=== PATIENT | female | born 1970 | race Caucasian/White ===

== ENCOUNTER → 2017-11-30 14:08 | Outpatient (CLI) | payer OTHER, SELFPAY ==
--- NOTE | 2017-11-30 14:38 | RAD_ITS ---
STUDY: X-RAY CHEST REASON FOR EXAM: Female, 47 years old. Psoriasis TECHNIQUE: Frontal and lateral views of the chest. # of Images: 2 COMPARISON: None. FINDINGS: The lungs are clear and expanded. There is no demonstrated pleural abnormality. Normal size heart. Normal mediastinum and estuardo. Normal visualized pulmonary arteries. Normal visualized aortic arch and descending thoracic aorta. Normal visualized thoracic spine. Normal visualized ribs, clavicles, and shoulders. There is no demonstrated abnormality of the visualized soft tissue structures of the upper abdomen. RAD/Chest PA and Lateral IMPRESSION: Normal x-ray examination of the chest. Electronically Signed: Chaka Sandoval MD at 14:58 EDT Tel , Service support ,
[2017-11-30 15:42] LABS: Absolute Lymphocyte Count 1.99 X10^3/ul (0.83-4.51); Absolute Neutrophil Count 2.7 X10^3/uL (2.0-7.7); Basophil# 0.02 X10^3/uL; Basophil% 0.4 % (0-1); Eosinophil# 0.14 X10^3/uL; Eosinophils% 2.7 % (0-5); Hematocrit 34.7 % (37-47); Lymphocyte # 1.99 X10^3/ul (4.0); Lymphocyte % 37.9 % (19-41); Mean Corp Hgb Conc 31.7 g/gl (32-36); Mean Corpuscular Hgb 26.3 pg (27.0-32.0); Mean Platelet Vol. 8.5 fl (6.2-12.0); Monocyte# 0.44 X10^3/uL; Monocyte% 8.4 % (0-10); Neutrophil # 2.65 X10^3/uL (2.7-7.7); Neutrophil % 50.4 % (47-70); Platelet Count 314 K/mm3 (150-450); RBC Distribution Width CV 14.1 % (11.6-14.6); RBC Distribution Width SD 42.1 fl (35.1-43.9); Red Blood Count 4.18 M/mm3 (4.2-5.4); White Blood Count 5.3 K/mm3 (4.4-11.0)
[2017-11-30 15:50] LABS: AST(SGOT) 15 U/L (15-37); Alanine Aminotransfer ALT/SGPT 23 U/L (13-56); Albumin, Serum 3.7 g/dL (3.2-5.0); Alkaline Phosphatase 81 U/L (45-117); Anion Gap 6 (5-15); BUN 7 mg/dL (7-18); Bilirubin, Direct 0.08 mg/dL (0.00-0.30); Calcium,Total 8.9 mg/dL (8.5-10.1); Chloride 104 mmol/L (98-107); Creatinine, Serum 0.78 mg/dL (0.55-1.02); EST Glomerular Filtration Rate 84 mL/min (>60); Est Glom Filt Rate - Afr Amer 102 mL/min (>60); Globulin 3.9 g/dL (2.2-4.2); Glucose 91 mg/dL (74-106); Potassium 4.3 mmol/L (3.5-5.1); Protein, Total 7.6 g/dL (6.4-8.2); Sodium Level 138 mmol/L (136-145)
[2017-11-30 16:03] LABS: POSITIVE COUNT NO; POSITIVE DIFFERENTIAL NO; POSITIVE MORPHOLOGY NO
[2017-12-02 04:09] LABS: HEPATITIS B SURFACE AG Negative (Negative)
[2017-12-02 08:31] LABS: Hep B Surface Antibodies Reactive (.); Hep C Antibodies <0.1 s/co ratio (0.0-0.9); Hepatitis B Core Ab Total Negative (Negative)
== END ==
PROVIDERS: Family Provider Nurse Practitioner; PCP Nurse Practitioner; Referring Provider Physician Assistant; Visit Provider Physician Assistant
DX: L40.0 Psoriasis vulgaris (principal); L40.59 Other psoriatic arthropathy; L57.0 Actinic keratosis
CPT/HCPCS: 36415; 71046; 80048; 80076; 85025; 86704; 86706; 86803; 87340

== ENCOUNTER → 2017-12-14 14:42 | Outpatient (CLI) | payer OTHER, SELFPAY | PROVIDERS: Family Provider Nurse Practitioner; PCP Nurse Practitioner; Referring Provider Physician Assistant; Visit Provider Physician Assistant | DX: J02.9 Acute pharyngitis, unspecified (principal) | CPT/HCPCS: 87081 ==

== ENCOUNTER → 2018-01-23 14:51 | Outpatient (CLI) | payer OTHER, SELFPAY ==
[2017-12-13 10:19] VITALS: BMI 30.4
--- NOTE | 2018-01-23 14:53 | RAD_ITS ---
STUDY: X-RAY LEFT FOOT, TOES REASON FOR EXAM: Female, 47 years old. Pain and redness in the left third digit. Also fungal infection in the fifth toe. TECHNIQUE: 3 view(s) of the toes were obtained. COMPARISON: None. FINDINGS: Normal visualized metatarsus. Normal metatarsophalangeal (M.T.P) joint. Normal interphalangeal joints. Normal phalanges and interphalangeal joints. The soft tissue structures are unremarkable. RAD/Toe(s) Min 2 Views IMPRESSION: Within normal limits x-ray of the toes. Electronically Signed: Dorinda Zaragoza MD at 10:35 EST Tel , Service support ,
[2018-01-23 19:00] LABS: Uric Acid 2.8 mg/dL (2.6-6.0)
--- OUTSIDE RECORDS SUMMARY | 2018-03-11 20:35 | XMS RPT_ITS | Continuity of Care Document ---
:1970 Author Organization [facility] Address [address] [facility] [address] [place] [address] Phone Care Team Providers Name Role Phone Arlyn SHINHeather E Unavailable Sy Lewis Jr Unavailable Physical Therapy, [facility] Unavailable [facility] Unavailable [facility], [facility] Unavailable Katty Orlando Unavailable Dr. Quinn Burgess Unavailable Annette Aleman Unavailable Unavailable Varghese BANERJEENYi Unavailable Unavailable Beatriz Palmer Unavailable Unavailable Nichelle Tristan DO Unavailable Slarb [employer] GRINDER APPRENTICE, Diann Unavailable Unavailable Unavailable Unavailable Problems Name Dates Details Abdominal pain, acute, right lower quadrant (R10.31, 789.03) Status: Active Abdominal pain, diffuse (R10.84, 789.00) Comments: recently restarted otesela, worse rlq Status: Active Anemia (D64.9, 285.9) Status: Active Anemia, unspecified (D64.9, 285.9) Status: Active ANGIOEDEMA, NOS (995.1) Status: Active Anxiety (F41.9, 300.00) Comments: chronic stable-continue present regimen, cymbalta and deplin improving Status: Active Arthritis (M19.90, 716.90) Status: Active Blurry vision, bilateral (H53.8, 368.8) Comments: [facility]) 01/28 : decresed tear film, eye changes due to psoriatic arthriotisHead CT: WNL (01/28) Status: Active BMI 31.0-31.9,adult (Z68.31, V85.31) Status: Active BMI 33.0-33.9,adult (Z68.33, V85.33) Status: Active BMI 34.0-34.9,adult (Z68.34, V85.34) Status: Active Breast cancer screening (Z12.31, V76.10) Status: Active BREAST PROCEDURE, NOS Comments: Biopsy Status: Active Breast tenderness (N64.4, 611.71) Status: Active Cervical pain (neck) (M54.2, 723.1) Status: Active Cervical radiculopathy (M54.12, 723.4) Comments: decreased range of motion pain from neck/should to mid arm or left wrist prn Status: Active Cough (R05, 786.2) Status: Active Deliveries (Parity) Comments: 2 Status: Active Depression (F32.9, 311) Comments: good with cymbalta Status: Active Depression (F32.9, 311) Comments: crying without provoke and unable to stop Status: Active Disorder of the skin and subcutaneous tissue, unspecified (L98.9, 709.9) Status: Active ECZEMA, NOS (692.9) Status: Active Elevated blood pressure (not hypertension) (R03.0, 796.2) Comments: check bps at home and call to me Status: Active Encounter for screening mammogram for breast cancer (Renamed from Encounter for screening mammogram for malignant neoplasm of breast) (Z12.31, V76.12) Status: Active Eustachian tube dysfunction (H69.80, 381.81) Status: Active Fatigue (R53.83, 780.79) Status: Active Fever (R50.9, 780.60) Status: Active Fibromyalgia (M79.7, 729.1) Status: Active Gestational DM (648.80) Status: Active Headache (R51, 784.0) Comments: multifactorial - predominantly muscle tension Status: Active Hemorrhoids (K64.9, 455.6) Status: Active History of gestational diabetes mellitus (Z86.32, V12.21) Comments: sugar normal encourage keep working on diet and ex Status: Active HTN (hypertension) (I10, 401.9) Comments: BP today 158/88On sudafed off and onCheck BP daily and call with BP reading in 2 weeks. Old BP cuff 5 yrs aold, get a new Status: Active Hypercholesteremia (E78.00, 272.0) Status: Active Low HDL (under 40) (E78.6, 272.5) Status: Active Migraine (G43.909, 346.90) Comments: per Bavis Status: Active Muscle spasm (M62.838, 728.85) Comments: Ct head: wnl(01/28)CBC, CMP, CK: wnlRefer to neurologySkelaxin BID PRN, helped mildy116 Muscle spasm toes , feet, back of leg, rib cage, back of torsoAll of a sudden, positional, hand lock up when gra bbing purseNumbness /tingling rt arm 1 week ago Numbness/tingling in left arm this morningOccasional blurry vision 2-3 times this month.(cannot read fine print things in distance )Denies headaches Status: Active Muscle strain (T14.8XXA, 848.9) Comments: rx cervical collar to reduce tension and stress temporarily Status: Active Nausea (R11.0, 787.02) Status: Active Neck pain (M54.2, 723.1) Status: Active Nipple discharge (N64.52, 611.79) Comments: left nipple Status: Active Nonsmoker (Z78.9, V49.89) Status: Active Other signs and symptoms in breast (N64.59, 611.79) Status: Active Other specified abnormal findings of blood chemistry (R79.89, 790.6) Status: Active Other specified viral infection, in conditions classified elsewhere and of unspecified site (B97.89, 079.89) Comments: because immonusuppressed, if not better at day 7 take antibiotic Status: Active Pain around eye, unspecified laterality (H57.10, 379.91) Status: Active Pain in thoracic spine (M54.6, 724.1) Status: Active Palpitations (R00.2, 785.1) Status: Active Paresthesia (R20.2, 782.0) Comments: try cock up splints if not better let me know Status: Active Pregnancies () Comments: 2 Status: Active Psoriasis (L40.9, 696.1) Status: Active psoriatic arthritis Status: Active Psoriatic arthropathy (L40.50, 696.0) Status: Active Right flank discomfort (R10.9, 789.09) Comments: resolved Status: Active Right flank discomfort (R10.9, 789.09) Comments: doubt stone think musculoskeletal Status: Active screening Status: Active Sinusitis, acute (J01.90, 461.9) Status: Active Sinusitis, chronic (J32.9, 473.9) Comments: On sudafed but BP are highUsed OTC allergy pill , not helps muchAllergic sinusitis, use desloratidine and fkonase nasal sprayclear nasal drainageSinus pressure after laying downNot yellow or green. Status: Active T wave inversion in EKG (R94.31, 794.31) Comments: Echo: 02/04/16: EF 65%Stress test: 01/28: WNL Status: Active Tachycardia (R00.0, 785.0) Comments: EKGEChotachycardia, can hear heart beat blood pumping in ear Status: Active telangiectasia Status: Active thoracic strain-improving Status: Active Thrush (B37.0, 112.0) Status: Active Thyroid fullness (E07.89, 246.8) Status: Active Toe pain, left (M79.675, 729.5) Status: Active Unspecified Diagnosis Status: Active Unspecified Diagnosis Status: Active Unspecified Diagnosis Status: Active Unspecified visual disturbance (H53.9, 368.9) Status: Active Upper respiratory infection (J06.9, 465.9) Status: Active Upper respiratory infection (J06.9, 465.9) Status: Active UTI symptoms (R39.9, 788.99) Status: Active Vertigo (R42, 780.4) Status: Active Medications Name Dates Details BENADRYL, 25MG (Oral Tablet) 2 (two) Tablet Tablet 1 hr prior to test for 0 days Quantity: 2 {Tablet} Refills: 0 Ordered:04-May-2015 Torri Velasco Start : 19-Aug-2013 Active Cymbalta 60 MG Oral Capsule Delayed Release Particles 1 (one) Capsule DR Part qam for 0 days Quantity: 30 {Capsule} Refills: 3 Ordered:16-Jan-2018 Heather Stoddard CNP, CNP, Mary E Start : 16-Jan-2018 Active Comments:dispense generic Deplin 15 15-90.314 MG Oral Capsule 1 (one) Capsule Capsule daily for 0 days Quantity: 30 {Capsule} Refills: 11 Ordered:03-Aug-2016 Diann Braxton LPN Start : 03-Aug-2016 Active DERMA-SMOOTHE/FS BODY, 0.01% (External Oil) apply to damp body sparingly Oil qd for 0 days Quantity: 4 {Ounce(s)} Refills: 0 Ordered:12-Jun-2015 Yi Kwong LPN Start : 12-Jun-2015 Active Comments:use sparingly -- a little goes a long way ProAir HFA 108 (90 Base) MCG/ACT Inhalation Aerosol Solution 1-2 Puff Q 4-6 hours PRN for 0 days Quantity: 1 {Inhaler} Refills: 0 Ordered:09-Mar-2017 Becca Cisneros Start : 09-Mar-2017 Active NEREYDA ALLERGY, 180MG (Oral Tablet) 1 Tablet daily for 0 days Quantity: 30 {Tablet} Refills: 0 Ordered:15-Nov-2011 Dina Spence LPN Start : 02-Nov-2010 End : 15-Nov-2011 Inactive AMOXICILLIN, 875MG (Oral Tablet) 1 Tablet bid for 10 days Quantity: 20 {Tablet} Refills: 0 Ordered:13-Jun-2013 Heather Stoddard CNP, CNP, Mary E Start : 13-Jun-2013 End : 23-Jun-2013 Inactive Comments:take a probiotic 2 hours after atb ANTIVERT, 12.5MG (Oral Tablet) 1 Tablet q6 hrs prn for 0 days Quantity: 30 {Tablet} Refills: 0 Ordered:20-Apr-2012 Dina Spence LPN Start : 05-Dec-2011 End : 20-Apr-2012 Inactive Augmentin 875-125 MG Oral Tablet 1 Tablet bid for 10 days Quantity: 20 {Tablet} Refills: 0 Ordered:09-Mar-2017 Becca Cisneros Start : 09-Mar-2017 End : 19-Mar-2017 Inactive Comments:Take with food CHERATUSSIN AC, 100-10MG/5ML (Oral Syrup) 1 Teaspoon(s) qhs prn cough for 0 days Quantity: 6 {Ounce(s)} Refills: 0 Ordered:21-Mar-2011 Dina Spence LPN Start : 02-Nov-2010 End : 21-Mar-2011 Inactive Comments:six ounces Cipro 500 MG Oral Tablet 1 Tablet Tablet bid for 7 days Quantity: 14 {Tablet} Refills: 0 Ordered:08-Dec-2015 Arlyn MELISSA, Heather Wright SHIN, Cris Start : 08-Dec-2015 End : 15-Dec-2015 Inactive CLARITHROMYCIN, 500MG (Oral Tablet) 1 (one) Tablet Tablet bid for 0 days Quantity: 20 {Tablet} Refills: 0 Ordered:25-May-2015 Cece Acevedo Start : 04-May-2015 End : 25-May-2015 Inactive CLOTRIMAZOLE, 10MG (Mouth/Throat Raquel) 1 (one) Raquel 5 x daily for 10 days Quantity: 50 {Raquel} Refills: 0 Ordered:11-May-2015 Rejisupa MELISSA, Heather Wright RESIDENT[employer] FRAMING CARPENTER, Cris Start : 11-May-2015 End : 21-May-2015 Inactive ETODOLAC CR, 400MG (Oral Tablet Extended Release 24 Hour) 2 (two) Tablet ER 24HR qd for 0 days Quantity: 30 {Tablet_ER_24HR} Refills: 0 Ordered:14-Jul-2009 Mast Anika CLOUD Start : 07-Jul-2009 Inactive Comments:with food FLONASE, 50MCG/ACT (Nasal Suspension) 2 (two) Puff(s) once daily for 0 days Quantity: 1 {Suspension} Refills: 0 Ordered:20-Apr-2012 Dina Spence LPN Start : 02-Nov-2010 End : 20-Apr-2012 Inactive FOLIC ACID, 1MG (Oral Tablet) 2 (two) Tablet daily for 365 days Refills: 0 Ordered:15-Nov-2011 Dina Spence LPN Start : 02-Nov-2010 End : 02-Nov-2011 Inactive Levaquin 500 MG Oral Tablet 1 (one) Tablet daily for 0 days Quantity: 10 {Tablet} Refills: 0 Ordered:02-Feb-2016 Varghese JUANJordyn Anthony Start : 08-Dec-2015 End : 02-Feb-2016 Inactive lortab 1 qd Inactive MELATONIN, 1MG (Oral Tablet) 1 tab qhs, prn for 0 days Refills: 0 Ordered:29-Jul-2009 Sirl, PattiInactive NASACORT AQ, 55MCG/ACT (Nasal Aerosol Solution) 2 (two) Aerosol Soln qd for 0 days Refills: 0 Ordered:02-May-2008 ROSANNA Boggs Start : 02-May-2008 End : 09-Sep-2008 Inactive OCUFLOX, 0.3% (Ophthalmic Solution) 1 Solution 1-2 -6 hrs for 7 days Quantity: 1 {Solution} Refills: 0 Ordered:17-Jun-2008 Heather Stoddard CNP, CNP, Mary E Start : 17-Jun-2008 End : 24-Jun-2008 Inactive PEPCID AC, 10MG (Oral Tablet) 1 qd (10 MG) Inactive PHENERGAN, 25MG/ML (Injection Solution) 1 Solution once only for 1 days Refills: 0 Ordered:16-Nov-2011 Yuki Vallecillo LPN Start : 15-Nov-2011 End : 16-Nov-2011 Inactive Comments:Lot #[id number]-right hipDose-25mggiven by: Adela Vallecillo LPN PREDNISONE, 10MG (Oral Tablet) 1/2 Tablet daily for 30 days Refills: 0 Ordered:09-Feb-2011 Dina Spence LPN Start : 02-Nov-2010 End : 02-Dec-2010 Inactive Rizatriptan Benzoate 10 MG Oral Tablet 1 (one) Tablet q 2 hours as needed for 0 days Quantity: 30 {Tablet} Refills: 0 Ordered:09-Mar-2017 Becca Cisneros Start : 03-Aug-2016 End : 09-Mar-2017 Inactive Comments:Medication taken as needed. neuro Skelaxin 800 MG Oral Tablet 1 (one) Tablet bid prn for 7 days Quantity: 14 {Tablet} Refills: 0 Ordered:15-Apr-2016 Heather Stoddard CNP, CNP, Heather Wells Start : 15-Apr-2016 End : 22-Apr-2016 Inactive TESSALON PERLES, 100MG (Oral Capsule) 1 (one) Capsule tid prn cougn for 0 days Quantity: 30 {Capsule} Refills: 0 Ordered:25-May-2015 Cece Acevedo Start : 11-May-2015 End : 25-May-2015 Inactive VALERIAN ROOT, 250MG (Oral Capsule) 2 caps q hs, prn for 0 days Refills: 0 Ordered:29-Jul-2009 Sirl, PattiInactive VALIUM, 5MG (Oral Tablet) 1 (one) Tablet qhs prn for 0 days Quantity: 10 {Tablet} Refills: 0 Ordered:11-Mar-2010 Becca Hernandez LPN Start : 02-Sep-2009 End : 11-Mar-2010 Inactive VICODIN, 5-500MG (Oral Tablet) 1 tab q 6hrs, prn (5-500 MG) Inactive NEREYDA-D 12 HOUR, 60-120MG (Oral Tablet Extended Release 12 Hour) 1 Tablet ER 12HR q12hrs for 0 days Quantity: 10 {Tablet_ER_12HR} Refills: 0 Ordered:18-Mar-2010 Dina Spence LPN Start : 18-Mar-2010 End : 02-Nov-2010 Discontinued Comments:This order discontinued per [facility]. ARAVA, 10MG (Oral Tablet) 1 Tablet daily for 30 days Quantity: 30 {Tablet} Refills: 0 Ordered:07-Apr-2015 Diann Braxton LPN Start : 30-Apr-2013 End : 07-Apr-2015 Discontinued BLACK COHOSH, 1000MG (Oral Capsule) 1 cap prn for 0 days Refills: 0 Ordered:29-Jul-2009 Zach Leanne End : 29-Jul-2009 Discontinued Comments:This order discontinued per [facility]. Cyclobenzaprine HCl 10 MG Oral Tablet 1-2 tabs Tablet q hs for 0 days Quantity: 30 {Tablet} Refills: 0 Ordered:03-Aug-2016 Diann Braxton LPN Start : 03-Oct-2013 End : 03-Aug-2016 Discontinued Comments:Dr. April ALCALA, 30MG/5ML (Oral Liquid Extended Release) 1 (one) Liquid ER Liquid ER q12hrs for 0 days Quantity: 6 {Ounce} Refills: 0 Ordered:07-Apr-2015 Diann Braxton LPN Start : 05-Jun-2013 End : 07-Apr-2015 Discontinued Desloratadine 5 MG Oral Tablet Dispersible 1 (one) Tablet Disperse daily for 30 days Quantity: 30 {Tablet} Refills: 2 Ordered:03-Aug-2016 Diann Braxton LPN Start : 17-Feb-2016 End : 03-Aug-2016 Discontinued HUMIRA PEN, 40MG/0.8ML (Subcutaneous Pen-injector Kit) 1 Kit 2 X mo for 30 days Quantity: 30 Kit Refills: 0 Ordered:07-Apr-2015 Diann Braxton LPN Start : 30-Apr-2013 End : 07-Apr-2015 Discontinued Hydrocodone-Acetaminophen 5-325 MG Oral Tablet 1 (one) Tablet q 6 hours prn for 0 days Quantity: 30 {Tablet} Refills: 0 Ordered:03-Aug-2016 Diann Braxton LPN Start : 21-Aug-2015 End : 03-Aug-2016 Discontinued Comments:thirty METHOTREXATE, 2.5MG (Oral Tablet) 5 Tablet once a week for 365 days Refills: 0 Ordered:09-Feb-2011 Sola Rea DO Start : 09-Feb-2011 End : 09-Feb-2011 Discontinued METHYLPREDNISOLONE, 32MG (Oral Tablet) 1 (one) Tablet Tablet 12hrs and 2hrs prior to test for 0 days Quantity: 2 {Tablet} Refills: 0 Ordered:07-Apr-2015 Diann Braxton LPN Start : 19-Aug-2013 End : 07-Apr-2015 Discontinued Otezla 30 MG Oral Tablet 1 (one) Tablet bid for 0 days Quantity: 30 {Tablet} Refills: 0 Ordered:03-Aug-2016 Diann Braxton LPN Start : 07-Apr-2015 End : 03-Aug-2016 Discontinued PASSION FLOWER, 250MG (PO Cap) 2 caps prn for 0 days Refills: 0 Ordered:29-Jul-2009 Leanne Serrano End : 29-Jul-2009 Discontinued Comments:This order discontinued per [facility]. PredniSONE 20 MG Oral Tablet 1 (one) Tablet qd for 0 days Quantity: 3 {Tablet} Refills: 0 Ordered:01-Dec-2015 Slarb PREC[employer] GRINDER APPRENTICE, Diann Start : 21-Aug-2015 End : 01-Dec-2015 Discontinued PROMETHAZINE HCL, 25MG (Oral Tablet) 1 Tablet q6hrs prn for nausea for 0 days Quantity: 10 {Tablet} Refills: 0 Ordered:07-Apr-2015 Slarb [employer] GRINDER APPRENTICE, Diann Start : 23-Dec-2013 End : 07-Apr-2015 Discontinued ROBAXIN, 500MG (Oral Tablet) 1 Tablet three times daily, as needed for 1440 days Refills: 0 Ordered:04-Sep-2012 Sola Rea DO Start : 04-Sep-2012 End : 04-Sep-2012 Discontinued Comments:Medication taken as needed. TRAMADOL HCL, 50MG (Oral Tablet) 1 Tablet three times daily, as needed for 1620 days Refills: 0 Ordered:07-Apr-2015 Slarb [employer] GRINDER APPRENTICE, Diann Start : 21-Mar-2011 End : 07-Apr-2015 Discontinued Comments:Medication taken as needed. Valium 2 MG Oral Tablet 1-2 Tablet Tablet bid prn muscle spams for 0 days Quantity: 60 {Tablet} Refills: 0 Ordered:03-Aug-2016 Slarb [employer] GRINDER APPRENTICE, Diann Start : 21-Aug-2015 End : 03-Aug-2016 Discontinued Comments:sixty Allergies and Adverse Reactions Name Dates Details Guiafenisin (Allergy) Status: Active Comments: trouble sleeping IODINE, 2% (External Swab) (Allergy) Status: Active Lodine *ANALGESICS - ANTI-INFLAMMATORY* Status: Active (Allergy) Comments: Angioedema, Rash NSAIDs (Allergy) Status: Active Comments: lip and face swelling Sulfa Drugs (Allergy) Status: Active Comments: -domonique baez sgeovanna Past Medical History Name Dates Details Abdominal pain, acute, generalized (R10.84, 789.07) Comments: think this is muscle tear seems to be getting better- Status: Resolved as of 04-Sep-2012 Abnormal urinalysis (Renamed from Abnormal finding on urinalysis) (R82.90, 791.9) Status: Inactive as of 21-Aug-2015 Acute bronchitis (J20.9, 466.0) Comments: 1988 Status: Inactive as of 17-Jul-2009 Allergic rhinitis (J30.9, 477.9) Status: Inactive as of 21-Aug-2015 Backache (M54.9, 724.5) Status: Inactive as of 21-Aug-2015 Benign paroxysmal positional vertigo, unspecified laterality (H81.10, 386.11) Status: Resolved as of 17-Jul-2012 Bursitis of hip (M70.70, 726.5) Status: Inactive as of 21-Aug-2015 Chest pain (R07.9, 786.59) Status: Resolved as of 17-Jul-2012 Chest pain (R07.9, 786.50) Comments: cardio work up neg, no new complaints Status: Resolved as of 17-Jul-2012 Cystitis, acute (N30.00, 595.0) Status: Resolved as of 04-Sep-2012 Dysuria (R30.0, 788.1) Comments: resolved with cipro Status: Resolved as of 30-Apr-2013 Epigastric pain (R10.13, 789.06) Comments: offered referral to Gi- at thispoint she wants to hold off =check echo Status: Inactive as of 04-Aug-2008 Fibromyalgia (M79.7, 729.1) Comments: chronic stable-continue present regimen Status: Inactive as of 21-Aug-2015 Hematuria (R31.9, 599.7) Status: Inactive as of 04-Aug-2008 Left flank pain (R10.9, 789.09) Comments: UAConsider CT scan for stone protocolstarted this morning, 04/22 , not getting worse, throbbingNo frequency, urgency, nocturia, dysuria. Status: Inactive as of 17-Feb-2016 Lymphadenitis,Acute (683.) (683) Status: Resolved as of 17-Jul-2012 nasal lesion- refer to Black Status: Inactive as of 04-Aug-2008 OTALGIA NOS (388.70) Status: Resolved as of 17-Jul-2012 Pharyngitis, acute (J02.9, 462) Status: Resolved as of 30-Apr-2013 screening Status: Inactive as of 30-Apr-2013 Serous conjunctivitis, unspecified laterality (H10.239, 372.01) Status: Inactive as of 04-Aug-2008 Shoulder pain (M25.519, 719.41) Comments: she is waiting for mri results Status: Inactive as of 21-Aug-2015 sinus congestion Status: Inactive as of 04-Aug-2008 Unspecified Diagnosis Status: Inactive as of 30-Apr-2013 Unspecified Diagnosis Status: Inactive as of 30-Apr-2013 Unspecified Diagnosis Status: Inactive as of 30-Apr-2013 Unspecified Diagnosis Status: Inactive as of 30-Apr-2013 Urinary frequency (R35.0, 788.41) Status: Inactive as of 21-Aug-2015 Procedures Date Value Details 13-Dec-2017 Urgent Care Visit Report Result: Comments: See Note; NOTES: [facility] [address] [place] [address] [address] [place] [address] OFFICE VISIT Date of Service: 12/13/17 MR#: [id number] Acct: [id number] Name: DEJA LIM Rep #: [id number] : 1970 Provider: Dick SPARKS Age/Sex: 47/F Location: [facility] Status: Signed Intake Vital Signs12/13/17 Height 5 ft 3 in 12/13/17 Weight: 172 lb 12/13/17 Body Mass Index (BMI) 30.4 12/13/17 Blood Pressure 132/84 H 12/13/17 Respiratory Rate 16 Intake Visit Reasons: STREP Chief Complaint: Sore throat Senior Partner Required: No Accompanied by: SELF Is patient in pain?: No Allerg ies NSAIDS (Non-Steroidal Anti-Inflamma Allergy (Mild, Verified 12/13/17 10:21) SWELLING/VOMITTING Sulfa (Sulfonamide Antibiotics) Allergy (Mild, Verified 12/13/17 10:21) SWELLING/VOMITTING Iodinated C ontrast- Oral and IV Dye [Iodinated Contrast Media - IV Dye] Allergy (Verified 12/13/17 10:21) Hives Medications duloxetine 20 mg capsule,delayed release 20 mg PO BID 12/13/17 [History Confirmed 11/15 03/02] melatonin 5 mg capsule mg PO cap 12/13/17 [History Confirmed 12/13/17] PFSH Medical History Arthritis (Acute) Chronic neck and back pain (Acute) Fi bromyalgia (Acute) HISTORY OF BONE SPUR IN SHOULDER (Acute) Knee pain (Acute) Shoulder pain (Acute) Social History Smoking Status: Never smoker alcohol intake: never HPI HPI Chief Complaint: Sore throat Details: DEJA LIM, is a 47 F who presents to the office today for initial evaluation sore throat times 2-3 days and bilateral axillary discomfort. She notes developing erythema with white exud ate to the same though no complaints of fever, chills, sweats, rash, cough, chest pain/shortness of breath. She notes painful swallowing with food and fluids though no difficulty passing food or fluids and no drooling. She does note having recently been prescribed Cosentyx by her assistant professor of spanish to assist with her psoriasis/psoriatic arthritis, having giving herself 2 injections of this medication today . She notes no other associated symptoms and no other alleviating or aggravating factors. ROS Const Constitutional: No other (ROS negative x10 other than as noted above) Exam Const General: cooperat gonzalez, healthy appearing, no acute distress, comfortable Nutritional Appearance: average body habitus Orientation: alert, awake, oriented x3 HENMT Head: normal to inspection Ears: hearing grossly normal b ilaterally, external ears normal, TM's normal bilaterally, EAC's normal Nose: external nose normal, nares normal, septum normal, no nasal discharge Face and sinus: normal facial exam, sinuses nontender, face symmetric Mouth: oral mucosae normal, lip normal, oropharynx normal, tongue normal Teeth and gingiva: gingiva normal, dentition normal Throat: uvula midline, posterior oropharynx normal, abnormal tonsil bilaterally (Rapid strep test today negative) erythema and exudates Eyes General: appearance normal, both eyes and all related structures Neck Neck: normal visual inspection, full ROM, no lymphad enopathy, no meningeal signs, supple Neck mass: No Thyroid: thyroid normal Lymphatic: no lymphadenopathy noted (To anterior/posterior cervical and bilateral axillary) Chest Chest palpation AND inspectio n: normal inspection of the chest Resp Effort AND Inspection: normal respiratory effort, able to speak in complete sentences, symmetric chest movement Auscultation: Bilateral: Clear to Auscultation Card io Palpation: normal PMI Rate: regular rate Rhythm: regular rhythm Heart Sounds: S1 normal, S2 normal, no gallops, no murmurs, no rubs Pulses: radial pulses present GI Inspection: normal to inspection P alpation: soft, no hepatosplenomegaly Skin General: no rashes or lesions noted Neuro General: alert, awake, oriented x3, gait normal Cognition: normal cognition Speech: speech normal Gait: normal gait M otor: muscle tone normal throughout Sensory Exam: no sensory deficits noted Extrem General: normal to inspection Psych Appearance: grossly normal Mental Status: mental status grossly normal Mood: congru ent mood Affect: normal affect Speech and Movement: speech and movement normal Attitude: cooperative Thought Process: normal Thought Content: normal Judgment: judgment good Results BMSRAPIDSTREPA Off ice Rapid Strep A Negative Last Edit by Abi Londono on 12/13/17 10:32 Assessment AND Plan Problems 1. Pharyngitis J02.9 Plan Patient aware today's rapid strep test was negative, therefore culture se nt to lab for further evaluation. Clear fluids, rest, Advil/Tylenol, saltwater gargles as needed for symptomatic relief. Patient is to inform her assistant professor of spanish and/or PCP regarding the above described s ymptoms in the HPI coupled with history of times 2 injections of Cosentyx to date. Patient states acknowledging understanding all the above. This note was generated with Simfinitation software. It ma y contain incorrect words, spelling, and punctuation that were not noted in checking the note before signing. Orders Orders: Coding Level of Care Code Off vis,new,level 3 Diagnoses Pharyngitis J02. 9 12/13/17 1054 <Electronically signed by Dick SPARKS> Date Dick SPARKS Cosigner Signature: Date (if applicable) CC: 30-Nov-2017 Chest PA and Lateral Result: Comments: See Note; NOTES: [facility] [address] [place] [address] Chest PA and Lateral MR#: [id number] Acct: [id number] Name: DEJA LIM Rep #: [id number] : 1970 F 47 From: Chaka Sandoval MD PCP: Heather Stoddard NP Status: REG CLI Study: Chest PA and Lateral Date of Exam: 11/30/17 Exam# [id number] Ordering Dr: Ayesha Howell PA-C STUDY: X-RAY CHEST CHRISTIANO SON FOR EXAM: Female, 47 years old. Psoriasis TECHNIQUE: Frontal and lateral views of the chest. # of Images: 2 COMPARISON: None. FINDINGS: The lungs are clear a nd expanded. There is no demonstrated pleural abnormality. Normal size heart. Normal mediastinum and estuardo. Normal visualized pulmonary arteries. Normal visualized aortic arch and descending thoracic ao rta. Normal visualized thoracic spine. Normal visualized ribs, clavicles, and shoulders. There is no demonstrated abnormality of the visualized soft tissue structures of the upper abdomen. RAD/Chest PA and Lateral IMPRESSION: Normal x-ray examination of the chest. Electronically Signed: Chaka Sandoval MD at 14:58 EDT Tel , Service support , CC: Heather Stoddard RELAY DISPATCHER; Ayesha Howell Cell Operation Supervisor: Signed 19-Sep-2016 Breast Limited Unilateral Result: Comments: See Note; NOTES: [facility] Imaging Services [address] [place] [address] Breast Limited Unilateral MR#: [id number] Acct: [id number] Name: DEJA LIM Rep #: [id number] : 1970 F 46 From: Fabricio Hanna MD PCP: Heather Stoddard Status: REG CLI Study: Breast Limited Unilateral Date of Exam: 09/19/16 Exam# [id number] Ordering Dr: Heather Stodadrd STUDY: ULTRASO UND BREAST - LEFT REASON FOR EXAM: Female, 46 years old. Left nipple discharge. TECHNIQUE: Axial and longitudinal images of the LEFT breast were performed with a high resolution ultrasound transducer. COMPARISON: Comparison is made with prior mammogram done earlier today. FINDINGS: LEFT Breast: There is evidence of a dilated retroareolar ducts. There is a 1.7 c m x 1.2 cm x 0.6 cm cyst at the 6:00 position of the breast at 1 cm from the nipple. US/Breast Limited Unilateral IMPRESSION: Dilated subareolar ducts. Findings suggestive of a 1.7 cm x 1.2 cm x 0.6 cm cyst at the 6:00 position breast at 1 cm from the nipple. ASSESSMENT CATEGORY: BIRADS Category 2: Benign. A letter regarding these results will be sent to the patient by the facility within 30 days. Electronically Signed: Fabricio Hanna MD at 8:17 EDT Tel [phone], Service support [phone], CC: Heather Stoddard Cell Operation Supervisor: Signed 19-Sep-2016 DIAG MAMM W/CAD, BILAT Result: Comments: See Note; NOTES: [facility] Imaging Services [address] [place] [address] DIAG MAMM W/CAD, BILAT MR#: [id number] Acct: [id number] Name: DEJA LIM Rep #: [id number] : 1970 F 46 From: Fabricio Hanna MD PCP: Heather Stoddard Status: REG CLI Study: DIAG MAMM W/CAD, BILAT Date of Exam: 09/19/16 Exam# [id number] Ordering Dr: Heather Stoddard MAMMOGRAPHY - BILATE RAL SCREENING REASON FOR EXAM: Female, 46 years old. Routine annual screening examination. PERTINENT HISTORY: Left nipple discharge. TECHNIQUE: Digital bilateral breast rylee (3D mammographic acquisit ion) in the CC and MLO projections. 2-D mediolateral oblique (MLO) and craniocaudad (CC) views of both breasts were obtained. CAD: Full Field Digital Mammography with Computer Added Detection was perfor med. COMPARISON: Comparison is made with prior study dated May 18, 2015 and October 03, 2013. FINDINGS: Breast Composition: The breasts are heterogeneously dense, w hich may obscure small masses. There are no dominant masses or suspicious calcifications. No other significant abnormalities are identified. There has been no significant change since the prior study. HPBI/DIAG MAMM W/CAD, BILAT IMPRESSION: Stable bilateral screening mammogram. With the patient's history of left nipple discharge, correlation w ith ultrasound is recommended. ASSESSMENT CATEGORY: BIRADS Category 0: Incomplete. Need additional imaging evaluation. A letter regarding these results will be sent to the patient by the facility within 30 days. Approximately 10% of breast cancers are not detected by mammography. A normal mammogram should not delay biopsy of a clinically suspicious abnormality. [id number] Electronically Signed: Fabricio Hanna MD at 15:52 EDT Tel [phone], Service support , CC: Heather Stoddard Cell Operation Supervisor: Signed 03-Aug-2016 Thyroid Result: Comments: See Note; NOTES: [facility] Imaging Services [address] [place] [address] Verdana 4d Thyroid MR#: [id number] Acct: [id number] Name: DEJA LIM Rep #: [id number] OB: 1970 F 46 From: Torri Pike MD PCP: Heather Stoddard Status: REG CLI Study: Thyroid Date of Exam: 08/03/16 Exam# [id number] Ordering Dr: Heather Stoddard STUDY: THYROID ULTRASOUND REASON FOR EXAM : Female, 46 years old. Goiter TECHNIQUE: Ultrasound evaluation of the thyroid was performed with real-time and static lui-scale imaging. COMPARISON: None. FINDIN GS: RIGHT LOBE: The right lobe of the thyroid gland measures 5.7 x 1.2 x 1.7 cm. There is a homogeneous echotexture. There are no demonstrated solid, cystic or complex lesions. LEFT LOBE: The left lob e of the thyroid gland measures 3.6 x 0.9 x 1.7 cm. There is a homogeneous echotexture. There are no demonstrated solid, cystic or complex lesions. ISTHMUS: The isthmus measures 4.0 mm. The regional l ymph nodes are normal. US/Thyroid IMPRESSION: The thyroid is normal in size and echogenicity without masses. Electronically Signed: Torri lindquist MD at 23:26 EDT Tel [phone], Service support , CC: Heather Stoddard Cell Operation Supervisor: Signed 08-Jun-2016 Brain W/WO Contrast Result: Comments: See Note; NOTES: [facility] Imaging Services [address] [place] [address] Verdana 4d Brain W/WO Contrast MR#: [id number] Acct: [id number] Name: DEJA LIM Rep #: [id number] : 1970 F 46 From: Quinn Olivera MD PCP: Heather Stoddard Status: REG CLI Study: Brain W/WO Contrast Date of Exam: 06/08/16 Exam# [id number] Ordering Dr: Sy Lewis MD STUDY: MRI BRAI N WITH AND WITHOUT CONTRAST REASON FOR EXAM: Female, 46 years old. Facial droop with tingling and twitching TECHNIQUE: Standardized multiplanar fat and water weighted pulse sequences were obtained. 8 ml of Gadavist contrast material was administered intravenously for the contrast portion of the examination. COMPARISON: None. FINDINGS: Normal size of the ventricl es and extra-axial spaces for the patient's age. Normal white matter tracts of the supratentorial brain. Normal bilateral basal ganglia. Normal thalami. There is no extra-axial fluid accumulation. Nor mal flow voids within the major intracranial circulation suggesting patency by spin echo criteria. Normal venous enhancement. There is no enhancing intra- axial or extra-axial abnormality. Normal sella turcica, pituitary gland, infundibular stalk, optic chiasm and hypothalamus. Normal tectal plate and pineal gland. Normal midbrain, aleks and medulla. Normal cerebellum. Normal basal cisterns. Normal bi lateral temporal bones. Normal bilateral internal auditory canals. No demonstrated orbital abnormality, within the constraints of a routine brain study. There is minor mucosal thickening within the eth moid sinuses.. Normal calvarium and skull base. Normal visualized soft tissue structures. Normal visualized upper cervical spine. MRI/Brain W/WO Contrast IMPRESSION: Normal unenhanced and enhanced MRI of the brain. Mild bilateral ethmoid sinus disease Electronically Signed: Quinn Olivera MD at 20:16 EDT , Service lees pport , CC: Heather Lewis Cell Operation Supervisor: Signed 08-Jun-2016 Spine Thoracic W/WO Contrast Result: Comments: See Note; NOTES: [facility] Imaging Services [address] [facility] [place] [place] [address] Verda 4d Spine Thoracic W/WO Contrast MR#: [id number] Acct: [id number] Name: DEJA LIM Rep #: [id number] : 1970 F 46 From: Quinn Olivera MD PCP: Heather Stoddard Status: REG CLI Study: Spine Thoracic W/WO Contrast Date of Exam: 06/08/16 Exam# [id number] Ordering Dr: Sy Lewis MD STUDY: MRI THORACIC SPINE WITH AND WITHOUT CONTRAST REASON FOR EXAM: Female, 46 years old. Hand tingling and twitching TECHNIQUE: 8 ml of Gadavist was administered intravenously for the contrast po rtion of the examination. COMPARISON: None. FINDINGS: Normal kyphosis of the thoracic spine. There is no substantial scoliosis. Interosseous hemangiomata are noted within the T7, T11 and L1 vertebral bodies T1-2, T2-3, T3-4, T4-5, T5-6, T6-7, T7-8, T8-9, T9-10, T10-11, T11-12: Normal endplates. Normal disc hydration, heights and morphology of the corresponding int ervertebral discs. Normal central canal. There is a perineural cyst within the right nerve root foramen at T11-12 Normal visualized thoracic cord. Normal conus medullaris that terminates at L1 The soft tissue structures are unremarkable. There is no enhancing abnormality. MRI/Spine Thoracic W/WO Contrast IMPRESSION: No significant bony abnorma lity No focal disc protrusion spinal stenosis or cord compression.. Perineural cyst in the right nerve root foramen at T11-12 likely of no significance Electronically Signed: Quinn Olivera MD at 19:26 EDT , Service support , CC: Heather Stoddard; Sy Lewis Cell Operation Supervisor: Signed 19-Apr-2016 Gallbladder Result: Comments: See Note; NOTES: [facility] Imaging Services [address] [place] [address] Verdana 4d Gallbladder MR#: [id number] Acct: [id number] Name: DEJA LIM Rep #: [id number] : 1970 F 45 From: Dustin Casanova MD PCP: Heather Stoddard Status: REG CLI Study: Gallbladder Date of Exam: 04/19/16 Exam# [id number] Ordering Dr: Heather Stoddard STUDY: ULTRASOUND GALLBLADD ER REASON FOR VISIT: Female, 45 years old. Right-sided abdominal pain TECHNIQUE: Ultrasound evaluation of the gallbladder was performed with real-time and static liu-scale imaging. TECHNICAL QUALITY : Adequate. COMPARISON: None. FINDINGS: Gallbladder: Normal distended gallbladder. The gallbladder wall measures 2.4 mm. There is a negative sonographic Breen's s ign. There is no pericholecystic fluid. There are no gallstones. Common Bile Duct (C.B.D.): The common bile duct measures 5.2 mm. US/Gallbladder I MPRESSION: Normal gallbladder ultrasound examination. Electronically Signed: Dustin Casanova, at 22:14 EST Tel , Service support [phone], CC: Heather Stoddard Cell Operation Supervisor: Signed 04-Feb-2016 Echocardiogram Complete Result: Comments: See Note; NOTES: [facility] Cardiovascular Services [address] [place] [address] Echo Complete 02/04/16 0927 MR#: [id number] Acct: [id number] Name: DEJA LIM Adenike Garcia p #: [id number] : 1970 45 From: Zeyad Briseno MD Attending Dr: Rudy Mondragon Status: REG CLI Ordering Dr: Rudy Mondragon Date: 02/04/16 Location: [facility] Sex: F C Admitted: Reason For Study: Tachyc ardia Procedure This was a 2D Doppler, Color Flow transthoracic echocardiogram. Exam performed in department. Left Ventricle Normal size and thickness. The estimated ejection fraction is 65 %. Normal diastology for age. No regional wall motion abnormalities noted. Right Ventricle Normal size and thickness. Normal systolic function. Atria Normal left atrium. Normal right atrium. Normal atrial septu m. Mitral Valve The mitral valve is structurally normal. No prolapse or stenosis seen. Trivial mitral valve insufficiency. Tricuspid Valve Normal tricuspid valve. Unable to estimate RV systolic pressu re/pulmonary artery pressure due to technically difficult study. Aortic Valve Normal aortic valve. Trisinus/trileaflet aortic valve. Pulmonic Valve The pulmonic valve is not well visualized. Great Ves sels Normal aortic root. Normal arch. Normal inferior vena cava. Inferior vena cava collapse with respiration. Pericardium/Pleural No pericardial effusion. MMode/2D Measurements & Calculations LVIDd: 4.0 cm IVSd: 1.1 cm Ao root diam: 2.4 cm LVIDs: 2.2 cm LVPWd: 1.2 cm LA dimension: 3.6 cm RVDd: 2.5 cm FS: 44.6 % _ LAV(MOD-bp): 31.8 ml LA A4 area: 12.9 cm2 RA A4 area: 12.9 cm2 LAV(MOD-bp) Indexed: 17.0 ml/m2 LAV(MOD-sp2): 29.5 ml LAV(MOD-sp4): 31.8 ml Doppler Measurements & Calculations MV E max matthew: 66 .1 cm/sec Lat Peak E' Matthew: 7.3 cm/sec Med Peak E' Matthew: 7.5 cm/sec MV A max matthew: 82.3 cm/sec E/E' lat: 9.1 E/E' med: 8.8 MV E/A: 0.80 Ao V2 max: 128.1 cm/sec LV V1 max: 106.4 cm/sec PA V2 max: 122.3 cm/sec Ao max P.6 mmHg LV V1 max P.5 mmHg Interpretation Summary The estimated ejection fraction is 65 %. Normal di astology for age. Trivial mitral valve insufficiency. Unable to estimate RV systolic pressure/pulmonary artery pressure due to technically difficult study. There is no comparison study available. ____ Ordering Physician: Rudy Mondragon Performed By: Kerri Lozano ALEX 02/04/16 175 Date Zeyad Briseno MD CC: Rudy Mondragon Date Dictated: 02/04/16926 Date Transcribed: 02/04/161753 Cell Operation Supervisor: Signed 04-Feb-2016 Brain/Head without Contrast Result: Comments: See Note; NOTES: [facility] Imaging Services [address] [place] [address] Verda 4d Brain/Head without Contrast MR#: [id number] Acct: [id number] Name: DEJA LIM Rep #: [id number] : 1970 F 45 From: Lane Harrison MD PCP: Rudy Mondragon Status: REG CLI Study: Brain/Head without Contrast Date of Exam: 02/04/16 Exam# [id number] Ordering Dr: Rudy Mondragon STUDY : CT BRAIN WITHOUT CONTRAST REASON FOR EXAM: Female, 45 years old. Blurred vision RADIATION DOSAGE (If Supplied By Facility): CTDIvol = ( 44.99 ) mGy, DLP = ( 762.36 ) mGycm TECHNIQUE: Transaxial CT imaging of the brain was performed without administration of intravenous contrast material. Individualized dose optimization techniques were used for this CT. COMPARISON: MRI from 2009 FINDINGS: Normal soft tissue structures. Normal calvarium. Normal size ventricles and extra-axial spaces for the patient's age. Normal white matter tracts of the cerebral hemisphe res. Normal basal ganglia and thalami. Normal brainstem. Normal cerebellum. There is no intracranial hemorrhage. There are no findings of an acute ischemic infarction. Normal visualized paranasal sinu ses. CT/Brain/Head without Contrast IMPRESSION: Normal unenhanced CT scan of the brain. Electronically Signed: Mikey Harrison MD at 10:36 EST Tel , Service support [phone], CC: Rudy Mondragon Cell Operation Supervisor: Signed 04-Feb-2016 Nuclear Stress Test - Treadmil Result: Comments: See Note; NOTES: [facility] Imaging Services [address] [place] [address] Emeryumbarger 4d Nuclear Stress Test - Treadmil MR#: [id number] Acct: [id number] Name: Francisco LIM RADHA Jeong Rep #: [id number] : 1970 45 From: Dave Whitt MD Primary Care: Rudy Mondragon Status: REG CLI Ordering Dr: Rudy Mondragon Sex: F C DATE OF SERVICE: 02/04/2016 EXERCISE TOLERANCE TEST: Th e patient exercised on a Antonio protocol for 9 minutes completing stage 3, achieving a peak heart rate of 173 beats per minute (98% predicted maximum heart rate) and a peak blood pressure of 170/82 mmHg and a peak MET capacity of approximately 10 METs. The baseline ECG demonstrated normal sinus rhythm. The peak exercise ECG demonstrated no obvious ECG changes. There were no cardiac dysrhythmias prete st, during exercise, or recovery. The functional capacity was considered good. The patient had no complaint of chest discomfort during exercise or recovery. The examination was discontinued secondary to dyspnea. IMPRESSION: 1. Technically adequate (percent predicted maximum heart rate greater than 85%), exercise tolerance test. 2. Negative (adequate) ECG exercise tolerance test. 3. Nuclear images pending. MYOCARDIAL PERFUSION IMAGING STUDY: TECHNIQUE: The patient was injected with 11.7 mCi of Tc99m Cardiolite and subsequently rest SPECT Cardiolite nuclear imaging was obtained in the horizontal long, vertical long and short axes views. The patient exercised on a Antonio protocol for 9 minutes completing stage 3, achieving a peak heart rate of 173 beats per minute (98% predicted maximum heart ra te) and a peak blood pressure of 170/82 mmHg and a peak MET capacity of 10 METs. The patient was injected with 34.4 mCi of Tc99m Cardiolite and subsequently stress SPECT Cardiolite nuclear imaging was o btained in the horizontal long, vertical long, and short axes views. A gated Cardiolite study at peak stress was obtained. INTERPRETATION: Rest and stress SPECT Cardiolite nuclear imaging, status post realignment, normalization, and attenuation correction demonstrates areas of extracardiac/hepatic and gastrointestinal tracer uptake near the inferior segments at rest, which appear to be improved and/o r absent following stress. Otherwise, there appears to be relative uniform tracer uptake and myocardial perfusion appearing within normal limits. There were no myocardial perfusion deficits noted on the stress polar map images. There is end systolic thickening and brightening. The gated Cardiolite study demonstrates myocardial thickening and inward wall motion. The reported LVEF was 70%. IMPRESSION: 1. Rest and stress SPECT Cardiolite nuclear imaging demonstrates appearance of relative uniform tracer uptake and myocardial perfusion appearing within normal limits. 2. The gated Cardiolite study repor ts an LVEF of 70%. Dave Whitt MD T: [facility] JOB: [id number] 02/04/16 2045 <Electronically signed by Dave Whitt MD> Date Dave sánchez MD CC: Rudy Mondragon Date Dictated: 02/04/16 1012 Date Transcribed: 02/04/16 1012 Cell Operation Supervisor: Signed 21-Aug-2015 Cerv Spine 4 or 5 Views Result: Comments: See Note; NOTES: [facility] Imaging Services [address] [place] [address] Verdana 4d Cerv Spine 4 or 5 Views MR#: [id number] Acct: [id number] Name: DEJA SMART Rep #: [id number] : 1970 F 45 From: Fabricio Hanna MD PCP: Rudy Mondragon Status: REG CLI Study: Cerv Spine 4 or 5 Views Date of Exam: 08/21/15 Exam# [id number] Ordering Dr: Nichelle Artis DO STUDY: X-RAY - CERVICAL SPINE REASON FOR EXAM: Female, 45 years old. Chronic neck pain. TECHNIQUE: 5 view(s) of the cervical spine were obtained including oblique views. XOCHILT RISON: None FINDINGS: Normal anterior atlantoaxial articulation. Normal odontoid process. There is straightening of the normal cervical lordosis. Anterior spon dylosis is seen at the C6-C7 level. Disc space narrowing at the C6-C7 level. Normal visualized intervertebral neuroforamina. The soft tissue structures are unremarkable. IMPRESSION: There is straightening of the normal cervical lordosis with anterior spondylosis and disc space narrowing at the C6-C7 level. Electronically Signed: Fabricio Hanna MD 29/08/07 at 15:48 EDT Tel [phone], Service support [phone], RAD/Cerv Spine 4 or 5 Views IMPRESSION: There is straightening of the normal cervical lordo sis with anterior spondylosis and disc space narrowing at the C6-C7 level. Electronically Signed: Fabricio Hanna MD at 15:48 EDT Tel [phone], Service support [phone], Fax CC: Nichelle Tristan DO; Rudy Mondragon Cell Operation Supervisor: Signed 06-Aug-2015 PT D/C Summary (1) Result: Comments: See Note; NOTES: [facility] [address] [place] [address] Fax REHABILITATION SE [place] DISCHARGE SUMMARY MR#: [id number] Acct: [id number] Name: DEJA LIM Rep #: [id number] : 1970 45 From: Flakita Gonsalez PT, Cert. MDT Referring DrChandrika: Sola Rea DO Status: REG RCR Insurance: [employer] - PT D/C Summary It has been my pleasure to treat DEJA LIM under orders from Sola Rea DO, for the diagnosis of BACK AND NECK PAIN for a total of 7 visit(s). Disch arge Date: Please see the following information for a summary of their discharge status. - Subjective Subjective: PATIENT ARRIVED LATE. PATIENT REPORTS SHE HAS NOT BEEN ABLE TO COME CONSISTANTLY DUE TO MULTIPLE THINGS INCLUDING NOT FEELING WELL, HER DAUGHTER BEING ILL AND OF A LOVED ONE. SHE REPORTS SHE DOES NOT WANT TO COME BACK TO AQUATIC THERAPY BECAUSE THE LOCKER ROOM IS TOO COLD FO R HER. PATIENT REPORTS NECK AND LEFT ELBOW PAIIN. HER ELBOW PAIN IS ACTUALLY 5/10. PATIENT REPORTS SINCE STATING PT HER ACTIVITY LEVEL HAS IMPROVED. SHE FEELS LIKE THERAPY HAS GOTTEN HER MOVING MORE. A BLE TO WORK MORE TOO. OVER-ALL SHE DOESN'T FEEL LIKE HER PAIN IS MUCH BETTER. PATIENT REPORTS SHE HAS NOW BEEN OFF OR IRREGULARLY ON HER ARTHRITIS MEDICATION FOR ABOUT 5 WEEKS. SHE IS PLANNING TO TRY TO GET BACK ON IT SOON SHE CAN BUT SHE WILL NEED TO TAPER BACK ON . SHE HAD TO STOP IT BECAUSE OF AN UPPER RESPIRATORY INFECTION. SHE DID LIKE THE AQUATIC THERAPY ITSELF JUST NOT EVERYTHING BEFOR E AND AFTER. - Pain neck Pain Intensity (Out of 10): 3 - Overall Improvement % Improvement: 45 - Objective Objective/Function: UPON EXAMINATION, PATIENT THERE ARE NO SIGNIFICANT CHANGES SE EN SINCE INITIAL EVAL EXCEPT HER NECK ROM IS LIMITED INTO LEFT ROTATION TODAY (MINIMALLY) AND BILATERAL NECK ROTATION IS PAINFUL WITH TESTING TODAY. SHE ALSO HAS TENDERNESS AND INCREASED MUSCLE TONE W ITH PALPATION OF BILATERAL UPPER TRAP AND PARASPINAL MUSCLES. SHE IS NOT HOWEVER TENDER IN THE LEFT ELBOW AND ARNEL UE STRENGHT IS 5/5 WITH MMT. - Goals Goal 1:: DECREASE C/O NECK AND BACK PAIN Goal Progress: Not Progressing Goal 2:: IMPOROVE BENDING, LIFTING, ADL AND WORK FUNCTION Goal Progress: Progressing Goal 3:: INDEP EX PROGRAM Goal Progress: Not Progressing - Plan Plan: CHANGE TO LAND BASED PT TO INCLUDE US NEEDED FOLLOWED BY NECK AND BACK MASSAGE. CONTINUE INSTRUCTION IN PROPER POSTURE CONTROL, PROPER BODY MECHANICS, POSTURAL STRENGTHENING, DLS AND HEP INST TOLERATED. PROGR ESS SLOWLY WITH THER-EX PLEASE - D/C Information If there are questions or concerns regarding this patient's physical therapy, please feel free to call me at [phone]. Thank you for the referral of this patient. Sincerely, Flakita Gonsalez <Electronically signed by Flakita Gonsalez PT, Cert. MDT> 08/06/15 1250 CC: Sola Rea DO DEREJE Signed 18-May-2015 Bilat Scrn Digital AND CAD Result: Comments: See Note; NOTES: [facility] Imaging Services [address] [place] [address] Verdana 4d Bilat Scrn Digital AND CAD MR#: [id number] Acct: [id number] Name: DEJA LIM Rep #: [id number] : 1970 F 44 From: Fabricio Hanna MD PCP: Sola Rea DO Status: REG CLI Study: Bilat Scrn Digital AND CAD Date of Exam: 05/18/15 Exam# [id number] Ordering Dr: Sola Rea DO MAMMOGRAPHY - BILATERAL SCREENING REASON FOR EXAM: Female, 44 years old. Routine annual screening examination. PERTINENT HISTORY: Aunt with breast cancer. TECHNIQUE: Digita l bilateral breast tomosynthesis (3-D mammographic acquisition) in the CC and MLO projections. Synthesized 2-D images (C-View reconstruction from tomosynthesis acquisition) providing bilateral breast CC and MLO views. Mediolateral oblique (MLO) and craniocaudad (CC) views of both breasts were obtained. CAD: Full Field Digital Mammography with Computer Added Detection was performed. COMPARISON: Comparison is made with prior study dated October 03, 2013. FINDINGS: Breast Composition: The breasts are heterogeneously dense, which may obscure small masses. There are no dominant masses or suspicious calcifications. No other significant abnormalities are identified. There has been no significant change since the prior study. IMPRESSION: Stable bilateral screening mammogram. Yearly follow-up mammogram recommended. (A) ASSESSMENT CATEGORY: BIRADS Category 1: Negative. A le tter regarding these results will be sent to the patient by the facility within 30 days. Approximately 10% of breast cancers are not detected by mammography. A normal mammogram should not delay biop sy of a clinically suspicious abnormality. [id number] Electronically Signed: Fabricio Hanna MD at 8:19 EDT Tel [phone], Service support [phone], CC: Dary Rea DO Cell Operation Supervisor: Signed 11-May-2015 Inital Evaluation (1) - PT Result: Comments: See Note; NOTES: [facility] [address] [place] [address]. [address] [place], [place] [id number] Fax REHABILITATION SE RVICES INITIAL EVALUATION MR#: [id number] Acct: [id number] Name: DEJA LIM Rep #: [id number] : 1970 44 From: Flakita Gonsalez PT, Cert. MDT Referring Dr.: Sola Rea DO Status: REG RCR Insurance: [employer] Date: Patient's Visit Information DEJA LIM is a 44 year old F referred to Physical Therapy by Sola Rea with a diagnosis of BACK AND NECK PAIN. 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 Di sability: NO. Present symptoms: INTERMITTENT NECK AND BACK. INTERMITTENT ARNEL UE AND FOOT NUMBNESS AND TINGLING. Present since: ABOUT 20 YEARS AGO BUT ABOUT 2 WEEKS AGO SHE FELL OVER HER DOG AND FEELS A NEW PAIN IN HER NECK THAT SHOT THROUGH TO HER THROAT. Pain Scale: 0-8/10. Currently: 0/10. SLOWLY WORSENING. Commenced as a result of: TOO MUCH LIFTING AND SEVERAL FALLS? Symptoms at onset: MID BACK . Worse: MOTION. REPETATIVE BENDING, MOPPING, LIFTING, AND TWISTING. Better: SLEEP, MASSAGE. Disturbed sleep: NO. Previous treatment: 4 OR 5 EPISODES WITH CHIROPRACTOR, TRACTION, PT, PRESCRIPTION MEDI CATIONS. NO SPINAL SURGERY OR INJECTIONS. Coughing/sneezing/straining: STRAINING. DIFFICULTY SWOLLOWING: NO. DIZZINESS: NO. TINNITIS: OCCASIONALLY. NAUSEA: NO. Gait: NORMAL. Difficulty initiating urin atin: NO. Accidents: NO. Unexplained weight loss: NO. Imaging: NONE RECENT OR PATIENT UNSURE OF RESULTS. PMH: UNDERLYING INFLAMMATORY DISORDER, FIBROMYALGIA, SEVERE ALLERGIES TO NSAIDS, PSORIATIC ARTH RITIS, H/O RIGHT SHOULDER BUSITIS AND LEFT HIP BURSITIS. H/O ANEMIC. Recent major surgery: NO - Objective Sitting Posture: POOR. Standing Posture: POOR. Lordosis: NORMAL. Lateral shift: NO. Relevan t shift: NO. Active Correction of posture: BETTER. Other Observations: GOOD SPINE AND EXTREMITY MOBILITY IN GENERAL. Motor deficit: NOT IN EXTREMITIES. Sensory deficit: NO. ROM deficit: NOT IN EXTREMI TIES. Dural Signs: NEGATIVE. Lumbar and Cervical mvmt loss: NO. Core strength: POOR. Palpation: NO LOCALIZED PALPABLE TENDERNESS BUT INCREASED MUSCLE TONE OF PARASPINALS. OTHER: SEATED CERVICAL DISTRAC TION TESTING HAS NO EFFECT. NO TESTING PROVOKED PAIN TODAY BUT AT THE END OF THE SESSION PATIENT REPORTED THAT SHE THOUGHT IT MIGHT START HURTING IN HER NECK WHEN SHE WAS LYING PRONE. TREATMENT: POSTU RE CORRECTION - Goals Goal 1:: DECREASE C/O NECK AND BACK PAIN Goal Time Frame: 6-8 Weeks Goal 2:: IMPOROVE BENDING, LIFTING, ADL AND WORK FUNCTION Goal Time Frame: 6-8 Weeks Goal 3:: INDEP EX SC OGRAM Goal Time Frame: 6-8 Weeks - Rehabilitation Potential Rehabilitation Potential: Good - Anticipated Interventions Patient/Client Instruction: Educate patient on: Condition, Plan of Care, Ris k Factors, Benefits of Fitness Program For the Purpose of:: To improve self management Therapeutic Exercise to Include: Strength training, Endurance training, Body mechanics, Postural training, &amp ;#34;In an aquatic setting, Dynamic Lumbar Stabilization, Scapular Strength/ Stabilization For the Purpose of:: To decrease pain, To decrease swelling/inflammation, To improve ability of physi yoni actions for home/community/work/leisure Thank you for the opportunity to evaluate your patient. For Medicare and Medicare HMO plans, please review the plan of care and approve it. It will ne ed to be FAXED BACK to us at [phone] for Medicare purposes. Please let me know if there are questions or concerns regarding this plan of care. Physician Signature: Date: <Electronically signed by Flakita Gonsalez PT, Cert. MDT> 05/11/15 1556 CC: Sola Rea DO DEREJE Signed For Medic are only, by signing this I certify the plan of care. Physicians Signature Date 03-Oct-2013 Bilat Scrn Digital & CAD Result: Comments: See Note; NOTES: [facility] Imaging Services [address] [place] [address] Breast Imaging Report MR#: [id number] Acct: [id number] Name: DEJA LIM Adenike Rep #: [id number] : 1970 F 43 From: Fabricio Hanna MD PCP: Sola Rea DO Status: REG CLI Exam# [id number] Ordering Dr: Sola Rea DO MAMMOGRAPHY - BILATERAL SCREENING REASON FOR EXAM: Fema le, 43 years old. Routine annual screening examination. PERTINENT HISTORY: Non-contributory. TECHNIQUE: Digital examination. Mediolateral oblique (MLO) and craniocaudad (CC) views of both breasts were obtained. CAD: CAD was performed on this study. COMPARISON: Comparison is made with prior study dated May 16, 2007. FINDINGS: Breast Composition: The leandro asts are extremely dense, which lowers the sensitivity of mammography. There are no dominant masses or suspicious calcifications. No other significant abnormalities are identified. There has been n o significant change since the prior study. IMPRESSION: Stable bilateral screening mammogram. Yearly follow-up recommended. (A) ___ ASSESSMENT CATEGORY: BIRADS Category 2: Benign finding(s). A letter regarding these results will be sent to the patient by the facility within 30 days. Approximately 10% of breast cancers are not detected by mammography. A normal mammogram should not delay biopsy of a clinically suspicious abnormality. Electronically Signed: Fabricio Hanna MD at 14:29 EDT Tel [phone], Service support [phone], CC: Sola Rea DO; Brenden Fortune MD Cell Operation Supervisor: Signed 13-Aug-2013 Abdomen/Pelvis without Cont Result: Comments: See Note; NOTES: [facility] Imaging Services [address] [place] [address] CAT Scan Report MR#: [id number] Acct: [id number] Name: DEJA LIM Rep #: [id number] : 1970 F 43 From: Fabricio aHnna MD PCP: Sola Rea DO Status: REG CLI Study: Abdomen/Pelvis without Cont Date of Exam: 08/13/13 Exam# [id number] Ordering Dr: Sola Rea DO CC : Sola Rea DO Cell Operation Supervisor: Signed Family History Unknown Family Member Name Dates Details Father Comments: living with dm and high chol Status: Active First Degree Relatives Comments: ETOH, BLood disorder, DM, Anxiety, Heart/lung dx, HBP, high cholesterol, seizures, strokeUncle with congenital heart defectanother uncle & grandmother aneurysm of aorta Status: Active Mother Comments: diverticulosis-- actinic keratosis- Status: Active Social History Name Dates Details Caffeine Use Status: Active Living Situation Comments: , heterosexual Status: Active 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 Comments: 05/17/11, 05/25/11 Status: Active Smoking Status Name Dates Details Never smoker Vital Signs Date Test Result Details :55 Temperature 97.4 f Comments: Method: Temporal Pulse 110 /min Comments: Pattern: Regular Respiration Rate 18 /min Comments: Pattern: Unlabored O2 SAT 98 % Comments: Room air BP Systolic 138 mm[Hg] Comments: Patient Position: Sitting; Cuff Location: Left Arm; Cuff Size: Standard BP Diastolic 90 mm[Hg] Comments: Patient Position: Sitting; Cuff Location: Left Arm; Cuff Size: Standard Weight 173 lb Height 62 in Body Mass Index Calculated 31.64 kg/m2 Body Surface Area Calculated 1.8 m2 :47 Temperature 98.8 f Comments: Method: Oral Pulse 101 /min Comments: Pattern: Regular O2 SAT 98 % Comments: Room air BP Systolic 124 mm[Hg] Comments: Patient Position: Sitting; Cuff Location: Left Arm; Cuff Size: Standard BP Diastolic 76 mm[Hg] Comments: Patient Position: Sitting; Cuff Location: Left Arm; Cuff Size: Standard Weight 183 lb Height 62 in Body Mass Index Calculated 33.47 kg/m2 Body Surface Area Calculated 1.84 m2 :45 Temperature 98 f Pulse 103 /min Comments: Pattern: Regular Respiration Rate 16 /min Comments: Pattern: Unlabored O2 SAT 98 % Comments: Room air BP Systolic 136 mm[Hg] Comments: Patient Position: Sitting; Cuff Location: Left Arm; Cuff Size: Standard BP Diastolic 86 mm[Hg] Comments: Patient Position: Sitting; Cuff Location: Left Arm; Cuff Size: Standard Weight 183 lb Height 62 in Body Mass Index Calculated 33.47 kg/m2 Body Surface Area Calculated 1.84 m2 :10 Pulse 93 /min Comments: Pattern: Regular :46 Temperature 97.7 f Pulse 110 /min Comments: Pattern: Regular Respiration Rate 17 /min Comments: Pattern: Unlabored O2 SAT 99 % Comments: Room air BP Systolic 142 mm[Hg] Comments: Patient Position: Sitting; Cuff Location: Left Arm; Cuff Size: Standard BP Diastolic 86 mm[Hg] Comments: Patient Position: Sitting; Cuff Location: Left Arm; Cuff Size: Standard Weight 182 lb Height 62 in Body Mass Index Calculated 33.29 kg/m2 Body Surface Area Calculated 1.84 m2 :18 Temperature 98.2 f Pulse 86 /min Comments: Pattern: Regular Respiration Rate 16 /min Comments: Pattern: Unlabored O2 SAT 97 % Comments: Room air BP Systolic 124 mm[Hg] Comments: Patient Position: Sitting; Cuff Location: Left Arm; Cuff Size: Standard BP Diastolic 82 mm[Hg] Comments: Patient Position: Sitting; Cuff Location: Left Arm; Cuff Size: Standard Weight 182 lb Height 62 in Body Mass Index Calculated 33.29 kg/m2 Body Surface Area Calculated 1.84 m2 :44 Temperature 97.9 f Comments: Method: Tympanic Pulse 84 /min Comments: Pattern: Regular Respiration Rate 18 /min Comments: Pattern: Unlabored O2 SAT 98 % Comments: Room air BP Systolic 158 mm[Hg] Comments: Patient Position: Sitting; Cuff Location: Left Arm; Cuff Size: Standard BP Diastolic 88 mm[Hg] Comments: Patient Position: Sitting; Cuff Location: Left Arm; Cuff Size: Standard Weight 189 lb Height 62 in Body Mass Index Calculated 34.57 kg/m2 Body Surface Area Calculated 1.87 m2 :01 Temperature 97.6 f Comments: Method: Temporal Pulse 108 /min Comments: Pattern: Regular Respiration Rate 16 /min Comments: Pattern: Unlabored O2 SAT 96 % Comments: Room air BP Systolic 122 mm[Hg] Comments: Patient Position: Sitting; Cuff Location: Left Arm; Cuff Size: Standard BP Diastolic 76 mm[Hg] Comments: Patient Position: Sitting; Cuff Location: Left Arm; Cuff Size: Standard Weight 189 lb Height 62 in Body Mass Index Calculated 34.57 kg/m2 Body Surface Area Calculated 1.87 m2 :53 Temperature 97.5 f Pulse 105 /min Comments: Pattern: Regular Respiration Rate 17 /min Comments: Pattern: Unlabored O2 SAT 98 % Comments: Room air BP Systolic 120 mm[Hg] Comments: Patient Position: Sitting; Cuff Location: Left Arm; Cuff Size: Standard BP Diastolic 78 mm[Hg] Comments: Patient Position: Sitting; Cuff Location: Left Arm; Cuff Size: Standard Weight 189 lb Height 62 in Body Mass Index Calculated 34.57 kg/m2 Body Surface Area Calculated 1.87 m2 :15 Temperature 97.9 f Pulse 92 /min Comments: Pattern: Regular Respiration Rate 17 /min Comments: Pattern: Unlabored O2 SAT 97 % Comments: Room air BP Systolic 124 mm[Hg] Comments: Patient Position: Sitting; Cuff Location: Left Arm; Cuff Size: Standard BP Diastolic 82 mm[Hg] Comments: Patient Position: Sitting; Cuff Location: Left Arm; Cuff Size: Standard Weight 189 lb Height 62 in Body Mass Index Calculated 34.57 kg/m2 Body Surface Area Calculated 1.87 m2 :49 Pulse 107 /min Comments: Pattern: Regular Respiration Rate 18 /min Comments: Pattern: Unlabored O2 SAT 97 % Comments: Room air BP Systolic 122 mm[Hg] Comments: Patient Position: Sitting; Cuff Location: Left Arm; Cuff Size: Large BP Diastolic 80 mm[Hg] Comments: Patient Position: Sitting; Cuff Location: Left Arm; Cuff Size: Large Weight 189 lb Height 62 in Body Mass Index Calculated 34.57 kg/m2 Body Surface Area Calculated 1.87 m2 :21 Temperature 97 f Comments: Method: Oral Pulse 100 /min Comments: Pattern: Regular Respiration Rate 16 /min Comments: Pattern: Unlabored BP Systolic 122 mm[Hg] Comments: Patient Position: Sitting; Cuff Location: Left Arm; Cuff Size: Standard BP Diastolic 78 mm[Hg] Comments: Patient Position: Sitting; Cuff Location: Left Arm; Cuff Size: Standard Weight 189 lb Height 62 in Body Mass Index Calculated 34.57 kg/m2 Body Surface Area Calculated 1.87 m2 :41 Temperature 98.7 f Pulse 107 /min Comments: Pattern: Regular Respiration Rate 17 /min Comments: Pattern: Unlabored O2 SAT 97 % Comments: Room air BP Systolic 122 mm[Hg] Comments: Patient Position: Sitting; Cuff Location: Left Arm; Cuff Size: Standard BP Diastolic 82 mm[Hg] Comments: Patient Position: Sitting; Cuff Location: Left Arm; Cuff Size: Standard Weight 190 lb Height 62 in Body Mass Index Calculated 34.75 kg/m2 Body Surface Area Calculated 1.87 m2 :40 Temperature 98.9 f Comments: Method: Temporal Pulse 104 /min Comments: Pattern: Regular Respiration Rate 15 /min Comments: Pattern: Unlabored O2 SAT 98 % Comments: Room air BP Systolic 112 mm[Hg] Comments: Patient Position: Sitting; Cuff Location: Left Arm; Cuff Size: Large BP Diastolic 86 mm[Hg] Comments: Patient Position: Sitting; Cuff Location: Left Arm; Cuff Size: Large Weight 190 lb Height 62 in Body Mass Index Calculated 34.75 kg/m2 Body Surface Area Calculated 1.87 m2 :41 Comments: pain 04/22 now, 09/22 last night Temperature 97.6 f Pulse 107 /min Comments: Pattern: Regular Respiration Rate 18 /min Comments: Pattern: Unlabored BP Systolic 128 mm[Hg] Comments: Patient Position: Sitting; Cuff Location: Left Arm; Cuff Size: Standard BP Diastolic 86 mm[Hg] Comments: Patient Position: Sitting; Cuff Location: Left Arm; Cuff Size: Standard Weight 191 lb Height 62 in Body Mass Index Calculated 34.93 kg/m2 Body Surface Area Calculated 1.87 m2 :13 Temperature 98 f Pulse 108 /min Comments: Pattern: Regular Respiration Rate 16 /min Comments: Pattern: Unlabored BP Systolic 120 mm[Hg] Comments: Patient Position: Sitting; Cuff Location: Left Arm; Cuff Size: Large BP Diastolic 80 mm[Hg] Comments: Patient Position: Sitting; Cuff Location: Left Arm; Cuff Size: Large Weight 190 lb Height 62 in Body Mass Index Calculated 34.75 kg/m2 Body Surface Area Calculated 1.87 m2 :37 Pulse 108 /min Comments: Pattern: Regular Respiration Rate 20 /min Comments: Pattern: Unlabored O2 SAT 98 % Comments: Room air BP Systolic 120 mm[Hg] Comments: Patient Position: Sitting; Cuff Location: Left Arm; Cuff Size: Large BP Diastolic 70 mm[Hg] Comments: Patient Position: Sitting; Cuff Location: Left Arm; Cuff Size: Large :08 Temperature 97.6 f Pulse 100 /min Comments: Pattern: Regular Respiration Rate 16 /min Comments: Pattern: Unlabored BP Systolic 128 mm[Hg] Comments: Patient Position: Sitting; Cuff Location: Left Arm; Cuff Size: Standard BP Diastolic 86 mm[Hg] Comments: Patient Position: Sitting; Cuff Location: Left Arm; Cuff Size: Standard Weight 184 lb Height 62 in Body Mass Index Calculated 33.65 kg/m2 Body Surface Area Calculated 1.85 m2 :03 Temperature 98.9 f Comments: Method: Oral Pulse 110 /min Comments: Pattern: Regular Respiration Rate 18 /min Comments: Pattern: Unlabored O2 SAT 99 % Comments: Room air BP Systolic 120 mm[Hg] Comments: Patient Position: Sitting; Cuff Location: Left Arm; Cuff Size: Standard BP Diastolic 80 mm[Hg] Comments: Patient Position: Sitting; Cuff Location: Left Arm; Cuff Size: Standard Weight 184 lb Height 62 in Body Mass Index Calculated 33.65 kg/m2 Body Surface Area Calculated 1.85 m2 :12 Temperature 98.8 f Pulse 100 /min Comments: Pattern: Regular Respiration Rate 16 /min Comments: Pattern: Unlabored BP Systolic 116 mm[Hg] Comments: Patient Position: Sitting; Cuff Location: Left Arm; Cuff Size: Large BP Diastolic 80 mm[Hg] Comments: Patient Position: Sitting; Cuff Location: Left Arm; Cuff Size: Large Weight 184 lb Height 62 in Body Mass Index Calculated 33.65 kg/m2 Body Surface Area Calculated 1.85 m2 :55 Temperature 98.1 f Pulse 96 /min Comments: Pattern: Regular Respiration Rate 18 /min Comments: Pattern: Unlabored BP Systolic 128 mm[Hg] Comments: Patient Position: Sitting; Cuff Location: Left Arm; Cuff Size: Large BP Diastolic 90 mm[Hg] Comments: Patient Position: Sitting; Cuff Location: Left Arm; Cuff Size: Large Weight 180 lb Height 62 in Body Mass Index Calculated 32.92 kg/m2 Body Surface Area Calculated 1.83 m2 :07 Temperature 97.8 f Pulse 96 /min Comments: Pattern: Regular Respiration Rate 16 /min Comments: Pattern: Unlabored BP Systolic 112 mm[Hg] Comments: Patient Position: Sitting; Cuff Location: Left Arm; Cuff Size: Large BP Diastolic 74 mm[Hg] Comments: Patient Position: Sitting; Cuff Location: Left Arm; Cuff Size: Large Weight 170 lb Height 62 in Body Mass Index Calculated 31.09 kg/m2 Body Surface Area Calculated 1.78 m2 :21 Temperature 98.9 f Pulse 76 /min Comments: Pattern: Regular Respiration Rate 16 /min Comments: Pattern: Unlabored BP Systolic 120 mm[Hg] Comments: Patient Position: Sitting; Cuff Location: Left Arm; Cuff Size: Large BP Diastolic 86 mm[Hg] Comments: Patient Position: Sitting; Cuff Location: Left Arm; Cuff Size: Large Weight 167 lb Height 62 in Body Mass Index Calculated 30.54 kg/m2 Body Surface Area Calculated 1.77 m2 :13 Temperature 98.8 f Comments: Method: Oral Pulse 88 /min Comments: Pattern: Regular Respiration Rate 20 /min Comments: Pattern: Unlabored BP Systolic 124 mm[Hg] Comments: Patient Position: Sitting; Cuff Location: Left Arm; Cuff Size: Large BP Diastolic 86 mm[Hg] Comments: Patient Position: Sitting; Cuff Location: Left Arm; Cuff Size: Large Weight 172 lb Height 61 in Body Mass Index Calculated 32.5 kg/m2 Body Surface Area Calculated 1.77 m2 :46 Temperature 98.2 f Comments: Method: Oral Pulse 96 /min Comments: Pattern: Regular Respiration Rate 16 /min BP Systolic 126 mm[Hg] Comments: Patient Position: Sitting; Cuff Location: Left Arm; Cuff Size: Standard BP Diastolic 80 mm[Hg] Comments: Patient Position: Sitting; Cuff Location: Left Arm; Cuff Size: Standard Weight 172 lb Height 61 in Body Mass Index Calculated 32.5 kg/m2 Body Surface Area Calculated 1.77 m2 :59 Temperature 98.2 f Comments: Method: Oral Pulse 100 /min Comments: Pattern: Regular Respiration Rate 16 /min BP Systolic 138 mm[Hg] Comments: Patient Position: Sitting; Cuff Location: Left Arm; Cuff Size: Standard BP Diastolic 84 mm[Hg] Comments: Patient Position: Sitting; Cuff Location: Left Arm; Cuff Size: Standard Weight 172 lb Height 61 in Body Mass Index Calculated 32.5 kg/m2 Body Surface Area Calculated 1.77 m2 :23 Temperature 98.8 f Comments: Method: Oral Pulse 90 /min Comments: Pattern: Regular Respiration Rate 16 /min O2 SAT 95 % Comments: Room air BP Systolic 134 mm[Hg] Comments: Patient Position: Sitting; Cuff Location: Left Arm; Cuff Size: Standard BP Diastolic 80 mm[Hg] Comments: Patient Position: Sitting; Cuff Location: Left Arm; Cuff Size: Standard Weight 172 lb Height 61 in Body Mass Index Calculated 32.5 kg/m2 Body Surface Area Calculated 1.77 m2 :29 Temperature 98 f Comments: Method: Oral Pulse 90 /min Comments: Pattern: Regular Respiration Rate 16 /min Comments: Pattern: Unlabored O2 SAT 96 % Comments: Room air BP Systolic 136 mm[Hg] Comments: Patient Position: Sitting; Cuff Location: Left Arm; Cuff Size: Standard BP Diastolic 82 mm[Hg] Comments: Patient Position: Sitting; Cuff Location: Left Arm; Cuff Size: Standard Weight 172 lb Height 61 in Body Mass Index Calculated 32.5 kg/m2 Body Surface Area Calculated 1.77 m2 :38 Temperature 98.4 f Comments: Method: Oral Pulse 86 /min Comments: Pattern: Regular Respiration Rate 16 /min Comments: Pattern: Unlabored BP Systolic 138 mm[Hg] Comments: Patient Position: Sitting; Cuff Location: Left Arm; Cuff Size: Standard BP Diastolic 88 mm[Hg] Comments: Patient Position: Sitting; Cuff Location: Left Arm; Cuff Size: Standard Weight 172 lb Height 61 in Body Mass Index Calculated 32.5 kg/m2 Body Surface Area Calculated 1.77 m2 :46 Temperature 98.2 f Comments: Method: Oral Pulse 92 /min Comments: Pattern: Regular Respiration Rate 16 /min Comments: Pattern: Unlabored BP Systolic 132 mm[Hg] Comments: Patient Position: Sitting; Cuff Location: Left Arm; Cuff Size: Large BP Diastolic 90 mm[Hg] Comments: Patient Position: Sitting; Cuff Location: Left Arm; Cuff Size: Large Weight 172 lb Height 61 in Body Mass Index Calculated 32.5 kg/m2 Body Surface Area Calculated 1.77 m2 :56 Temperature 97 f Comments: Method: Oral Pulse 86 /min Comments: Pattern: Regular Respiration Rate 16 /min BP Systolic 124 mm[Hg] Comments: Patient Position: Sitting; Cuff Location: Left Arm; Cuff Size: Standard BP Diastolic 74 mm[Hg] Comments: Patient Position: Sitting; Cuff Location: Left Arm; Cuff Size: Standard Weight 173 lb Height 61 in Body Mass Index Calculated 32.69 kg/m2 Body Surface Area Calculated 1.78 m2 :06 Temperature 97 f Comments: Method: Oral Pulse 89 /min Comments: Pattern: Regular Respiration Rate 16 /min Comments: Pattern: Unlabored BP Systolic 112 mm[Hg] Comments: Patient Position: Supine; Cuff Location: Left Arm; Cuff Size: Standard BP Diastolic 68 mm[Hg] Comments: Patient Position: Supine; Cuff Location: Left Arm; Cuff Size: Standard Weight 173 lb Height 61 in Body Mass Index Calculated 32.69 kg/m2 Body Surface Area Calculated 1.78 m2 :32 Temperature 97.1 f Comments: Method: Oral Pulse 94 /min Comments: Pattern: Regular Respiration Rate 18 /min O2 SAT 98 % Comments: Room air BP Systolic 132 mm[Hg] Comments: Patient Position: Sitting; Cuff Location: Left Arm; Cuff Size: Standard BP Diastolic 82 mm[Hg] Comments: Patient Position: Sitting; Cuff Location: Left Arm; Cuff Size: Standard Weight 165.25 lb :57 Temperature 97.8 f Comments: Method: Oral Pulse 74 /min Comments: Pattern: Regular Respiration Rate 17 /min Comments: Pattern: Unlabored BP Systolic 122 mm[Hg] Comments: Patient Position: Sitting; Cuff Location: Left Arm; Cuff Size: Standard BP Diastolic 78 mm[Hg] Comments: Patient Position: Sitting; Cuff Location: Left Arm; Cuff Size: Standard Weight 152.5625 lb :04 Temperature 98.2 f Comments: Method: Oral Pulse 68 /min Comments: Pattern: Regular Respiration Rate 20 /min Comments: Pattern: Unlabored BP Systolic 118 mm[Hg] Comments: Patient Position: Sitting; Cuff Location: Left Arm; Cuff Size: Large BP Diastolic 82 mm[Hg] Comments: Patient Position: Sitting; Cuff Location: Left Arm; Cuff Size: Large Weight 152.5625 lb :15 Pulse 86 /min Comments: Pattern: Regular Respiration Rate 16 /min Comments: Pattern: Unlabored BP Systolic 112 mm[Hg] Comments: Patient Position: Sitting; Cuff Location: Left Arm; Cuff Size: Standard BP Diastolic 68 mm[Hg] Comments: Patient Position: Sitting; Cuff Location: Left Arm; Cuff Size: Standard Weight 152.5625 lb :45 Pulse 92 /min Comments: Pattern: Regular Respiration Rate 18 /min Comments: Pattern: Unlabored BP Systolic 122 mm[Hg] Comments: Patient Position: Sitting; Cuff Location: Left Arm; Cuff Size: Standard BP Diastolic 76 mm[Hg] Comments: Patient Position: Sitting; Cuff Location: Left Arm; Cuff Size: Standard :49 Pulse 84 /min Comments: Pattern: Regular Respiration Rate 18 /min Comments: Pattern: Unlabored BP Systolic 126 mm[Hg] Comments: Patient Position: Sitting; Cuff Location: Left Arm; Cuff Size: Standard BP Diastolic 84 mm[Hg] Comments: Patient Position: Sitting; Cuff Location: Left Arm; Cuff Size: Standard Weight 152 lb :14 Temperature 97.8 f Comments: Method: Oral Pulse 72 /min Comments: Pattern: Regular Respiration Rate 16 /min Comments: Pattern: Unlabored BP Systolic 108 mm[Hg] Comments: Patient Position: Sitting; Cuff Location: Left Arm; Cuff Size: Standard BP Diastolic 74 mm[Hg] Comments: Patient Position: Sitting; Cuff Location: Left Arm; Cuff Size: Standard Weight 152 lb :03 Temperature 98.3 f Comments: Method: Undefined Pulse 60 /min Comments: Pattern: Regular Respiration Rate 18 /min Comments: Pattern: Undefined BP Systolic 110 mm[Hg] Comments: Patient Position: Sitting; Cuff Location: Left Arm; Cuff Size: Large BP Diastolic 76 mm[Hg] Comments: Patient Position: Sitting; Cuff Location: Left Arm; Cuff Size: Large Weight 0 lb Height 0 in Head Circumference 0.00 cm :46 Temperature 98.1 f Comments: Method: Oral Pulse 70 /min Comments: Pattern: Regular Respiration Rate 16 /min Comments: Pattern: Unlabored BP Systolic 104 mm[Hg] Comments: Patient Position: Sitting; Cuff Location: Left Arm; Cuff Size: Standard BP Diastolic 70 mm[Hg] Comments: Patient Position: Sitting; Cuff Location: Left Arm; Cuff Size: Standard Weight 0 lb Height 0 in Head Circumference 0.00 cm :49 Temperature 98.6 f Comments: Method: Oral Pulse 68 /min Comments: Pattern: Regular Respiration Rate 16 /min Comments: Pattern: Unlabored BP Systolic 108 mm[Hg] Comments: Patient Position: Sitting; Cuff Location: Left Arm; Cuff Size: Standard BP Diastolic 70 mm[Hg] Comments: Patient Position: Sitting; Cuff Location: Left Arm; Cuff Size: Standard Weight 169 lb Height 0 in Head Circumference 0.00 cm :04 Temperature 96.5 f Comments: Method: Undefined Pulse 80 /min Comments: Pattern: Regular Respiration Rate 16 /min Comments: Pattern: Undefined BP Systolic 112 mm[Hg] Comments: Patient Position: Sitting; Cuff Location: Left Arm; Cuff Size: Large BP Diastolic 80 mm[Hg] Comments: Patient Position: Sitting; Cuff Location: Left Arm; Cuff Size: Large Weight 169 lb Height 0 in Head Circumference 0.00 cm :03 Temperature 97.1 f Comments: Method: Undefined Pulse 80 /min Comments: Pattern: Regular Respiration Rate 16 /min Comments: Pattern: Undefined BP Systolic 126 mm[Hg] Comments: Patient Position: Sitting; Cuff Location: Left Arm; Cuff Size: Large BP Diastolic 90 mm[Hg] Comments: Patient Position: Sitting; Cuff Location: Left Arm; Cuff Size: Large Weight 0 lb Height 0 in Head Circumference 0.00 cm :19 Temperature 97.6 f Comments: Method: Undefined Pulse 76 /min Comments: Pattern: Regular Respiration Rate 16 /min Comments: Pattern: Undefined BP Systolic 134 mm[Hg] Comments: Patient Position: Sitting; Cuff Location: Left Arm; Cuff Size: Large BP Diastolic 96 mm[Hg] Comments: Patient Position: Sitting; Cuff Location: Left Arm; Cuff Size: Large Weight 168 lb Height 0 in Head Circumference 0.00 cm Results Date Description Value Details :54 Culture, R/O Strep A Comments: [facility] [address]zz[address] [facility] [place], [address] CUSTREPA See Note (Normal) Comments: DEB CultureNo Group A Beta Streptococcus isolated. * This cultures intended use is to screen for Beta Streptococcus A only. All other pathogens and potential pathogens will not be screened for or re ported. If a complete workup of all potential pathogens is indicated an order for a routine throat culture is required. 85-Zkq-521347:37 Basic Metabolic Profile (BMP) Comments: Comments: [facility] [id number] [facility] Hrbgppagpb0478 [facility] [place], [place], [id number] GAP 6 (Normal) Range: 5-15 CO2 28.0 mmol/L (Normal) Range: 21.0-32.0 CL 104 mmol/L (Normal) Range: 98-107 K 4.3 mmol/L (Normal) Range: 3.5-5.1 NA 138 mmol/L (Normal) Range: 136-145 CA 8.9 mg/dL (Normal) Range: 8.5-10.1 BUN/CRE 9.0 {RATIO} (Abnormal) Range: 10-20 EST GFR - AA 102 mL/min (Normal) Comments: GFR Calc EST GFR 84 mL/min (Normal) Comments: Non- GFR Calc CREAT,SERUM 0.78 mg/dL (Normal) Range: 0.55-1.02 Comments: The validity of the calculated GFR AND GFRAA in patients over70 years has not been determined. Clinical correlation isessential. BUN 7 mg/dL (Normal) Range: 7-18 GLU 91 mg/dL (Normal) Range: 74-106 Comments: Please note revised GLUCOSE reference range dngdguvcw22/02/2018. 88-Alt-071574:37 CBC W/Diff, Automated Comments: [facility] [address] [place], [address] Absolute Lymph 1.99 {X10_3/ul} (Normal) Range: 0.83-4.51 Absolute Neut 2.7 {X10_3/uL} (Normal) Range: 2.0-7.7 IM GRAN % 0.200 % (Normal) Range: 0.0-0.9 Comments: IG% - Immature Granulocytes (promyelocytes, myelocytes andmetamyelocytes) > 1% indicates that a LEFT SHIFT is Present. BASO% 0.4 % (Normal) Range: 0-1 EO% 2.7 % (Normal) Range: 0-5 MONO% 8.4 % (Normal) Range: 0-10 LY% 37.9 % (Normal) Range: 19-41 NEUT% 50.4 % (Normal) Range: 47-70 MPV 8.5 fL (Normal) Range: 6.2-12.0 PLT 314 K/mm3 (Normal) Range: 150-450 RDW SD 42.1 fL (Normal) Range: 35.1-43.9 RDW CV 14.1 % (Normal) Range: 11.6-14.6 MCHC 31.7 {g/gl} (Abnormal) Range: 32-36 MCH 26.3 pg (Abnormal) Range: 27.0-32.0 MCV 83.0 fL (Normal) Range: 81-99 HCT 34.7 % (Abnormal) Range: 37-47 HGB 11.0 g/dL (Abnormal) Range: 12.0-15.0 RBC 4.18 {M/mm3} (Abnormal) Range: 4.2-5.4 WBC 5.3 K/mm3 (Normal) Range: 4.4-11.0 :37 Hep B Surface Antibodies Comments: [facility] (refer to report for specific site)refer to report for address and phone number Hep B Ivette AB Reactive (Normal) Comments: Non Reactive: Inconsistent with immunity, less than 10 mIU/mL Reactive: Consistent with immunity, greater than 9.9 mIU/mL :37 Hepatitis B Surface Ag Comments: [facility] (refer to report for specific site)refer to report for address and phone number HB SURF AG Negative (Normal) :37 Hepatitis B Core Ab Total Comments: [facility] (refer to report for specific site)refer to report for address and phone number HEP B CORE,TOT Negative (Normal) Comments: Performed at: - [facility] [id number] Director: Felice Molina PhD, Phone: [phone] 80-Czj-593561:37 Hepatitis C Antibodies Comments: [facility] (refer to report for specific site)refer to report for address and phone number HEP C AB <0.1 {s/co_ratio} (Normal) Range: 0.0-0.9 Comments: Negative: < 0.8 Indeterminate: 0.8 - 0.9 Positive: > 0.9 The CDC recommends that a positive HCV antibody result be followed up with a HCV Nucleic Acid Amplification test (851782). :37 Liver Profile Comments: Comments: [facility] [id number] [address]bpvzd0720 [facility] [place], [address] D BILI 0.08 mg/dL (Normal) Range: 0.00-0.30 T BILI 0.30 mg/dL (Normal) Range: 0.20-1.00 ALT 23 U/L (Normal) Range: 13-56 ALK P 81 U/L (Normal) Range: 45-117 AST 15 U/L (Normal) Range: 15-37 GLOB 3.9 g/dL (Normal) Range: 2.2-4.2 ALB 3.7 g/dL (Normal) Range: 3.2-5.0 T PROT 7.6 g/dL (Normal) Range: 6.4-8.2 84-Owo-536223:37 Miscellaneous Lab Procedure Comments: Comments: QFT [id number](s) Ordered: QFT [id number] Hospital [address] [place], [address] [facility] [place] Comments: TEST RESULT UNITS REF INTERVALQFT- TB Plus (Client Incubated)QuantiFERON Criteria The QuantiFERON-TB Gold Plus result is determined by subtracting the Nil value from either T LAB (Normal) B antigen (Ag)tube. The mitogen tube serves as a control for the test.QuantiFERON TB1 Ag Value 0.04 IU/mLQuantiFERON TB2 Ag Value 0.05 IU/mLQuantiFERON Nil Value 0.04 IU TEST /mLQuantiFERON Mitogen Value >10.00 IU/mLQuantiFERON-TB Gold Plus Negative NegativeThe specimen received for QuantiFERON testing was incubatedby the ordering institution. Speci fic procedures outlined inour Directory of Services and in the package insert for theQuantiFERON Gold (In Tube) test must be followed to enablefor proper stimulation of cells for the production ofinterf redd gamma. TESTING PERFORMED AT [facility]. ORIGINAL REPORT ON FILE IN LAB CONTAINS ADDITIONAL TEST SITE INFORMATION. 03-Tyc-361378:51 Rapid Flu (01403 x 2) Comments: Negative Influenza A Ag neg (Normal) :52 CBC W/Diff, Automated Comments: [facility] [address] [place], [place], [id number] Absolute Lymph 2.60 {X10_3/ul} (Normal) Range: 0.83-4.51 Absolute Neut 5.9 {X10_3/uL} (Normal) Range: 2.0-7.7 IM GRAN % 0.200 % (Normal) Range: 0.0-0.9 Comments: IG% - Immature Granulocytes (promyelocytes, myelocytes andmetamyelocytes) > 1% indicates that a LEFT SHIFT is Present. BASO% 0.3 % (Normal) Range: 0-1 EO% 1.2 % (Normal) Range: 0-5 MONO% 4.7 % (Normal) Range: 0-10 LY% 28.7 % (Normal) Range: 19-41 NEUT% 64.9 % (Normal) Range: 47-70 MPV 8.7 fL (Normal) Range: 6.2-12.0 PLT 301 K/mm3 (Normal) Range: 150-450 RDW SD 45.1 fL (Abnormal) Range: 35.1-43.9 RDW CV 13.6 % (Normal) Range: 11.6-14.6 MCHC 31.8 {g/gl} (Abnormal) Range: 32-36 MCH 29.1 pg (Normal) Range: 27.0-32.0 MCV 91.7 fL (Normal) Range: 81-99 HCT 38.7 % (Normal) Range: 37-47 HGB 12.3 g/dL (Normal) Range: 12.0-15.0 RBC 4.22 {M/mm3} (Normal) Range: 4.2-5.4 WBC 9.1 K/mm3 (Normal) Range: 4.4-11.0 38-Tty-683523:52 Comprehensive Metabolic Profil Comments: [facility] [address]ib[address]ls[address]lk36[address] [facility] [place], [address] GAP 7 (Normal) Range: 5-15 CO2 29.0 mmol/L (Normal) Range: 21.0-32.0 CL 103 mmol/L (Normal) Range: 98-107 K 4.0 mmol/L (Normal) Range: 3.5-5.1 NA 139 mmol/L (Normal) Range: 136-145 T BILI 0.40 mg/dL (Normal) Range: 0.20-1.00 ALT 22 U/L (Normal) Range: 12-78 ALK P 79 U/L (Normal) Range: 45-117 AST 15 U/L (Normal) Range: 15-37 CA 8.9 mg/dL (Normal) Range: 8.5-10.1 A/G 0.9 {RATIO} (Normal) Range: 0.9-2.4 GLOB 3.8 g/dL (Abnormal) Range: 2.3-3.5 ALB 3.5 g/dL (Normal) Range: 3.4-5.0 T PROT 7.3 g/dL (Normal) Range: 6.4-8.2 BUN/CRE 7.8 {RATIO} (Abnormal) Range: 10-20 EST GFR - AA 75 mL/min (Normal) Comments: GFR Calc EST GFR 62 mL/min (Normal) Comments: Non- GFR Calc CREAT,SERUM 1.03 mg/dL (Abnormal) Range: 0.55-1.02 Comments: The validity of the calculated GFR AND GFRAA in patients over70 years has not been determined. Clinical correlation isessential. BUN 8 mg/dL (Normal) Range: 7-18 GLU 113 mg/dL (Abnormal) Range: 70-110 Comments: Fasting Glucose result from 110 to <126 mg/dLsuggests IMPAIRED HOMEOSTASIS per A.D.A. criteria. 77-Bxh-801350:52 Follicle Stimulating Hormone Comments: [facility] [address] [place], [place], [address] FSH 10.1 m[iU]/mL (Normal) Comments: NORMAL REFERENCE RANGES FEMALE FOLLICULAR 2.3 - 12.6 mIU/mL MID-CYCLE PEAK 5.2 - 17.5 mIU/mL LUTEAL 1.7 - 12.9 mIU/mL POST-MENOPAUSAL ON MHT 5.9 - 72.8 mIU/mL NOT ON MHT 12.7 - 132.2 mlU/mL MALE 0.7 - 10.8 mIU/mLNEW TEST METHOD AND REFERENCE RANGES JULY 04, 201103-Aug-201666-Fgr-009073:52 Luteinizing Hormone Comments: [facility] [address] [place], [place], [id number] LH 6.5 m[iU]/mL (Normal) Comments: NORMAL REFERENCE RANGES FEMALE FOLLICULAR 1.9 - 26.2 mIU/mL MID-CYCLE PEAK 22.8 - 76.1 mIU/mL LUTEAL 0.6 - 16.6 mIU/mL POST-MENOPAUSAL ON MHT 1.1 - 52.4 mIU/mL NOT ON MHT 8.6 - 61.8 mIU/mL MALE 1.2 - 10.6 mIU/mLNEW TEST METHOD AND REFERENCE RANGES JULY 04, 201103-Aug-201613-Qmf-187013:52 Thyroid Stim Hormone (TSH) Comments: [facility] [address] [place], [address] TSH 1.07 {uIU/mL} (Normal) Range: 0.358-3.74 38-Avm-800365:52 Vitamin D,25 Hydroxy Comments: [facility] [address] [place], [address] Vitamin D 25-OH 25.0 ng/mL (Normal) Comments: Vitamin D 25(OH) Status Range Deficiency <20 ng/mL (50nmol/L) Insuffciency 20 - 30 ng/mL (50 - 75 nmol/L) Sufficiency 30 - 100 ng/mL (75 - 250 nmol/L) Toxicity >100 ng/mL (>250 nmol/L) 65-Sfc-203189:20 Antiextractable Nug Ag Comments: [facility] (refer to report for specific site)refer to report for address and phone number WHITAKER Ab <0.2 {AI} (Normal) Range: 0.0-0.9 ZIGZAG TUNNEL ELASTIC OPERATOR Ab <0.2 {AI} (Normal) Range: 0.0-0.9 94-Qea-378404:20 ANTINUCLEAR ANTIBODIES DIRECT Comments: [facility] (refer to report for specific site)refer to report for address and phone number; Dr Lewis MANDI-DIRECT Negative (Normal) Comments: Performed at: [address] [id number] Director: Felice Molina PhD, Phone: [phone] 99-Myy-392209:20 Erythrocyte Sed Rate Comments: [facility] [address] [place], [address] SED RATE 54 mm/h (Abnormal) Range: 0-20 96-Jyc-152154:20 Folates, (Folic Acid) Comments: Is Patient Taking Vitamins or Folic Acid Supplements? [facility] [address] [place], [address] FOLATES 7.50 ng/mL (Normal) Range: 3.1-17.5 14-Zhq-290920:20 Heavy Metals, Urine Comments: [facility] (refer to report for specific site)refer to report for address and phone number MERCURY,UR 24HR Test not performed (Normal) MERCURY:CREAT Test not performed (Normal) MERCURY, URINE ug/L (Normal) Comments: None Detected Detection Limit = 1 LEAD, UR 24 HR Test not performed (Normal) LEAD:CRE URINE Test not performed (Normal) LEAD, URINE ug/L (Normal) Comments: None Detected Detection Limit = 1 ARSENIC,UR 24HR Test not performed (Normal) ARSENIC:CREAT,U Test not performed (Normal) ARSENIC INORG,U ug/L (Normal) Comments: None Detected Environmental Exposure: 0-19 Occupational Exposure: 35 Detection Limit = 10 ARSENIC TOTAL,U ug/L (Normal) Comments: None Detected Detection Limit = 10 CREATININE,UR 1.03 g/L (Normal) Range: 0.30-3.00 Comments: Detection Limit = 0.10 :20 Hemoglobin A1c Comments: [facility] [address] [place], [address] HGB A1C 5.7 % (Normal) Range: 4.2-6.3 07-Dng-859821:20 Hepatitis C Antibodies Comments: [facility] (refer to report for specific site)refer to report for address and phone number HEP C AB <0.1 {s/co_ratio} (Normal) Range: 0.0-0.9 Comments: Negative: < 0.8 Indeterminate: 0.8 - 0.9 Positive: > 0.9 The CDC recommends that a positive HCV antibody result be followed up with a HCV Nucleic Acid Amplification test (775401).Performed at: [address] [id number] Director: Channing Childers MD, Phone: [phone] at: C B - [facility] [place] [address] [id number] Director: Felice Molina PhD, Phone: [phone] 25-Yvy-971160:20 Rheumatoid Factor Comments: Is Patient Taking Vitamins or Folic Acid Supplements? [facility] [address] [place], [place], [address] RHEUMATOID FAC < 10.0 {IU/mL} (Normal) 74-Wjc-167383:20 Vitamin B12 410 pg/mL (Normal) Comments: [facility] [address] [place], [place], [id number] Range: 211-911 0-Qxd-886082:18 URINE FRANCISCO CULTURE-IDENTIFICATN Comments: PATIENT NOT FASTINGPERFORMED BY: [facility] [address] [id number] Information: SRC:UC ([id number]) Result 1 MUG (Normal) Comments: Mixed urogenital flora25,000-50,000 colony forming units per mL Urine Final report (Normal) Culture,Comprehensive 9-Gfi-420594:20 Urinalysis, Office (50577) UA - LEUKOCYTE ESTERASE Negative (Normal) UA - NITRITE Negative (Normal) URINE UROBILINGN EDGAR TIMED Normal mg/dL (Normal) UA - PROTEIN Negative mg/dL (Normal) UA - PH 7.0 (Normal) UA - BLOOD Negative (Normal) UA - SPECIFIC GRAVITY 1.025 (Normal) UA - KETONES Negative mg/dL (Normal) UA - BILIRUBIN Negative (Normal) UA - GLUCOSE Negative (Normal) 92-Hrd-744034:36 LIPASE (96605) Comments: PATIENT NOT FASTINGPERFORMED BY: [facility] Hyunpi6979 [facility] [id number] Lipase, Serum 25 U/L (Normal) Range: 0-59 67-Tth-159667:36 AMYLASE (71850) Comments: PATIENT NOT FASTINGPERFORMED BY: [facility] Kjuzyr0970 [facility] [id number] Amylase, Serum 47 U/L (Normal) Range: 31-124 31-Dsf-292232:36 CREATINE KINASE TOTAL (48476) Comments: PATIENT NOT FASTINGPERFORMED BY: [facility]Sum[facility] Oaks HospitalNiebco8670 [facility] [id number] Creatine Kinase,Total,Serum 69 U/L (Normal) Range: 24-173 12-Euf-537658:36 TSH (THYROID STIMULATING Comments: PATIENT NOT FASTINGPERFORMED BY: [facility] HospitalQgpgmh6415 [facility] [id number] HORMONE) (66914) TSH 1.170 {uIU/mL} (Normal) Range: 0.450-4.500 :36 METABOLIC PANEL, COMPREHENSIVE Comments: PATIENT NOT FASTINGPERFORMED BY: [facility]Sum[facility] Oaks HospitalSudhvm5811 [facility] [id number] (63134) ALT (SGPT) 15 [iU]/L (Normal) Range: 0-32 AST (SGOT) 12 [iU]/L (Normal) Range: 0-40 Alkaline Phosphatase, S 74 [iU]/L (Normal) Range: 39-117 Bilirubin, Total 0.2 mg/dL (Normal) Range: 0.0-1.2 A/G Ratio 1.8 (Normal) Range: 1.1-2.5 Globulin, Total 2.5 g/dL (Normal) Range: 1.5-4.5 Albumin, Serum 4.5 g/dL (Normal) Range: 3.5-5.5 Protein, Total, Serum 7.0 g/dL (Normal) Range: 6.0-8.5 Calcium, Serum 9.3 mg/dL (Normal) Range: 8.7-10.2 Carbon Dioxide, Total 23 mmol/L (Normal) Range: 18-29 Chloride, Serum 100 mmol/L (Normal) Range: 96-106 Comments: Please note reference interval change Potassium, Serum 4.4 mmol/L (Normal) Range: 3.5-5.2 Sodium, Serum 140 mmol/L (Normal) Range: 134-144 Comments: Please note reference interval change BUN/Creatinine Ratio 17 (Normal) Range: 9-23 eGFR If Africn Am 124 mL/min/1.73 (Normal) eGFR If NonAfricn Am 108 mL/min/1.73 (Normal) Creatinine, Serum 0.66 mg/dL (Normal) Range: 0.57-1.00 BUN 11 mg/dL (Normal) Range: 6-24 Glucose, Serum 86 mg/dL (Normal) Range: 65-99 08-Ego-383947:36 CBC, PLATELETS & AUT DIFF Comments: PATIENT NOT FASTINGPERFORMED BY: [facility] [address]emp[address] [facility] [id number] ([id number]) Immature Grans (Abs) 0.0 {x10E3/uL} (Normal) Range: 0.0-0.1 Immature Granulocytes 0 % (Normal) Baso (Absolute) 0.0 {x10E3/uL} (Normal) Range: 0.0-0.2 Eos (Absolute) 0.1 {x10E3/uL} (Normal) Range: 0.0-0.4 Monocytes(Absolute) 0.7 {x10E3/uL} (Normal) Range: 0.1-0.9 Lymphs (Absolute) 3.0 {x10E3/uL} (Normal) Range: 0.7-3.1 Neutrophils (Absolute) 5.9 {x10E3/uL} (Normal) Range: 1.4-7.0 Basos 0 % (Normal) Eos 1 % (Normal) Monocytes 7 % (Normal) Lymphs 31 % (Normal) Neutrophils 61 % (Normal) Platelets 302 {x10E3/uL} (Normal) Range: 150-379 RDW 14.6 % (Normal) Range: 12.3-15.4 MCHC 34.3 g/dL (Normal) Range: 31.5-35.7 MCH 30.2 pg (Normal) Range: 26.6-33.0 MCV 88 fL (Normal) Range: 79-97 Hematocrit 38.5 % (Normal) Range: 34.0-46.6 Hemoglobin 13.2 g/dL (Normal) Range: 11.1-15.9 RBC 4.37 {x10E6/uL} (Normal) Range: 3.77-5.28 WBC 9.7 {x10E3/uL} (Normal) Range: 3.4-10.8 :57 Urinalysis, Office (16674) UA - LEUKOCYTE ESTERASE Negative (Normal) UA - NITRITE Negative (Normal) URINE UROBILINGN EDGAR TIMED Normal mg/dL (Normal) UA - PROTEIN Negative mg/dL (Normal) UA - PH 7.5 (Normal) UA - BLOOD Negative (Normal) UA - SPECIFIC GRAVITY 1.020 (Normal) UA - KETONES Negative mg/dL (Normal) UA - BILIRUBIN Negative (Normal) UA - GLUCOSE Negative (Normal) 78-Dai-109812:53 Urinalysis, Office (42398) UA - LEUKOCYTE ESTERASE Trace (Normal) UA - NITRITE Negative (Normal) URINE UROBILINGN EDGAR TIMED Normal mg/dL (Normal) UA - PROTEIN Negative mg/dL (Normal) UA - PH 7.5 (Normal) UA - BLOOD Negative (Normal) UA - SPECIFIC GRAVITY 1.015 (Normal) UA - KETONES Negative mg/dL (Normal) UA - BILIRUBIN Negative (Normal) UA - GLUCOSE Negative (Normal) 16-Hiq-438161:30 URINE FRANCISCO CULTURE-EDGAR COL Comments: PATIENT NOT FASTINGPERFORMED BY: [facility] Rdegvc6452 [facility] [id number] Information: SRC:UC COUNT ([id number]) Result 1 MUG (Normal) Comments: Mixed urogenital flora10,000-25,000 colony forming units per mL Urine Final report (Normal) Culture,Comprehensive 31-Hzy-038635:14 Urinalysis, Office (32540) UA - LEUKOCYTE ESTERASE Small (Normal) UA - NITRITE Negative (Normal) URINE UROBILINGN EDGAR TIMED Normal mg/dL (Normal) UA - PROTEIN Negative mg/dL (Normal) UA - PH 7 (Normal) UA - BLOOD Negative (Normal) UA - SPECIFIC GRAVITY 1.015 (Normal) UA - KETONES Negative mg/dL (Normal) UA - BILIRUBIN Negative (Normal) UA - GLUCOSE Negative (Normal) 36-Rbb-14677:42 CBC W/Diff, Automated Comments: ORDERED CMP CBCDDR.FAST ORDERED LIPID TSH CMP CBCD [facility] [address]uf[address] [facility] [place], [address] Absolute Lymph 2.72 {X10_3/ul} (Normal) Range: 0.83-4.51 Absolute Neut 3.2 {X10_3/uL} (Normal) Range: 2.0-7.7 IM GRAN % 0.600 % (Normal) Range: 0.0-0.9 Comments: IG% - Immature Granulocytes (promyelocytes, myelocytes andmetamyelocytes) > 1% indicates that a LEFT SHIFT is Present. BASO% 0.3 % (Normal) Range: 0-1 EO% 1.9 % (Normal) Range: 0-5 MONO% 8.9 % (Normal) Range: 0-10 LY% 40.3 % (Normal) Range: 19-41 NEUT% 48.0 % (Normal) Range: 47-70 MPV 8.9 fL (Normal) Range: 6.2-12.0 PLT 291 K/mm3 (Normal) Range: 150-450 RDW SD 41.9 fL (Normal) Range: 35.1-43.9 RDW CV 12.8 % (Normal) Range: 11.6-14.6 MCHC 33.2 {g/gl} (Normal) Range: 32-36 MCH 29.9 pg (Normal) Range: 27.0-32.0 MCV 90.0 fL (Normal) Range: 81-99 HCT 37.1 % (Normal) Range: 37-47 HGB 12.3 g/dL (Normal) Range: 12.0-15.0 RBC 4.12 {M/mm3} (Abnormal) Range: 4.2-5.4 WBC 6.8 K/mm3 (Normal) Range: 4.4-11.0 55-Pcf-13209:42 Comprehensive Metabolic Profil Comments: ORDERED CMP CBCDDR.FAST ORDERED LIPID TSH CMP CBCD [facility] [address] [place], [place], [id number] GAP 3 (Abnormal) Range: 5-15 CO2 29.0 mmol/L (Normal) Range: 21.0-32.0 CL 105 mmol/L (Normal) Range: 98-107 K 3.8 mmol/L (Normal) Range: 3.5-5.1 NA 137 mmol/L (Normal) Range: 136-145 T BILI 0.30 mg/dL (Normal) Range: 0.20-1.00 ALT 27 U/L (Normal) Range: 12-78 ALK P 94 U/L (Normal) Range: 50-136 AST 17 U/L (Normal) Range: 15-37 CA 8.6 mg/dL (Normal) Range: 8.5-10.1 A/G 0.9 {RATIO} (Normal) Range: 0.9-2.4 GLOB 3.8 g/dL (Abnormal) Range: 2.3-3.5 ALB 3.5 g/dL (Normal) Range: 3.4-5.0 T PROT 7.3 g/dL (Normal) Range: 6.4-8.2 BUN/CRE 12.3 {RATIO} (Normal) Range: 10-20 EST GFR - AA 112 mL/min (Normal) Comments: GFR Calc EST GFR 92 mL/min (Normal) Comments: Non- GFR Calc CREAT,SERUM 0.73 mg/dL (Normal) Range: 0.55-1.20 Comments: The validity of the calculated GFR AND GFRAA in patients over70 years has not been determined. Clinical correlation isessential. BUN 9 mg/dL (Normal) Range: 7-18 GLU 93 mg/dL (Normal) Range: 70-110 :42 Lipid Profile Comments: ORDERED CMP CBCDDR.FAST ORDERED LIPID TSH CMP CBCD [facility] [address] [place], [address] VLDL 20 mg/dL (Normal) Range: 5-40 LDL 115 mg/dL (Normal) Range: 0-130 HDL 43 mg/dL (Normal) Comments: Reference Range HDL <40 mg/dL Low HDL Cholesterol HDL >or= 60 mg/dL High HDL Cholesterol TRIG 99 mg/dL (Normal) Comments: Serum Triglycerides Reference Interval Normal <150 mg/dL Borderline high 150 - 199 mg/dL High 200 - 499 mg/dL Very High > or = 500 mg/dL CHOL 178 mg/dL (Normal) Comments: <200 mg/dL Desirable 200-240 mg/dL Borderline >240 mg/dL High Risk :42 Prolactin Comments: ORDERED CMP CBCDDR.FAST ORDERED LIPID TSH CMP CBCD [facility] [address] [place], [place], [id number] PROLACTIN 8.5 ng/mL (Normal) Comments: NORMAL REFERENCE RANGES FEMALE NON- 2.2 - 30.3 ng/mL 8.1 - 347.6 ng/mL POST-MENOPAUSAL 0.7 - 3 1.5 ng/mL MALE 2.5 - 17.4 ng/mLNEW TEST METHOD AND REFERENCE RANGES JULY 04, 201114-May-20158:42 Thyroid Stim Hormone (TSH) Comments: ORDERED CMP CBCDDR.FAST ORDERED LIPID TSH CMP CBCD [facility] [address] [place], [address] TSH 1.41 {uIU/mL} (Normal) Range: 0.358-3.74 68-Kjz-032809:50 THROAT CULTURE (47150) Comments: PATIENT NOT FASTINGPERFORMED BY: [facility] HospitalHgqwwv5690 [facility] [id number] Information: [id number] Result 1 RRF (Normal) Comments: Routine respiratory ly Upper Respiratory Culture Final report (Normal) 26-Ahj-020123:31 CBC W/Diff, Automated Comments: Test performed at:[facility] [address] [place] [address] Absolute Lymph 2.11 {X10_3/ul} (Normal) Range: 0.83-4.51 Absolute Neut 4.0 {X10_3/uL} (Normal) Range: 2.0-7.7 IM GRAN % 0.300 % (Normal) Range: 0.0-0.9 Comments: IG% - Immature Granulocytes (promyelocytes, myelocytes andmetamyelocytes) > 1% indicates that a LEFT SHIFT is Present. BASO% 0.3 % (Normal) Range: 0-1 EO% 2.5 % (Normal) Range: 0-5 MONO% 7.4 % (Normal) Range: 0-10 LY% 31.1 % (Normal) Range: 19-41 NEUT% 58.4 % (Normal) Range: 47-70 MPV 9.1 fL (Normal) Range: 6.2-12.0 PLT 260 K/mm3 (Normal) Range: 150-450 RDW SD 45.1 fL (Abnormal) Range: 35.1-43.9 RDW CV 13.8 % (Normal) Range: 11.6-14.6 MCHC 33.3 {g/gl} (Normal) Range: 32-36 MCH 30.1 pg (Normal) Range: 27.0-32.0 MCV 90.2 fL (Normal) Range: 81-99 HCT 43.5 % (Normal) Range: 37-47 HGB 14.5 g/dL (Normal) Range: 12.0-15.0 RBC 4.82 {M/mm3} (Normal) Range: 4.2-5.4 WBC 6.8 K/mm3 (Normal) Range: 4.4-11.0 [id number] Comprehensive Metabolic Profil Comments: Test performed at:[facility] [id number] [place] [address] GAP 5 (Normal) Range: 5-15 CO2 28.0 mmol/L (Normal) Range: 21.0-32.0 CL 102 mmol/L (Normal) Range: 98-107 K 3.9 mmol/L (Normal) Range: 3.5-5.1 NA 135 mmol/L (Abnormal) Range: 136-145 T BILI 0.30 mg/dL (Normal) Range: 0.00-4.00 ALT 24 U/L (Normal) Range: 12-78 ALK P 81 U/L (Normal) Range: 50-136 AST 11 U/L (Abnormal) Range: 15-37 CA 9.0 mg/dL (Normal) Range: 8.5-10.1 A/G 1.1 {RATIO} (Normal) Range: 0.9-2.4 GLOB 3.7 g/dL (Normal) Range: 2.7-4.2 ALB 4.1 g/dL (Normal) Range: 3.4-5.0 T PROT 7.8 g/dL (Normal) Range: 6.4-8.2 BUN/CRE 10.0 {RATIO} (Normal) Range: 10-20 EST GFR - AA 102 mL/min (Normal) EST GFR 84 mL/min (Normal) CREAT,SERUM 0.8 mg/dL (Normal) Range: 0.6-1.0 BUN 8 mg/dL (Normal) Range: 7-18 GLU 115 mg/dL (Abnormal) Range: 70-110 Comments: Fasting Glucose result from 110 to <126 mg/dLsuggests IMPAIRED HOMEOSTASIS per A.D.A. criteria. [id number] CBCD ALC 2.39 {X10_3/ul} (Normal) Range: 0.83-4.51 ANC 3.1 {X10_3/uL} (Normal) Range: 2.0-7.7 IG% 0.300 % (Normal) Range: 0.0-0.9 Comments: IG% - Immature Granulocytes (promyelocytes, myelocytes andmetamyelocytes) > 1% indicates that a LEFT SHIFT is Present. B% 0.5 % (Normal) Range: 0-1 E% 2.1 % (Normal) Range: 0-5 M% 8.7 % (Normal) Range: 0-10 L% 38.6 % (Normal) Range: 19-41 N% 49.8 % (Normal) Range: 47-70 MPV 9.0 fL (Normal) Range: 6.2-12.0 PLT 287 K/mm3 (Normal) Range: 150-450 RDWSD 42.7 fL (Normal) Range: 35.1-43.9 RDWCV 13.4 % (Normal) Range: 11.6-14.6 MCHC 33.8 {g/gl} (Normal) Range: 32-36 MCH 30.0 pg (Normal) Range: 27.0-32.0 MCV 88.8 fL (Normal) Range: 81-99 HCT 38.8 % (Normal) Range: 37-47 HGB 13.1 g/dL (Normal) Range: 12.0-15.0 RBC 4.37 {M/mm3} (Normal) Range: 4.2-5.4 WBC 6.2 K/mm3 (Normal) Range: 4.4-11.0 :10 CMP GAP 8 (Normal) Range: 5-15 CO2 28.0 mmol/L (Normal) Range: 21.0-32.0 CL 102 mmol/L (Normal) Range: 98-107 K 3.4 mmol/L (Abnormal) Range: 3.5-5.1 NA 138 mmol/L (Normal) Range: 136-145 BIT 0.30 mg/dL (Normal) Range: 0.00-4.00 ALT 31 U/L (Normal) Range: 12-78 ALK 91 U/L (Normal) Range: 50-136 AST 15 U/L (Normal) Range: 15-37 CA 9.5 mg/dL (Normal) Range: 8.5-10.1 AG 1.1 {RATIO} (Normal) Range: 0.9-2.4 GLOB 3.6 g/dL (Normal) Range: 2.7-4.2 ALB 3.8 g/dL (Normal) Range: 3.4-5.0 TPROT 7.4 g/dL (Normal) Range: 6.4-8.2 BC 8.9 {RATIO} (Abnormal) Range: 10-20 GFRAA 88 mL/min (Normal) GFR 73 mL/min (Normal) CREAT 0.9 mg/dL (Normal) Range: 0.6-1.0 BUN 8 mg/dL (Normal) Range: 7-18 GLU 95 mg/dL (Normal) Range: 70-110 39-Dkx-13293:53 CBCD ALC 2.17 {X10_3/ul} (Normal) Range: 0.83-4.51 ANC 3.1 {X10_3/uL} (Normal) Range: 2.0-7.7 IG% 0.200 % (Normal) Range: 0.0-0.9 Comments: IG% - Immature Granulocytes (promyelocytes, myelocytes andmetamyelocytes) > 1% indicates that a LEFT SHIFT is Present. B% 0.3 % (Normal) Range: 0-1 E% 3.6 % (Normal) Range: 0-5 M% 6.1 % (Normal) Range: 0-10 L% 37.0 % (Normal) Range: 19-41 N% 52.8 % (Normal) Range: 47-70 MPV 8.9 fL (Normal) Range: 6.2-12.0 PLT 259 K/mm3 (Normal) Range: 150-450 RDWSD 42.3 fL (Normal) Range: 35.1-43.9 RDWCV 12.9 % (Normal) Range: 11.6-14.6 MCHC 33.0 {g/gl} (Normal) Range: 32-36 MCH 29.7 pg (Normal) Range: 27.0-32.0 MCV 90.1 fL (Normal) Range: 81-99 HCT 40.0 % (Normal) Range: 37-47 HGB 13.2 g/dL (Normal) Range: 12.0-15.0 RBC 4.44 {M/mm3} (Normal) Range: 4.2-5.4 WBC 5.9 K/mm3 (Normal) Range: 4.4-11.0 :53 CMP GAP 8 (Normal) Range: 5-15 CO2 29.0 mmol/L (Normal) Range: 21.0-32.0 CL 100 mmol/L (Normal) Range: 98-107 K 3.8 mmol/L (Normal) Range: 3.5-5.1 NA 137 mmol/L (Normal) Range: 136-145 BIT 0.40 mg/dL (Normal) Range: 0.00-1.00 ALK 86 U/L (Normal) Range: 45-117 ALT 25 U/L (Normal) Range: 12-78 AST 19 U/L (Normal) Range: 15-37 CA 9.2 mg/dL (Normal) Range: 8.5-10.1 AG 1.0 {RATIO} (Normal) Range: 0.9-2.4 GLOB 3.6 g/dL (Normal) Range: 2.7-4.2 ALB 3.6 g/dL (Normal) Range: 3.4-5.0 TPROT 7.2 g/dL (Normal) Range: 6.4-8.2 BC 8.0 {RATIO} (Abnormal) Range: 10-20 GFRAA 79 mL/min (Normal) GFR 65 mL/min (Normal) CREAT 1.0 mg/dL (Normal) Range: 0.6-1.0 BUN 8 mg/dL (Normal) Range: 7-18 GLU 142 mg/dL (Abnormal) Range: 70-110 Comments: Fasting Glucose result greater than or equal to 126 mg/dLsuggests DIABETES MELLITUS per A.D.A. criteria. :44 CBCD ALC 1.84 {X10_3/ul} (Normal) Range: 0.83-4.51 ANC 2.6 {X10_3/uL} (Normal) Range: 2.0-7.7 IG% 0.000 % (Normal) Range: 0.0-0.9 Comments: IG% - Immature Granulocytes (promyelocytes, myelocytes andmetamyelocytes) > 1% indicates that a LEFT SHIFT is Present. B% 0.4 % (Normal) Range: 0-1 E% 2.8 % (Normal) Range: 0-5 M% 9.2 % (Normal) Range: 0-10 L% 36.7 % (Normal) Range: 19-41 N% 50.9 % (Normal) Range: 47-70 MPV 8.7 fL (Normal) Range: 6.2-12.0 PLT 234 K/mm3 (Normal) Range: 150-450 RDWSD 45.0 fL (Abnormal) Range: 35.1-43.9 RDWCV 13.9 % (Normal) Range: 11.6-14.6 MCHC 34.0 {g/gl} (Normal) Range: 32-36 MCH 29.9 pg (Normal) Range: 27.0-32.0 MCV 88.0 fL (Normal) Range: 81-99 HCT 38.8 % (Normal) Range: 37-47 HGB 13.2 g/dL (Normal) Range: 12.0-15.0 RBC 4.41 {M/mm3} (Normal) Range: 4.2-5.4 WBC 5.0 K/mm3 (Normal) Range: 4.4-11.0 2-Nqh-403409:44 CMP GAP 6 (Normal) Range: 5-15 CO2 29.0 mmol/L (Normal) Range: 21.0-32.0 CL 103 mmol/L (Normal) Range: 98-107 K 3.8 mmol/L (Normal) Range: 3.5-5.1 NA 138 mmol/L (Normal) Range: 136-145 BIT 0.40 mg/dL (Normal) Range: 0.00-1.00 ALT 34 U/L (Normal) Range: 12-78 ALK 82 U/L (Normal) Range: 45-117 AST 25 U/L (Normal) Range: 15-37 CA 9.3 mg/dL (Normal) Range: 8.5-10.1 AG 1.0 {RATIO} (Normal) Range: 0.9-2.4 GLOB 3.7 g/dL (Normal) Range: 2.7-4.2 ALB 3.6 g/dL (Normal) Range: 3.4-5.0 TPROT 7.3 g/dL (Normal) Range: 6.4-8.2 BC 10.0 {RATIO} (Normal) Range: 10-20 GFRAA 102 mL/min (Normal) GFR 84 mL/min (Normal) CREAT 0.8 mg/dL (Normal) Range: 0.6-1.0 BUN 8 mg/dL (Normal) Range: 7-18 GLU 139 mg/dL (Abnormal) Range: 70-110 Comments: Fasting Glucose result greater than or equal to 126 mg/dLsuggests DIABETES MELLITUS per A.D.A. criteria. :44 CRP 5.16 mg/L (Abnormal) Range: 0.0-3.0 Comments: C-Reactive Protein (CRP) provides useful information for thediagnosis, therapy and monitoring of inflammatory processesand associated diseases. For the evaluation of Relative Riskfor Cardiovascular Dise ase, a High Sensitivity CRP (HSCRP)should be ordered. :44 CUUR URC Culture exhibits no growth. (Normal) :44 SED tSEDRATE 16 mm/h (Normal) Range: 0-20 3-Lzp-002091:58 URINE FRANCISCO CULTURE-EDGAR COL Comments: PATIENT NOT FASTINGPERFORMED BY: [facility] [id number] [facility] [id number] Information: SRC:UR [id number] COUNT ([id number]) Result 1 BETAGB (Abnormal) Comments: Beta hemolytic Streptococcus, group B400 Colonies/mLPenicillin and ampicillin are drugs of choice for treatment ofbeta- hemolytic streptococcal infections. Susceptibility testing ofpenicillins and other beta-lactam agents approved by the FDA fortreatment of beta-hemolytic streptococcal infections need not beperformed routinely because nonsusceptible isolates are extremelyrare in any beta-hemolytic stre ptococcus and have not been reportedfor Streptococcus pyogenes (group A). (CLSI 2011) Urine Final report (Abnormal) Culture,Comprehensive 5-Zqq-062232:08 Urinalysis, Office (60302) UA - LEUKOCYTE ESTERASE Negative (Normal) UA - NITRITE Negative (Normal) URINE UROBILINGN EDGAR TIMED Normal mg/dL (Normal) UA - PROTEIN Negative mg/dL (Normal) UA - PH 7.5 (Normal) UA - BLOOD Negative (Normal) UA - SPECIFIC GRAVITY 1.015 (Normal) UA - KETONES Negative mg/dL (Normal) UA - BILIRUBIN Negative (Normal) UA - GLUCOSE Negative (Normal) B12 616 pg/mL (Normal) Range: 211-911 : CBCD ANC 3.7 {X10_3/uL} (Normal) Range: 2.0-7.7 IG% 0.200 % (Normal) Range: 0.0-0.9 Comments: IG% - Immature Granulocytes (promyelocytes, myelocytes andmetamyelocytes) > 1% indicates that a LEFT SHIFT is Present. B% 0.3 % (Normal) Range: 0-1 E% 3.4 % (Normal) Range: 0-5 L% 26.5 % (Normal) Range: 19-41 M% 8.8 % (Normal) Range: 0-10 MPV 8.7 fL (Normal) Range: 6.2-12.0 N% 60.8 % (Normal) Range: 47-70 PLT 271 K/mm3 (Normal) Range: 150-450 RDWSD 43.8 fL (Normal) Range: 35.1-43.9 MCHC 33.6 {g/gl} (Normal) Range: 32-36 RDWCV 13.5 % (Normal) Range: 11.6-14.6 MCH 29.8 pg (Normal) Range: 27.0-32.0 HCT 39.3 % (Normal) Range: 37-47 MCV 88.7 fL (Normal) Range: 81-99 HGB 13.2 g/dL (Normal) Range: 12.0-15.0 RBC 4.43 {M/mm3} (Normal) Range: 4.2-5.4 WBC 6.1 K/mm3 (Normal) Range: 4.4-11.0 : CMP Comments: ORDERED CMP CBCD STANDINGDR.FAST CBCD CMP ALSO PLUS OTHERS GAP 7 (Normal) Range: 5-15 CO2 28.0 mmol/L (Normal) Range: 21.0-32.0 CL 101 mmol/L (Normal) Range: 98-107 K 3.7 mmol/L (Normal) Range: 3.5-5.1 NA 136 mmol/L (Normal) Range: 136-145 BIT 0.40 mg/dL (Normal) Range: 0.00-1.00 ALT 28 U/L (Normal) Range: 12-78 ALK 93 U/L (Normal) Range: 50-136 AST 17 U/L (Normal) Range: 15-37 CA 8.9 mg/dL (Normal) Range: 8.5-10.1 AG 1.0 {RATIO} (Normal) Range: 0.9-2.4 GLOB 3.7 g/dL (Normal) Range: 2.7-4.2 ALB 3.7 g/dL (Normal) Range: 3.4-5.0 TPROT 7.4 g/dL (Normal) Range: 6.4-8.2 BC 11.4 {RATIO} (Normal) Range: 10-20 GFRAA 119 mL/min (Normal) GFR 98 mL/min (Normal) CREAT 0.7 mg/dL (Normal) Range: 0.6-1.0 BUN 8 mg/dL (Normal) Range: 7-18 GLU 99 mg/dL (Normal) Range: 70-110 01-Kmd-219141:01 CUUR URC See Note (Normal) Comments: ORGANISM 1: Mixed Gram Positive OrganismsColony Count 11,000-25,000MIX CONTAM Mixed Contaminants. Submit new specimen if indicated. 50-Nxi-107869:01 EBGM tEBINT Comment (Normal) Comments: EBV Interpretation ChartInterpretation VCA-IgM VCA-IgG EBNA-ABSEBV Seronegative - - - Acute Infection + + -Past Infection - + +IndeterminateVCA IgG ONLY - + -VCA IgM ONLY + - -EBNA IgG ONLY - - +Convalescent + + ++ Antibody Pre sent - Antibody AbsentPerformed at: - [facility] [address] [id number] Director: Job Aden MD, Phone: [phone] EBNA 247.0 U/mL (Abnormal) Range: 0.0-17.9 Comments: Negative <18.0Equivocal 18.0 - 21.9Positive >21.9Please note reference interval change EBVG 409.0 U/mL (Abnormal) Range: 0.0-17.9 Comments: Negative <18.0Equivocal 18.0 - 21.9Positive >21.9Please note reference interval change EBEAG <9.0 U/mL (Normal) Range: 0.0-8.9 Comments: Negative < 9.0Equivocal 9.0 - 10.9Positive >10.9Please note reference interval change EBVM < 36.0 U/mL (Normal) Range: 0.0-35.9 Comments: Negative <36.0Equivocal 36.0 - 43.9Positive >43.9Please note reference interval change : TSH 0.81 {uIU/mL} (Normal) Comments: ORDERED CMP CBCD STANDINGDR.FAST CBCD CMP ALSO PLUS OTHERS Range: 0.358-3.74 :01 VITD 32.0 mg/mL (Normal) Comments: Vitamin D 25(OH) Status RangeDeficiency <20 ng/mL (50nmol/L)Insuffciency 20 - 30 ng/mL (50 - 75 nmol/L)Sufficiency 30 - 100 ng/mL (75 - 250 nmol/L)Toxicity >100 ng/mL (>250 nmol/L) :01 CBCD Comments: DR PINA ORDERED CBCDDR FAST ORDERED CBCD ANC 3.1 {X10_3/uL} (Normal) Range: 2.0-7.7 IG% 0.200 % (Normal) Range: 0.0-0.9 Comments: IG% - Immature Granulocytes (promyelocytes, myelocytes andmetamyelocytes) > 1% indicates that a LEFT SHIFT is Present. B% 0.3 % (Normal) Range: 0-1 E% 3.3 % (Normal) Range: 0-5 M% 10.3 % (Abnormal) Range: 0-10 L% 36.8 % (Normal) Range: 19-41 N% 49.1 % (Normal) Range: 47-70 MPV 8.3 fL (Normal) Range: 6.2-12.0 PLT 296 K/mm3 (Normal) Range: 150-450 RDWSD 42.2 fL (Normal) Range: 35.1-43.9 RDWCV 13.5 % (Normal) Range: 11.6-14.6 MCHC 33.3 {g/gl} (Normal) Range: 32-36 MCH 29.3 pg (Normal) Range: 27.0-32.0 MCV 87.8 fL (Normal) Range: 81-99 HCT 38.1 % (Normal) Range: 37-47 HGB 12.7 g/dL (Normal) Range: 12.0-15.0 RBC 4.34 {M/mm3} (Normal) Range: 4.2-5.4 WBC 6.3 K/mm3 (Normal) Range: 4.4-11.0 : CMP Comments: DR PINA ORDERED CMPDR FAST ORDERED TSH,LIPID,CMP GAP 6 (Normal) Range: 5-15 CO2 28.0 mmol/L (Normal) Range: 21.0-32.0 CL 102 mmol/L (Normal) Range: 98-107 K 3.7 mmol/L (Normal) Range: 3.5-5.1 BIT 0.40 mg/dL (Normal) Range: 0.00-1.00 NA 136 mmol/L (Normal) Range: 136-145 ALT 25 U/L (Normal) Range: 12-78 ALK 91 U/L (Normal) Range: 50-136 AST 16 U/L (Normal) Range: 15-37 AG 1.1 {RATIO} (Normal) Range: 0.9-2.4 CA 9.2 mg/dL (Normal) Range: 8.5-10.1 GLOB 3.5 g/dL (Normal) Range: 2.7-4.2 ALB 3.7 g/dL (Normal) Range: 3.4-5.0 TPROT 7.2 g/dL (Normal) Range: 6.4-8.2 BC 11.3 {RATIO} (Normal) Range: 10-20 GFRAA 102 mL/min (Normal) CREAT 0.8 mg/dL (Normal) Range: 0.6-1.0 GFR 84 mL/min (Normal) BUN 9 mg/dL (Normal) Range: 7-18 GLU 105 mg/dL (Normal) Range: 70-110 : LIPID Comments: DR PINA ORDERED CMPDR FAST ORDERED TSH,LIPID,CMP VLDL 13 mg/dL (Normal) Range: 5-40 LDL 135 mg/dL (Abnormal) Range: 0-130 HDL 49 mg/dL (Normal) Comments: Reference RangeHDL <40 mg/dL Low HDL CholesterolHDL >or= 60 mg/dL High HDL Cholesterol CHOL 197 mg/dL (Normal) Comments: <200 mg/dL Opapozakx494-586 mg/dL Borderline>240 mg/dL High Risk TRIG 67 mg/dL (Normal) Range: 0-199 Comments: Serum Triglycerides Reference IntervalNormal <150 mg/dLBorderline high 150 - 199 mg/dLHigh 200 - 499 mg/ dLVery High > or = 500 mg/dL :01 MIACRE Comments: DR REA ORDERED MICROALBUM/CREAT URINE MIALB 17.0 mg/L (Normal) tMICROCREAT 8.4 {mg/g_CRE} (Normal) CREU 201.3 mg/dL (Normal) :01 TSH 1.67 {uIU/mL} (Normal) Comments: DR PINA ORDERED CMPDR ÁLVARO ORDERED TSH,LIPID,CMP Range: 0.358-3.74 :01 UAC Comments: DR REA ORDERED UACHow was Urine Obtained? CLEAN CATCH UBAC 1+ {/hpf} (Normal) UMUC 0 SEEN {/hpf} (Normal) UEPIS 0-5 SEEN {/hpf} (Normal) Range: 5-10 URBC 0 SEEN {/hpf} (Normal) Range: 0-5 UWBC 5-10 SEEN {/hpf} (Normal) Range: 0-5 ARIADNE 500 /ul (Abnormal) UOB Negative /ul (Normal) NAHUN Negative (Normal) UROBU Normal mg/dL (Normal) uPROTU Negative mg/dL (Normal) BENTON 6.0 (Normal) Range: 5.0 - 8.0 KETU Negative mg/dL (Normal) SGU 1.020 (Normal) Range: 1.002-1.030 BILIU Negative mg/dL (Normal) GLUR Normal mg/dL (Normal) UCLAR Cloudy (Normal) UCOL Yellow (Normal) 92-Yad-631706:19 Urinalysis, Office (10689) UA - BILIRUBIN Negative (Normal) UA - BLOOD Negative (Normal) UA - GLUCOSE Negative (Normal) UA - KETONES Negative mg/dL (Normal) UA - LEUKOCYTE ESTERASE Negative (Normal) UA - NITRITE Negative (Normal) UA - PH 6.0 (Normal) UA - PROTEIN Negative mg/dL (Normal) UA - SPECIFIC GRAVITY 1.025 (Normal) URINE UROBILINGN EDGAR TIMED Normal mg/dL (Normal) 19-Ohu-915881:52 URINE FRANCISCO CULTURE (EDGAR Comments: PATIENT NOT FASTINGPERFORMED BY: ZEINA [facility] HospitalWousyw8916 [facility] [id number] Information: SRC:MOHSEN [id number] COL COUNT) ([id number]) Result 1 BETAGB (Normal) Comments: Beta hemolytic Streptococcus, group B100 Colonies/mL .Penicillin and ampicillin are drugs of choice for treatment ofbeta-hemolytic streptococcal infe ctions. Susceptibility testing ofpenicillins and other beta-lactam agents approved by the FDA fortreatment of beta-hemolytic streptococcal infections need not beperformed routinely because nonsusceptibl e isolates are extremelyrare in any beta-hemolytic streptococcus and have not been reportedfor Streptococcus pyogenes (group A). (CLSI 2011)Mixed urogenital [id number] Colonies/mL Urine Final report (Normal) Culture,Comprehensiv e :3 B12 855 pg/mL (Normal) Range: 211-911 5 :35 CBCMD ANC 3.2 3/uL (Normal) Range: 2.0-7.7 IG% 0.20 % (Abnormal) Range: 0.0-0.0 B% 0.2 % (Normal) Range: 0-1 E% 2.6 % (Normal) Range: 0-5 M% 8.2 % (Normal) Range: 0-10 L% 36.4 % (Normal) Range: 19-41 N% 52.4 % (Normal) Range: 47-70 MPV 9.0 fL (Normal) Range: 6.2-12.0 PLT 282 K/mm3 (Normal) Range: 150-450 RDWSD 43.9 fL (Normal) Range: 35.1-43.9 RDWCV 13.8 % (Normal) Range: 11.6-14.6 MCHC 33.1 g/dL (Normal) Range: 32-36 MCH 29.3 pg (Normal) Range: 27.0-32.0 HCT 36.9 % (Abnormal) Range: 37-47 MCV 88.7 fL (Normal) Range: 81-99 HGB 12.2 g/dL (Normal) Range: 12.0-15.0 RBC 4.16 {M/mm3} (Abnormal) Range: 4.2-5.4 WBC 6.1 {k/mm3} (Normal) Range: 4.4-11.0 :35 CMP GAP 7 (Normal) Range: 5-15 CL 102 mmol/L (Normal) Range: 98-107 CO2 29.0 mmol/L (Normal) Range: 21.0-32.0 K 3.9 mmol/L (Normal) Range: 3.5-5.1 NA 138 mmol/L (Normal) Range: 136-145 BIT 0.60 mg/dL (Normal) Range: 0.00-1.00 ALT 20 U/L (Normal) Range: 12-78 ALK 76 U/L (Normal) Range: 50-136 AST 12 U/L (Abnormal) Range: 15-37 AG 1.0 {RATIO} (Normal) Range: 0.9-2.4 CA 8.8 mg/dL (Normal) Range: 8.5-10.1 GLOB 3.5 g/dL (Normal) Range: 2.7-4.2 ALB 3.6 g/dL (Normal) Range: 3.4-5.0 TPROT 7.1 g/dL (Normal) Range: 6.4-8.2 BC 8.8 {RATIO} (Abnormal) Range: 10-20 GFRAA 102 mL/min (Normal) GFR 84 mL/min (Normal) CREAT 0.8 mg/dL (Normal) Range: 0.6-1.0 BUN 7 mg/dL (Normal) Range: 7-18 GLU 90 mg/dL (Normal) Range: 70-110 :35 CUUR URC See Note {CFU/mL} (Normal) Comments: COLONY COUNT 50,000- 80,000 ORGANISM 1: MIXED GRAM POSITIVE ORGANISMS :35 KYLAH 8 ng/mL (Normal) Range: 8-252 :35 IBC %ISAT 17.9 % (Normal) Range: 15.0-55.0 FE 70 ug/dL (Normal) Range: 50-170 TIBC 392 ug/dL (Normal) Range: 250-450 :35 LIPID HDL 48 mg/dL (Normal) Comments: Reference RangeHDL <40 mg/dL Low HDL CholesterolHDL >or= 60 mg/dL High HDL Cholesterol LDL 147 mg/dL (Abnormal) Range: 0-130 VLDL 18 mg/dL (Normal) Range: 5-40 CHOL 213 mg/dL (Abnormal) Comments: <200 mg/dL Hmvuhsokc815-114 mg/dL Borderline>240 mg/dL High Risk TRIG 90 mg/dL (Normal) Comments: Serum Triglycerides Reference IntervalNormal <150 mg/dLBorderline high 150 - 199 mg/dLHigh 200 - 499 mg/ dLVery High > or = 500 mg/dL 1-Ael-706314:09 URINE FRANCISCO CULTURE-EDGAR COL Comments: PATIENT NOT FASTINGPERFORMED BY: ZEINA [facility] [id number] [facility] [id number] Information: SRC: [id number] COUNT ([id number]) Result 1 CNSNSS (Normal) Comments: Coagulase negative Staphylococcus species, not Staphylococcussaprophyticus.10,000-25,000 colony forming units per mLBased on resistance to oxacillin this isolate would be resistant toall currently avail able beta-lactam antimicrobial agents, with theexception of the newer cephalosporins with anti-MRSA activity, such asCeftaroline S = Susceptible; I = Intermediate; R = Resistant P = Positive; N = Negative MICS are expressed in micrograms per mL Antibiotic RSLT#1 RSLT#2 RSLT#3 RSLT#4Ciprofloxacin RGentamicin SLevofloxacin ILinezolid SNitrofurantoin SOxacillin RPenicillin RQuinupristin/Dalfopristin SRifampin STetracycline STrimethoprim/Sulfa RVancomycin S Urine Final report Culture,Comprehe (Normal) nsive 8-Wsu-021700:25 Urinalysis, Office (17563) UA - BILIRUBIN Negative (Normal) UA - BLOOD Non Hemolyzed Trace (Normal) UA - GLUCOSE Negative (Normal) UA - KETONES Negative mg/dL (Normal) UA - LEUKOCYTE ESTERASE Small (Normal) UA - NITRITE Negative (Normal) UA - PH 6.0 (Normal) UA - PROTEIN Negative mg/dL (Normal) UA - SPECIFIC GRAVITY 1.025 (Normal) URINE UROBILINGN EDGAR TIMED Normal mg/dL (Normal) 04-Lud-144390:27 URINE FRANCISCO CULTURE-IDENTIFICATN Comments: PATIENT NOT FASTINGPERFORMED BY: ZEINA [facility] [id number] [facility] [id number] Information: [id number] ([id number]) Result 1 CNSNSS (Normal) Comments: Coagulase negative Staphylococcus species, not Staphylococcussaprophyticus.25,000-50,000 colony forming units per mLBased on resistance to oxacillin this isolate would be resistant toall currently avail able beta-lactam antimicrobial agents, with theexception of the newer cephalosporins with anti-MRSA activity, such asCeftaroline S = Susceptible; I = Intermediate; R = Resistant P = Positive; N = Negative MICS are expressed in micrograms per mL Antibiotic RSLT#1 RSLT#2 RSLT#3 RSLT#4Ciprofloxacin SGentamicin SLevofloxacin SNitrofurantoin SOxacillin RPenicillin RRifampin STetracycline STrimethoprim/Sulfa SVancomycin S Urine Final report Culture,Comprehe (Normal) nsive 42-Dgm-462277:08 Urinalysis, Office (88336) UA - BILIRUBIN Negative (Normal) UA - BLOOD Negative (Normal) UA - GLUCOSE Negative (Normal) UA - KETONES Negative mg/dL (Normal) UA - LEUKOCYTE ESTERASE Small (Normal) UA - NITRITE Negative (Normal) UA - PH 7.0 (Normal) UA - PROTEIN Negative mg/dL (Normal) UA - SPECIFIC GRAVITY 1.015 (Normal) URINE UROBILINGN EDGAR TIMED Normal mg/dL (Normal) 21-Jgp-317111:43 Urinalysis, Office (29591) UA - BILIRUBIN Negative (Normal) UA - BLOOD Negative (Normal) UA - GLUCOSE Negative (Normal) UA - KETONES Negative mg/dL (Normal) UA - LEUKOCYTE ESTERASE Trace (Normal) UA - NITRITE Negative (Normal) UA - PH 6.0 (Normal) UA - PROTEIN Negative mg/dL (Normal) UA - SPECIFIC GRAVITY 1.025 (Normal) URINE UROBILINGN EDGAR TIMED Normal mg/dL (Normal) 4-Xtm-461332:12 Urinalysis, Office (09461) UA - BILIRUBIN Negative (Normal) UA - BLOOD Hemolyzed Trace (Normal) UA - GLUCOSE Negative (Normal) UA - KETONES Negative mg/dL (Normal) UA - LEUKOCYTE ESTERASE Moderate (Normal) UA - NITRITE Negative (Normal) UA - PH 6.0 (Normal) UA - PROTEIN Negative mg/dL (Normal) UA - SPECIFIC GRAVITY 1.015 (Normal) URINE UROBILINGN EDGAR TIMED 2 mg/dL (Normal) 10-Rwo-582882:06 Ferritin (34478) Comments: PATIENT NOT FASTINGPERFORMED BY: [facility] [id number] [place] [id number] Ferritin, Serum 26 ng/mL (Normal) Range: 13-150 36-Prt-222821:06 Iron (15080) Comments: PATIENT NOT FASTINGPERFORMED BY: [facility] [id number] [facility] [id number] Information: [id number] Iron, Serum 95 ug/dL (Normal) Range: 35-155 84-Wtz-873475:06 Vitamin B-12 (cyanocobalamin) Comments: PATIENT NOT FASTINGPERFORMED BY: [employer] [id number] [facility] [id number] (06691) Vitamin B12 393 pg/mL (Normal) Range: 211-946 : CKMB CPKMB < 0.5 ng/mL (Normal) Range: 0.0-5.0 Comments: CK-MB and RI Interpretation MB Relative Index Non-AMI <or= 5 NA Indeterminate > 5 <or= 4 AMI > 5 > 4 CPK 53 U/L (Normal) Range: 26-192 : CRP < 2.90 mg/L (Normal) Range: 0.0-3.0 Comments: C-Reactive Protein (CRP) provides useful information for thediagnosis, therapy and monitoring of inflammatory processesand associated diseases. For the evaluation of Relative Riskfor Cardiovascular Dise ase, a High Sensitivity CRP (HSCRP)should be ordered. : DDIMQ 0.50 {FEUug/mL} Range: 0.22-0.48 (Abnormal) Comments: D-Dimer ELEVATED: Additional studies and clinicalassessments are indicated to conclude diagnosis of:Deep Vein Thrombosis (DVT) or Pulmonary Embolism (PE)RESULTS CALLED TO [facility] 05/17/11 HELEN DESAI .REPORT READ BACK BY SAME . AMENDED REPORT 05/17/11 1392 D-DIMER QUANT previously reported as: 0.50 *H FEUug/mLD-Dimer ELEVATED: Additional studies and clinicalassessments are indicated to sherrie bhakta diagnosis of:Deep Vein Thrombosis (DVT) or Pulmonary Embolism (PE) 17-May-20110:01 TROP < 0.02 ng/mL (Normal) Comments: TROPONIN-I EXPECTED VALUES <0.05 NEGATIVE 0.06 - 0.59 AT RISK OF [place] > OR = 0.60 SUGGEST [place] :47 CA 8.9 mg/dL (Normal) Range: 8.5-10.1 :47 K 4.0 mmol/L (Normal) Range: 3.5-5.1 :17 CBCD ABSOLUTE NEUT 3.2 3/uL (Normal) Range: 2.0-7.7 BASO% 0.3 % (Normal) Range: 0-1 EO% 1.0 % (Normal) Range: 0-5 MONO% 6.7 % (Normal) Range: 0-10 LY% 42.4 % (Abnormal) Range: 19-41 NEUT% 49.6 % (Normal) Range: 47-70 MPV 7.2 fL (Normal) Range: 6.5-12.0 PLT 261 K/mm3 (Normal) Range: 150-450 MCHC 34.3 g/dL (Normal) Range: 32-36 RDW 12.8 % (Normal) Range: 11.6-14.6 MCH 31.2 pg (Normal) Range: 27.0-32.0 MCV 91.1 fL (Normal) Range: 81-99 HCT 37.5 % (Normal) Range: 37-47 HGB 12.9 g/dL (Normal) Range: 12.0-16.0 RBC 4.12 {M/mm3} (Abnormal) Range: 4.2-5.4 WBC 6.4 K/mm3 (Normal) Range: 4.4-11.0 :17 COMP METABOLIC GAP 8 (Normal) Range: 5-15 CO2 28.0 mmol/L (Normal) Range: 21.0-32.0 CL 104 mmol/L (Normal) Range: 98-107 K 3.4 mmol/L (Abnormal) Range: 3.5-5.1 NA 140 mmol/L (Normal) Range: 136-145 T BILI 0.40 mg/dL (Normal) Range: 0.00-1.00 ALT 40 U/L (Normal) Range: 12-78 ALK P 56 U/L (Normal) Range: 50-136 AST 23 U/L (Normal) Range: 15-37 CA 8.3 mg/dL (Abnormal) Range: 8.5-10.1 A/G 1.0 {RATIO} (Normal) Range: 0.9-2.4 GLOB 3.6 g/dL (Normal) Range: 2.7-4.2 ALB 3.7 g/dL (Normal) Range: 3.4-5.0 T PROT 7.3 g/dL (Normal) Range: 6.4-8.2 BUN/CRE 11.4 {RATIO} (Normal) Range: 10-20 EST GFR - AA 120 mL/min (Normal) EST GFR 99 mL/min (Normal) CREAT,SERUM 0.7 mg/dL (Normal) Range: 0.6-1.0 BUN 8 mg/dL (Normal) Range: 7-18 GLU 83 mg/dL (Normal) Range: 70-110 [id number] VIT D,25 66121 18.9 ng/mL (Abnormal) Range: 30.0-100.0 Comments: Vitamin D deficiency has been defined by the [employer] and an Endocrine Society practice guideline as alevel of serum 25-OH vitamin D less than 20 ng/mL (1,2).The Endocrine Society went on to further define vitamin Dinsufficiency as a level between 21 and 29 ng/mL (2).1. IOM ([employer]). 2011. Dietary reference intakes for calcium and D. [place]: The National Academies Press.2. Rodrigo MF, Lane [place], Ethel FU, et al. Evaluation, treatment, and prevention of vitamin D deficiency: an Endocrine Society clinical practice guideline. JCEM. 2010; 96(7): 1911-30.Performed at: [address] [id number] Director: Jesi Benavides MD, Phone: [phone] [id number] CERV SPINE,MIN 4 VIEWS Radiology Report See Note (Normal) Comments: PROCEDURE: X-RAY - CERVICAL SPINE REASON FOR EXAM: Female, 40 years old. Cervical radiculopathy. Thisisworse on the left side. TECHNIQUE: Six views of the cervical spine were obtained. COMPARISO N: None FINDINGS:Normal craniovertebral junction. Normal anterior atlantoaxialarticulation. Normal odontoid process. There is reversal of the normal cervical lordosis. Normal vertebralbodiesand pos terior osseous elements. There is a mild degree of disk space narrowing at the C6-C7 level.Normalvisualized intervertebral neuroforamina. Normal visualized soft tissue structures. IMPRESSION:There is a mild degree of disk space narrowing at the C6-C7 level. To consult with a radiologist regarding this report, please call our [id number] line @ Dictated on 03/21/11 1254 by Sudhakar Hoodranscribed on 03/22/11 1608 by ITS IMPORTSign by Fabricio Hanna MD on 03/22/11 1609 Sign by: Fabricio Hanna MD 9-Ysq-193754:40 CBCD,SMEAR DIFF RED CELL MORPH SeeNote {NORMAL} (Normal) Comments: Result: NORM C+C PLT EST SeeNote (Normal) Comments: Result: ADEQUATE EOS 5 % (Normal) Range: 0-5 MONOCYTE 8 % (Normal) Range: 0-10 LYMPH 34 % (Normal) Range: 19-41 SEGS 53 % (Normal) Range: 47-70 CELLS COUNTED 100 (Normal) ABSOLUTE NEUT 3.3 3/uL (Normal) Range: 2.0-7.7 PLT 284 K/mm3 (Normal) Range: 150-450 RDW 12.2 % (Normal) Range: 11.6-14.6 MCHC 34.0 g/dL (Normal) Range: 32-36 MCH 31.9 pg (Normal) Range: 27.0-32.0 MCV 93.8 fL (Normal) Range: 81-99 HCT 38.7 % (Normal) Range: 37-47 HGB 13.2 g/dL (Normal) Range: 12.0-16.0 RBC 4.12 {M/mm3} (Abnormal) Range: 4.2-5.4 WBC 5.6 K/mm3 (Normal) Range: 4.4-11.0 1-Jzg-568939:40 COMP METABOLIC GAP 8 (Normal) Range: 5-15 CO2 30.0 mmol/L (Normal) Range: 21.0-32.0 CL 103 mmol/L (Normal) Range: 98-107 K 3.9 mmol/L (Normal) Range: 3.5-5.1 NA 141 mmol/L (Normal) Range: 136-145 T BILI 0.50 mg/dL (Normal) Range: 0.00-1.00 ALT 31 U/L (Normal) Range: 12-78 ALK P 70 U/L (Normal) Range: 50-136 AST 14 U/L (Abnormal) Range: 15-37 CA 8.4 mg/dL (Abnormal) Range: 8.5-10.1 A/G 1.1 {RATIO} (Normal) Range: 0.9-2.4 GLOB 3.5 g/dL (Normal) Range: 2.7-4.2 ALB 3.7 g/dL (Normal) Range: 3.4-5.0 T PROT 7.2 g/dL (Normal) Range: 6.4-8.2 BUN/CRE 8.9 {RATIO} (Abnormal) Range: 10-20 EST GFR - AA 90 mL/min (Normal) EST GFR 74 mL/min (Normal) CREAT,SERUM 0.9 mg/dL (Normal) Range: 0.6-1.0 BUN 8 mg/dL (Normal) Range: 7-18 GLU 99 mg/dL (Normal) Range: 70-110 5-Nxr-294369:40 LIPID VLDL 14 mg/dL (Normal) Range: 5-40 LDL 122 mg/dL (Normal) Range: 0-130 HDL 67 mg/dL (Normal) Comments: Reference Range HDL <40 mg/dL Low HDL Cholesterol HDL >or= 60 mg/dL High HDL Cholesterol TRIG 72 mg/dL (Normal) Comments: Serum Triglycerides Reference Interval Normal <150 mg/dL Borderline high 150 - 199 mg/dL High 200 - 499 mg/dL Very High > or = 500 mg/dL CHOL 203 mg/dL (Abnormal) Comments: <200 mg/dL Desirable 200-240 mg/dL Borderline >240 mg/dL High Risk :30 FRANCISCO CULTURE-OTHER (01900) Comments: PATIENT NOT FASTINGPERFORMED BY: [facility] CollegeCoSum[facility] HospitalHyaqsv8838 [facility] [id number] Information: SRC:THRT [id number] Result 1 RRF (Normal) Comments: Routine respiratory ly Upper Respiratory Culture Final report (Normal) 5-Czq-469774:43 Rapid Strep Test, Office (29962) Rapid Strep Test, Office Negative (Normal) 47-Cui-110616:05 BRAIN W/WO CONTRAST Radiology Report See Note (Normal) Comments: Exam Number: [id number] CLINICAL:39-year-old female with posterior headaches and left facial numbnessand tingling for four days. MRI BRAIN WITHOUT AND WITH CONTRAST TECHNIQUE:Standardized multiplanar fat and water weighted pulse sequences wereobtained. 14 ml of Magnevist contrast material was administeredintravenously for the contrast portion of the examination. COMPARISON:None. FINDINGS:Normal size o f the ventricles and extra-axial spaces for thepatient's age. Normal white matter tracts of the supratentorial brain. No acuteinfarction is seen on the diffusion sequence. Normal basal ganglia, and frieda lami. No hemorrhage or mass lesion is identified. No abnormal enhancementis seen in the brain parenchyma or meninges. Normal flow voids within the major intracranial circulationsuggesting patency by sp in echo criteria. There is no extra-axial fluid accumulation. No abnormality is identified in the pituitary, optic chiasm, orpineal. No abnormality is noted in the cavernous sinuses or Meckel's caves. N ormal midbrain, aleks and medulla. Normal basal cisterns. Normal cerebellum. Normal visualized internal auditory canals. Normal bilateral orbital contents. Normal visualized paranasal sinuses. Normal ca lvarium and skull base. Normal visualized soft tissuestructures. Normal visualized upper cervical spine. IMPRESSION:Normal unenhanced and enhanced MRI of the brain. Reported By: MELVIN SU M.D. 9-Mxb-493893:40 Urine Culture,Comprehensive Comments: PATIENT NOT FASTINGPERFORMED BY: [facility] CollegeH[facility] [id number] Information: SRC:UR [id number] Result 1 MUG (Normal) Comments: Mixed urogenital flora10,000-25,000 colony forming units per mL Urine Final report (Normal) Culture,Comprehensive 0-Bbj-392454:20 Urinalysis, Office (25057) UA - LEUKOCYTE ESTERASE Negative (Normal) UA - NITRITE Negative (Normal) URINE UROBILINGN EDGAR TIMED Normal mg/dL (Normal) UA - PROTEIN Negative mg/dL (Normal) UA - PH 7.0 (Normal) UA - BLOOD Negative (Normal) UA - SPECIFIC GRAVITY 1.005 (Normal) UA - KETONES Negative mg/dL (Normal) UA - BILIRUBIN Negative (Normal) UA - GLUCOSE Negative (Normal) 90-Wxs-899552:16 ORBITS,MIN 4 VIEWS (MT) Radiology Report See Note (Normal) Comments: Exam Number: [id number] FIVE PROJECTIONS OF THE ORBITS There is no evidence of recent fractures or other focal bony lesionsto the orbits or surrounding bones. The paranasal sinuses appearnormally develo ped and aerated as seen on these views. IMPRESSIONNormal radiographs of the orbits. Reported By: SANDRA HARRIS M.D. 57-Xsf-319553:01 CULTURE, URINE URINE CULTURE See Note {CFU/mL} (Normal) Comments: COLONY COUNT 50,000-80,000 ORGANISM 1: MIXED GRAM POSITIVE ORGANISMS 57-Ezy-693490:01 ROUTINE UA BILIRUBIN URINE SeeNote (Normal) Comments: Result: NEGATIVE CLARITY TURBID (Normal) GLUCOSE, UR SeeNote (Normal) Comments: Result: NEGATIVE KETONE UR SeeNote mg/dL (Normal) Comments: Result: NEGATIVE LEUK ESTERASE TRACE (Abnormal) NITRITE UR SeeNote (Normal) Comments: Result: NEGATIVE OCCULT BLOOD-UR SeeNote (Normal) Comments: Result: NEGATIVE pH UR 6.0 (Normal) Range: 5.0-8.0 PROT DIPSTX SeeNote (Normal) Comments: Result: NEGATIVE SP.GR. DIPSTX 1.025 (Normal) Range: 1.002-1.030 UROBILI 0.2 EU/dl (Normal) Range: 0.2 - 1.0 COLOR YELLOW (Normal) 39-Zgt-990092:09 HEPATOBILIARY IMAGING Radiology Report See Note (Normal) Comments: Exam Number: [id number] HEPATOBILIARY SCAN: HISTORYEpigastric pain. TECHNIQUEFollowing the intravenous administration of 5 mCi Tc99m labeledCholetec, sequential images of the liver and biliary tree wereo btained. FINDINGSThere is prompt visualization of liver, biliary tree, gallbladder, andsmall bowel. Following the intravenous infusion of 1.5 mcg of CCK over 30 minutes,the ejection fraction is 88.6% which is normal. IMPRESSIONNormal hepatobiliary scan. Reported By: MELVIN HENDERSON M.D. 43-Tao-052255:21 URINE FRANCISCO CULTURE (EDGAR COL Comments: PATIENT NOT FASTINGClinical Information: SRC:UR ADD [id number] PERFORMED BY: [facility] [id number] COUNT) (12028) Result 1 MUG (Normal) Comments: Mixed urogenital flora10,000-25,000 colony forming units per mL Urine Final report (Normal) Culture,Comprehensive 30-Oha-62995:56 Urinalysis, Office (49178) UA - BILIRUBIN Negative (Normal) UA - BLOOD Negative (Normal) UA - GLUCOSE Negative (Normal) UA - KETONES Negative mg/dL (Normal) UA - LEUKOCYTE ESTERASE Trace (Normal) Comments: aw UA - NITRITE Negative (Normal) UA - PH 6.0 (Normal) UA - PROTEIN Negative mg/dL (Normal) UA - SPECIFIC GRAVITY 1.005 (Normal) URINE UROBILINGN EDGAR Normal mg/dL (Normal) TIMED 45-Blb-649419:4 GLU GTT-2 HOUR 118 mg/dL (Normal) Comments: 2HR GTT GLU 2 HR GLU GTT-2 HOUR from 0129:C67730B. 5 Range: 70-120 78-Hdr-485142:4 GLU GTT-1 HOUR 132 mg/dL (Normal) Comments: 2HR GTT GLU 1 HR GLU GTT-1 HOUR from 0129:F60690P. 5 Range: 120-170 39-Shx-021878:1 GLU GTT-30 min. 133 mg/dL (Normal) Comments: 2HR GTT GLU 1/2 HR GLU GTT-30 min. from 0129:X22674R. 5 Range: 110-170 10-Oca-914748:4 GLU GTT-FASTING 84 mg/dL (Normal) Comments: 2HR GTT FASTING GLU GTT-FASTING from 0129:L34060V. 5 Range: 70-110 Comments: GLUCOSE TOLERANCE TEST Reference Interval Non- Adults Fasting 70 - 110 30 minutes 110 - 170 1 hour 120 - 170 2 hour 70 - 120 3 hour 70 - 110 4 hour 70 - 110 5 hour 70 - 110 11-Xij-606951:00 MANDI-D [id number] MANDI-DIRECT 32 AU/mL (Normal) Range: 0-99 Comments: Negative <100 Equivocal 100 - 120 Positive >120 38-Gaw-252124:00 C-REACTIVE PROT 2.04 mg/L (Normal) Range: 0.0-6.0 Comments: Test performed using the Dimension C-Reactive ProteinExtended Range assay method. This assay meets the AHA/CDC 2003 recommendations fordetermining patients at high risk for cardiovasculardisease. Reference: High risk CRP >3.0 mg/L 22-Nqw-217218:00 CBCD,SMEAR DIFF BAND 1 % (Normal) Range: 0-5 CELLS COUNTED 100 (Normal) EOS 6 % (Abnormal) Range: 0-5 HCT 35.3 % (Abnormal) Range: 37-47 HGB 11.8 g/dL (Abnormal) Range: 12.0-16.0 LYMPH 40 % (Normal) Range: 19-41 MCH 28.6 pg (Normal) Range: 27.0-32.0 MCHC 33.3 g/dL (Normal) Range: 32-36 MCV 86.1 fL (Normal) Range: 81-99 MONOCYTE 8 % (Normal) Range: 0-10 PLT 289 K/mm3 (Normal) Range: 150-450 PLT EST SeeNote (Normal) Comments: Result: ADEQUATE RBC 4.10 {M/mm3} (Abnormal) Range: 4.2-5.4 RDW 15.3 % (Abnormal) Range: 11.6-14.6 RED CELL MORPH SeeNote {NORMAL} (Normal) Comments: Result: NORM C+C SEGS 45 % (Abnormal) Range: 47-70 WBC 5.0 K/mm3 (Normal) Range: 4.4-11.0 72-Mjg-427546:00 COMP METABOLIC A/G 1.0 {RATIO} (Normal) Range: 0.9-2.4 ALB 3.9 g/dL (Normal) Range: 3.4-5.0 ALK P 78 U/L (Normal) Range: 50-136 ALT 41 U/L (Normal) Range: 30-65 AST 23 U/L (Normal) Range: 15-37 BUN 11 mg/dL (Normal) Range: 7-18 BUN/CRE 12.2 {RATIO} (Normal) Range: 10-20 CA 8.6 mg/dL (Normal) Range: 8.5-10.1 CL 104 mmol/L (Normal) Range: 98-107 CO2 29.6 mmol/L (Normal) Range: 21.0-32.0 CREAT,SERUM 0.9 mg/dL (Normal) Range: 0.6-1.0 EST GFR 75 mL/min (Normal) EST GFR - AA 91 mL/min (Normal) Comments: ESTIMATED GLOMERULAR FILTRATION RATE The National Kidney Foundation (NKF) guidelines forChronic kidney disease (CKD) recommends all laboratoriesestimate the level of glomerular filtration rate (GFR)in p atients from age 18 - 70 years of age.The eGFR for patient's is the eGFRmultiplied by 1.212. [facility] Laboratory uses the abbreviated Modification of Diet inRenal Disease (MDRD) study equati on to calculate the eGFR.The Estimated GFR equation is not applicable for patients<18 years of age or patients >70 years of age.The following conditions may alter the eGFR calculationresult: extre mes in body size, severe malnutrition orobesity, skeletal muscle disease, paraplegia, quadriplegia,vegetarian diet, , certain drug therapy and rapidlychanging kidney function. Association o f GFR and Staging of Kidney Disease*GFR (mL/min) With Kidney Disease W/O Kidney Disease>/= 90 Stage One Jlaeeq60 - 89 Stage Two Suspect Decreased GFR30 - 59 Stage Three Stage Three15 - 29 Stage Four Stage Four< 15 or Dialysis Stage Five Stage Five *Each stage assumes the associ ated GFR level has been ineffect for at least three months.Additional studies & clinical assessments are indicated toconclude diagnosis of Chronic Kidney Disease (CKD). GAP 2 (Abnormal) Range: 5-15 GLOB 3.8 g/dL (Normal) Range: 2.7-4.2 GLU 84 mg/dL (Normal) Range: 70-110 K 3.7 mmol/L (Normal) Range: 3.5-5.1 NA 136 mmol/L (Normal) Range: 136-145 T BILI 0.24 mg/dL (Normal) Range: 0.00-1.00 T PROT 7.7 g/dL (Normal) Range: 6.4-8.2 47-Znh-957309:00 ESR SED RATE 15 mm/h (Normal) Range: 0-20 29-Bow-734406:00 LIPID CHOL 159 mg/dL (Normal) Comments: <200 mg/dL Desirable 200-240 mg/dL Borderline >240 mg/dL High Risk HDL 45 mg/dL (Normal) Comments: Reference Range HDL <40 mg/dL Low HDL Cholesterol HDL >or= 60 mg/dL High HDL Cholesterol LDL 103 mg/dL (Normal) Range: 0-130 TRIG 54 mg/dL (Normal) Comments: Serum Triglycerides Reference Interval Normal <150 mg/dL Borderline high 150 - 199 mg/dL High 200 - 499 mg/dL Very High > or = 500 mg/dL VLDL 11 mg/dL (Normal) Range: 5-40 :00 RA LATEX 6502 4.6 {IU/mL} (Normal) Range: 0.0-13.9 Comments: Performed At: [address] [id number] 91-Ccw-867237:00 ROUTINE UA BILIRUBIN URINE SeeNote (Normal) Comments: Result: NEGATIVE CLARITY CLEAR (Normal) COLOR STRAW (Normal) GLUCOSE, UR SeeNote (Normal) Comments: Result: NEGATIVE KETONE UR SeeNote mg/dL (Normal) Comments: Result: NEGATIVE LEUK ESTERASE SeeNote (Normal) Comments: Result: NEGATIVE NITRITE UR SeeNote (Normal) Comments: Result: NEGATIVE OCCULT BLOOD-UR SeeNote (Abnormal) Comments: Result: TRACE-LYSED pH UR 8.0 (Normal) Range: 5.0-8.0 PROT DIPSTX SeeNote (Normal) Comments: Result: NEGATIVE SP.GR. DIPSTX 1.015 (Normal) Range: 1.002-1.030 UROBILI 0.2 EU/dl (Normal) Range: 0.2 - 1.0 :00 TSH 1.48 {uIU/mL} (Normal) Range: 0.34-4.82 85-Exq-12105:10 GALLBLADDER (HP) Radiology Report See Note (Normal) Comments: Exam Number: [id number] ULTRASOUND OF THE GALLBLADDER CLINICAL INFORMATIONEpigastric pain. Sonographic images of the pancreas demonstrated unremarkableappearance of the pancreatic head and dee dy. The france l is not optimallyseen due to overlying gas but there is no gross evidence of mass orperipancreatic fluid. Liver demonstrates normal echotexture. Nofocal hepatic parenchymal lesions are seen. Liver l ength is normal atapproximately 15 cm. Gallbladder is unremarkable sonographically withno stones or focal findings. There is no evidence of biliary ductaldilatation. Limited images of the right kidney demonstrate nohydronephrosis. IMPRESSIONUnremarkable appearance of the liver, gallbladder and bile ducts. Pancreatic head and body were well seen and appeared normal. The tailwas not optimally visuali zed but there was no gross abnormalityevident. Reported By: GERALDINE OROZCO M.D. 99-Gwa-752990:23 DORSAL SPINE,3 VIEWS (MT) Radiology Report See Note (Normal) Comments: Exam Number: [id number] THORACIC SPINE CLINICAL INFORMATIONBack pain. AP and lateral images of the thoracic spine were obtained. Thevertebral bodies appear normal in height. There is a milddextroconv ex curve in the mid to lower thoracic spine. Alignment isotherwise unremarkable. Pedicles are intact throughout. Noparavertebral soft tissue masses are evident. IMPRESSIONMinimal scoliosis but oth erwise unremarkable appearance of thethoracic spine. Reported By: GERALDINE OROZCO M.D. Plan of Care Name Dates Details Instructions BMI 31.0-31.9,adult : Follow up if no improvement or if symptoms worsen Indication: BMI 31.0-31.9,adult Nonsmoker : Eprescribed prescriptions (G8553) Indication: Nonsmoker Cough : Follow up if no improvement or if symptoms worsen Indication: Cough BMI 33.0-33.9,adult : Eprescribed prescriptions (G8553) Indication: BMI 33.0-33.9,adult Nonsmoker : Follow up if no improvement or if symptoms worsen Indication: Nonsmoker Anxiety : Eprescribed prescriptions (G8553) Indication: Anxiety BMI 33.0-33.9,adult : Follow up in 1 month Indication: BMI 33.0-33.9,adult Depression : Eprescribed prescriptions (G8553) Indication: Depression Abdominal pain, diffuse : Follow up - Make appt after diagnostic tests Indication: Abdominal pain, diffuse Right flank discomfort : Eprescribed prescriptions (G8553) Indication: Right flank discomfort T wave inversion in EKG : Reviewed Diagnostic Tests Indication: T wave inversion in EKG T wave inversion in EKG : follow up BP check in 2 weeks Indication: T wave inversion in EKG Muscle spasm : Follow up after lab work completed Indication: Muscle spasm Muscle spasm : Follow up in 1 week Indication: Muscle spasm BMI 34.0-34.9,adult : Eprescribed prescriptions (G8553) Indication: BMI 34.0-34.9,adult UTI symptoms : Eprescribed prescriptions (G8553) Indication: UTI symptoms Right flank discomfort : Follow up in 1 week Indication: Right flank discomfort UTI symptoms : Eprescribed prescriptions (G8553) Indication: UTI symptoms Cervical pain (neck) : Follow up in 1 month Indication: Cervical pain (neck) Hypercholesteremia : Diet, Exercise, and Wt loss Indication: Hypercholesteremia Elevated blood pressure (not hypertension) : Blood Pressure: blood pressure Indication: Elevated blood pressure (not hypertension) Elevated blood pressure (not hypertension) : Eprescribed prescriptions (G8553) Indication: Elevated blood pressure (not hypertension) Cough : Follow up if no improvement or if symptoms worsen Indication: Cough Upper respiratory infection : Eprescribed prescriptions (G8553) Indication: Upper respiratory infection Headache : Follow up if no improvement or if symptoms worsen Indication: Headache Sinusitis, acute : *URI Treatment Indication: Sinusitis, acute Sinusitis, acute : *URI Symptoms Indication: Sinusitis, acute Sinusitis, acute : *Antibiotic Usage Education - Female Indication: Sinusitis, acute Headache : Eprescribed prescriptions (G8553) Indication: Headache Headache : Eprescribed prescriptions (G8553) Indication: Headache Other specified viral infection, in conditions classified elsewhere and of unspecified site : Reviewed Diagnostic Tests Indication: Other specified viral infection, in conditions classified elsewhere and of unspecified site Cough : Reviewed Lab Indication: Cough Cough : Follow up if no improvement or if symptoms worsen Indication: Cough Other specified viral infection, in conditions classified elsewhere and of unspecified site : *URI Symptoms Indication: Other specified viral infection, in conditions classified elsewhere and of unspecified site Other specified viral infection, in conditions classified elsewhere and of unspecified site : *URI Treatment Indication: Other specified viral infection, in conditions classified elsewhere and of unspecified site Elevated blood pressure (not hypertension) : Diet, Exercise, and Wt loss Indication: Elevated blood pressure (not hypertension) Hypercholesteremia : Diet, Exercise, and Wt loss Indication: Hypercholesteremia Cystitis, acute : follow up for recheck urine 1 week after complete antibiotic Indication: Cystitis, acute Backache : Follow up in 2 weeks Indication: Backache Benign paroxysmal positional vertigo, unspecified laterality : *Vertigo Education Indication: Benign paroxysmal positional vertigo, unspecified laterality Unspecified Diagnosis : Follow up if no improvement or if symptoms worsen Indication: Unspecified Diagnosis Shoulder pain : Follow up if no improvement or if symptoms worsen Indication: Shoulder pain Chest pain : Reviewed Diagnostic Tests Indication: Chest pain Chest pain : Reviewed Lab Indication: Chest pain Shoulder pain : Follow up in 1 week Indication: Shoulder pain Shoulder pain : Follow up - Make appt after diagnostic tests Indication: Shoulder pain Cervical radiculopathy : exercises Indication: Cervical radiculopathy Other specified viral infection, in conditions classified elsewhere and of unspecified site : *URI Symptoms Indication: Other specified viral infection, in conditions classified elsewhere and of unspecified site Other specified viral infection, in conditions classified elsewhere and of unspecified site : *URI Treatment Indication: Other specified viral infection, in conditions classified elsewhere and of unspecified site Other specified viral infection, in conditions classified elsewhere and of unspecified site : *URI Symptoms Indication: Other specified viral infection, in conditions classified elsewhere and of unspecified site Other specified viral infection, in conditions classified elsewhere and of unspecified site : *URI Treatment Indication: Other specified viral infection, in conditions classified elsewhere and of unspecified site Sinusitis, acute : *URI Symptoms Indication: Sinusitis, acute Sinusitis, acute : *Antibiotic Usage Education - Female Indication: Sinusitis, acute Fibromyalgia : *Antidepressant Usage Indication: Fibromyalgia Bursitis of hip : FOLLOW UP IN 2 WEEKS Indication: Bursitis of hip Serous conjunctivitis, unspecified laterality : *Conjunctivitis Education Indication: Serous conjunctivitis, unspecified laterality Low HDL (under 40) : Diet and Exercise Indication: Low HDL (under 40) Elevated blood pressure (not hypertension) : Diet and Exercise Indication: Elevated blood pressure (not hypertension) Planned Observations URIC ACID BLOOD (67863)Indication: Toe pain, left On: 24-Nql-075532:27 Request CBC, Platelets & Auto Diff (22062)Indication: Tachycardia On: 07-Yql-255412:59 Request Metabolic Panel, Comprehensive (44238)Indication: Depression On: 19-Qtq-993255:57 Request CALCIFEDIOL (12504)Indication: Depression On: :56 Request GONADOTROPIN-LH (69466)Indication: Depression On: :54 Request GONADOTROPIN-FSH (61066)Indication: Depression On: :54 Request TSH (44265)Indication: Depression On: 41-Goh-586464:54 Request LIPID PANEL (37846)Indication: Hypercholesteremia On: :59 Request CBC W/AUTO DIFF WBC (53270)Indication: Fibromyalgia On: :45 Request URINALYSIS, W/ MICRO (72198)Indication: Elevated blood pressure (not hypertension) On: :45 Request METABOLIC PANEL, COMPREHENSIVE (47394)Indication: History of gestational diabetes mellitus On: :45 Request PROLACTIN (04447)Indication: Breast tenderness On: :29 Request CBC W/AUTO DIFF WBC (73084)Indication: Breast tenderness On: :29 Request METABOLIC PANEL, COMPREHENSIVE (10990)Indication: Breast tenderness On: :29 Request TSH (83009)Indication: Breast tenderness On: 62-Zyv-220818:29 Request LIPID PANEL (37334)Indication: Low HDL (under 40) On: :29 Request Rapid Strep Test, Office (47946)Indication: Upper respiratory infection On: 36-Ecu-045411:28 Request SED RATE ERYTHROCYTE (26455)Indication: Abdominal pain, acute, right lower quadrant On: 4-Upd-932405:48 Request C-REACTIVE PROTEIN (76684)Indication: Abdominal pain, acute, right lower quadrant On: 9-Ujk-863035:48 Request CBC WITH MANUAL DIFF (92577)Indication: Abdominal pain, acute, right lower quadrant On: 3-Jua-105276:48 Request URINE FRANCISCO CULTURE (EDGAR COL COUNT) (83818)Indication: Fatigue On: 20-Jmb-379978:36 Request Vitamin D Hydroxy (24837)Indication: Fatigue On: 95-Ksd-470828:35 Request VITAMIN B-12 (CYANOCOBALAMIN) (08686)Indication: Fatigue On: 48-Ysg-264824:34 Request TSH (53576)Indication: Fatigue On: 46-Kap-987481:34 Request CBC WITH MANUAL DIFF (26691)Indication: Fatigue On: :34 Request METABOLIC PANEL, COMPREHENSIVE (55525)Indication: Fatigue On: :34 Request EBV Panel (95528)Indication: Fatigue On: : Request URINE FRANCISCO CULTURE-EDGAR COL COUNT (63710)Indication: Abnormal urinalysis (Renamed from Abnormal finding on urinalysis) On: :04 Request Comments: and sensitivity CBC WITH MANUAL DIFF (89564)Indication: Anemia On: :24 Request LIPID PANEL (82210)Indication: Hypercholesteremia On: Request TSH (89131)Indication: Headache On: Request MICROALBUMIN: CREATININE RATIO (48347) AND (67195)Indication: Elevated blood pressure (not hypertension) On: Request URINALYSIS, W/ MICRO (11801)Indication: Elevated blood pressure (not hypertension) On: Request METABOLIC PANEL, COMPREHENSIVE (81550)Indication: Elevated blood pressure (not hypertension) On: Request CBC WITH MANUAL DIFF (57546)Indication: Anemia On: :33 Request METABOLIC PANEL, COMPREHENSIVE (32817)Indication: Hypercholesteremia On: :33 Request LIPID PANEL (75288)Indication: Hypercholesteremia On: :32 Request METABOLIC PANEL, COMPREHENSIVE (31742)Indication: Fibromyalgia On: :53 Request LIPID PANEL (82258)Indication: Low HDL (under 40) On: :53 Request VITAMIN B-12 (CYANOCOBALAMIN) (86660)Indication: Anemia On: :52 Request IRON BINDING CAPACITY (TIBC) (78581)Indication: Anemia On: :52 Request FERRITIN (22414)Indication: Anemia On: :52 Request IRON (51012)Indication: Anemia On: :52 Request CBC WITH MANUAL DIFF (24565)Indication: Anemia On: 6-Ixv-249963:52 Request C-Reactive Protein (91579)Indication: Chest pain On: :30 Request Comments: stat CPK MB FRACTION (49092)Indication: Chest pain On: Request Comments: stat D-Dimer (14135)Indication: Chest pain On: : Request Comments: stat Troponin I (96857)Indication: Chest pain On: :26 Request Comments: stat CREATINE KINASE TOTAL (03530)Indication: Chest pain On: : Request POTASSIUM SERUM (04017)Indication: Other specified abnormal findings of blood chemistry On: : Request CALCIUM SERUM (61092)Indication: Other specified abnormal findings of blood chemistry On: : Request CBC WITH MANUAL DIFF (74839)Indication: Anemia, unspecified On: :43 Request LIPID PANEL (45244)Indication: Low HDL (under 40) On: :43 Request METABOLIC PANEL, COMPREHENSIVE (83103)Indication: Low HDL (under 40) On: :43 Request LIPID PANEL ([id number])Indication: Low HDL (under 40) On: :46 Request MANDI (ANTINUCLEAR ANTIBODY) ([id number])Indication: Fibromyalgia On: : Request RHEUMATOID FACTOR-QUANT ([id number])Indication: Fibromyalgia On: : Request C-REACTIVE PROTEIN ([id number])Indication: Fibromyalgia On: : Request SED RATE ERYTHROCYTE ([id number])Indication: Fibromyalgia On: : Request GLUCOSE TOLERANCE TEST (GTT) 2 hour ([id number])Indication: Gestational DM On: :05 Request LIPID PANEL ([id number])Indication: Elevated blood pressure (not hypertension) On: : Request URINALYSIS W/O MICRO ([id number])Indication: Elevated blood pressure (not hypertension) On: : Request TSH ([id number])Indication: Elevated blood pressure (not hypertension) On: : Request METABOLIC PANEL, COMPREHENSIVE ([id number])Indication: Elevated blood pressure (not hypertension) On: [id number]-[id number] Request CBC WITH MANUAL DIFF ([id number])Indication: Anemia, unspecified On: [id number] Request Planned Procedures Radiology - Toe(s) - LeftBy: Arlyn On: 23-Jan-2018 Intent Heather MELISSA CNP, Heather Wells ULTRASOUND, LEFT BREAST ([id number])By: On: 07-Sep-2016 Intent Arlyn MELISSA, Heather Stoddard CNP, Cris MAMMOGRAM BREAST BILATERAL On: 07-Sep-2016 Intent SCREENING DIGITAL ([id number])By: Arlyn MELISSA, Heather Stoddard CNP, Cris ELECTROCARDIOGRAM, COMPLETE (ECG) On: 03-Aug-2016 Intent ([id number])By: Rejisupa SHIN, Heather Stoddard CNP, Cris Ultrasound - ThyroidBy: Arlyn MELISSA, On: 03-Aug-2016 Intent Heather Stoddard CNP, Cris Ultrasound - GallbladderBy: Arlyn On: 15-Apr-2016 Intent Heather MELISSA CNP, Cris US THYROID ([id number])By: Giancarlo SUTTON, On: 17-Feb-2016 Intent Rudy Nuclear Stress Test/Stress On: 02-Feb-2016 Intent SPECT/TreadmillBy: Rudy Mondragon MD CT - Brain/Head (Without On: 02-Feb-2016 Intent Contrast)By: Rudy Mondragon MD Echo CompleteBy: Rudy Mondragon MD On: 02-Feb-2016 Intent ELECTROCARDIOGRAM, COMPLETE On: 02-Feb-2016 Intent ([id number])By: Rudy Mondragon MD X-RAY OF CERVICAL SPINE, FOUR VIEWS On: 21-Aug-2015 Intent ([id number])By: Nichelle Tristan DO MAMMOGRAM, SCREENING, BOTH BREAST On: 04-May-2015 Intent ([id number])By: Sola Rea DO CT - Abdomen & Pelvis (IV Contrast On: 19-Aug-2013 Intent Needed)By: Sola Rea DO CT - Abdomen & Pelvis Stone On: 13-Aug-2013 Intent ProtocolBy: Sola Rea DO Comments: stat call results MAMMOGRAM, SCREENING, BOTH BREASTS On: 30-Apr-2013 Intent ([id number])By: Sola Rea DO CT - Brain/HeadBy: Sola Rea DO On: 30-Apr-2013 Intent MAMMOGRAM, SCREENING, BOTH BREASTS On: 01-Jan-2013 Intent ([id number])By: Sola Rea DO Eprescribed prescriptions On: 17-Jul-2012 Intent ([id number])By: Torri Velasco EKG ([id number])By: Anika Martinez RN On: 17-May-2011 Intent EMG, DYNAMIC SURFACE, 1-12 MUSCLE On: 21-Mar-2011 Intent ([id number])By: Heather Stoddard CNP, CNP, Mary E NERVE CONDUCTN MOTOR EA NRV SENSORY On: 21-Mar-2011 Intent ([id number])By: Heather Stoddard CNP, CNP, Mary E PHYSICAL THERAPY EVALUATION On: 21-Mar-2011 Intent ([id number])By: Heather Stoddard CNP, CNP, Mary E Radiology - Cervical SpineBy: Ciaftaba On: 21-Mar-2011 Intent Heather MELISSA CNP, Mary E Pulse Oximetry ([id number])By: Arlyn On: 02-Nov-2010 Intent Heather MELISSA CNP, Mary E Aerosol Treatment ([id number])By: Arlyn On: 02-Nov-2010 Intent Heather MELISSA CNP, Mary E Spirometry ([id number])By: Azalea MAC, On: 11-Mar-2010 Intent Nichelle Comments: normal MRI - BrainBy: Sola Rea DO On: 29-Jul-2009 Intent Comments: try to do in next 24 hours- please look at mastoids - question of some infection there in past Toradol Injection, 30 mg On: 07-Jul-2009 Intent ([id number])By: Nichelle Tristan DO Comments: Lot:[id number]:[id number]:30mg/1mlRoute:IMSite:Left GluteusGiven by: JP Corea Breast Screening - BilateralBy: On: 07-Jul-2009 Intent Nichelle Tristan DO COMP EYE EXAMINATION, ESTAB PATIENT On: 17-Jun-2008 Intent ([id number])By: Heather Stoddard CNP, CNP, Mary E Echo CompleteBy: Sola Rea DO On: 02-May-2008 Intent Nuclear Medicine - HIDA w/CPKBy: On: 27-Mar-2008 Intent Sola Rea DO Ultrasound - GallbladderBy: Fast On: 11-Mar-2008 Intent Sola MAC EKG ([id number])By: Sola Rea DO On: 11-Mar-2008 Intent Comments: ekg showed normal sinus rhythym, normal axis, no acute st/t wave changes t wave biphasic only in v2 Radiology - Thoracic SpineBy: Fast On: 11-Mar-2008 Intent Sola MAC Instructions Name Dates Details Nonsmoker : How to access health information online Indication: Nonsmoker Nonsmoker : How to access health information online - Detail Indication: Nonsmoker Nonsmoker : Patient Instructions Indication: Nonsmoker BMI 33.0-33.9,adult : How to access health information online Indication: BMI 33.0-33.9,adult BMI 33.0-33.9,adult : How to access health information online - Detail Indication: BMI 33.0-33.9,adult Upper respiratory infection : Patient Instructions Indication: Upper respiratory infection Anxiety : How to access health information online Indication: Anxiety Anxiety : How to access health information online - Detail Indication: Anxiety Anxiety : Patient Instructions Indication: Anxiety Depression : How to access health information online Indication: Depression Depression : How to access health information online - Detail Indication: Depression Depression : Patient Instructions Indication: Depression Right flank discomfort : How to access health information online Indication: Right flank discomfort Right flank discomfort : How to access health information online - Detail Indication: Right flank discomfort Right flank discomfort : Patient Instructions Indication: Right flank discomfort BMI 34.0-34.9,adult : How to access health information online Indication: BMI 34.0-34.9,adult BMI 34.0-34.9,adult : How to access health information online - Detail Indication: BMI 34.0-34.9,adult BMI 34.0-34.9,adult : Patient Instructions Indication: BMI 34.0-34.9,adult BMI 34.0-34.9,adult : How to access health information online Indication: BMI 34.0-34.9,adult BMI 34.0-34.9,adult : How to access health information online - Detail Indication: BMI 34.0-34.9,adult BMI 34.0-34.9,adult : Patient Instructions Indication: BMI 34.0-34.9,adult UTI symptoms : How to access health information online Indication: UTI symptoms UTI symptoms : How to access health information online - Detail Indication: UTI symptoms UTI symptoms : Patient Instructions Indication: UTI symptoms UTI symptoms : How to access health information online Indication: UTI symptoms UTI symptoms : How to access health information online - Detail Indication: UTI symptoms UTI symptoms : Patient Instructions Indication: UTI symptoms Elevated blood pressure (not hypertension) : How to access health information online Indication: Elevated blood pressure (not hypertension) Elevated blood pressure (not hypertension) : How to access health information online - Detail Indication: Elevated blood pressure (not hypertension) Elevated blood pressure (not hypertension) : Patient Instructions Indication: Elevated blood pressure (not hypertension) Upper respiratory infection : How to access health information online Indication: Upper respiratory infection Upper respiratory infection : How to access health information online - Detail Indication: Upper respiratory infection Upper respiratory infection : Patient Instructions Indication: Upper respiratory infection Headache : Patient Instructions Indication: Headache Headache : How to access health information online Indication: Headache Headache : How to access health information online - Detail Indication: Headache Headache : Patient Instructions Indication: Headache Urinary frequency : Patient Instructions Indication: Urinary frequency Hypercholesteremia : Patient Instructions Indication: Hypercholesteremia Elevated blood pressure (not hypertension) : Patient Instructions Indication: Elevated blood pressure (not hypertension) Fibromyalgia : Patient Instructions Indication: Fibromyalgia Fibromyalgia : Patient Instructions Indication: Fibromyalgia Encounters Office Visit On: 23-Jan-2018 13:53 Encounter Reason: fungal infection of toe - 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 Coughing up clear, facial pressure, nasal drainage is clear to faint yellow, sore throat at times whe End: 09-Mar-2017 15:12 n coughing, sneezing, SOB, wheezing, low grade fever last night. No chills, CP, body aches, headaches-but hurts when coughing. Tried taking dayquil and nyquil-making the mucus worse.Encounter Diagnosis: Nonsmoker, BMI 33.0- 33.9,adult, Fever, Upper respiratory infection, Cough (786.2) [facility] Office Visit On: 07-Sep-2016 15:36 Encounter Reason: Breast Problems - Symptoms include breast tenderness and nonbloody nipple discharge. Note for Breast problems: Bending over and noticed breast discharge brown liquid no odor, sticky, End: 07-Sep-2016 16:05 [ADDITIONAL REASON] Follow up tests - Diagnostic tests include other (labs). Note for Discuss procedure results: Self picture of breast discharge reviewed on pts cell phone Encounter Diagnosis: BMI 33.0-33.9,adult, Nonsmoker, Nipple discharge, Breast cancer screening, Anxiety (300.00) [facility] Office Visit On: 03-Aug-2016 13:36 Encounter Reason: Depression - Symptoms include depressed mood, appetite change, headaches and irritability. Onset was gradual 7 month(s) ago. Onset followed stress. The symptoms occur constantly. The episodes occur carey End: 03-Aug-2016 14:23 y. The patient describes this as moderate in severity and worsening. Symptoms are exacerbated by emotional stress and job stressors. Associated symptoms do not include racing thoughts, periods of excess energy, periods of euphoria, social difficulties, employment difficulties, financial difficulties, difficulty with activities of daily living, delusions, auditory hallucinations or visual hallucination s. Recently the disease has been worsening. Presenting symptoms included feeling down, depressed or hopeless, poor appetite or overeating and thoughts of suicide or . Note for Depression: crying, [ADDITIONAL REASON] Headache, Migraine - Note for Migraine headache: on going needs migraine med, is out seemis Lewis Encounter Diagnosis: Fibromyalgia (729.1), Depression, Nonsmoker, BMI 33.0-33.9,adult, Tachycardia, Migraine [facility] Phone Encounter On: 03-Aug-2016 8:17 Encounter Diagnosis: Thyroid fullness End: 03-Aug-2016 8:27 [facility] Office Visit On: 15-Apr-2016 14:16 Encounter Reason: Flank Pain - This condition occurred without any known injury. The injury involved the right flank. The pain radiates to the abdomen. The patient describes the pain as aching. Onset was 3 day(s) ago. As End: 15-Apr-2016 15:13 sociated symptoms include fatigue. Previous presentation included flank pain and abdominal pain. Note for Flank pain: side pain Encounter Diagnosis: Right flank discomfort, Abdominal pain, diffuse [facility] Office Visit On: 17-Feb-2016 10:04 Encounter Reason: Follow up tests - Date: (01/28 labs and test ).Encounter Diagnosis: Muscle spasm, Nonsmoker, BMI 34.0-34.9,adult, Blurry vision, bilateral, T wave inversion in EKG, Right flank discomfort, Psoriatic arthropathy, HTN (hypertension), End: 17-Feb-2016 18:54 Sinusitis, chronic, Thyroid fullness [facility] Office Visit On: 02-Feb-2016 12:01 Encounter Reason: Myalgia/CrampsEncounter Diagnosis: BMI 34.0-34.9,adult, Nonsmoker, Psoriatic arthropathy, Muscle spasm, Blurry vision, bilateral, Left flank pain, Tachycardia, Fibromyalgia (729.1), Psoriasis (696.1), Nausea, T wave inversion in EKG End: 02-Feb-2016 16:55 [facility] Office Visit On: 08-Dec-2015 10:35 Encounter Reason: Follow up acute care visit - The patient feels the same. Patient has been compliant with instructions. Current medication use: no side effects. The medical issues the patient is following up for include UTI.Encounter Diagnosis: End: 08-Dec-2015 11:11 UTI symptoms, Sinusitis, chronic [facility] Office Visit On: 01-Dec-2015 11:09 Encounter Reason: UTI - The urinary symptoms are described as frequency, urgency and flank pain. The symptoms have been occurring for 6 days and have been constant. The urine is described as clear. The symptoms have bee End: 01-Dec-2015 11:46 n associated with chills, nausea and low back pain. The patient denies the use of oral contraceptives, antibiotics, hormone replacement therapy or pyridium/uristat.Encounter Diagnosis: UTI symptoms, Right flank discomfort [facility] Office Visit On: 21-Aug-2015 10:44 Encounter Reason: Neck Pain - This condition occurred without any known injury. The injury occurred 2 day(s) ago. No changes in management were made at the last visit. Symptoms include neck pain, neck stiffness and impai End: 21-Aug-2015 12:05 red range of motion. Symptoms are located in the entire neck. Note for Neck pain: into the back of the head and into the forehad. I did mess it up while on vacation in a thing that spins you upside down 360.Encounter Diagnosis: Cervical pain (neck) , Muscle spasm, Muscle strain, Psoriatic arthropathy, Fibromyalgia (729.1) [facility] Phone Encounter On: 12-Jun-2015 15:16 Encounter Diagnosis: Unspecified Diagnosis End: 12-Jun-2015 15:18 [facility] Office Visit On: 25-May-2015 13:11 Encounter Reason: Follow up for chronic medical issues - The patient feels well with no complaints (feeling better since last visit), has good energy level (has increased) and is sleeping well. Patient has been compliant End: 25-May-2015 22:00 with instructions. Current medication use: no side effects and compliant with dosing regimen. Patient sleeps 11 hours per night. Nutrition: inappropriate diet, no supplemental vitamins & iron and l ow salt diet. The medical issues the patient is following up for include All identified problems below, cardiac issues (palpitations), depression (anxiety), fibromyalgia, high blood pressure and other ( psoriatic arthritis and arthritis, anemia, allergic rhinitis). Note for Follow up for chronic medical issues: her breast tenderness gone - and her cough thrush throat issues gone and she feeling alot better- bp is good- aches and pains doing pretty good right now - she is going to schedule pap-- her mood pretty good- -not havingmuch palpitations, [ADDITIONAL REASON] Follow up tests - Date: (05/14/15 blood work). Encounter Diagnosis: Elevated blood pressure (not hypertension), Hypercholesteremia, Fibromyalgia (729.1), Depression, History of gestational diabetes mellitus, Psoriatic arthropathy [facility] Office Visit On: 11-May-2015 15:39 Encounter Reason: thrush - Back of tongue white, been on 2 antibioticsEncounter Diagnosis: Thrush, Cough (786.2) End: 11-May-2015 16:13 [facility] Office Visit On: 04-May-2015 9:28 Encounter Reason: Cold Symptoms - Symptoms include nasal congestion, runny nose, postnasal drainage, scratchy throat, sore throat, productive cough, facial pressure, facial pain and headache, while symptoms do not includ End: 04-May-2015 22:33 e hoarseness. Onset was sudden 3 day(s) ago. The symptoms occur constantly. The patient describes this as worsening. Associated symptoms include ear pain, nausea and chills, while associated symptoms do not include plugged ear(s), wheezing, shortness of breath, vomiting, diarrhea or fever. The patient is not currently being treated for this problem. Note for Cold symptoms: Also has some dizziness. Lena abebe finished an atb last monday that Heather Stoddard prescribed.- she took augmentin had vertigo - and fu and was thought maybe had sinus but now has sx of fu- headache went away and vertigo got better not g one- happens with position change- - now actually has congestion and drainage got exposed a week ago- nocolored draiange, [ADDITIONAL REASON] Neck pain - The onset of the neck pain has been sudden following an incident no t at work (wrestling with daughter at home) and has been occurring in an intermittent pattern for 1 week. The course has been recurrent. The neck pain is described as a mild to moderate sharp stabbing. The neck pain is described as being located in the right over cervical spine. The pain radiates to the no radiation (but it does feel like it goes thru to the front of her neck) The symptoms have been a ssociated with chills, trauma (was wrestling with her daughter and fell at home ) and headache, while the symptoms have not been associated with dysuria, fever, neck stiffness or paresthesia of arms. No te for Neck pain : she fell- not hurting now but when happend - if does reptitive motion hurts in neck and mid back Encounter Diagnosis: Encounter for screening mammogram for breast cancer (Renamed from Encounter for screening mammogram f or malignant neoplasm of breast), Breast tenderness, Neck pain, Upper respiratory infection, Low HDL (under 40) [facility] Office Visit On: 07-Apr-2015 13:36 Encounter Reason: Headache - The last clinic visit was 3 day(s) ago. No changes in management were made at the last visit. Symptoms include new onset headache. The headache is located in the entire head (It seems to move End: 07-Apr-2015 14:19 . Can feel behind eyes at times). The patient describes the pain as sharp, dull and throbbing. Onset was sudden 3 day(s) ago. There is no known event that preceded symptom onset. The symptoms occur inte rmittently. The headaches occur daily and last for 3 days. The patient describes this as worsening. Symptoms are not exacerbated by noise, movement, light, fatigue, stress, caffeine, caffeine withdrawal , foods, missing meals, alcohol, neck pain, menstruation, sleep deprivation, exertion, coughing or intercourse. Symptoms are not relieved by aspirin, acetaminophen, nonsteroidal anti-inflammatory drugs, opioid analgesics, antiemetics, caffeine, rest, quiet, cool room, darkened room, sleep, heat, massage or relaxation exercises. Previous presentation included new onset headache and nausea.Encounter Diagnosis: Sinusitis, acute, Headache (784.0), Vertigo, Psoriatic arthropathy [facility] Office Visit On: 23-Dec-2013 17:06 Encounter Reason: Headache/ - The onset of the headache/ has been sudden and has been occurring in a persistent pattern for hours. The course has been constant. The headache/ is characterized as a dull ache and tightness End: 23-Dec-2013 21:52 . The headache/ is experienced upon awakening. The headache/ is described as being located in the entire head, the frontal area and the back of head. The symptoms have been associated with nasal dischar ge/stuffy nose, nausea, neck pain, sinusitis in the past and vomiting, while the symptoms have not been associated with blurring of vision, ear pain, eye pain, fever, flashing lights or vertigo. The hea dache/ is relieved by sleep (rest and neck in a certain position). Note for Headache/: she thought chiropractor had them gone- but had stopped going for couple weeks and bad idea back again- - up back of neck and tight around head- not changed ??in nature from previous - was able to sleep this afternoon and has helped- amitryptyline didnt haelp and really chiropractor helps but cant always get there -- cyclobenzaprine didnt help- tramadol doesnt help either - vicoden promethazine helped in pastEncounter Diagnosis: Headache (784.0) [facility] Office Visit On: 03-Oct-2013 14:37 Encounter Reason: Headache - The injury occurred 2 week(s) ago.Encounter Diagnosis: Fibromyalgia (729.1), Headache (784.0) End: 03-Oct-2013 15:05 [facility] Phone Encounter On: 19-Aug-2013 16:38 Encounter Diagnosis: Abdominal Pain,RLQ (789.03) End: 19-Aug-2013 16:55 [facility] Office Visit On: 13-Aug-2013 10:04 Encounter Reason: Abdominal pain - The onset of the pain has been sudden and has been occurring in an intermittent pattern for 4 days. The course has been recurrent. The pain is described as a mild dull ache. The pain is End: 13-Aug-2013 23:19 described as being located in the right lower quadrant. The pain radiates to the back and right flank. The symptoms have been associated with nausea, while the symptoms have not been associated with d ark urine, diarrhea, dysuria, fever, vaginal discharge or vomiting. Note for Pain: Has noticed some urinary frequency also.- and tried to urinate and hard to go no fever no hx of stone- pain not much right nowEncounter Diagnosis: Urinary Frequency (788.41), Abdominal Pain,RLQ (789.03) [facility] Office Visit On: 05-Jun-2013 11:59 Encounter Reason: Cough - The onset of the cough has been sudden. The cough is characterized as productive of mucoid sputum. The amount of sputum produced is scanty. The cough occurs all the time. The symptoms are aggra End: 05-Jun-2013 12:27 vated by supine posture. The symptoms have been associated with fever (very lowgrade), while the symptoms have not been associated with headache, hoarseness, runny nose or sore throat. the color of the sputum is greenish.Encounter Diagnosis: Cough (786.2), Viral infection, unspecified (079.99) [facility] Office Visit On: 30-Apr-2013 14:51 Encounter Reason: Follow up for chronic medical issues - The patient feels well with minor complaints (troubles with word recall), has good energy level and is sleeping well. Patient has been compliant with instructions. End: 30-Apr-2013 23:03 Current medication use: no side effects and compliant with dosing regimen. Patient sleeps 12 hours per night. Nutrition: inappropriate diet, no supplemental vitamins & iron and low salt diet. The m edical issues the patient is following up for include All identified problems below, cardiac issues (palpitations), depression (anxiety), fibromyalgia, high blood pressure and other (psoriatic arthritis and arthritis, anemia, allergic rhinitis). Note for Follow up for chronic medical issues: back on arava 2months ago and starting humira- her sugar wasnt fasting - bp is good weight up she ssaid becua se not exercising - she is having word recallissues and has fallen twice - first was mechanical- this weekend hit curb with foot and fell- no headaches recently although did for couple months, [ADDITIONAL REASON] Follow up, Laboratory Test Results - Date: (02/21/13). , [ADDITIONAL REASON] Word Recall - Pt will know what she wants to say but she cant think of the word or she will say the wrong thing or say it backwards. Encounter Diagnosis: Hypercholesteremia (272.0), Fibromyalgia (729.1), Fatigue, Headache (784.0), screening [facility] Phone Encounter On: 22-Feb-2013 8:01 Encounter Diagnosis: Abnormal urinalysis (Renamed from Abnormal finding on urinalysis) End: 22-Feb-2013 8:05 [facility] Office Visit On: 01-Jan-2013 14:46 Encounter Reason: Follow up for chronic medical issues - The patient feels well with minor complaints (sinus headache), has good energy level and is sleeping well. Current medication use: no side effects and compliant wi End: 01-Jan-2013 21:52 th dosing regimen. Patient sleeps 9 hours per night. Nutrition: inappropriate diet, no supplemental vitamins & iron and low salt diet. The medical issues the patient is following up for include All identified problems below, cardiac issues (palpitations), depression (anxiety), fibromyalgia, high blood pressure and other (psoriatic arthritis and arthritis, anemia, allergic rhinitis). Note for Foll ow up for chronic medical issues: No routine labs done for todays visit.- she feels sinus hadache and feels some improve- but did alot of caffien todayand weightup 10 pounds- - she doesnt add alot of s alt- eats out twice a week and does do sami- and ate sami today- she can monitor bps at home- she is going back to arthritis doctor so can get inflammation under control so can get back to exrcise - she saw taj and had mri of shoulder so waiting that results and saw urologist didnt think was major issues - she feels fibro not big issue right now- mood good with cymbalta and no palpitiaotns Encounter Diagnosis: Elevated Blood Pressure(796.2) , Headache (784.0), Anemia (285.9), Hypercholesteremia (272.0), Shoulder pain (719.41), Depression, screening [facility] Phone Encounter On: 07-Sep-2012 9:47 Encounter Diagnosis: Unspecified Diagnosis End: 07-Sep-2012 9:48 [facility] Office Visit On: 04-Sep-2012 14:56 Encounter Reason: Follow up, Laboratory Test Results - Date: (09/03/12). Current symptoms/reason for visit include/s Symptoms include urinary frequency (lbp- thinks has another uti) and other (fatigue). Note for Follow u End: 05-Sep-2012 8:13 p to discuss laboratory test results: doing fair amoutn of caffeine having bladder sx again freq and low back- and abd pain betterEncounter Diagnosis: Urinary Frequency (788.41), Anemia (285.9), Fibromyalgia (729.1), Anxiety (300.00), Hypercholesteremia (272.0) [facility] Office Visit On: 17-Jul-2012 9:53 Encounter Reason: Follow up for chronic medical issues - The patient feels well with minor complaints (abdominal pain in RUQ area- hx of abd pain- felt like something tore and then it burnt), has decreased energy level ( End: 17-Jul-2012 23:[address] for years- no different) and is sleeping well. Current medication use: no side effects and compliant with dosing regimen. Patient sleeps 9 hours per night. Nutrition: inappropriate t, no supplemental vitamins & iron and low salt diet. The medical issues the patient is following up for include All identified problems below, cardiac issues (palpitations), depression (anxiety), f ibromyalgia, high blood pressure and other (psoriatic arthritis and arthritis, anemia, allergic rhinitis). Note for Follow up for chronic medical issues: No routine labs done for today. had uti- no sx now- her fibro better with higher dose of cymbalta by timur- and anthony monitoring and addressing her vit d as well- mood pretty good Encounter Diagnosis: Fibromyalgia (729.1), Cystitis,Acute (595.0), Anemia (285.9), Lymphadenitis,Acute (683.), OTALGIA NOS (388.70), VERTIGO, BENIGN PAROXYSMAL POSITION (386.11), SYMPTOM, NAUSEA ALONE (787.02), Cough (786.2), Low HDL (272.5), Paresthesia (782.0), Abdominal Pain,General (789.07) [facility] Office Visit On: 05-Jul-2012 12:13 Encounter Reason: Abdominal pain - The onset of the pain has been sudden and has been occurring in a persistent pattern for 2 weeks. The course has been constant. The pain is described as a moderate crampy. The pain is d End: 06-Jul-2012 14:34 escribed as being located in the right upper quadrant. The pain radiates to the back. The symptoms have no aggravating factors. The symptoms have no relieving factors. The symptoms have been associated with diarrhea, while the symptoms have not been associated with fever or nausea.Encounter Diagnosis: Abdominal Pain,General (789.07) [facility] Office Visit On: 07-May-2012 14:23 Encounter Reason: Follow up acute care visit - The patient feeling better since last seen and improving. Patient has been compliant with instructions. Current medication use: no side effects, compliant with dosing regime End: 07-May-2012 15:05 n and considered effective by patient. The medical issues the patient is following up for include All identified problems below and UTI.Encounter Diagnosis: Dysuria (788.1) [facility] Office Visit On: 20-Apr-2012 14:48 Encounter Reason: generalized Encounter Diagnosis: Backache, unspecified (724.5) End: 20-Apr-2012 15:21 [facility] Office Visit On: 05-Dec-2011 13:15 Encounter Reason: Ear Discharge - Symptoms include ear pain. Symptoms are located in the right ear. Onset was sudden 4 day(s) ago. There is no known event that preceded symptom onset. The symptoms occur constantly. The p End: 05-Dec-2011 14:28 atient describes this as moderate in severity and worsening., [ADDITIONAL REASON] ear pain - Pain rt ear Encounter Diagnosis: VERTIGO, BENIGN PAROXYSMAL POSITION (386.11), OTALGIA NOS (388.70) [facility] Office Visit On: 15-Nov-2011 13:01 Encounter Reason: Headache/ - The onset of the headache/ has been sudden and has been occurring in a persistent pattern for hours. The course has been constant. The headache/ is characterized as a pressure sensation and End: 15-Nov-2011 16:51 moderate. The headache/ is experienced upon awakening. The headache/ is described as being located in the back of head. The symptoms are aggravated by noise and neck movement, but not by bright light. T he symptoms have been associated with nausea, while the symptoms have not been associated with blurring of vision, ear pain, eye pain, flashing lights, hypertension, lacrimation, myalgias, neck pain, si nusitis in the past, unconsciousness or vertigo. Note for Headache/: Since on Humara headachesHeadache hursts to lay don Jaw bilateral hurts Grind teeth at night Encounter Diagnosis: Unspecified Diagnosis, Eustachian tube dysfunction (381.81), Headache (784.0), SYMPTOM, NAUSEA ALONE (787.02) [facility] Office Visit On: 25-May-2011 10:25 Encounter Reason: Follow up acute care visit - The patient feeling better since last seen, has decreased energy level and improving. Patient has been compliant with instructions. Current medication use: no side effects a End: 25-May-2011 11:04 nd compliant with dosing regimen. Patient sleeps 8 hours per night. Nutrition: balanced diet. The medical issues the patient is following up for include All identified problems below and other (shoulder pain).Encounter Diagnosis: CHEST PAIN, NOS (786.50), Psoriatic arthropathy (696.0), Shoulder pain (719.41) [facility] Office Visit On: 17-May-2011 13:44 Encounter Reason: Chest pain - The onset of the pain has been acute and has been occurring in an increasing pattern for 3 hours. The pain is described as a severe sharp pain. The pain is described as being located in the End: 17-May-2011 14:34 right chest. The pain radiates to the right arm (does have shoulder/neck problems). There are no precipitating factors. The symptoms have no aggravating factors. The symptoms have no relieving factors. The symptoms have been associated with nausea and palpitations. Previous evaluations include none (nothing recently).Encounter Diagnosis: CHEST PAIN, NOS (786.50), Shoulder pain (719.41) [facility] Phone Encounter On: 12-Apr-2011 11:06 Encounter Diagnosis: ABNORMAL BLOOD CHEMISTRY NEC (790.6) End: 12-Apr-2011 11:26 [facility] Office Visit On: 21-Mar-2011 11:46 Encounter Reason: Shoulder Problem - This shoulder problem is without any known injury. The patient is right hand dominant. The injury involved the left shoulder. Symptoms include shoulder pain and clicking (last night), End: 21-Mar-2011 12:22 while symptoms do not include decreased range of motion. Symptoms are located in the left shoulder. The pain radiates to the left elbow. Onset was sudden.Encounter Diagnosis: Shoulder pain (719.41), Cervical radiculopathy (723.4) [facility] Office Visit On: 09-Feb-2011 9:39 Encounter Reason: Follow up hospital - Reason for ER visit: note: (cervical spasm). The patient feels well with minor complaints and is sleeping well. Patient has been compliant with instructions. Current medication use: End: 09-Feb-2011 10:51 no side effects. Patient sleeps 7 hours per night. Impact of disease: no overall impact. Nutrition: balanced diet. Note for Follow up hospital: she was lifting some chairs and didnt feel anythign frieda t night but next am woke- and signfiicant pain in between the shoulder blades- - she went to er on 02/02- she had no numbness or tingling or pain in arms- she was taking ??viocdin and that has helped- n ot sob- is better by going to chiropracotr and massage- is significantly better- she was diagnosed with psoriatic arthritis and was put on arava by timur- tried methotrexate but made lfts go up- luis felipe gonzalez working emotionally and more relaxed on it - Encounter Diagnosis: Fibromyalgia (729.1), psoriatic arthritis, Low HDL (272.5), Anemia(285.9), thoracic strain-improving [facility] Office Visit On: 02-Nov-2010 10:20 Encounter Reason: Cough - The onset of the cough has been sudden. The cough is characterized as productive of mucoid sputum. The amount of sputum produced is scanty. The cough occurs all the time. The symptoms are aggra End: 02-Nov-2010 10:53 vated by supine posture. The symptoms have been associated with wheezing, while the symptoms have not been associated with fever, headache, hoarseness or runny nose. the color of the sputum is yellowish.Encounter Diagnosis: Unspecified Diagnosis, Viral infection, unspecified (079.99), Depression, Cough (786.2) [facility] Office Visit On: 18-Mar-2010 14:41 Encounter Diagnosis: ACUTE PHARYNGITIS (462.) End: 18-Mar-2010 15:35 [facility] Office Visit On: 18-Mar-2010 13:51 Encounter Reason: Sinusitis/, [ADDITIONAL REASON] Follow up acute care visit - The patient does not feel well and improving. Patient has been compliant with instructions. Current medication use: experiencing side effects (diarrhea) End: 18-Mar-2010 14:11 , compliant with dosing regimen and not considered effective by patient. Patient sleeps 6 hours per night. The medical issues the patient is following up for include All identified problems below and other (sinusitis). Encounter Diagnosis: Viral infection, unspecified (079.99), Cough (786.2) [facility] Office Visit On: 11-Mar-2010 14:02 Encounter Reason: Cough - The last clinic visit was 5 day(s) ago. No changes in management were made at the last visit. Symptoms include cough, wheezing, fever, runny nose and stuffy nose. The cough is described as hacki End: 11-Mar-2010 16:28 ng and tight. Symptoms are described as moderate in severity.Encounter Diagnosis: SINUSITIS, ACUTE NOS (461.9), Cough (786.2), ECZEMA, NOS (692.9), Psoriasis (696.1) [facility] Phone Encounter On: 26-Feb-2010 13:35 Encounter Diagnosis: Fibromyalgia (729.1) End: 26-Feb-2010 13:38 [facility] Historical Summary On: 05-Jan-2010 16:42 [facility] End: 05-Jan-2010 16:43 Office Visit On: 02-Sep-2009 10:08 Encounter Reason: Chronic Pain - The last clinic visit was 1 month(s) ago. Currently the patient's pain is located in the upper back ,lower back ,left hip and right upper extremity (elbow and wrist.). The patient describ End: 07-Sep-2009 9:07 es the pain as sharp (stabbing when I sneeze). The symptoms occur frequently. The episodes last for 4 weeks. The patient describes this as moderate in severity and unchanged. Symptoms are relieved by re st. Note for Chronic Pain: still having hip bursitis left greater than right- having thoracic pain now can take deep breath but hurt to before- - lower thoracic on right- she was doing photos while ly ing on stomach and arching up thinks may have strained it -not sob- hurts to twist and turn- has appt with washer carcass to figure out if can take nsaids- etoh made pain in back go away -like muscle relaxerEncounter Diagnosis: Fibromyalgia (729.1), Bursitis of hip (726.5) [facility] Office Visit On: 29-Jul-2009 14:39 Encounter Reason: Headache/ - The headache/ has been occurring in a persistent pattern for 3 days. The course has been constant and recurrent. The headache/ is characterized as deep pain. The headache/ is described as be End: 30-Jul-2009 22:08 ing located in the back of head and the right side. The symptoms are aggravated by bright light. The symptoms have been associated with flashing lights. 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 The patient feels well with minor complaints (feeling better, rash still ther End: 20-Jul-2009 22:10 e, but slowing improving) ,has good energy level and is sleeping well. Patient has been compliant with instructions. Current medication use: no side effects and compliant with dosing regimen. Patient sl eeps 7 hours per night. Hospital procedures performed were other (labs). Note for Follow up hospital: lips and face and were swollen not tongue and bad rash- she was admitted given steroids benadryl a nd pepcid- and loratadine- - face and lips normal-- - rash significantly better-- and she is weaning off pred- -make sure takes with food and in am- hip some better- not doing alot with it - so gave stretchesEncounter Diagnosis: ANGIOEDEMA, NOS (995.1), Dysuria (788.1), Bursitis of hip (726.5) [facility] Phone Encounter On: 17-Jul-2009 6:51 [facility] End: 17-Jul-2009 6:52 Office Visit On: 07-Jul-2009 10:06 Encounter Reason: Joint pain - The onset of the pain has been acute and has been occurring in a persistent pattern for 6 weeks. The course has been increasing. The pain is described as severe. Note for Joint pain: pain End: 07-Jul-2009 13:52 under both shoulders- usually when raising arms or using for extensive movement. The hip pain does seem to be relieved with Ibuprofen use. There is no radiation.Encounter Diagnosis: Bursitis of hip (726.5), Other signs and symptoms in breast (611.79) [facility] Office Visit On: 10-Dec-2008 11:03 Encounter Reason: Eye pain - The onset of the pain has been sudden and has been occurring in a persistent pattern for 2 days. The course has been constant. The pain is described as moderate. Note for Eye pain: left eye End: 11-Dec-2008 22:19 - outer corner- had trauma - last week baby gate fell on left orbital rim/taoist- orforeign body- no contacts- no red eye or eye pain to move-- no change invisionVisual accuity:both-/left- /13right- /13Encounter Diagnosis: Pain in or around eye (379.91) [facility] Office Visit On: 09-Sep-2008 15:46 Encounter Reason: Lymphadenopathy - The onset of the lymphadenopathy has been acute and has been occurring in a persistent pattern for 1 days. The course has been constant. The lymphadenopathy is described as moderate. N End: 09-Sep-2008 16:04 ote for Lymphadenopathy: right side of neck area just below jaw line Encounter Diagnosis: Lymphadenitis,Acute (683.) [facility] Office Visit On: 17-Jun-2008 9:46 Encounter Diagnosis: Acute Conjuctivitis (372.01) End: 17-Jun-2008 10:01 [facility] Office Visit On: 02-May-2008 13:04 Encounter Reason: Follow up, Diagnostic Procedure Results - Diagnostic tests include other (hida scan). Date: (03/31/08). Note for Follow up, Diagnostic Procedure Results: tried pt and they couldnt elicit the problem an End: 05-May-2008 9:11 d she wasnt having the problem so they didnt feel they could help that-- she had ct of abdomen for the abdominal pain last year and hida and us-s not related to food seems related typically with certain movementsEncounter Diagnosis: Pain in thoracic spine (724.1), Chest pain (786.59), Palpitations(785.1), sinus congestion, Epigastric pain (789.06), Elevated Blood Pressure(796.2) [facility] Office Visit On: 27-Mar-2008 9:02 Encounter Reason: Follow up, Diagnostic Procedure Results - Diagnostic tests include ultrasound (gallbladder) and X-Ray (dorsal spine- 03/11/08). Date: (03/13/08). , [ADDITIONAL REASON] Follow up, Laboratory Test Results - Date: (03/13/08). End: 30-Mar-2008 19:26 Encounter Diagnosis: Epigastric pain (789.06), Elevated Blood Pressure(796.2), Low HDL (272.5), Pain in thoracic spine (724.1), Hematuria (599.7) [facility] Historical Summary On: 13-Mar-2008 12:51 [facility] End: 13-Mar-2008 12:57 Office Visit On: 11-Mar-2008 14:19 Encounter Reason: new patient female physical - Last seen between 6-12 months ago. General health: feels well with minor complaints (back pain and skin lesions on face and back. Muscle cramps under sternum) ,has decrease End: 11-Mar-2008 22:57 d energy level and is sleeping well. The patient's appetite is normal. Nutrition: normal/adequate. Exercises 0 days per week. Sleeps on average 6 hours per night. Elimination problems include constipati on. Safety measures include appropriate use of safety belts and home smoke detectors. Current emotional problems include anxiety and depression. screening, mammography ,screening, Pap smear and screenin g, visual acuity. Note for new patient female physical: she was on paxil in 2000 - paxil worked well - eventually went to zoloft due to wt gain-- controlled sx but had side effects of fatigue-- - just off the antidpressants since last spring- now on herbals and feels mood is controlled with passion flower - had saw Radwan in the past- only taking prn now -and has been pretty good- in [place] who was an design maker diagnosed her with fibromyalgia-- - she had alot of the trigger points- - alot of pain in the joints and muscles - pain to press on arms- had upper resp sx earpain and sore throat - had evidence of old exposure to mono- she doesnt continue to have the aches and pains like she did but still some trigger points - she sleeps well with melatonin and that works well- she had mckinney Kinsey hnsons- from sulfa-- had redness andswelling of skin - but no sloughing of skin- too prednisone and got better, [ADDITIONAL REASON] Back pain - The onset of the pain has been gradual and has been occurring in an intermittent pattern for years. The course has been recurrent. The pain is characterized as a dull ache. The pain is described as being located in the upper back. The pain radiates to the upper abdomen. The pain is precipitated by heavy weight lifting (and periods). The symptoms have no aggravating factors. The symptoms are relieved by lying down. The pain has been associated with abdominal pain, whil e there has been no chills ,dysuria ,fever ,flank pain ,hip pain ,history of back surgery ,history of disc prolapse ,history of malignancy ,incontinence of stool ,incontinence of urine ,leg weakness ,tr auma ,use of anti-coagulants or vaginal discharge. Note for Back pain: is in mid to lower thoracic spine- better if rests but worse if continues to try to go- it can radiate forward to sternum and sugey es her nauseated- not typically responding to food , [ADDITIONAL REASON] Skin lesion - The skin lesion appeared gradually and has been occurring for year s. It has been unchanging in size. The skin lesion is characterized as red (on face) ,brown (on back) ,raised above the skin and flat. The skin lesion is located on the back and the face. There has been no associated chills ,fever ,itching ,loss of sensation or pain. , [ADDITIONAL REASON] Cramping - The onset of the cramping has been gradual and has been occurring in an intermittent pattern for 2 years. The course has been increasing. The cramping is described as severe. Note for Cramping: under sternum on right side- if she leans over and hold her camera she will get a cramp under right chest -- has to do deep breathing to get to go away- she had a ct of that area and that was neg per pt- Encounter Diagnosis: Elevated Blood Pressure(796.2), Pain in thoracic spine (724.1), Gestational DM (648.80), Fibromyalgia (729.1), Anemia(285.9), Epigastric pain (789.06), nasal lesion- refer to Black, telangiectasia, Psoriasis (696.1) [facility] Payers Shikha Lim; supa guarantor
--- OUTSIDE RECORDS SUMMARY | 2018-03-11 20:37 | XMS RPT_ITS ---
:1970 Author Organization [facility] Care Team Providers Name Role Phone SKYLER ACHARYA DO Admitting Unavailable SKYLER ACHARYA DO Attending Unavailable SERVANDO, DOCTOR ON Referring Unavailable SKYLER ACHARYA DO Primary Care Unavailable NO, DOCTOR ON Consulting Unavailable Heather Stoddard Attending Unavailable Sloa Delvalle DO Referring Unavailable Heather Stoddard Consulting Unavailable Heather Stoddard Attending Unavailable Heather Stoddard Referring Unavailable Heather Stoddard Primary Care Unavailable Ayesha Howell PA-C Attending Unavailable Ayesha Howell PA-C Referring Unavailable Heather Stoddard Primary Care Unavailable Dick Rider Attending Unavailable Heather Stoddard Referring Unavailable Dick Rider Attending Unavailable Dick Rider Referring Unavailable Heather Stoddard Primary Care Unavailable Purpose Purpose PROBLEMS PROBLEMS DATE TYPE CONDITION / CODE ATTENDING STATUS SOURCE 12/14/2017 Unknown J02.9 - Acute Dick Rider Active [place] pharyngitis, Community unspecified / Hospital J02.9(ICD-10) Repository 12/25/2017 Unknown L40.0 - Psoriasis Ayesha Howell PA-C Active [place] vulgaris / Community L40.0(ICD-10) Hospital Repository PROCEDURES PROCEDURES No Procedure Records FoundVITAL SIGNS VITAL SIGNS No Vital Signs Records FoundRESULTS RESULTS URIC ACID Collected: 01/23/2018 Status: F Source: [place] 2:55 PM [facility] REPOSITORY TYPE CODE TESTS RESULT OUT OF RANGE REFERENCE UNITS LAB L501.1400 2.6-6.0 mg/dL Normal URIC 2.8 Result Comment: The drugs N-Acetylcysteine and Metamizole may falsely depress this assay. Performed By: #### L501.1400 #### [facility] [address] [place] [place], [address] TOE(S) MIN 2 VIEWS Observed: 01/23/2018 Status: F Source: [place] 2:53 PM [facility] REPOSITORY [facility] Imaging Services [address] [place] [address] Toe(s) Min 2 Views MR#: [id number] Acct: [id number] Name: DEJA DAHL Rep #: [id number] : 1970 F 47 From: Dorinda Zaragoza MD PCP: Heather Stoddard NP Status: REG CLI Study: Toe(s) Min 2 Views Date of Exam: 01/23/18 Exam# [id number] Ordering Dr: Heather Stoddard NP-C STUDY: X-RAY LEFT FOOT, TOES REASON FOR EXAM: Female, 47 years old. Pain and redness in the left third digit. Also fungal infection in the fifth toe. TECHNIQUE: 3 view(s) of the toes were obtained. COMPARISON: None. FINDINGS: Normal visualized metatarsus. Normal metatarsophalangeal (M.T.P) joint. Normal interphalangeal joints. Normal phalanges and interphalangeal joints. The soft tissue structures are unremarkable. RAD/Toe(s) Min 2 Views IMPRESSION: Within normal limits x-ray of the toes. Electronically Signed: Dorinda Zaragoza MD at 10:35 EST Tel , Service support , CC: Heather Stoddard NP Wood Model Maker: Signed Observed: 12/14/2017 Status: F Source: [place] CULTURE, R/O STREP A 2:54 PM [facility] REPOSITORY DEB Culture No Group A Beta Streptococcus isolated. * This cultures intended use is to screen for Beta Streptococcus A only. All other pathogens and potential pathogens will not be screened for or reported. If a complete workup of all potential pathogens is indicated an order for a routine throat culture is required. Performed By: #### M100.010 #### [facility] [address] [place], [address] URGENT CARE VISIT Observed: 12/13/2017 Status: F Source: [place] REPORT 10:54 AM [facility] REPOSITORY [facility] [address] [place] [address] [address] [place], [place] [address] OFFICE VISIT Date of Service: 12/13/17 MR#: [id number] Acct: [id number] Name: DEJA DAHL Rep #: [id number] : 1970 Provider: Dick SPARKS Age/Sex: 47/F Location: [facility] Status: Signed Intake Vital Signs12/13/17 Height 5 ft 3 in 12/13/17 Weight: 172 lb 12/13/17 Body Mass Index (BMI) 30.4 12/13/17 Blood Pressure 132/84 H 12/13/17 Respiratory Rate 16 Intake Visit Reasons: STREP Chief Complaint: Sore throat Charhouse Worker Required: No Accompanied by: SELF Is patient in pain?: No Allergies NSAIDS (Non-Steroidal Anti-Inflamma Allergy (Mild, Verified 12/13/17 10:21) SWELLING/VOMITTING Sulfa (Sulfonamide Antibiotics) Allergy (Mild, Verified 12/13/17 10:21) SWELLING/VOMITTING Iodinated Contrast- Oral and IV Dye [Iodinated Contrast Media - IV Dye] Allergy (Verified 12/13/17 10:21) Hives Medications duloxetine 20 mg capsule,delayed release 20 mg PO BID 12/13/17 [History Confirmed 12/13/17] melatonin 5 mg capsule mg PO cap 12/13/17 [History Confirmed 12/13/17] [facility] Medical History Arthritis (Acute) Chronic neck and back pain (Acute) Fibromyalgia (Acute) HISTORY OF BONE SPUR IN SHOULDER (Acute) Knee pain (Acute) Shoulder pain (Acute) Social History Smoking Status: Never smoker alcohol intake: never HPI HPI Chief Complaint: Sore throat Details: DEJA DAHL, is a 47 F who presents to the office today for initial evaluation sore throat times 2-3 days and bilateral axillary discomfort. She notes developing erythema with white exudate to the same though no complaints of fever, chills, sweats, rash, cough, chest pain/shortness of breath. She notes painful swallowing with food and fluids though no difficulty passing food or fluids and no drooling. She does note having recently been prescribed Cosentyx by her airplane and engine inspector to assist with her psoriasis/psoriatic arthritis, having giving herself 2 injections of this medication today. She notes no other associated symptoms and no other alleviating or aggravating factors. ROS Const Constitutional: No other (ROS negative x10 other than as noted above) Exam Const General: cooperative, healthy appearing, no acute distress, comfortable Nutritional Appearance: average body habitus Orientation: alert, awake, oriented x3 HENMT Head: normal to inspection Ears: hearing grossly normal bilaterally, external ears normal, TM's normal bilaterally, EAC's [...] Neck: normal visual inspection, full ROM, no lymphadenopathy, no meningeal signs, supple Neck mass: No Thyroid: thyroid normal Lymphatic: no lymphadenopathy noted (To anterior/posterior cervical and bilateral axillary) Chest Chest palpation AND inspection: normal inspection of the chest Resp Effort AND Inspection: normal respiratory effort, able to speak in complete sentences, symmetric chest movement Auscultation: Bilateral: Clear to Auscultation Cardio Palpation: normal PMI Rate: regular rate Rhythm: regular rhythm Heart Sounds: S1 normal, S2 normal, no gallops, no murmurs, no rubs Pulses: radial pulses present GI Inspection: normal to inspection Palpation: soft, no hepatosplenomegaly Skin General: no rashes or lesions noted Neuro General: alert, awake, oriented x3, gait normal Cognition: normal cognition Speech: speech normal Gait: normal gait Motor: muscle tone normal throughout Sensory Exam: no sensory deficits noted Extrem General: normal to inspection Psych Appearance: grossly normal Mental Status: mental status grossly normal Mood: congruent mood Affect: normal affect Speech and Movement: speech and movement normal Attitude: cooperative Thought Process: normal Thought Content: normal Judgment: judgment good Results BMSRAPIDSTREPA Office Rapid Strep A Negative Last Edit by Abi Londono on 12/13/17 10:32 Assessment AND Plan Problems 1. Pharyngitis J02.9 Plan Patient aware today's rapid strep test was negative, therefore culture sent to lab for further evaluation. Clear fluids, rest, Advil/Tylenol, saltwater gargles as needed for symptomatic relief. Patient is to inform her airplane and engine inspector and/or PCP regarding the above described symptoms in the HPI coupled with history of times 2 injections of Cosentyx to date. Patient states acknowledging understanding all the above. This note was generated with [employer] dictation software. It may contain incorrect words, spelling, and punctuation that were not noted in checking the note before signing. Orders Orders: Coding Level of Care Code Off vis,new,level 3 Diagnoses Pharyngitis J02.9 12/13/17 1054 <Electronically signed by Dick SPARKS> Date Dick SPARKS Cosigner Signature: Date (if applicable) CC: CHEST PA AND LATERAL Observed: 11/30/2017 Status: F Source: [place] 2:38 PM [facility] REPOSITORY [facility] Imaging Services [address] [place] [address] [place] [address] Chest PA and Lateral MR#: [id number] Acct: [id number] Name: DEJA DAHL Rep #: [id number] : 1970 F 47 From: Chaka Sandoval MD PCP: Heather Stoddard NP Status: REG CLI Study: Chest PA and Lateral Date of Exam: 11/30/17 Exam# [id number] Ordering Dr: Ayesha Howell PA-C STUDY: X-RAY CHEST REASON FOR EXAM: Female, 47 years old. Psoriasis TECHNIQUE: Frontal and lateral views of the chest. # of Images: 2 COMPARISON: None. FINDINGS: The lungs are clear and expanded. There is no demonstrated pleural abnormality. Normal size heart. Normal mediastinum and estuardo. Normal visualized pulmonary arteries. Normal visualized aortic arch and descending thoracic aorta. Normal visualized thoracic spine. Normal visualized ribs, clavicles, and shoulders. There is no demonstrated abnormality of the visualized soft tissue structures of the upper abdomen. RAD/Chest PA and Lateral IMPRESSION: Normal x-ray examination of the chest. Electronically Signed: Chaka Sandoval MD at 14:58 EDT Tel , Service support , CC: Heather Stoddard NP; Ayesha Howell Wood Model Maker: Signed BASIC METABOLIC Collected: 11/30/2017 Status: F Source: [place] PROFILE (BMP) 2:37 PM [facility] REPOSITORY Order Comment: Comments: QFT [id number] TYPE CODE TESTS RESULT OUT OF RANGE REFERENCE UNITS LAB L501.0100 74-106 mg/dL Normal GLU 91 Result Comment: Please note revised GLUCOSE reference range effective 2017. LAB L501.1000 7-18 mg/dL Normal BUN 7 LAB L501.1100 0.55-1.02 mg/dL Normal CREAT,SERUM 0.78 Result Comment: The validity of the calculated GFR AND GFRAA in patients over 70 years has not been determined. Clinical correlation is essential. LAB L501.1110 >60 mL/min Normal EST GFR 84 Result Comment: Non- GFR Calc LAB L501.1115 >60 mL/min Normal EST GFR - AA 102 Result Comment: GFR Calc LAB L501.1300 10-20 RATIO Low BUN/CRE 9.0 LAB L501.2200 8.5-10.1 mg/dL Normal CA 8.9 LAB L501.5300 136-145 mmol/L Normal NA 138 LAB L501.5600 3.5-5.1 mmol/L Normal K 4.3 LAB L501.5900 98-107 mmol/L Normal CL 104 LAB L501.6100 21.0-32.0 mmol/L Normal CO2 28.0 LAB L501.6200 5-15 Normal GAP 6 Performed By: #### L500.2500, L500.3400 #### [facility] [address] [place], [place], [id number] LIVER PROFILE Collected: 11/30/2017 Status: F Source: [place] 2:37 PM [facility] REPOSITORY Order Comment: Comments: QFT [id number] TYPE CODE TESTS RESULT OUT OF RANGE REFERENCE UNITS LAB L501.1500 6.4-8.2 g/dL Normal T PROT 7.6 LAB L501.1800 3.2-5.0 g/dL Normal ALB 3.7 LAB L501.1950 2.2-4.2 g/dL Normal GLOB 3.9 LAB L501.4100 15-37 U/L Normal AST 15 LAB L501.4305 45-117 U/L Normal ALK P 81 LAB L501.4405 13-56 U/L Normal ALT 23 LAB L501.4600 0.20-1.00 mg/dL Normal T BILI 0.30 LAB L501.4700 0.00-0.30 mg/dL Normal D BILI 0.08 Performed By: #### L500.2500, L500.3400 #### [facility] [address] [place], [place], [id number] CBC W/DIFF, AUTOMATED Collected: 11/30/2017 Status: F Source: [place] 2:37 PM [facility] REPOSITORY TYPE CODE TESTS RESULT OUT OF RANGE REFERENCE UNITS LAB L100.1000 4.4-11.0 K/mm3 Normal WBC 5.3 LAB L100.1200 4.2-5.4 M/mm3 Low RBC 4.18 LAB L100.1300 12.0-15.0 g/dl Low HGB 11.0 LAB L100.1400 37-47 % Low HCT 34.7 LAB L100.1500 81-99 fL Normal MCV 83.0 LAB L100.1600 27.0-32.0 pg Low MCH 26.3 LAB L100.1700 32-36 g/gl Low MCHC 31.7 LAB L100.1810 11.6-14.6 % Normal RDW CV 14.1 LAB L100.1820 35.1-43.9 fl Normal RDW SD 42.1 LAB L100.1900 150-450 K/mm3 Normal PLT 314 LAB L100.2000 6.2-12.0 fl Normal MPV 8.5 LAB L100.2100 47-70 % Normal NEUT% 50.4 LAB L100.2200 19-41 % Normal LY% 37.9 LAB L100.2300 0-10 % Normal MONO% 8.4 LAB L100.2400 0-5 % Normal EO% 2.7 LAB L100.2500 0-1 % Normal BASO% 0.4 LAB L100.2550 0.0-0.9 % Normal IM GRAN % 0.200 Result Comment: IG% - Immature Granulocytes (promyelocytes, myelocytes and metamyelocytes) > 1% indicates that a LEFT SHIFT is Present. LAB L100.2620 2.0-7.7 X10 3/uL Normal Absolute Neut 2.7 LAB L100.2720 0.83-4.51 X10 3/ul Normal Absolute Lymph 1.99 Performed By: #### L100.0100 #### [facility] [address] [place], [place], [address] HEPATITIS B SURFACE Collected: 11/30/2017 Status: F Source: [place] AG 2:37 PM [facility] REPOSITORY TYPE CODE TESTS RESULT OUT OF RANGE REFERENCE UNITS LAB L3100.0400 Negative Normal HB Negative SURF AG Performed By: #### L3100.0390, L3100.0460, L3100.0528, L3100.0625 #### [facility] (refer to report for specific site) refer to report for address and phone number HEPATITIS B CORE AB Collected: 11/30/2017 Status: F Source: [place] TOTAL 2:37 PM [facility] REPOSITORY TYPE CODE TESTS RESULT OUT OF RANGE REFERENCE UNITS LAB L3100.0460 Negative Normal HEP B Negative CORE,TOT Result Comment: Performed at: - [facility] [id number] Financial Aid Advisor: Felice Molina PhD, Phone: [phone] Performed By: #### L3100.0390, L3100.0460, L3100.0528, L3100.0625 #### [facility] (refer to report for specific site) refer to report for address and phone number HEP B SURFACE Collected: 11/30/2017 Status: F Source: [place] ANTIBODIES 2:37 PM [facility] REPOSITORY TYPE CODE TESTS RESULT OUT OF RANGE REFERENCE UNITS LAB L3100.0528 . Normal Hep B Reactive Ivette AB Result Comment: Non Reactive: Inconsistent with immunity, less than 10 mIU/mL Reactive: Consistent with immunity, greater than 9.9 mIU/mL Performed By: #### L3100.0390, L3100.0460, L3100.0528, L3100.0625 #### [facility] (refer to report for specific site) refer to report for address and phone number HEPATITIS C ANTIBODIES Collected: 11/30/2017 Status: F Source: [place] 2:37 PM [facility] REPOSITORY TYPE CODE TESTS RESULT OUT OF RANGE REFERENCE UNITS LAB L3100.0650 0.0-0.9 s/co ratio Normal HEP C AB <0.1 Result Comment: Negative: < 0.8 Indeterminate: 0.8 - 0.9 Positive: > 0.9 The CDC recommends that a positive HCV antibody result be followed up with a HCV Nucleic Acid Amplification test ([id number]). Performed By: #### L3100.0390, L3100.0460, L3100.0528, L3100.0625 #### [facility] (refer to report for specific site) refer to report for address and phone number MISCELLANEOUS LAB Collected: 11/30/2017 Status: F Source: [place] PROCEDURE 2:37 PM [facility] REPOSITORY Order Comment: Comments: QFT [id number] Test(s) Ordered: QFT [id number] TYPE CODE TESTS RESULT OUT OF RANGE REFERENCE UNITS LAB L801.1541 Normal [facility] TEST Result Comment: TEST RESULT UNITS REF INTERVAL QFT-TB Plus (Client Incubated) QuantiFERON Criteria The QuantiFERON-TB Gold Plus result is determined by subtracting the Nil value from either TB antigen (Ag) tube. The mitogen tube serves as a control for the test. QuantiFERON TB1 Ag Value 0.04 IU/mL QuantiFERON TB2 Ag Value 0.05 IU/mL QuantiFERON Nil Value 0.04 IU/mL QuantiFERON Mitogen Value >10.00 IU/mL QuantiFERON-TB Gold Plus Negative Negative The specimen received for QuantiFERON testing was incubated by the ordering institution. Specific procedures outlined in our Directory of Services and in the package insert for the QuantiFERON Gold (In Tube) test must be followed to enable for proper stimulation of cells for the production of interferon gamma. TESTING PERFORMED AT [facility]. ORIGINAL REPORT ON FILE IN LAB CONTAINS ADDITIONAL TEST SITE INFORMATION. Performed By: #### L801.1541 #### [facility] [address] [place], [address] EMERGENCY REPORT Observed: 06/02/2017 Status: F Source: [place] 7:35 PM [facility] EMERGENCY ROOM REPORT NAME ACCOUNT SEX AGE ADMIT DISCHARGE PT MED. RECORD# NUMBER DATE DATE TYPE CARI DAHL [id number] F 46 03/26/17 [address] ROOM: DATE OF : 1970 DICTATING PHYSICIAN: Skyler Acharya HISTORY OF PRESENT ILLNESS: This is a 46-year-old female complaining of cough, sinus pressure which started last night. She started running a fever this morning that was as high as 101.9. She does complain of some generalized body aches and chills. She does admit to some dizziness, but denies any shortness of breath. PAST MEDICAL HISTORY: Psoriatic arthritis, fibromyalgia. ALLERGIES: She is allergic to nonsteroidal antiinflammatories and sulfa drugs. SOCIAL HISTORY: She is not a smoker. She lives at home with her family. REVIEW OF SYSTEMS: Positive for cough, sinus pain, nasal congestion, fever, body aches, chills, and dizziness. Denies any chest pain, shortness of breath, wheezing, abdominal pain, nausea, vomiting, diarrhea, constipation, melena, hematochezia. She does admit to a frontal headache. Denies any numbness, unsteady gait, weakness, neck or back pain. She does complain of diffuse generalized arthritis. Further review of systems is negative. PHYSICAL EXAMINATION: The patient is alert and oriented x3. She appears in no acute distress. She is pleasant and cooperative. She does look however like she does not feel good. HEENT: Pupils are equal and reactive to light. Red reflex intact bilaterally. Extraocular muscles are intact. No conjunctival injection. No scleral icterus or lid edema. Ears: TMs intact bilaterally. No erythema noted. Nose exhibits a lot of clear rhinorrhea. Mouth: Mucous membranes are moist with some diffuse pharyngeal erythema noted, some postnasal drainage noted. The patient is tender over the bilateral maxillary sinuses mildly. No facial swelling. Neck is supple. Trachea is midline. No JVD or lymphadenopathy. No posterior cervical tenderness. No nuchal rigidity. Lungs: Clear to auscultation in all lung bunn. No adventitious sounds are noted. No accessory muscle use. CV: Heart rate and rhythm are regular. No murmur noted. Abdomen is soft and nontender with normoactive bowel sounds x4 quadrants. No guarding or rigidity. No rebound. No palpable abdominal masses. No hepatosplenomegaly. Extremities: No edema or cyanosis. Peripheral pulses are intact. No motor or sensory deficits are noted. Hand foot caster are strong and symmetric. Skin is warm and dry. No diaphoresis or rash. Neurologic examination shows the patient to be alert and oriented x3. No motor or sensory deficits are noted. Normal speech. DIAGNOSTIC DATA: Blood work was obtained, and the flu swab came back positive Page 1 of 2 CARI DAHL Emergency Room Report for influenza. EMERGENCY DEPARTMENT COURSE AND TREATMENT: The patient was placed on Tamiflu 75 mg 1 p.o. b.i.d., dispensed #10 with no refill and Tramadol 50 mg 1 every 6 hours as needed for pain, dispensed #12 with no refill. DIAGNOSIS: Influenza. PLAN/DISPOSITION: The patient is to rest, encouraged fluids, take the medication as prescribed, and follow up with [facility] in 2 to 4 days for reevaluation. If her symptoms gets worse or any other problems develop, return here to the emergency department. The patient was discharged in a clinically stable condition. Nursing notes reviewed. Dictated By: Skyler Acharya DO TD: 05/28/17 13:59 JOB #: [id number] Transcribed by: [email or web address] Electronically signed by: E-Sign: Dr. Skyler Acharya D.O. 06/02/17 19:34 Page 2 of 2 CARI DAHL Emergency Room Report CBC Collected: 03/26/2017 Status: F Source: [place] 3:45 PM [facility] REPOSITORY TYPE CODE TESTS RESULT OUT OF RANGE REFERENCE UNITS LAB CBC(LOINC) CBC Result Comment: CBC-COMPLETE BLOOD COUNT LAB WBC(LOINC) 4.5 - 10.8 x 10EE3/UL WBC 7.3 LAB RBC(LOINC) 4.10 - x 10EE6/UL 5.30 RBC Low 4.04 LAB HEMOGLOBIN(LOINC) 12.0 - g/dl 16.0 Low HEMOGLOBIN 11.9 LAB HEMATOCRIT(LOINC) 34.0 - % 46.0 HEMATOCRIT 34.8 LAB MCV(LOINC) 80 - 99 fl MCV 86 LAB MCH(LOINC) 27 - 33 pg MCH 29 LAB MCHC(LOINC) 32 - 36 X10 3 MCHC 34 LAB RDW/CV(LOINC) 12.0 - % 15.6 RDW/CV 14.6 LAB PLATELET(LOINC) 150 - 450 x10EE3/UL PLATELET 312 LAB MPV(LOINC) 6.6 - 10.5 fl MPV 6.8 Result Comment: AUTOMATED DIFFERENTIAL LAB NEUT %(LOINC) 46.0 - 76.0 % NEUT % High 85.5 LAB LYMPH %(LOINC) 20.0 - 45.0 % Low LYMPH % 4.6 LAB MONOS %(LOINC) 0.0 - 10.0 % MONOS % 9.4 LAB EO %(LOINC) 0.0 - 7.0 % EO % 0.4 LAB BASO %(LOINC) 0.0 - 2.0 % BASO % 0.1 LAB Lymph #(LOINC) 0.80 - 2.80 x10EE3/U Low L Lymph # 0.30 LAB Neut #(LOINC) 1.50 - 7.10 x10EE3/U L Neut # 6.30 LAB Edgar #(LOINC) 0.20 - 1.00 x10EE3/U L Edgar # 0.70 LAB EO #(LOINC) 0.00 - 0.50 x10EE3/U L EO # 0.00 LAB Baso #(LOINC) 0.00 - 0.10 x10EE3/U L Baso # 0.00 LAB MANUAL DIFF([facility]) MANUAL DIFF N/A LAB MORPHOLOGY([facility] ) MORPHOLOGY N/A Result Comment: {CD] Performed By: #### [id number] #### [facility],[address] [place] [address] CMP WITH EGFR Collected: 03/26/2017 Status: F Source: [facility] 3:45 PM [facility] REPOSITORY TYPE CODE TESTS RESULT OUT OF RANGE REFERENCE UNITS LAB CMP with eGFR([facility]) CMP with eGFR Result Comment: COMPREHENSIVE METABOLIC PANEL LAB SODIUM(LOINC) 136 - 145 mmol/l SODIUM 137 LAB POTASSIUM(INC) 3.5 - 5.1 mmol/L POTASSIUM 3.6 LAB CHLORIDE(LOINC) 98 - 107 mmol/L CHLORIDE 101 LAB CO2(LOINC) 21.0 - mmol/L 31.0 CO2 27.2 LAB GLUCOSE(LOINC) 74 - 106 mg/dl GLUCOSE High 172 LAB BUN(INC) 6 - 20 mg/dl BUN 9 LAB CREATININE(LOINC) 0.6 - 1.2 mg/dl CREATININE 0.8 LAB AST/SGOT(LOINC) 13 - 39 U/L AST/SGOT Low 11 LAB ALK PHOS(LOINC) 38 - 126 U/L ALK PHOS 58 LAB CALCIUM(LOINC) 8.6 - mg/dl 10.2 CALCIUM 8.7 LAB TOTAL 6.4 - 8.3 g/dl PROTEIN(LOINC) TOTAL PROTEIN 6.7 LAB ALBUMIN(LOINC) 3.4 - 4.8 g/dL ALBUMIN 3.9 LAB GLOBULIN(LOINC) 1.5 - 3.8 G/DL GLOBULIN 2.8 LAB A/G RATIO(LOINC) 0.9 - 1.6 A/G RATIO 1.4 LAB TOTAL BILI(LOINC) 0.0 - 1.5 mg/dl TOTAL BILI 0.2 LAB B/C RATIO(LOINC) 0 - 30 ratio B/C RATIO 11 LAB ALT/SGPT(LOINC) 8 - 35 U/L ALT/SGPT 12 LAB ANION GAP(LOINC) 10 - 20 mmol/L ANION GAP 12 LAB AGE(LOINC) years AGE 46 LAB eGFR(LOINC) 60 - 999 ML/MINUTE eGFR >60 LAB eGFR(AA)(LOINC) 60 - 999 ML/MINUTE eGFR(AA) >60 Result Comment: ACCORDING TO THE NATIONAL KIDNEY DISEASE EDUCATION PROGRAM(NKDE), A NORMAL eGFR IS A VALUE GREATER THAN OR EQUAL TO 60 ML/MIN/1.73 SQ METERS. CHRONIC KIDNEY DISEASE: <60mL/MIN/1.73 SQ METERS KIDNEY FAILURE: <15mL/MIN/1.73 SQ METERS THIS TEST SHOULD ONLY BE USED FOR PATIENTS 18 YEARS OF AGE AND OLDER. Performed By: #### [id number] #### [place] [id number] Observed: 03/26/2017 Status: F Source: [facility] INFLUENZA VIRUS RAPID 3:45 PM [facility] A/B REPOSITORY INFLUENZA A POSITIVE INFLUENZA B NEGATIVE INTERNAL NEG QC PASS INTERNAL POS QC PASS EXTERNAL QC DONE? YES A NEGATIVE TEST RESULT DOES NOT EXCLUDE INFECTION WITH INFLUENZA A OR B. THEREFORE, THE RESULTS OBTAINED FROM THIS FLU TEST SHOULD BE USED IN CONJUCTION WITH CLINICAL FINDINGS TO MAKE AN ACCURATE DIAGNOSIS. INDIVIDUALS WHO HAVE RECEIVED NASALLY ADMINISTERED INFLUENZA A VACCINE MAY TEST POSITIVE IN COMMERCIALLY AVAILABLE INFLUENZA RAPID DIAGNOSTIC TESTS FOR UP TO THREE DAYS. Performed By: #### [id number] #### [place] [id number] ALLERGIES ALLERGIES DATE TYPE / CODE NAME / CODE REACTION SEVERITY SOURCE 12/13/2017 Drug [address] [facility] Allergy/416 [facility]- [facility] 660510(SNOM and IV Repository ED CT) Dye/[id number](R XNORM) 12/13/2017 Drug NSAIDS SWELLING/VOMITT [facility] Allergy/416 (Non-Steroidal [facility] 330569(SNOM Anti-Inflamma/F0 Repository ED CT) 64617154(RXNORM) 12/13/2017 Drug Sulfa SWELLING/VOMITT [facility] [place] [facility] Allergy/416 (Sulfonamide [facility] 341561(SNOM Antibiotics)/F00 Repository [address] CT) 2520390(RXNORM) Drug SULFA Moderate [facility] [place] Allergy/416 (sulfonamide)/00 ([facility] 022224(SNOM 778363(RXNORM) Modifier) Repository ED CT) (Qualifier Value) Drug NSAID/85897666(R Moderate [place] Allergy/416 XNORM) ([facility] 762608(SNOM Modifier) Repository ED CT) (Qualifier Value) Drug IODINE/[id number]( Moderate Drew Pomerene Allergy/416 RXNORM) ([facility] 140223(SNOM Modifier) Repository ED CT) (Qualifier Value) ENCOUNTERS ENCOUNTERS ADMIT/DISCHARGE ACCOUNT ADMITTING ENCOUNTER LOCATION SOURCE NUMBER CLASS 02/26/2018 [id number] Ambulatory Building[facility] [place] Practices Repository 01/23/2018 [id number] Ambulatory [place] 8 [facility] ing:MTLAB Repository 12/14/2017 [id number] Ambulatory [place] 4 [facility] ing:LABSPEC Repository 12/13/2017/ [id number] Ambulatory BMSBuilding:B [place] [facility] 11/30/2017 [id number] [place] 6 [facility] ing:MTLAB Repository 03/26/2017/ [id number] SKYLER ACHARYA Emergency BuildinR Drew Pomerene 8 DO oom: ERBed: F [facility] Repository FUNCTIONAL STATUS FUNCTIONAL STATUS No Functional Status Records FoundEQUIPMENT EQUIPMENT No Equipment Records FoundPAYERS PAYERS ENCOUNTER GUARANTOR PAYER SUBSCRIBER SOURCE 02/26/2018 Deja Jeong OHIP Practices PoatesDOB: [facility] Edwards[facility]B: Repository [id number] cy Number: [id number] TR [id number] [address], Date:8208-71-00Yqdq[address] [address]Vnq: Name:[place] [address]Lit: [address], [place] (HP)Tel: [phone]: [phone] ([phone] 02/26/2018 Secondary Arsenio OHIP Practices Insurance:AETNAPolicy PoatesDOB: Repository Number: [id number] [address] Date: - 7509-09-92Qmpd[address], Name:NELSY SCHUSTER [id number] [address]Joa: DEVONRAPHAEL [id number]: (HP) 02/26/2018 Tertiary Arsenio OHIP Practices Insurance:CignaPolicy PoatesDOB: Repository Number: [id number] [address] Date: 9196-88-78Pdrs[address], Name:FP. Dorcas [place] [address]Cgx: [id number], [place] [address]IY: [phone] ([phone] 01/23/2018 ARSENIO Primary ARSENIO [place] [id number] TR Insurance:AULTCAREPoli POATESDOB: [address] Number: [id number] [address]Pki: [id number] Repository Date:8692-48-65[address] [address] [address]VO: 01/23/2018 Secondary NOT GIVENUNK [place] Insurance:SELF PAY [facility] Number: Effective Repository Date:2018-01-23 12/14/2017 ARSENIO Primary ARSENIO [place] [id number] TR Insurance:AULTCAREPoli POATESDOB: [address], Number: [id number] Vista Hospital [address]Opt: [id number] Repository Date:9212-91-97VW [address] () [address] [address]JY: 12/14/2017 Secondary NOT GIVENUNK [place] Insurance:SELF PAY [facility] Number: Effective Repository Date:2017-12-14 12/13/2017 Arsenio Primary Arsenio [place] [id number] TR Insurance:AULTCAREPoli PoatesDOB: [address], Number: [id number] Vista Hospital [address]Abe: [id number] Repository Date:2628-17-03YB [address] () [address] [address]BS: 12/13/2017 Secondary NOT GIVENUNK [place] Insurance:SELF PAY [facility] Number: Effective Repository Date:2017-12-13 11/30/2017 ARSENIO Primary ARSENIO [place] [id number] TR Insurance:AULTCAREPoli POATESDOB: [address], Number: [id number] Vista Hospital [address]Kfq: [id number] Repository Date:4352-25-55KJ [address] () [address] [address]JF: 11/30/2017 Secondary NOT GIVENUNK [place] Insurance:SELF PAY [facility] Number: Effective Repository Date:2017-11-30 03/26/2017 DEJA M Primary DEJA M Drew Red POATESDOB: Insurance:AULTCARE POATESDOB: [facility] [id number] [facility] Number: [place] Repository [facility], [id number] [facility] [place]TIFF[place], [place] [address]Yqq: Date:Plan Name:A2 Fl [id number] () SOCIAL HISTORY SOCIAL HISTORY No Social History Records FoundFAMILY HISTORY FAMILY HISTORY No Family History Records FoundADVANCE DIRECTIVES ADVANCE DIRECTIVES No Advanced Directives Records FoundINFORMATION SOURCE INFORMATION SOURCE DATE CREATED AUTHOR AUTHOR'S ORGANIZATION 03/07/2018 OHIP
--- OUTSIDE RECORDS SUMMARY | 2018-03-11 20:37 | XMS RPT_ITS | Continuity of Care Document ---
:1970 Author Organization [facility] Address [address] [facility] [address] [place] [address] Phone Care Team Providers Name Role Phone Americakalia SHINHeather E Unavailable Sy Lewis Jr Unavailable Physical Therapy, [facility] Unavailable [facility] Unavailable [facility], [facility] Unavailable Katty Orlando Unavailable Long WELDER OXYHYDROGEN, Yi L Unavailable Unavailable Azalea DO, Nichelle Unavailable Becca Cisneros Unavailable Unavailable Fox WELDER OXYHYDROGEN, Diann Unavailable Unavailable Unavailable Unavailable Problems Name [...] arthriotisHead CT: WNL (01/28) Status: Active BMI 33.0-33.9,adult (Z68.33, V85.33) Status: [...] 2 Status: Active Depression (F32.9, 311) Comments: crying without provoke and unable to stop Status: Active Depression (F32.9, 311) Comments: good with cymbalta Status: Active Disorder of the skin and [...] CK: wnlRefer to neurologySkelaxin BID PRN, helped mildy1 Muscle spasm toes , feet, back of [...] Active Thyroid fullness (E07.89, 246.8) Status: Active Unspecified Diagnosis Status: Active Unspecified [...] Delayed Release Particles 1 (one) Capsule DR Maryanne young for 0 days Quantity: 30 {Capsule} Refills: 3 Ordered:16-Jan-2018 Rejisupa MELISSA, Heather Fraustosupa MELISSA, Heather Wells Start : 16-Jan-2018 Active Comments:dispense generic Deplin [...] days Quantity: 20 {Tablet} Refills: 0 Ordered:13-Jun-2013 Americaaftabsupa MELISSA Heather Adriana MELISSA Heather Wells Start : 13-Jun-2013 End : 23-Jun-2013 Inactive [...] Quantity: 14 {Tablet} Refills: 0 Ordered:08-Dec-2015 Arlyn RUG WEAVER, Heather Wright CNP, Cris Start : 08-Dec-2015 End : 15-Dec-2015 Inactive CLARITHROMYCIN, 500MG (Oral Tablet) 1 (one) Tablet Tablet bid for 0 days Quantity: 20 {Tablet} Refills: 0 Ordered:25-May-2015 Cece Acevedo Start : 04-May-2015 End : 25-May-2015 Inactive CLOTRIMAZOLE, 10MG (Mouth/Throat Raquel) 1 (one) Raquel 5 x daily for 10 days Quantity: 50 {Raquel} Refills: 0 Ordered:11-May-2015 Arlyn SHIN, Heather Wright CNP, Heather Wells Start : 11-May-2015 End : 21-May-2015 Inactive ETODOLAC CR, 400MG (Oral Tablet Extended Release 24 Hour) 2 (two) Tablet ER 24HR qd for 0 days Quantity: 30 {Tablet_ER_24HR} Refills: 0 Ordered:14-Jul-2009 Anika Martinez RN Start : 07-Jul-2009 Inactive Comments:with food FLONASE, [...] days Quantity: 10 {Tablet} Refills: 0 Ordered:02-Feb-2016 Yi Kwong LPN Start : 08-Dec-2015 End : 02-Feb-2016 Inactive [...] : 15-Nov-2011 End : 16-Nov-2011 Inactive Comments:Lot #[id number]-right hipDose-25mggiven by: Adela Vallecillo LPN PREDNISONE, 10MG [...] Refills: 0 Ordered:15-Apr-2016 Heather Stoddard CNP, CNP, Mary E Start : 15-Apr-2016 End : 22-Apr-2016 Inactive [...] prn for 0 days Refills: 0 Ordered:29-Jul-2009 Maty Serranoti End : 29-Jul-2009 Discontinued Comments:This order discontinued per [employer]. Cyclobenzaprine HCl 10 MG Oral Tablet 1-2 tabs Tablet q hs for 0 days Quantity: 30 {Tablet} Refills: 0 Ordered:03-Aug-2016 Diann Braxton LPN Start : 03-Oct-2013 End : 03-Aug-2016 Discontinued Comments:Dr. April ALCALA, 30MG/5ML (Oral Liquid Extended Release) 1 (one) Liquid ER Liquid ER q12hrs for 0 days Quantity: 6 {Ounce} Refills: 0 Ordered:07-Apr-2015 Slarb JUAN Diann Start : 05-Jun-2013 End : 07-Apr-2015 Discontinued [...] days Quantity: 3 {Tablet} Refills: 0 Ordered:01-Dec-2015 Diann Braxton LPN Start : 21-Aug-2015 End : 01-Dec-2015 Discontinued PROMETHAZINE HCL, 25MG (Oral Tablet) 1 Tablet q6hrs prn for nausea for 0 days Quantity: 10 {Tablet} Refills: 0 Ordered:07-Apr-2015 Diann Braxton LPN Start : 23-Dec-2013 End : 07-Apr-2015 Discontinued ROBAXIN, 500MG (Oral Tablet) 1 Tablet three times daily, as needed for 1440 days Refills: 0 Ordered:04-Sep-2012 Sola Rea DO Start : 04-Sep-2012 End : 04-Sep-2012 Discontinued Comments:Medication taken as needed. TRAMADOL HCL, 50MG (Oral Tablet) 1 Tablet three times daily, as needed for 1620 days Refills: 0 Ordered:07-Apr-2015 Diann Braxton LPN Start : 21-Mar-2011 End : 07-Apr-2015 Discontinued Comments:Medication taken as needed. Valium 2 MG Oral Tablet 1-2 Tablet Tablet bid prn muscle spams for 0 days Quantity: 60 {Tablet} Refills: 0 Ordered:03-Aug-2016 Diann Braxton LPN [...] Result: Comments: See Note; NOTES: [facility] [address] [place] [address] [address] [place] [address] OFFICE VISIT Date of Service: 12/13/17 MR#: [id number] Acct: [id number] Name: DEJA LIM Rep #: [id number] : 1970 Provider: Dick SPARKS Age/Sex: 47/F Location: [facility] Status: Signed Intake Vital Signs12/13/17 Height 5 ft 3 in 12/13/17 Weight: 172 lb 12/13/17 Body Mass Index (BMI) 30.4 12/13/17 Blood Pressure 132/84 H 12/13/17 Respiratory Rate 16 Intake Visit Reasons: STREP Chief Complaint: Sore throat Iron 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 Pharyngitis J02.9 Plan Patient aware today's rapid strep test was negative, therefore culture se nt to lab for further evaluation. Clear fluids, rest, Advil/Tylenol, saltwater gargles as needed for symptomatic relief. Patient is to inform her superior court clerk and/or PCP regarding the above described s ymptoms in the HPI coupled with history of times 2 injections of Cosentyx to date. Patient states acknowledging understanding all the above. This note was generated with ACTV8ation software. It ma y contain incorrect words, spelling, and punctuation that were not noted in checking the note before signing. Orders Orders: Coding Level of Care Code Off vis,new,level 3 Diagnoses Pharyngitis J02. 9 12/13/17 1054 <Electronically signed by Dick SPARKS> Date Dick SPARKS Cosigner Signature: Date (if applicable) CC: 30-Nov-2017 Chest PA and Lateral Result: Comments: See Note; NOTES: [facility] Imaging Services [address] [place] [address] Chest PA and Lateral MR#: [id number] Acct: [id number] Name: DEJA LIM Rep #: [id number] : 1970 F 47 From: Chaka Sandoval MD PCP: Heather Stoddard NP Status: REG CLI Study: Chest PA and Lateral Date of Exam: 11/30/17 Exam# [id number] Ordering Dr: Ayesha Howell PA-C STUDY: X-RAY [...] , Service support , CC: Heather Stoddard MECHANICAL DOOR REPAIRER; Ayesha Howell Stopboard Assembler: Signed 19-Sep-2016 Breast Limited Unilateral Result: Comments: See Note; NOTES: [facility] Imaging Services [address] [place] [address] Breast Limited Unilateral MR#: [id number] Acct: [id number] Name: DEJA LIM Rep #: [id number] : 1970 F 46 From: Fabricio Hanna MD PCP: Heather Stoddard Status: REG CLI Study: Breast Limited Unilateral Date of Exam: 09/19/16 Exam# [id number] Ordering Dr: Heather Stoddard STUDY: ULTRASO UND BREAST - LEFT REASON [...] Fabricio Hanna MD at 8:17 EDT Tel [phone], Service support [phone], CC: Heather Stoddard Stopboard Assembler: Signed 19-Sep-2016 DIAG MAMM W/CAD, BILAT Result: Comments: See Note; NOTES: [facility] Imaging Services [address] [place] [address] DIAG MAMM W/CAD, BILAT MR#: [id number] Acct: [id number] Name: DEJA LIM Rep #: [id number] : 1970 F 46 From: Fabricio Hanna MD PCP: Heather Stoddard Status: REG CLI Study: DIAG MAMM W/CAD, BILAT Date of Exam: 09/19/16 Exam# [id number] Ordering Dr: Heather Stoddard MAMMOGRAPHY - BILATE [...] delay biopsy of a clinically suspicious abnormality. [id number] Electronically Signed: Fabricio Hanna MD at 15:52 EDT Tel [phone], Service support , CC: Heather Stoddard Stopboard Assembler: Signed 03-Aug-2016 Thyroid Result: Comments: See Note; NOTES: [facility] Imaging Services [address] [place] [address] Verdana 4d Thyroid MR#: [id number] Acct: [id number] Name: DEJA LIM Rep #: [id number] D OB: 1970 F 46 From: Torri Pike MD PCP: Heather Stoddard Status: REG CLI Study: Thyroid Date of Exam: 08/03/16 Exam# [id number] Ordering Dr: Heather Stoddard STUDY: THYROID ULTRASOUND REASON FOR EXAM : Female, 46 years old. Goiter TECHNIQUE: Ultrasound evaluation of the thyroid was performed with real-time and static liu-scale imaging. COMPARISON: None. FINDIN GS: RIGHT LOBE: [...] Torri lindquist MD at 23:26 EDT Tel [phone], Service support , CC: Heather Stoddard Stopboard Assembler: Signed 08-Jun-2016 Brain W/WO Contrast Result: Comments: See Note; NOTES: [facility] Imaging Services [address] [place] [address] Verda 4d Brain W/WO Contrast MR#: [id number] Acct: [id number] Name: DEJA LIM Rep #: [id number] : 1970 F 46 From: Quinn Olivera MD PCP: Heather Stoddard Status: REG CLI Study: Brain W/WO Contrast Date of Exam: 06/08/16 Exam# [id number] Ordering Dr: Sy Lewis MD STUDY: MRI [...] , Service lees pport , CC: Heather Stoddard; Sy Lewis Stopboard Assembler: Signed 08-Jun-2016 Spine Thoracic W/WO Contrast Result: Comments: See Note; NOTES: [facility] Imaging Services [address] [place] [address] Verda 4d Spine Thoracic W/WO Contrast MR#: [id number] Acct: [id number] Name: DEJA LIM Rep #: [id number] : 1970 F 46 From: Quinn Olivera MD PCP: Heather Stoddard Status: REG CLI Study: Spine Thoracic W/WO Contrast Date of Exam: 06/08/16 Exam# [id number] Ordering Dr: Sy Lewis MD STUDY: MRI [...] support , CC: Heather Stoddard; Sy Lewis Stopboard Assembler: Signed 19-Apr-2016 Gallbladder Result: Comments: See Note; NOTES: [facility] Imaging Services [address] [place] [address] Verdana 4d Gallbladder MR#: [id number] Acct: [id number] Name: DEJA LIM Rep #: [id number] : 1970 F 45 From: Dustin Casanova MD PCP: Heather Stoddard Status: REG CLI Study: Gallbladder Date of Exam: 04/19/16 Exam# [id number] Ordering Dr: Heather Stoddard STUDY: ULTRASOUND GALLBLADD [...] at 22:14 EST Tel , Service support [phone], CC: Heather Stoddard Stopboard Assembler: Signed 04-Feb-2016 Echocardiogram Complete Result: Comments: See Note; NOTES: [facility] Cardiovascular Services [address] [place] [address] Echo Complete 02/04/16 0927 MR#: [id number] Acct: [id number] Name: DEJA LIM Radha p #: [id number] : 1970 45 From: Zeyad Briseno MD Attending Dr: Rudy Mondragon Status: REG [facility] Ordering Dr: Rudy Mondragon Date: 02/04/16 Location: [facility] Sex: F C Admitted: Reason For Study: [...] Physician: Rudy Mondragon Performed By: Kerri Lozano RDCS 02/04/16 1754 Date Zeyad Briseno MD CC: Rudy Mondragon Date Dictated: 02/04/16926 Date Transcribed: 02/04/161753 Stopboard Assembler: Signed 04-Feb-2016 Brain/Head without Contrast Result: Comments: See Note; NOTES: [facility] Imaging Services [address] [place] [address] Verdana 4d Brain/Head without Contrast MR#: [id number] Acct: [id number] Name: DEJA LIM Rep #: [id number] : 1970 F 45 From: Lane Harrison MD PCP: Rudy Mondragon Status: REG CLI Study: Brain/Head without Contrast Date of Exam: 02/04/16 Exam# [id number] Ordering Dr: Rudy Mondragon STUDY : CT [...] at 10:36 EST Tel , Service support [phone], CC: Rudy Mondragon Stopboard Assembler: Signed 04-Feb-2016 Nuclear Stress Test - Treadmil Result: Comments: See Note; NOTES: [facility] Imaging Services [address] [place] [address] Verdana 4d Nuclear Stress Test - Treadmil MR#: [id number] Acct: [id number] Name: Francisco LIM Rep #: [id number] : 1970 45 From: Dave Whitt MD [...] LVEF of 70%. Dave Whitt MD T: NTS JOB: [id number] 02/04/16 2045 <Electronically signed by Dave Whitt MD> Date Dave sánchez MD CC: Rudy Mondragon Date Dictated: 02/04/16 1012 Date Transcribed: 02/04/16 1012 Stopboard Assembler: Signed 21-Aug-2015 Cerv Spine 4 or 5 Views Result: Comments: See Note; NOTES: [facility] Imaging Services [address] [place] [address] Verdana 4d Cerv Spine 4 or 5 Views MR#: [id number] Acct: [id number] Name: DEJA SMART Rep #: [id number] : 1970 F 45 From: Fabricio Hanna MD PCP: Rudy Mondragon Status: REG CLI Study: Cerv Spine 4 or 5 Views Date of Exam: 08/21/15 Exam# [id number] Ordering Dr: Nichelle Artis DO STUDY: X-RAY [...] Hanna MD 29/08/07 at 15:48 EDT Tel [phone], Service support [phone], RAD/Cerv Spine 4 or 5 Views IMPRESSION: There is straightening of the normal cervical lordo sis with anterior spondylosis and disc space narrowing at the C6-C7 level. Electronically Signed: Fabricio Hanna MD at 15:48 EDT Tel [phone], Service support [phone], Fax CC: Nichelle Tristan DO; Rudy Mondragon Stopboard Assembler: Signed 06-Aug-2015 PT D/C Summary (1) Result: Comments: See Note; NOTES: [facility] Physical Therapy [facility] [address] [place] [address]. [address] [place] [address] Fax REHABILITATION SE RVICES DISCHARGE SUMMARY MR#: [id number] Acct: [id number] Name: DEJA LIM Rep #: [id number] : 1970 45 From: Flakita Gonsalez PT, Cert. MDT Referring Dr.: Sola Rea DO Status: REG RCR Insurance: [employer] - PT D/C Summary It has been [...] please feel free to call me at [phone]. Thank you for the referral of this patient. Sincerely, Flakita Gonsalez <Electronically signed by Flakita Gonsalez PT, Cert. MDT> 08/06/15 1250 CC: Sola Rea DO DEREJE Signed 18-May-2015 Bilat Scrn Digital AND CAD Result: Comments: See Note; NOTES: [facility] Imaging Services [address] [place] [address] Verdana 4d Bilat Scrn Digital AND CAD MR#: [id number] Acct: [id number] Name: DEJA LIM Rep #: [id number] : 1970 F 44 From: Fabricio Hanna MD PCP: Sola Rea DO Status: REG CLI Study: Bilat Scrn Digital AND CAD Date of Exam: 05/18/15 Exam# [id number] Ordering Dr: Sola Rea DO MAMMOGRAPHY - [...] biop sy of a clinically suspicious abnormality. [id number] Electronically Signed: Fabricio Hanna MD at 8:19 EDT Tel [phone], Service support [phone], CC: Dary Rea DO Stopboard Assembler: Signed 11-May-2015 Inital Evaluation (1) - PT Result: Comments: See Note; NOTES: [facility] Physical Therapy [facility] [address] [place] [address]. [address] [place] [address] Fax REHABILITATION SE RVICES INITIAL EVALUATION MR#: [id number] Acct: [id number] Name: DEJA LIM Rep #: [id number] : 1970 44 From: Flakita Gonsalez PT, Cert. MDT Referring DrChandrika: Sola Rea DO Status: REG R Insurance: [facility] Date: Patient's Visit Information DEJA LIM is a 44 year old F referred to Physical Therapy by Sola Rea with a diagnosis of BACK AND NECK PAIN. 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 EMILY. [...] to be FAXED BACK to us at [phone] for Medicare purposes. Please let me know [...] & CAD Result: Comments: See Note; NOTES: [facility] Imaging Services [address] [place] [address] Breast Imaging Report MR#: [id number] Acct: [id number] Name: DEJA LIM Rep #: [id number] : 1970 F 43 From: Fabricio Hanna MD PCP: oSla Rea DO Status: REG CLI Exam# [id number] Ordering Dr: Sola Rea DO MAMMOGRAPHY - [...] Fabricio Hanna MD at 14:29 EDT Tel [phone], Service support [phone], CC: Sola Rea DO; Brenden Fortune MD Stopboard Assembler: Signed 13-Aug-2013 Abdomen/Pelvis without Cont Result: Comments: See Note; NOTES: [facility] Imaging Services [address] [place] [address] CAT Scan Report MR#: [id number] Acct: [id number] Name: DEJA LIM Rep #: [id number] : 1970 F 43 From: Fabricio Hanna MD PCP: Sola Rea DO Status: REG CLI Study: Abdomen/Pelvis without Cont Date of Exam: 08/13/13 Exam# [id number] Ordering Dr: Sola Rea DO CC : Sola Rea DO Stopboard Assembler: Signed Family History Unknown Family Member Name [...] smoker Vital Signs Date Test Result Details :47 Temperature 98.8 f Comments: Method: Oral [...] kg/m2 Body Surface Area Calculated 1.84 m2 1-Fqz-207121:44 Temperature 97.9 f Comments: Method: Tympanic Pulse [...] Area Calculated 1.87 m2 :41 Comments: pain /10 now, 09/22 last night Temperature 97.6 f [...] Details :54 Culture, R/O Strep A Comments: [facility] [address] [place], [place], [address] CUSTREPA See Note (Normal) Comments: DEB CultureNo Group A Beta Streptococcus isolated. * This cultures intended use is to screen for Beta Streptococcus A only. All other pathogens and potential pathogens will not be screened for or re ported. If a complete workup of all potential pathogens is indicated an order for a routine throat culture is required. 90-Lvf-231319:37 Basic Metabolic Profile (BMP) Comments: Comments: [facility] [id number] Stokes Cleveland Va [facility] Center [address] [place], [place], [address] GAP 6 (Normal) Range: 5-15 CO2 28.0 [...] Comments: Please note revised GLUCOSE reference range tawreafgx52/02/2018. 31-Ima-539341:37 CBC W/Diff, Automated Comments: [facility] [address] [place], [address] Absolute Lymph 1.99 {X10_3/ul} (Normal) Range: 0.83-4.51 [...] CORE,TOT Negative (Normal) Comments: Performed at: - [facility] [address] [id number] Director: Felice Molina PhD, Phone: [phone] :37 Hepatitis C Antibodies Comments: [facility] (refer to report for specific site)refer to report for address and phone number HEP C AB <0.1 {s/co_ratio} (Normal) Range: 0.0-0.9 Comments: Negative: < 0.8 Indeterminate: 0.8 - 0.9 Positive: > 0.9 The CDC recommends that a positive HCV antibody result be followed up with a HCV Nucleic Acid Amplification test (958102). :37 Liver Profile Comments: Comments: QFT [id number] Stokes Cleveland Va Medical Center [address], [address] D BILI 0.08 mg/dL (Normal) Range: 0.00-0.30 T BILI 0.30 mg/dL (Normal) Range: 0.20-1.00 ALT 23 U/L (Normal) Range: 13-56 ALK P 81 U/L (Normal) Range: 45-117 AST 15 U/L (Normal) Range: 15-37 GLOB 3.9 g/dL (Normal) Range: 2.2-4.2 ALB 3.7 g/dL (Normal) Range: 3.2-5.0 T PROT 7.6 g/dL (Normal) Range: 6.4-8.2 :37 Miscellaneous Lab Procedure Comments: Comments: QFT [id number](s) Ordered: FT [id number] Stokes Cleveland Va Medical Center [address] [place], [address] [facility] Comments: TEST RESULT UNITS REF INTERVALQFT- TB [...] production ofinterf redd gamma. [facility]. ORIGINAL REPORT ON FILE IN LAB CONTAINS ADDITIONAL TEST SITE INFORMATION. 60-Hgx-782104:51 Rapid Flu (72507 x 2) Comments: Negative Influenza A Ag neg (Normal) 58-Kdt-899502:52 CBC W/Diff, Automated Comments: [facility] [address] [place], [address] Absolute Lymph 2.60 {X10_3/ul} (Normal) Range: 0.83-4.51 [...] 4.2-5.4 WBC 9.1 K/mm3 (Normal) Range: 4.4-11.0 47-Fdc-987652:52 Comprehensive Metabolic Profil Comments: [facility] [address] [place], [place], [address] GAP 7 (Normal) Range: 5-15 CO2 29.0 [...] <126 mg/dLsuggests IMPAIRED HOMEOSTASIS per A.D.A. criteria. 04-Rgg-977066:52 Follicle Stimulating Hormone Comments: [facility] [address] [place], [place], [address] FSH 10.1 m[iU]/mL (Normal) Comments: NORMAL REFERENCE RANGES FEMALE FOLLICULAR 2.3 - 12.6 mIU/mL MID-CYCLE PEAK 5.2 - 17.5 mIU/mL LUTEAL 1.7 - 12.9 mIU/mL POST-MENOPAUSAL ON MHT 5.9 - 72.8 mIU/mL NOT ON MHT 12.7 - 132.2 mlU/mL MALE 0.7 - 10.8 mIU/mLNEW TEST METHOD AND REFERENCE RANGES JULY 04, 2011:52 Luteinizing Hormone Comments: [facility] [address] [place], [place], [id number] LH 6.5 m[iU]/mL (Normal) Comments: NORMAL REFERENCE RANGES FEMALE FOLLICULAR 1.9 - 26.2 mIU/mL MID-CYCLE PEAK 22.8 - 76.1 mIU/mL LUTEAL 0.6 - 16.6 mIU/mL POST-MENOPAUSAL ON MHT 1.1 - 52.4 mIU/mL NOT ON MHT 8.6 - 61.8 mIU/mL MALE 1.2 - 10.6 mIU/mLNEW TEST METHOD AND REFERENCE RANGES JULY 04, 201103-Aug-201636-Lzp-184057:52 Thyroid Stim Hormone (TSH) Comments: [facility] [address] [place], [address] TSH 1.07 {uIU/mL} (Normal) Range: 0.358-3.74 :52 Vitamin D,25 Hydroxy Comments: [facility] [address] [place], [address] Vitamin D 25-OH 25.0 ng/mL (Normal) Comments: Vitamin D 25(OH) Status Range Deficiency <20 ng/mL (50nmol/L) Insuffciency 20 - 30 ng/mL (50 - 75 nmol/L) Sufficiency 30 - 100 ng/mL (75 - 250 nmol/L) Toxicity >100 ng/mL (>250 nmol/L) 61-Qnr-821789:20 Antiextractable Nug Ag Comments: [facility] (refer to report for specific site)refer to report for address and phone number WHITAKER Ab <0.2 {AI} (Normal) Range: 0.0-0.9 BAND SAW FILER Ab <0.2 {AI} (Normal) Range: 0.0-0.9 26-Meg-523324:20 ANTINUCLEAR ANTIBODIES DIRECT Comments: [facility] (refer to report for specific site)refer to report for address and phone number; Dr Lewis MANDI-DIRECT Negative (Normal) Comments: Performed at: - [facility] [id number] Director: Felice Molina PhD, Phone: [phone] 81-Nle-500227:20 Erythrocyte Sed Rate Comments: [facility] [address] [place], [address] SED RATE 54 mm/h (Abnormal) Range: 0-20 89-Dak-906369:20 Folates, (Folic Acid) Comments: Is Patient Taking Vitamins or Folic Acid Supplements? [facility] [address] [place], [address] FOLATES 7.50 ng/mL (Normal) Range: 3.1-17.5 58-Xog-348652:20 Heavy Metals, Urine Comments: [facility] (refer to [...] Range: 0.30-3.00 Comments: Detection Limit = 0.10 61-Jve-179351:20 Hemoglobin A1c Comments: [facility] [address] [place], [address] HGB A1C 5.7 % (Normal) Range: 4.2-6.3 52-Fld-850618:20 Hepatitis C Antibodies Comments: [facility] (refer to report for specific site)refer to report for address and phone number HEP C AB <0.1 {s/co_ratio} (Normal) Range: 0.0-0.9 Comments: Negative: < 0.8 Indeterminate: 0.8 - 0.9 Positive: > 0.9 The CDC recommends that a positive HCV antibody result be followed up with a HCV Nucleic Acid Amplification test (346055).Performed at: - [facility] [id number] Director: Channing Childers MD, Phone: [phone] at: B - [facility] [id number] Director: Felice Molina PhD, Phone: [phone] 79-Ghc-257269:20 Rheumatoid Factor Comments: Is Patient Taking Vitamins or Folic Acid Supplements? [facility] [address] [place], [address] RHEUMATOID FAC < 10.0 {IU/mL} (Normal) 26-Reb-144156:20 Vitamin B12 410 pg/mL (Normal) Comments: [facility] [address] [place], [address] Range: 211-911 5-Qas-870943:18 URINE FRANCISCO CULTURE-IDENTIFICATN Comments: PATIENT NOT FASTINGPERFORMED BY: [facility] [address] [facility] [id number] Information: SRC:UC (76500) Result 1 MUG (Normal) Comments: Mixed urogenital flora25,000-50,000 colony forming units per mL Urine Final report (Normal) Culture,Comprehensive 1-Qus-288597:20 Urinalysis, Office (26507) UA - LEUKOCYTE ESTERASE Negative (Normal) UA - NITRITE Negative (Normal) URINE UROBILINGN EDGAR TIMED Normal mg/dL (Normal) UA - PROTEIN Negative mg/dL (Normal) UA - PH 7.0 (Normal) UA - BLOOD Negative (Normal) UA - SPECIFIC GRAVITY 1.025 (Normal) UA - KETONES Negative mg/dL (Normal) UA - BILIRUBIN Negative (Normal) UA - GLUCOSE Negative (Normal) 05-Jtz-024313:36 LIPASE (38969) Comments: PATIENT NOT FASTINGPERFORMED BY: [facility] [id number] Lipase, Serum 25 U/L (Normal) Range: 0-59 :36 AMYLASE (85545) Comments: PATIENT NOT FASTINGPERFORMED BY: [facility]6370 [facility] [id number] Amylase, Serum 47 U/L (Normal) Range: 31-124 12-Umc-131834:36 CREATINE KINASE TOTAL (17109) Comments: PATIENT NOT FASTINGPERFORMED BY: [facility]6370 [facility] [id number] Creatine Kinase,Total,Serum 69 U/L (Normal) Range: 24-173 05-Uoz-306749:36 TSH (THYROID STIMULATING Comments: PATIENT NOT FASTINGPERFORMED BY: [facility] Gegrtf0900 [facility] [id number] HORMONE) (64016) TSH 1.170 {uIU/mL} (Normal) Range: 0.450-4.500 :36 METABOLIC PANEL, COMPREHENSIVE Comments: PATIENT NOT FASTINGPERFORMED BY: [facility] Azdqmx0581 [facility] [id number] (02688) ALT (SGPT) 15 [iU]/L (Normal) Range: 0-32 [...] Glucose, Serum 86 mg/dL (Normal) Range: 65-99 14-Yvn-942777:36 CBC, PLATELETS & AUT DIFF Comments: PATIENT NOT FASTINGPERFORMED BY: [facility] Eytevr9654 [facility] [id number] (23671) Immature Grans (Abs) 0.0 {x10E3/uL} (Normal) Range: [...] 3.77-5.28 WBC 9.7 {x10E3/uL} (Normal) Range: 3.4-10.8 88-Pdq-186431:57 Urinalysis, Office (51284) UA - LEUKOCYTE ESTERASE Negative (Normal) UA - NITRITE Negative (Normal) URINE UROBILINGN EDGAR TIMED Normal mg/dL (Normal) UA - PROTEIN Negative mg/dL (Normal) UA - PH 7.5 (Normal) UA - BLOOD Negative (Normal) UA - SPECIFIC GRAVITY 1.020 (Normal) UA - KETONES Negative mg/dL (Normal) UA - BILIRUBIN Negative (Normal) UA - GLUCOSE Negative (Normal) 55-Pwx-162239:53 Urinalysis, Office (87074) UA - LEUKOCYTE ESTERASE Trace (Normal) UA - NITRITE Negative (Normal) URINE UROBILINGN EDGAR TIMED Normal mg/dL (Normal) UA - PROTEIN Negative mg/dL (Normal) UA - PH 7.5 (Normal) UA - BLOOD Negative (Normal) UA - SPECIFIC GRAVITY 1.015 (Normal) UA - KETONES Negative mg/dL (Normal) UA - BILIRUBIN Negative (Normal) UA - GLUCOSE Negative (Normal) 40-Fru-439315:30 URINE FRANCISCO CULTURE-EDGAR COL Comments: PATIENT NOT FASTINGPERFORMED BY: ZEINA [facility] Syltnc[address] [place] [id number] Information: SRC:UC COUNT ([id number]) Result 1 MUG (Normal) Comments: Mixed urogenital flora10,000-25,000 colony forming units per mL Urine Final report (Normal) Culture,Comprehensive 42-Bez-073520:14 Urinalysis, Office (40524) UA - LEUKOCYTE ESTERASE Small (Normal) UA - NITRITE Negative (Normal) URINE UROBILINGN EDGAR TIMED Normal mg/dL (Normal) UA - PROTEIN Negative mg/dL (Normal) UA - PH 7 (Normal) UA - BLOOD Negative (Normal) UA - SPECIFIC GRAVITY 1.015 (Normal) UA - KETONES Negative mg/dL (Normal) UA - BILIRUBIN Negative (Normal) UA - GLUCOSE Negative (Normal) 03-Yhq-78053:42 CBC W/Diff, Automated Comments: ORDERED CMP CBCDDR.FAST ORDERED LIPID TSH CMP CBCD [facility] [address] [place], [place], [address] Absolute Lymph 2.72 {X10_3/ul} (Normal) Range: 0.83-4.51 [...] 4.2-5.4 WBC 6.8 K/mm3 (Normal) Range: 4.4-11.0 28-Wgw-48143:42 Comprehensive Metabolic Profil Comments: ORDERED CMP CBCDDR.FAST ORDERED LIPID TSH CMP CBCD [facility] [address] [place], [place], [id number] GAP 3 (Abnormal) Range: 5-15 CO2 29.0 [...] CMP CBCDDR.FAST ORDERED LIPID TSH CMP CBCD [facility] [address] [place], [address] VLDL 20 mg/dL (Normal) Range: [...] CMP CBCDDR.FAST ORDERED LIPID TSH CMP CBCD [facility] [address] [place], [address] PROLACTIN 8.5 ng/mL (Normal) Comments: NORMAL REFERENCE RANGES FEMALE NON- 2.2 - 30.3 ng/mL 8.1 - 347.6 ng/mL POST-MENOPAUSAL 0.7 - 3 1.5 ng/mL MALE 2.5 - 17.4 ng/mLNEW TEST METHOD AND REFERENCE RANGES JULY 04, 201114-May-20158:42 Thyroid Stim Hormone (TSH) Comments: ORDERED CMP CBCDDR.FAST ORDERED LIPID TSH CMP CBCD [facility] [address] [place], [address] TSH 1.41 {uIU/mL} (Normal) Range: 0.358-3.74 71-Cpr-873492:50 THROAT CULTURE (58895) Comments: PATIENT NOT FASTINGPERFORMED BY: LabCoBacharach Institute for RehabilitationUmgjft7968 [facility] [id number] Information: [id number] Result 1 RRF (Normal) Comments: Routine respiratory ly Upper Respiratory Culture Final report (Normal) :31 CBC W/Diff, Automated Comments: Test performed at:[facility] [place] [facility] [address]ifec[address] [facility] [place] [address] Absolute Lymph 2.11 {X10_3/ul} (Normal) [...] 4.2-5.4 WBC 6.8 K/mm3 (Normal) Range: 4.4-11.0 :31 Comprehensive Metabolic Profil Comments: Test performed at:[facility] [place] [facility] [address] [place] [address] GAP 5 (Normal) Range: 5-15 CO2 28.0 [...] <126 mg/dLsuggests IMPAIRED HOMEOSTASIS per A.D.A. criteria. 26-Uuu-705354:10 CBCD ALC 2.39 {X10_3/ul} (Normal) Range: 0.83-4.51 [...] 7-18 GLU 95 mg/dL (Normal) Range: 70-110 :53 CBCD ALC 2.17 {X10_3/ul} (Normal) Range: 0.83-4.51 [...] 4.2-5.4 WBC 5.9 K/mm3 (Normal) Range: 4.4-11.0 92-Koc-54814:53 CMP GAP 8 (Normal) Range: 5-15 CO2 [...] 126 mg/dLsuggests DIABETES MELLITUS per A.D.A. criteria. 6-Sib-376976:44 CBCD ALC 1.84 {X10_3/ul} (Normal) Range: 0.83-4.51 [...] 4.2-5.4 WBC 5.0 K/mm3 (Normal) Range: 4.4-11.0 :44 CMP GAP 6 (Normal) Range: 5-15 CO2 [...] High Sensitivity CRP (HSCRP)should be ordered. :44 [facility] Culture exhibits no growth. (Normal) 9-Cpq-944579:44 SED tSEDRATE 16 mm/h (Normal) Range: 0-20 1-Ssm-756667:58 URINE FRANCISCO CULTURE-EDGAR COL Comments: PATIENT NOT FASTINGPERFORMED BY: ZEINA [facility] [address]uz[address] [place] [place] [id number] Information: SRC:UR [id number] COUNT ([id number]) Result 1 BETAGB (Abnormal) Comments: Beta hemolytic [...] (CLSI 2011) Urine Final report (Abnormal) Culture,Comprehensive 3-Sap-242201:08 Urinalysis, Office (03255) UA - LEUKOCYTE ESTERASE Negative (Normal) UA - NITRITE Negative (Normal) URINE UROBILINGN EDGAR TIMED Normal mg/dL (Normal) UA - PROTEIN Negative mg/dL (Normal) UA - PH 7.5 (Normal) UA - BLOOD Negative (Normal) UA - SPECIFIC GRAVITY 1.015 (Normal) UA - KETONES Negative mg/dL (Normal) UA - BILIRUBIN Negative (Normal) UA - GLUCOSE Negative (Normal) :01 B12 616 pg/mL (Normal) Range: 211-911 73-Tfh-453985:01 CBCD ANC 3.7 {X10_3/uL} (Normal) Range: 2.0-7.7 [...] 4.2-5.4 WBC 6.1 K/mm3 (Normal) Range: 4.4-11.0 60-Gap-641200:01 CMP Comments: ORDERED CMP CBCD STANDINGDR.FAST CBCD [...] 7-18 GLU 99 mg/dL (Normal) Range: 70-110 21-Ldl-896135:01 CUUR URC See Note (Normal) Comments: ORGANISM 1: Mixed Gram Positive OrganismsColony Count 11,000-25,000MIX CONTAM Mixed Contaminants. Submit new specimen if indicated. :01 EBGM tEBINT Comment (Normal) Comments: EBV Interpretation ChartInterpretation VCA-IgM VCA-IgG EBNA-ABSEBV Seronegative - - - Acute Infection + + -Past Infection - + +IndeterminateVCA IgG ONLY - + -VCA IgM ONLY + - -EBNA IgG ONLY - - +Convalescent + + ++ Antibody Pre sent - Antibody AbsentPerformed at: [facility] [address] [id number] Director: Job Aden MD, Phone: [phone] EBNA 247.0 U/mL (Abnormal) Range: 0.0-17.9 Comments: [...] 4.2-5.4 WBC 6.3 K/mm3 (Normal) Range: 4.4-11.0 :01 CMP Comments: DR PINA ORDERED CMPDR FAST [...] 7-18 GLU 105 mg/dL (Normal) Range: 70-110 :01 LIPID Comments: DR PINA ORDERED CMPDR FAST ORDERED TSH,LIPID,CMP VLDL 13 mg/dL (Normal) Range: 5-40 LDL 135 mg/dL (Abnormal) Range: 0-130 HDL 49 mg/dL (Normal) Comments: Reference RangeHDL <40 mg/dL Low HDL CholesterolHDL >or= 60 mg/dL High HDL Cholesterol CHOL 197 mg/dL (Normal) Comments: <200 mg/dL Ykonpxouw804-152 mg/dL Borderline>240 mg/dL High Risk TRIG 67 [...] {uIU/mL} (Normal) Comments: DR PINA ORDERED CMPDR FAST ORDERED TSH,LIPID,CMP Range: 0.358-3.74 :01 [facility] Comments: DR REA ORDERED UACHow was Urine [...] (Normal) UCLAR Cloudy (Normal) UCOL Yellow (Normal) 63-Oxl-589490:19 Urinalysis, Office (42958) UA - BILIRUBIN Negative (Normal) UA - BLOOD Negative (Normal) UA - GLUCOSE Negative (Normal) UA - KETONES Negative mg/dL (Normal) UA - LEUKOCYTE ESTERASE Negative (Normal) UA - NITRITE Negative (Normal) UA - PH 6.0 (Normal) UA - PROTEIN Negative mg/dL (Normal) UA - SPECIFIC GRAVITY 1.025 (Normal) URINE UROBILINGN EDGAR TIMED Normal mg/dL (Normal) 61-Kqn-473857:52 URINE FRANCISCO CULTURE (EDGAR Comments: PATIENT NOT FASTINGPERFORMED BY: [facility]6370 [facility] [id number] Information: SRC:UR [id number] COL COUNT) (52648) Result 1 BETAGB (Normal) Comments: Beta hemolytic [...] Streptococcus pyogenes (group A). (CLSI 2011)Mixed urogenital pitxd171 Colonies/mL Urine Final report (Normal) Culture,Kiel e :3 B12 855 pg/mL (Normal) Range: [...] CHOL 213 mg/dL (Abnormal) Comments: <200 mg/dL Txceifhuc714-969 mg/dL Borderline>240 mg/dL High Risk TRIG 90 mg/dL (Normal) Comments: Serum Triglycerides Reference IntervalNormal <150 mg/dLBorderline high 150 - 199 mg/dLHigh 200 - 499 mg/ dLVery High > or = 500 mg/dL :09 URINE FRANCISCO CULTURE-EDGAR COL Comments: PATIENT NOT FASTINGPERFORMED BY: ZEINA [facility] Udrwwl5663 Reyna RoadAtrium Health SouthPark [id number] Information: SRC:UR [id number] COUNT ([id number]) Result 1 CNSNSS (Normal) Comments: Coagulase negative [...] S Urine Final report Culture,Comprehe (Normal) nsive 0-Zwo-728882:25 Urinalysis, Office (47742) UA - BILIRUBIN Negative (Normal) UA - BLOOD Non Hemolyzed Trace (Normal) UA - GLUCOSE Negative (Normal) UA - KETONES Negative mg/dL (Normal) UA - LEUKOCYTE ESTERASE Small (Normal) UA - NITRITE Negative (Normal) UA - PH 6.0 (Normal) UA - PROTEIN Negative mg/dL (Normal) UA - SPECIFIC GRAVITY 1.025 (Normal) URINE UROBILINGN EDGAR TIMED Normal mg/dL (Normal) 78-Sql-712096:27 URINE FRANCISCO CULTURE-IDENTIFICATN Comments: PATIENT NOT FASTINGPERFORMED BY: LabCo Eqxkjb7773 [facility] [id number] Information: [id number] (06982) Result 1 CNSNSS (Normal) Comments: Coagulase negative [...] S Urine Final report Culture,Comprehe (Normal) nsive 13-Nfz-106038:08 Urinalysis, Office (64562) UA - BILIRUBIN Negative (Normal) UA - BLOOD Negative (Normal) UA - GLUCOSE Negative (Normal) UA - KETONES Negative mg/dL (Normal) UA - LEUKOCYTE ESTERASE Small (Normal) UA - NITRITE Negative (Normal) UA - PH 7.0 (Normal) UA - PROTEIN Negative mg/dL (Normal) UA - SPECIFIC GRAVITY 1.015 (Normal) URINE UROBILINGN EDGAR TIMED Normal mg/dL (Normal) 78-Jef-448849:43 Urinalysis, Office (89609) UA - BILIRUBIN Negative (Normal) UA - BLOOD Negative (Normal) UA - GLUCOSE Negative (Normal) UA - KETONES Negative mg/dL (Normal) UA - LEUKOCYTE ESTERASE Trace (Normal) UA - NITRITE Negative (Normal) UA - PH 6.0 (Normal) UA - PROTEIN Negative mg/dL (Normal) UA - SPECIFIC GRAVITY 1.025 (Normal) URINE UROBILINGN EDGAR TIMED Normal mg/dL (Normal) 3-Yeu-096520:12 Urinalysis, Office (36179) UA - BILIRUBIN Negative (Normal) UA - BLOOD Hemolyzed Trace (Normal) UA - GLUCOSE Negative (Normal) UA - KETONES Negative mg/dL (Normal) UA - LEUKOCYTE ESTERASE Moderate (Normal) UA - NITRITE Negative (Normal) UA - PH 6.0 (Normal) UA - PROTEIN Negative mg/dL (Normal) UA - SPECIFIC GRAVITY 1.015 (Normal) URINE UROBILINGN EDGAR TIMED 2 mg/dL (Normal) 31-Klr-714680:06 Ferritin (68869) Comments: PATIENT NOT FASTINGPERFORMED BY: [facility]ality [facility] Msqwnx3492 CapsearchAt[facility] Health SouthPark [id number] Ferritin, Serum 26 ng/mL (Normal) Range: 13-150 65-Tms-907331:06 Iron (82277) Comments: PATIENT NOT FASTINGPERFORMED BY: [facility] Gbfbxx8603 [facility]er[facility] TherapeuticsUNC Health Caldwell [id number] Information: [id number] Iron, Serum 95 ug/dL (Normal) Range: 35-155 28-Eqq-917325:06 Vitamin B-12 (cyanocobalamin) Comments: PATIENT NOT FASTINGPERFORMED BY: [facility] Cqlnkv0363 [address] [facility] [id number] (00932) Vitamin B12 393 pg/mL (Normal) Range: 211-946 [...] (DVT) or Pulmonary Embolism (PE)RESULTS CALLED TO MAST 05/17/11 HELEN DESAI .REPORT READ BACK BY SAME . AMENDED REPORT 05/17/11 1622 D-DIMER QUANT previously reported as: 0.50 *H FEUug/mLD-Dimer ELEVATED: Additional studies and clinicalassessments are indicated to conc lude diagnosis of:Deep Vein Thrombosis (DVT) or Pulmonary Embolism (PE) : TROP < 0.02 ng/mL (Normal) Comments: TROPONIN-I EXPECTED VALUES <0.05 NEGATIVE 0.06 - 0.59 AT RISK OF MN > OR = 0.60 SUGGEST MN :47 CA 8.9 mg/dL (Normal) Range: 8.5-10.1 [...] 4.2-5.4 WBC 6.4 K/mm3 (Normal) Range: 4.4-11.0 7-Wnf-774095:17 COMP METABOLIC GAP 8 (Normal) Range: 5-15 [...] 7-18 GLU 83 mg/dL (Normal) Range: 70-110 0-Ghz-477483:17 VIT D,25 69849 18.9 ng/mL (Abnormal) Range: 30.0-100.0 Comments: Vitamin D deficiency has been defined by the [place] ofMedicine and an Endocrine Society practice guideline as alevel of serum 25-OH vitamin D less than 20 ng/mL (1,2).The Endocrine Society went on to further define vitamin Dinsufficiency as a level between 21 and 29 ng/mL (2).1. IOM ([place] of Medicine). 2011. Dietary reference intakes for calcium and D. [place]: The National Academies Press.2. Rodrigo MF, Lane BENTON, Ethel FU, et al. Evaluation, treatment, and prevention of vitamin D deficiency: an Endocrine Society clinical practice guideline. JCEM. 2010; 96(7): 1911-30.Performed at: [address] [id number] Director: Jesi Benavides MD, Phone: [phone] 5-Mme-639102:00 CERV SPINE,MIN 4 VIEWS Radiology Report See [...] radiologist regarding this report, please call our [id number] line @ Dictated on 03/21/11 1254 by Qamar HoodriJaymeranscribed on 03/22/11 1608 by ITS IMPORTSign by Fabricio Hanna MD on 03/22/11 1609 Sign by: Fabricio Hanna MD 1-Zoy-751536:40 CBCD,SMEAR DIFF RED CELL MORPH SeeNote {NORMAL} [...] 4.2-5.4 WBC 5.6 K/mm3 (Normal) Range: 4.4-11.0 8-Ipv-685361:40 COMP METABOLIC GAP 8 (Normal) Range: 5-15 [...] 7-18 GLU 99 mg/dL (Normal) Range: 70-110 9-Bqn-217879:40 LIPID VLDL 14 mg/dL (Normal) Range: 5-40 [...] 200-240 mg/dL Borderline >240 mg/dL High Risk 19-Mar-20108:30 FRANCISCO CULTURE-OTHER (31101) Comments: PATIENT NOT FASTINGPERFORMED BY: LabCoBacharach Institute for RehabilitationNnstui0808 [facility] [id number] Information: SRC:THRT [id number] Result 1 RRF (Normal) Comments: Routine respiratory ly Upper Respiratory Culture Final report (Normal) 2-Svc-841191:43 Rapid Strep Test, Office (99905) Rapid Strep Test, Office Negative (Normal) 82-Cgn-374763:05 BRAIN W/WO CONTRAST Radiology Report See Note (Normal) Comments: Exam Number: [id number] CLINICAL:39-year-old female with posterior headaches and left [...] the brain. Reported By: MELVIN SU M.D. 7-Bjj-775362:40 Urine Culture,Comprehensive Comments: PATIENT NOT FASTINGPERFORMED BY: [facility]6370 [facility] [id number] Information: SRC:UR [id number] Result 1 MUG (Normal) Comments: Mixed urogenital flora10,000-25,000 colony forming units per mL Urine Final report (Normal) Culture,Comprehensive 1-Bfh-773549:20 Urinalysis, Office (42044) UA - LEUKOCYTE ESTERASE Negative (Normal) UA - NITRITE Negative (Normal) URINE UROBILINGN EDGAR TIMED Normal mg/dL (Normal) UA - PROTEIN Negative mg/dL (Normal) UA - PH 7.0 (Normal) UA - BLOOD Negative (Normal) UA - SPECIFIC GRAVITY 1.005 (Normal) UA - KETONES Negative mg/dL (Normal) UA - BILIRUBIN Negative (Normal) UA - GLUCOSE Negative (Normal) 00-Upz-753044:16 ORBITS,MIN 4 VIEWS (MT) Radiology Report See Note (Normal) Comments: Exam Number: [id number] FIVE PROJECTIONS OF THE ORBITS There is no evidence of recent fractures or other focal bony lesionsto the orbits or surrounding bones. The paranasal sinuses appearnormally develo ped and aerated as seen on these views. IMPRESSIONNormal radiographs of the orbits. Reported By: SANDRA HARRIS M.D. 11-Ndv-381669:01 CULTURE, URINE URINE CULTURE See Note {CFU/mL} (Normal) Comments: COLONY COUNT 50,000-80,000 ORGANISM 1: MIXED GRAM POSITIVE ORGANISMS 95-Opt-041505:01 ROUTINE UA BILIRUBIN URINE SeeNote (Normal) Comments: [...] Range: 0.2 - 1.0 COLOR YELLOW (Normal) 18-Oha-098350:09 HEPATOBILIARY IMAGING Radiology Report See Note (Normal) Comments: Exam Number: [id number] HEPATOBILIARY SCAN: HISTORYEpigastric pain. TECHNIQUEFollowing the intravenous administration of 5 mCi Tc99m labeledCholetec, sequential images of the liver and biliary tree wereo btained. FINDINGSThere is prompt visualization of liver, biliary tree, gallbladder, andsmall bowel. Following the intravenous infusion of 1.5 mcg of CCK over 30 minutes,the ejection fraction is 88.6% which is normal. IMPRESSIONNormal hepatobiliary scan. Reported By: MELVIN HENDERSON M.D. 53-Zif-194633:21 URINE FRANCISCO CULTURE (EDGAR COL Comments: PATIENT NOT FASTINGClinical Information: SRC:UR ADD [id number] PERFORMED BY: [facility]6370 [facility] [id number] COUNT) ([id number]) Result 1 MUG (Normal) Comments: Mixed urogenital flora10,000-25,000 colony forming units per mL Urine Final report (Normal) Culture,Comprehensive :56 Urinalysis, Office (32165) UA - BILIRUBIN Negative (Normal) UA - BLOOD Negative (Normal) UA - GLUCOSE Negative (Normal) UA - KETONES Negative mg/dL (Normal) UA - LEUKOCYTE ESTERASE Trace (Normal) Comments: aw UA - NITRITE Negative (Normal) UA - PH 6.0 (Normal) UA - PROTEIN Negative mg/dL (Normal) UA - SPECIFIC GRAVITY 1.005 (Normal) URINE UROBILINGN EDGAR Normal mg/dL (Normal) TIMED 01-Sgb-012280:4 GLU GTT-2 HOUR 118 mg/dL (Normal) Comments: 2HR GTT GLU 2 HR GLU GTT-2 HOUR from 0129:Y97125X. 5 Range: 70-120 22-Wiw-396574:4 GLU GTT-1 HOUR 132 mg/dL (Normal) Comments: 2HR GTT GLU 1 HR GLU GTT-1 HOUR from 0129:J01332N. 5 Range: 120-170 69-Mrd-938498:1 GLU GTT-30 min. 133 mg/dL (Normal) Comments: 2HR GTT GLU 1/2 HR GLU GTT-30 min. from 0129:A95461U. 5 Range: 110-170 28-Qbp-460443:4 GLU GTT-FASTING 84 mg/dL (Normal) Comments: 2HR GTT FASTING GLU GTT-FASTING from 0129:E87260Y. 5 Range: 70-110 Comments: GLUCOSE TOLERANCE TEST Reference Interval Non- Adults Fasting 70 - 110 30 minutes 110 - 170 1 hour 120 - 170 2 hour 70 - 120 3 hour 70 - 110 4 hour 70 - 110 5 hour 70 - 110 29-Hin-575598:00 MANDI-D [id number] MANDI-DIRECT 32 AU/mL (Normal) Range: 0-99 Comments: Negative <100 Equivocal 100 - 120 Positive >120 05-Hhx-265447:00 C-REACTIVE PROT 2.04 mg/L (Normal) Range: 0.0-6.0 Comments: Test performed using the Dimension C-Reactive ProteinExtended Range assay method. This assay meets the AHA/CDC 2003 recommendations fordetermining patients at high risk for cardiovasculardisease. Reference: High risk CRP >3.0 mg/L 30-Rlc-143232:00 CBCD,SMEAR DIFF BAND 1 % (Normal) Range: [...] 47-70 WBC 5.0 K/mm3 (Normal) Range: 4.4-11.0 59-Off-900235:00 COMP METABOLIC A/G 1.0 {RATIO} (Normal) Range: [...] for patient's is the eGFRmultiplied by 1.212. [facility] Laboratory uses the abbreviated Modification of Diet [...] Disease W/O Kidney Disease>/= 90 Stage One Notzzf33 - 89 Stage Two Suspect Decreased GFR30 [...] T PROT 7.7 g/dL (Normal) Range: 6.4-8.2 46-Cpk-147376:00 ESR SED RATE 15 mm/h (Normal) Range: 0-20 77-Hna-537864:00 LIPID CHOL 159 mg/dL (Normal) Comments: <200 [...] mg/dL VLDL 11 mg/dL (Normal) Range: 5-40 63-Lyq-922479:00 RA LATEX 6502 4.6 {IU/mL} (Normal) Range: 0.0-13.9 Comments: Performed At: [facility] [place], [place] [id number] 21-Hdw-270941:00 ROUTINE UA BILIRUBIN URINE SeeNote (Normal) Comments: [...] 0.2 EU/dl (Normal) Range: 0.2 - 1.0 98-Akl-595446:00 TSH 1.48 {uIU/mL} (Normal) Range: 0.34-4.82 87-Uiu-85964:10 GALLBLADDER (HP) Radiology Report See Note (Normal) Comments: Exam Number: [id number] ULTRASOUND OF THE GALLBLADDER CLINICAL INFORMATIONEpigastric pain. [...] gross abnormalityevident. Reported By: GERALDINE OROZCO M.D. 29-Qua-215928:23 DORSAL SPINE,3 VIEWS (MT) Radiology Report See Note (Normal) Comments: Exam Number: [id number] THORACIC SPINE CLINICAL INFORMATIONBack pain. AP and [...] Plan of Care Name Dates Details Instructions Cough : Follow up if no improvement [...] Elevated blood pressure (not hypertension) Planned Observations CBC, Platelets & Auto Diff (95097)Indication: Tachycardia On: :59 Request Metabolic Panel, Comprehensive (38554)Indication: Depression On: :57 Request CALCIFEDIOL (17021)Indication: Depression On: :56 Request GONADOTROPIN-LH (60576)Indication: Depression On: :54 Request GONADOTROPIN-FSH (05959)Indication: Depression On: :54 Request TSH (96548)Indication: Depression On: :54 Request LIPID PANEL (73371)Indication: Hypercholesteremia On: :59 Request CBC W/AUTO DIFF WBC (52041)Indication: Fibromyalgia On: :45 Request URINALYSIS, W/ MICRO (27862)Indication: Elevated blood pressure (not hypertension) On: 21-Mmt-588731:45 Request METABOLIC PANEL, COMPREHENSIVE (14409)Indication: History of gestational diabetes mellitus On: :45 Request PROLACTIN (46435)Indication: Breast tenderness On: : Request CBC W/AUTO DIFF WBC (02000)Indication: Breast tenderness On: :29 Request METABOLIC PANEL, COMPREHENSIVE (59910)Indication: Breast tenderness On: :29 Request TSH (64028)Indication: Breast tenderness On: :29 Request LIPID PANEL (72427)Indication: Low HDL (under 40) On: :29 Request Rapid Strep Test, Office (81262)Indication: Upper respiratory infection On: :28 Request SED RATE ERYTHROCYTE (64178)Indication: Abdominal pain, acute, right lower quadrant On: 8-Dpn-189735:48 Request C-REACTIVE PROTEIN (96481)Indication: Abdominal pain, acute, right lower quadrant On: :48 Request CBC WITH MANUAL DIFF (82558)Indication: Abdominal pain, acute, right lower quadrant On: 6-Ael-142278:48 Request URINE FRANCISCO CULTURE (EDGAR COL COUNT) (21762)Indication: Fatigue On: 84-Yau-986175:36 Request Vitamin D Hydroxy (92233)Indication: Fatigue On: 85-Ulg-346028:35 Request VITAMIN B-12 (CYANOCOBALAMIN) (24527)Indication: Fatigue On: :34 Request TSH (55191)Indication: Fatigue On: 69-Ztb-010140:34 Request CBC WITH MANUAL DIFF (06911)Indication: Fatigue On: 62-Zdc-110937:34 Request METABOLIC PANEL, COMPREHENSIVE (03592)Indication: Fatigue On: 10-Khq-226709:34 Request EBV Panel (82927)Indication: Fatigue On: 69-Egj-467383:34 Request URINE FRANCISCO CULTURE-EDGAR COL COUNT (41199)Indication: Abnormal urinalysis (Renamed from Abnormal finding on urinalysis) On: :04 Request Comments: and sensitivity CBC WITH MANUAL DIFF (79491)Indication: Anemia On: :24 Request LIPID PANEL (98006)Indication: Hypercholesteremia On: :23 Request TSH (95942)Indication: Headache On: :23 Request MICROALBUMIN: CREATININE RATIO (55772) AND (08713)Indication: Elevated blood pressure (not hypertension) On: :23 Request URINALYSIS, W/ MICRO (00755)Indication: Elevated blood pressure (not hypertension) On: :23 Request METABOLIC PANEL, COMPREHENSIVE (44468)Indication: Elevated blood pressure (not hypertension) On: :23 Request CBC WITH MANUAL DIFF (00498)Indication: Anemia On: :33 Request METABOLIC PANEL, COMPREHENSIVE (34720)Indication: Hypercholesteremia On: :33 Request LIPID PANEL (03643)Indication: Hypercholesteremia On: :32 Request METABOLIC PANEL, COMPREHENSIVE ([id number])Indication: Fibromyalgia On: :53 Request LIPID PANEL ([id number])Indication: Low HDL (under 40) On: :53 Request VITAMIN B-12 (CYANOCOBALAMIN) ([id number])Indication: Anemia On: :52 Request IRON BINDING CAPACITY (TIBC) ([id number])Indication: Anemia On: :52 Request FERRITIN ([id number])Indication: Anemia On: :52 Request IRON ([id number])Indication: Anemia On: :52 Request CBC WITH MANUAL DIFF ([id number])Indication: Anemia On: :52 Request C-Reactive Protein ([id number])Indication: Chest pain On: :30 Request Comments: stat CPK MB FRACTION ([id number])Indication: Chest pain On: :30 Request Comments: stat D-Dimer ([id number])Indication: Chest pain On: :30 Request Comments: stat Troponin I ([id number])Indication: Chest pain On: :26 Request Comments: stat CREATINE KINASE TOTAL (62512)Indication: Chest pain On: :22 Request POTASSIUM SERUM ([id number])Indication: Other specified abnormal findings of blood chemistry On: :14 Request CALCIUM SERUM ([id number])Indication: Other specified abnormal findings of blood chemistry On: :14 Request CBC WITH MANUAL DIFF ([id number])Indication: Anemia, unspecified On: :43 Request LIPID PANEL ([id number])Indication: Low HDL (under 40) On: :43 Request METABOLIC PANEL, COMPREHENSIVE ([id number])Indication: Low HDL (under 40) On: :43 Request LIPID PANEL ([id number])Indication: Low HDL (under 40) On: :46 Request MANDI (ANTINUCLEAR ANTIBODY) ([id number])Indication: Fibromyalgia On: Request RHEUMATOID FACTOR-QUANT ([id number])Indication: Fibromyalgia On: Request C-REACTIVE PROTEIN ([id number])Indication: Fibromyalgia On: : Request SED RATE ERYTHROCYTE ([id number])Indication: Fibromyalgia On: Request GLUCOSE TOLERANCE TEST (GTT) 2 hour ([id number])Indication: Gestational DM On: :05 Request LIPID PANEL ([id number])Indication: Elevated blood pressure (not hypertension) On: Request URINALYSIS W/O MICRO ([id number])Indication: Elevated blood pressure (not hypertension) On: Request TSH ([id number])Indication: Elevated blood pressure (not hypertension) On: Request METABOLIC PANEL, COMPREHENSIVE ([id number])Indication: Elevated blood pressure (not hypertension) On: Request CBC WITH MANUAL DIFF ([id number])Indication: Anemia, unspecified On: Request Planned Procedures ULTRASOUND, LEFT BREAST ([id number])By: On: 07-Sep-2016 Intent Heather Stoddard CNP, CNP, Mary E MAMMOGRAM BREAST BILATERAL On: 07-Sep-2016 Intent SCREENING DIGITAL ([id number])By: Heather Stoddard CNP, CNP, Mary E ELECTROCARDIOGRAM, COMPLETE (ECG) On: 03-Aug-2016 Intent ([id number])By: Heather Stoddard CNP, CNP, Mary E Ultrasound - ThyroidBy: Arlyn MELISSA, On: 03-Aug-2016 Intent Heather Chandler CNP Ultrasound - GallbladderBy: Arlyn On: 15-Apr-2016 Intent Heather MELISSA CNP, Mary E US THYROID ([id number])By: Giancarlo SUTTON, On: 17-Feb-2016 Intent Rudy Nuclear Stress Test/Stress On: 02-Feb-2016 Intent SPECT/TreadmillBy: Giancarlo SUTTON, Rudy CT - Brain/Head (Without On: 02-Feb-2016 Intent Contrast)By: Rudy Mondragon MD Echo CompleteBy: Rudy Mondragon MD On: 02-Feb-2016 Intent ELECTROCARDIOGRAM, COMPLETE On: 02-Feb-2016 Intent ([id number])By: Rudy Mondragon MD X-RAY OF CERVICAL SPINE, FOUR VIEWS On: 21-Aug-2015 Intent ([id number])By: Nichelle Tristan DO MAMMOGRAM, SCREENING, BOTH BREAST On: 04-May-2015 Intent ([id number])By: Sola Rea DO CT - Abdomen & Pelvis (IV Contrast On: 19-Aug-2013 Intent Needed)By: Sola Rea DO CT - Abdomen & Pelvis Stone On: 13-Aug-2013 Intent ProtocolBy: Sola Rea DO Comments: stat call results MAMMOGRAM, SCREENING, BOTH BREASTS On: 30-Apr-2013 Intent ([id number])By: Sola Rea DO CT - Brain/HeadBy: Sola Rea DO On: 30-Apr-2013 Intent MAMMOGRAM, SCREENING, BOTH BREASTS On: 01-Jan-2013 Intent ([id number])By: Sola Rea DO Eprescribed prescriptions On: 17-Jul-2012 Intent ([id number])By: Torri Velasco EKG ([id number])By: Anika Martinez RN On: 17-May-2011 Intent EMG, DYNAMIC SURFACE, 1-12 MUSCLE On: 21-Mar-2011 Intent ([id number])By: Heather Stoddard CNP, CNP, Mary E NERVE CONDUCTN MOTOR EA NRV SENSORY On: 21-Mar-2011 Intent ([id number])By: Heather Stoddard CNP, CNP, Mary E PHYSICAL THERAPY EVALUATION On: 21-Mar-2011 Intent ([id number])By: Heather Stoddard CNP, CNP, Mary E Radiology - Cervical SpineBy: Arlyn On: 21-Mar-2011 Intent Heather MELISSA CNP, Mary E Pulse Oximetry ([id number])By: Arlyn On: 02-Nov-2010 Intent Heather MELISSA CNP, Mary E Aerosol Treatment ([id number])By: Arlyn On: 02-Nov-2010 Intent Heather MELISSA CNP, Mary E Spirometry ([id number])By: Azalea MAC, On: 11-Mar-2010 Intent Nichelle Comments: normal MRI - BrainBy: Sola Rea DO On: 29-Jul-2009 Intent Comments: try to do in next 24 hours- please look at mastoids - question of some infection there in past Toradol Injection, 30 mg On: 07-Jul-2009 Intent ([id number])By: Nichelle Tristan DO Comments: Lot:[id number]:30mg/1mlRoute:IMSite:Left GluteusGiven by: JP Corea Breast Screening - BilateralBy: On: 07-Jul-2009 Intent Nichelle Tristan DO COMP EYE EXAMINATION, ESTAB PATIENT On: 17-Jun-2008 Intent ([id number])By: Heather Stoddard CNP, CNP, Heather Romero CompleteBy: Sola Rea DO On: 02-May-2008 Intent Nuclear Medicine - HIDA w/CPKBy: On: 27-Mar-2008 Intent Sola Rea DO Ultrasound - GallbladderBy: Fast On: 11-Mar-2008 Sola Fontenot DO EKG ([id number])By: Sola Rea DO On: 11-Mar-2008 Intent Comments: ekg showed normal sinus rhythym, normal axis, no acute st/t wave changes t wave biphasic only in v2 Radiology - Thoracic SpineBy: Fast On: 11-Mar-2008 Intent Sola MAC Instructions Name Dates Details BMI 33.0-33.9,adult : How to access health [...] Instructions Indication: Fibromyalgia Encounters Office Visit On: 09-Mar-2017 14:44 Encounter Reason: [...] on going needs migraine med, is out david Lewis Encounter Diagnosis: Fibromyalgia (729.1), Depression, Nonsmoker, [...] out twice a week and does do azerbaijani- and ate azerbaijani today- she can monitor bps at home- [...] better with higher dose of cymbalta by valenke- and valnke monitoring and addressing her vit d as [...] tried methotrexate but made lfts go up- cymba lta working emotionally and more relaxed on it [...] to twist and turn- 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
== END ==
PROVIDERS: Family Provider Nurse Practitioner; PCP Nurse Practitioner; Referring Provider Nurse Practitioner; Visit Provider Nurse Practitioner
DX: M79.675 Pain in left toe(s) (principal)
CPT/HCPCS: 36415; 73660; 84550

== ENCOUNTER 2019-09-22 20:51 | Emergency (ER) | payer OTHER, SELFPAY ==
[2019-09-22 20:52] VITALS: BP 162/101; PULSE 94; RESP 15; TEMP 36.3; O2SAT 97; BMI 32.5
[2019-09-22 21:02] VITALS: BP 163/79; PULSE 93; RESP 12; O2SAT 99
--- NOTE | 2019-09-22 21:05 | ED.DCSUM_ITS ---
History of Present Illness Chief Complaint: Chest Pain Informant: Patient Narrative: 49-year-old female presents with an episode of sharp chest pain that started on the left side of her chest and radiated up into her neck and lasted about a couple of seconds 30 minutes ago. She describes it as sharp. She had no dizziness, lightheadedness, weakness, shortness of breath. She states this occurred when she was walking. She denies any injury. She states it is completely resolved. She has no cardiac history. Last stress test was in 2016. No DVT/PE risk factors. She is never had a DVT/PE. No exposure to COVID?19 that she knows of. She feels otherwise well currently. Past Medical History - Allergies and Home Meds Allergies/Adverse Reactions: Allergies NSAIDS (Non-Steroidal Anti-Inflamma Allergy (Mild, Verified 09/22/19 20:56) SWELLING/VOMITTING Sulfa (Sulfonamide Antibiotics) Allergy (Mild, Verified 09/22/19 20:56) SWELLING/VOMITTING Iodinated Contrast Media [Iodinated Contrast Media - IV Dye] Allergy (Verified 09/22/19 20:56) [facility] Primary Care Physician: Heather Stoddard NP-C [Primary Care Provider] - Smoking Status: Never smoker Review of Systems General: Denies: Chills, Fever Eyes: Denies: Visual changes - bilaterally, Diplopia ENT: Denies: Rhinorrhea, Sore throat Cardiovascular: Reports: Chest pain. Denies: Palpitations, Heart racing Respiratory: Denies: Dyspnea, Cough, Dyspnea on exertion Gastrointestinal: Denies: Abdominal pain, Nausea, Vomiting Genitourinary: Denies: Dysuria Musculoskeletal: Denies: Myalgias Skin: Denies: Rash Neurological: Denies: Headache Psych: Denies: Anxiety Physical Exam Vital Signs/Narrative: Vital Signs Temp Pulse Resp BP Pulse Ox 09/22/19 21:02 93 12 163/79 H 99 09/22/19 20:52 97.3 F L 94 15 162/101 H 97 Inital Vital Signs reviewed: Yes General: Well nourished, No Acute Distress Head: Normocephalic, Atraumatic Eyes: Perrl, EOMI ENT: Moist mucous membranes Cardiovascular: Regular rate, Regular rhythm Respiratory: No distress, CTA bilaterally Abdomen: Soft Extremities: Nontender, No edema. Negative for: Calf Tenderness Skin: Normal color, No rash. Negative for: Diaphoresis Neurological: Alert, Oriented x3 Psychological: Normal affect, Normal Mood Diagnostic/Tx/Re-eval - Rhythm Strip Rhythm Strip: Sinus Rhythm Rate: 97 - EKG Initial EKG Interpretation: Sinus Rhythm, No Acute Injury Pattern - Medical Decision Making She presents with a short episode of sporadic chest pain which she described as sharp. She had no other associated symptoms. Based on her medical history and her symptoms as well as her EKG her heart score is a 3. Her initial lab work is normal. Troponin is negative. D-dimer is negative. Patient will have delta troponin at midnight. patient will be signed out to incoming ed physician for follow up on delta ekg and delta troponin and ultimately disposition which will likely be discharge. Impression: 1. Atypical chest pain ED Disposition - Plan for ED Patient: Disposition: Home or Assisted Living Instructions: ED Chest Pain Atypical Unkn Cause Referrals: Heather Stoddard, PAVEL-C [Primary Care Provider] -
--- NOTE | 2019-09-22 21:15 | EKG12_ITS ---
Test Reason : REPEAT Blood Pressure : / mmHG Vent. Rate : 073 BPM Atrial Rate : 073 BPM P-R Int : 168 ms QRS Dur : 082 ms QT Int : 398 ms P-R-T Axes : 033 063 023 degrees QTc Int : 438 ms Normal sinus rhythm Normal ECG Confirmed by BRANDY PORTER MD ([id number]), purchase request editor VON HAQ ([id number]) on 09/23/2019 9:43:27 AM Referred By: DEX Confirmed By:BRANDY PORTER MD
--- NOTE | 2019-09-22 21:15 | RAD_ITS ---
STUDY: X-RAY CHEST REASON FOR EXAM: Female, 49 years old. EPISODE OF CHEST PAIN TONIGHT LEFT SIDE TECHNIQUE: Single AP portable view of the chest. COMPARISON: 11/30/2017. FINDINGS: The lungs are clear and expanded. There is no demonstrated pleural abnormality. Normal size heart. Normal mediastinum and estuardo. Normal visualized pulmonary arteries. Normal visualized aortic arch and descending thoracic aorta. Normal visualized thoracic spine. Normal visualized ribs, clavicles, and shoulders. There is no demonstrated abnormality of the visualized soft tissue structures of the upper abdomen. RAD/Chest 1 View (Portable) IMPRESSION: Normal x-ray examination of the chest. Electronically Signed: Woody Roe MD at 21:37 EDT , Service support ,
[2019-09-22 21:28] LABS: Absolute Lymphocyte Count 3.07 X10^3/uL (0.83-4.51); Absolute Neutrophil Count 3.6 X10^3/uL (2.0-7.7); Basophil# 0.03 X10^3/uL; Basophil% 0.4 % (0-1); Eosinophil# 0.14 X10^3/uL; Eosinophils% 1.9 % (0-5); Hematocrit 34.8 % (37-47); Hemoglobin 10.7 g/dL (12.0-15.0); Lymphocyte # 3.07 X10^3/ul (4.0); Lymphocyte % 41.4 % (19-41); Mean Corp Hgb Conc 30.7 g/dL (32-36); Mean Corpuscular Hgb 25.8 pg (27.0-32.0); Mean Corpuscular Volume 83.9 fL (81-99); Mean Platelet Vol. 8.4 fl (6.2-12.0); Monocyte# 0.52 X10^3/uL; NRBC Flagged by Analyzer 0 % (0-5); Neutrophil # 3.63 X10^3/uL (2.7-7.7); Platelet Count 313 K/mm3 (150-450); RBC Distribution Width CV 14.9 % (11.6-14.6); RBC Distribution Width SD 45.1 fl (35.1-43.9); Red Blood Count 4.15 M/mm3 (4.2-5.4); White Blood Count 7.4 K/mm3 (4.4-11.0)
[2019-09-22 21:41] LABS: Anion Gap 6 (5-15); BUN 12 mg/dL (7-18); BUN/Creat Ratio 14.4 RATIO (10-20); Calcium,Total 8.8 mg/dL (8.5-10.1); Chloride 108 mmol/L (98-107); Creatinine, Serum 0.83 mg/dL (0.55-1.02); EST Glomerular Filtration Rate 78 mL/min (>60); Est Glom Filt Rate - Afr Amer 94 mL/min (>60); Estimated Creatinine Clearance 65.56 ml/min; Glucose 156 mg/dL (74-106); Potassium 3.7 mmol/L (3.5-5.1); Sodium Level 139 mmol/L (136-145)
[2019-09-22 22:06] VITALS: BP 138/80; PULSE 86; RESP 11; O2SAT 97
[2019-09-22 23:07] VITALS: BP 139/82; PULSE 81; RESP 15; O2SAT 98
--- NOTE | 2019-09-23 00:01 | EKG12_ITS ---
Test Reason : CP Blood Pressure : / mmHG Vent. Rate : 097 BPM Atrial Rate : 097 BPM P-R Int : 176 ms QRS Dur : 088 ms QT Int : 368 ms P-R-T Axes : 038 069 028 degrees QTc Int : 467 ms Normal sinus rhythm Normal ECG Confirmed by GERMAN SUTTON, BRANDY ([id number]), supervising editor trailer VON HAQ ([id number]) on 09/23/2019 9:44:52 AM Referred By: NELSON Confirmed By:BRANDY PORTER MD
[2019-09-23 00:21] VITALS: BP 140/82; PULSE 79; RESP 16; O2SAT 98
== END 2019-09-23 00:22 | disposition home or self-care (01) ==
PROVIDERS: Emergency Provider Student in an Organized Health Care Education/Training Program; PCP Nurse Practitioner
DX: R07.89 Other chest pain (principal)
CPT/HCPCS: 71045; 80048; 84484; 85025; 85379; 93005; 96360; 99285; J7040; A4216

== ENCOUNTER → 2019-09-23 15:29 | Outpatient (CLI) | payer OTHER, SELFPAY ==
[2019-09-22 20:52] VITALS: BMI 32.5
[2019-09-23 18:46] LABS: Ferritin 4 ng/mL (8-252); Iron 32 ug/dL (50-170); Iron Binding Capacity,Total 429 ug/dL (250-450); PERCENT IRON SATURATION 7.5 % (15.0-55.0)
[2019-09-23 18:57] LABS: Vitamin B12 300 pg/mL (211-911)
== END ==
PROVIDERS: PCP Nurse Practitioner; Referring Provider Nurse Practitioner; Visit Provider Nurse Practitioner
DX: D64.9 Anemia, unspecified (principal)
CPT/HCPCS: 36415; 82607; 82728; 82746; 83540; 83550

== ENCOUNTER → 2019-09-24 | Outpatient (CLI) | payer OTHER, SELFPAY ==
[2019-09-22 20:52] VITALS: BMI 32.5
== END | disposition home or self-care (01) ==
PROVIDERS: PCP Nurse Practitioner; Referring Provider Nurse Practitioner; Visit Provider Nurse Practitioner
DX: D64.9 Anemia, unspecified (principal)
CPT/HCPCS: 82274

== ENCOUNTER → 2019-09-30 16:56 | Outpatient (CLI) | payer OTHER, SELFPAY ==
[2019-09-22 20:52] VITALS: BMI 32.5
[2019-10-01 08:03] LABS: SARS-COV-2 TOTAL ABS Nonreactive (Nonreactive)
[2019-10-01 09:59] LABS: HIV - WCH Non-Reactive (Nonreactive)
[2019-10-02 06:07] LABS: HEPATITIS B SURFACE AG Negative (Negative); Hepatitis A AB, Total Positive (Negative); Hepatitis A IgM Antibody Negative (Negative); Hepatitis B Core AB IgM Negative (Negative); Hepatitis B Core Ab Total Negative (Negative); Hepatitis C Ab <0.1 s/co ratio (0.0-0.9)
[2019-10-02 08:44] LABS: Hep B Surface Antibodies Reactive (.)
== END ==
PROVIDERS: PCP Nurse Practitioner; Referring Provider Nurse Practitioner; Visit Provider Nurse Practitioner
DX: Z77.21 Contact with and (suspected) exposure to potentially hazardous body fluids (principal)
CPT/HCPCS: 36415; 86703; 86704; 86705; 86706; 86708; 86709; 86769; 86803; 87340

== ENCOUNTER → 2020-04-27 08:59 | Outpatient (CLI) | payer OTHER, SELFPAY ==
[2020-04-27 10:19] LABS: Hemoglobin A1c 5.6 % (3.8-5.6)
[2020-04-27 10:51] LABS: AST(SGOT) 13 U/L (15-37); Alanine Aminotransfer ALT/SGPT 22 U/L (13-56); Albumin, Serum 3.6 g/dL (3.2-5.0); Alkaline Phosphatase 70 U/L (45-117); Anion Gap 4 (5-15); BUN 14 mg/dL (7-18); BUN/Creat Ratio 18.2 RATIO (10-20); Calcium,Total 9.1 mg/dL (8.5-10.1); Chloride 104 mmol/L (98-107); Creatinine, Serum 0.77 mg/dL (0.55-1.02); EST Glomerular Filtration Rate 85 mL/min (>60); Est Glom Filt Rate - Afr Amer 103 mL/min (>60); Follicle Stimulating Hormone 13.8 mIU/mL; Globulin 3.7 g/dL (2.2-4.2); Glucose 99 mg/dL (74-106); Luteinizing Hormone 6.7 mIU/mL; Potassium 4.1 mmol/L (3.5-5.1); Protein, Total 7.3 g/dL (6.4-8.2); Sodium Level 138 mmol/L (136-145); Thyroid Stim Hormone (TSH) 1.96 uIU/mL (0.358-3.74)
[2020-04-27 11:18] LABS: Hepatitis B Surface Antibody Reactive; Hepatitis B Surface Antigen Non-Reactive (Nonreactive); Hepatitis C Antibody Non-Reactive (Nonreactive)
[2020-04-30 03:07] LABS: QNTFERON TB Mitogen Value > 10.00 IU/mL (.); QNTFERON TB Nil Value 0.05 IU/mL (.); QNTFERON TB1+ Ag Value 0.05 IU/mL (.); QNTFERON TB2+ Ag Value 0.04 IU/mL (.)
[2020-04-30 07:32] LABS: Hepatitis B Core Ab Total Negative (Negative); QNTIFERON TB Positive Criteria Negative (Negative)
== END ==
PROVIDERS: PCP Nurse Practitioner; Referring Provider Nurse Practitioner; Visit Provider Nurse Practitioner
DX: L40.0 Psoriasis vulgaris (principal); M12.9 Arthropathy, unspecified; H53.8 Other visual disturbances; R63.5 Abnormal weight gain; G47.30 Sleep apnea, unspecified; N92.6 Irregular menstruation, unspecified; Z79.899 Other long term (current) drug therapy
CPT/HCPCS: 36415; 80053; 83001; 83002; 83036; 84443; 86480; 86704; 86706; 86803; 87340

== ENCOUNTER → 2020-07-03 14:38 | Outpatient (CLI) | payer OTHER, SELFPAY ==
--- NOTE | 2020-07-03 15:31 | BI_ITS ---
MAMMOGRAPHY - BILATERAL SCREENING REASON FOR EXAM: Female, 50 years old. Routine annual screening examination. PERTINENT HISTORY: Aunt with breast cancer. Left nipple discharge. Prior left needle breast biopsy. TECHNIQUE: Digital bilateral breast mignon (3D mammographic acquisition) in the CC and MLO projections. 2-D mediolateral oblique (MLO) and craniocaudad (CC) views of both breasts were obtained. CAD: Full Field Digital Mammography with Computer Added Detection was performed. COMPARISON: Comparison is made with prior examination dated 05/18/2015 and 09/19/2016. FINDINGS: Breast Composition: The breasts are heterogeneously dense, which may obscure small masses. There are no dominant masses or suspicious calcifications. Stable benign-appearing right axillary lymph node. No other significant abnormalities are identified. There has been no significant change since the prior study. BI/SCRN MAMM (CAD)W/MIGNON BILAT IMPRESSION: Stable bilateral screening mammogram. Yearly follow-up mammogram recommended. (A) ASSESSMENT CATEGORY: BIRADS Category 2: Benign. A letter regarding these results will be sent to the patient by the facility within 30 days. Approximately 10% of breast cancers are not detected by mammography. A normal mammogram should not delay biopsy of a clinically suspicious abnormality. [id number] Electronically Signed: Fabricio Hanna MD at 8:53 EDT , Service support ,
== END ==
PROVIDERS: PCP Nurse Practitioner; Referring Provider Obstetrics & Gynecology; Visit Provider Obstetrics & Gynecology
DX: Z12.31 Encounter for screening mammogram for malignant neoplasm of breast (principal); N64.52 Nipple discharge; Z80.3 Family history of malignant neoplasm of breast
CPT/HCPCS: 77063; 77067

== ENCOUNTER → 2020-07-21 07:26 | Outpatient (CLI) | payer OTHER, SELFPAY ==
[2020-07-21 10:29] LABS: Cholesterol 212 mg/dL (200); Ferritin 10 ng/mL (8-252); High Density Lipoprotein 54 mg/dL; Iron 60 ug/dL (50-170); Iron Binding Capacity,Total 395 ug/dL (250-450); PERCENT IRON SATURATION 15.2 % (15.0-55.0); Triglycerides 104 mg/dL; Very Low Density Lipoprotein 21 mg/dL (5-40)
== END ==
PROVIDERS: PCP Nurse Practitioner; Referring Provider Nurse Practitioner; Visit Provider Nurse Practitioner
DX: E61.1 Iron deficiency (principal); E78.6 Lipoprotein deficiency
CPT/HCPCS: 36415; 80061; 82728; 83540; 83550

== ENCOUNTER → 2020-12-25 14:01 | Outpatient (CLI) | payer OTHER, SELFPAY ==
--- NOTE | 2020-12-25 14:03 | VDLE_ITS ---
Reason For Study: CALF PAIN RIGHT LEFT GSV is normal. GSV is normal. CFV is compressible, spontaneous, phasic, CFV is compressible, spontaneous, phasic, competent and demonstrates normal competent, and demonstrates normal augmentation. augmentation. FV is compressible, spontaneous, phasic, FV is compressible, spontaneous, phasic, competent and demonstrates normal competent and demonstrates normal augmentation. augmentation. POP V is compressible, spontaneous, phasic, POP V is compressible, spontaneous, phasic, competent and demonstrates normal competent and demonstrates normal augmentation. augmentation. T/P Trunk is compressible. T/P Trunk is compressible. PTV is compressible. PTV is compressible. RT PerV is compressible. LT PerV is compressible. Procedure Exam performed in department. This is a venous duplex using B-mode, color flow and spectral Doppler. A preliminary report was called and/or faxed to [facility]. VL/Venous Duplex US - Diomedes Extrem Interpretation Summary Deep veins of the lower extremities are bilaterally patent and compressible seg mentally. There is no evidence of deep vein thrombosis on either side. Valvular competence appears in tact within the proximal deep venous systems bilaterally. The great saphenous veins appear bila terally patent and compressible segmentally. Ordering Physician: Cee Bundy Referring Physician: Cee Bundy Performed By: Alice Moses, MATTICS, RVT
== END ==
PROVIDERS: PCP Nurse Practitioner; Referring Provider Nurse Practitioner; Visit Provider Nurse Practitioner
DX: M79.669 Pain in unspecified lower leg (principal)
CPT/HCPCS: 93970

== ENCOUNTER → 2021-02-04 14:10 | Outpatient (CLI) | payer OTHER, SELFPAY ==
--- NOTE | 2021-02-04 14:12 | RAD_ITS ---
STUDY: X-RAY - LUMBAR SPINE REASON FOR EXAM: Female, 50 years old. Lumbosacral radiculopathy. TECHNIQUE: 5 view(s) of the lumbar spine were obtained. COMPARISON: None FINDINGS: Normal lumbar lordosis. There is no substantial scoliosis. There is a normal alignment of the vertebrae. Mild diffuse facet sclerosis. Minimal intervertebral disc space narrowing at L2-3 and L3-4 with small osteophytes at L3-4. The soft tissue structures are unremarkable. RAD/L/S Spine Min 4 Views IMPRESSION: Minimal lumbosacral spondylosis. No acute abnormality or evidence of erosive changes/fusion. Electronically Signed: Aidan Garcia MD at 9:50 EST , Service support ,
== END ==
PROVIDERS: PCP Nurse Practitioner; Referring Provider Nurse Practitioner Family; Visit Provider Nurse Practitioner Family
DX: M54.17 Radiculopathy, lumbosacral region (principal)
CPT/HCPCS: 72110

== ENCOUNTER 2021-02-23 10:22 | Outpatient (CLI) | payer OTHER, SELFPAY ==
--- NOTE | 2021-02-23 10:45 | MRI_ITS ---
STUDY: MRI CERVICAL SPINE WITHOUT CONTRAST REASON FOR EXAM: Female, 50 years old. STENOSIS TECHNIQUE: Standardized fat and water weighted pulse sequences were obtained in the sagittal and axial planes. COMPARISON: None FINDINGS: Normal foramen magnum and brainstem-cervical cord junction. Normal craniovertebral junction. Normal anterior atlantoaxial articulation. Normal odontoid process. Mild cervical kyphosis. Normal vertebral bodies and posterior osseous elements. C2-3: Normal endplates. Normal disc height, signal and morphology. Normal central canal and intervertebral neural foramina. C3-4: Normal endplates. Normal disc height, signal and morphology. Normal central canal and intervertebral neural foramina. C4-5: Normal endplates. Normal disc height, signal and morphology. Normal central canal and intervertebral neural foramina. C5-6: Normal endplates. Normal disc height, signal and morphology. Normal central canal and intervertebral neural foramina. C6-7: Anterior and posterior marginal spurs. Normal endplates. Mild disc space height narrowing. Normal central canal. Normal right intervertebral neural foramen. Moderate stenosis of the left intervertebral neural foramen due to osteophyte arising from the left uncovertebral joint. C7-T1: Normal endplates. Normal disc height, signal and morphology. Normal central canal and intervertebral neural foramina. T1-T2, T2-T3, T3-T4, T4-T5 and T5-T6: (Sagittal only). Normal endplates. Normal disc height and morphology. No ventral extradural defect. Normal central canal and bilateral intervertebral neural foramina. Normal cervical cord. Normal upper thoracic spinal cord. Normal included portions of the brainstem and cerebellum. Normal visualized soft tissue structures. MRI/Spine Cervical (Routine) IMPRESSION: 1. Moderate stenosis of the left C6-C7 intervertebral neural foramen due to prominent osteophyte arising from the left uncovertebral joint. 2. No MRI evidence of cervical extruded disc fragment. Electronically Signed: Jakob Riley MD at 12:59 EST , Service support ,
--- NOTE | 2021-02-23 11:30 | MRI_ITS ---
STUDY: MRI LUMBAR SPINE WITHOUT CONTRAST REASON FOR EXAM: Female, 50 years old. SPONDYLOSIS, pain TECHNIQUE: Standardized fat and water weighted pulse sequences were obtained in the sagittal and axial planes. COMPARISON: CT abdomen and pelvis without contrast 08/13/2013. FINDINGS: T12-L1: Normal endplates. Normal disc height, hydration and morphology. Normal bilateral facet joints. Normal central canal and bilateral lateral recesses. Normal bilateral intervertebral neural foramina. Normal lumbar lordosis. There is no substantial scoliosis. Normal conus medullaris that terminates at the L1-2: Normal endplates. Normal disc height, hydration and morphology. Normal bilateral facet joints. Normal central canal and bilateral lateral recesses. Normal bilateral intervertebral neural foramina. L2-3: Normal endplates. Normal disc height, hydration and morphology. Normal bilateral facet joints. Normal central canal and bilateral lateral recesses. Normal bilateral intervertebral neural foramina. L3-4: Normal endplates. Normal disc height, hydration and morphology. Normal bilateral facet joints. Normal central canal and bilateral lateral recesses. Normal bilateral intervertebral neural foramina. L4-5: Normal endplates. Normal disc height, hydration and morphology. Normal bilateral facet joints. Normal central canal and bilateral lateral recesses. Normal bilateral intervertebral neural foramina. L5-S1: Normal endplates. Normal disc height, hydration and morphology. Normal bilateral facet joints. Normal central canal and bilateral lateral recesses. Normal bilateral intervertebral neural foramina. Normal visualized sacral ala. TARLOV cyst behind S2. Normal visualized paraspinous soft tissue structures. MRI/Spine Lumbar (Routine) IMPRESSION: No MRI evidence of lumbar extruded disc fragment, spinal stenosis or nerve root displacement. Electronically Signed: Jakob Riley MD at 12:41 EST , Service support ,
== END 2021-02-23 23:59 | disposition short-term general hospital (02) ==
PROVIDERS: PCP Nurse Practitioner; Referring Provider Orthopaedic Surgery; Visit Provider Orthopaedic Surgery
DX: M48.02 Spinal stenosis, cervical region (principal); M47.22 Other spondylosis with radiculopathy, cervical region; M47.26 Other spondylosis with radiculopathy, lumbar region
CPT/HCPCS: 72141; 72148

== ENCOUNTER 2021-03-22 15:34 | Emergency (ER) | payer OTHER, SELFPAY ==
[2021-03-22 15:35] VITALS: BP 174/83; PULSE 100; RESP 18; TEMP 35.7; O2SAT 97; BMI 34.7
[2021-03-22 17:16] VITALS: BP 150/71; PULSE 93; RESP 13; O2SAT 95
--- NOTE | 2021-03-22 17:18 | EKG12_ITS ---
Test Reason : HTN Blood Pressure : / mmHG Vent. Rate : 084 BPM Atrial Rate : 084 BPM P-R Int : 148 ms QRS Dur : 082 ms QT Int : 362 ms P-R-T Axes : 032 064 011 degrees QTc Int : 427 ms Normal sinus rhythm Nonspecific T wave abnormality Abnormal ECG Confirmed by AMANDA SUTTON, LETHA ([id number]), purchase request editor VON HAQ ([id number]) on 03/23/2021 11:28:20 AM Referred By: KEATON Confirmed By:LETHA PATEL MD
--- NOTE | 2021-03-22 17:20 | EDS_ITS ---
HPI History of Present Illness Chief Complaint: Hypertension Informant: patient Narrative Narrative: Patient is referred in by her primary physician for elevated blood pressure. She went to her pain management and back doctor today. She had blood pressure is 140/90 and 140/100. She contacted her primary physician. They recommend she come here for evaluation. Patient has a history of some blood pressure. But she tries to manage it with diet. She has a prescription for amlodipine at home but has not yet started it. On review of systems I also find that the patient has had some chest symptoms recently. But this is really not chest pain. She states she gets pain across her back and then she gets a warm flushed feeling that rises up over her body her chest her neck and her head. She has had this off and on for some months. It tends to get worse when she gets steroid injections. She had them in January and then just this past week. She is not short of breath. She has not been coughing. She has no diagnosis of diabetes. She has no primary family member with heart disease at 55 or less. No pleuritic pain. Nothing makes her symptoms better or worse. They are very unpredictable. They are not exertional. [facility] Medical History Arthritis Chronic neck and back pain Costochondral chest pain CPAP (continuous positive airway pressure) dependence Depression Fibromyalgia Hepatitis HISTORY OF BONE SPUR IN SHOULDER Hypertension Knee pain Psoriatic arthritis Shoulder pain Sleep apnea Home Medications Prednisone 2.5 - 5 mg PO PRN PRN 09/22/19 [History Last Taken Unknown] diphenhydramine HCl 50 mg PO QHS 09/22/19 [History Last Taken Unknown] duloxetine 60 mg PO DAILY 09/22/19 [History Last Taken Unknown] melatonin 10 mg PO QHS 09/22/19 [History Last Taken Unknown] guselkumab [Tremfya] mg SUBCUT 03/22/21 [History Last Taken Unknown] Allergy/AdvReac Type Severity Reaction Status Date / Time NSAIDS (Non-Steroidal Allergy Mild SWELLING/VO Verified 03/22/21 15:38 Anti-Inflamma MITTING Sulfa (Sulfonamide Allergy Mild SWELLING/VO Verified 03/22/21 15:38 Antibiotics) MITTING Iodinated Contrast Media Allergy Hives Verified 03/22/21 15:38 [Iodinated Contrast Media - IV Dye] Social History Smoking Status: Never smoker alcohol intake: never ROS ROS ED Constitutional Constitutional ED: Denies chills or fever(s) Eyes Eyes: Denies blurry vision or change in vision ENT ENT ED: Denies ear pain or rhinorrhea Cardiovascular Cardiovascular: Reports other Details: See history of present illness. ; Denies palpitations Respiratory/Chest Respiratory/Chest: Denies dyspnea Gastrointestinal Gastrointestinal: Denies abdominal pain, nausea or vomiting Genitourinary Genitourinary ED: Denies dysuria Musculoskeletal Musculoskeletal: Reports back pain and other Details: Chronic back pains no different. ; Denies myalgias Integumentary Denies rash Neurologic Neurologic: Denies headache(s) Psychiatric Psychiatric: Denies depression Endocrine Endocrinology: Denies polydipsia or polyuria Allergic/Immunologic Allergic/Immunologic ED: Denies mouth swelling or urticaria EXAM Physical Exam Const Vital Signs: 03/22/21 15:35 03/22/21 16:57 03/22/21 17:16 Temperature 96.2 F L Temperature Source Temporal Pulse Rate 100 93 Respiratory Rate 18 13 Respiratory Effort Normal Non-Labored Respiratory Pattern Normal Blood Pressure 174/83 H 150/71 H Blood Pressure Mean 113 97 Pulse Ox 97 95 Oxygen Delivery Method Room Air Room Air 03/22/21 17:32 03/22/21 18:24 03/22/21 19:41 Temperature Temperature Source Pulse Rate 88 78 Respiratory Rate 16 16 Respiratory Effort Respiratory Pattern Blood Pressure 141/73 H 137/66 H Blood Pressure Mean 95 89 Pulse Ox 97 97 Oxygen Delivery Method Room Air Room Air Room Air Positive well nourished and well developed General Appearance ED: well developed and NAD; Negative for cyanotic or diaphoretic HEENT Reports moist mucous membranes trauma Eyes PERRL and EOMs intact bilaterally Neck supple and no JVD Chest Wall inspection of chest normal Resp normal respiratory effort and clear to auscultation bilaterally Effort and Inspection: Negative for pain with movement Auscultation: Negative for rales, rhonchi or wheezes Cardio regular rate, regular rhythm and no murmurs GI normal to inspection, nondistended, normoactive bowel sounds and non-tender Palpation: soft Back/Spine no CVA tenderness Extremity normal to inspection Neuro oriented x3 Sensorium / Orientation: alert Psych mental status grossly normal Skin no rashes or lesions noted and no wounds MDM MDM MDM Narrative Medical decision making narrative: Patient CBC is normal. Electrolytes show mild elevation of glucose at 162. Patient states she did eat. She has some history of glucose intolerance but is not yet on meds. There is a family history of diabetes. Her troponin is negative despite having these warmth sensations going on for some time. Chest x-ray is negative. Repeat blood pressure is 141/73 then 137/66. She can follow-up with her primary physician. They can discuss taking amlodipine. She will likely need meds. I just do not know what dose of amlodipine she has at home. I believe she is safe for discharge. We discussed reasons to return. Lab Data Attestation: I reviewed the patient's lab results. Labs: Laboratory Results - last 24 hr 03/22/21 03/22/21 17:00 17:00 WBC 9.3 RBC 4.68 Hgb 13.0 Hct 40.7 MCV 87.0 MCH 27.8 MCHC 31.9 L RDW Std Deviation 47.9 H RDW Coeff of [place] 14.9 H Plt Count 308 MPV 8.7 Immature Gran % (Auto) 0.400 Neut % (Auto) 63.9 Lymph % (Auto) 27.9 [place] % (Auto) 6.4 Eos % (Auto) 1.2 Baso % (Auto) 0.2 Absolute Neuts (auto) 6.0 Absolute Lymphs (auto) 2.61 Nucleated RBC % 0 Sodium 139 Potassium 3.5 Chloride 105 Carbon Dioxide 28.0 Anion Gap 6 BUN 15 Creatinine 0.85 Estim Creat Clear Calc 63.32 Est GFR (MDRD) Af Amer 91 Est GFR (MDRD) Non-Af 75 BUN/Creatinine Ratio 17.6 Glucose 162 H Calcium 8.8 Troponin I High Sens 4 Radiography Diagnostic Testing: Clinical Impression(s) from Imaging Studies Chest X-Ray 03/22/21 17:34 IMPRESSION: There are no acute findings. Electronically Signed: Klaus Gonzalez MD at 17:43 EST Reading Location ID and State: [facility] / [place] , Service support , Discharge Plan Triage Chief Complaint: Hypertension ED Provider: Thierry Gonsalez Dx/Rx/DC Orders Clinical Impression: Elevated blood pressure reading, Intermittent chest pain Instructions: ED High Blood Pressure Hypertension Prescriptions: No Action diphenhydramine HCl 25 MG capsule 50 mg PO QHS RF: 0 duloxetine 60 MG capsule 60 mg PO DAILY RF: 0 melatonin 10 MG tablet 10 mg PO QHS RF: 0 Prednisone 5 MG tablet 2.5 - 5 mg PO PRN PRN (Reason: FIBROMYALGIA) RF: 0 Tremfya 100 mg/mL syringe SUBCUT RF: 0 Primary Care Provider: Heather Stoddard NP Referrals: Heather Stoddard NP, [employer] [Primary Care Provider] - As soon as possible
--- NOTE | 2021-03-22 17:34 | RAD_ITS ---
STUDY: X-RAY CHEST REASON FOR EXAM: Female, 50 years old. CHEST PAIN HTN, INTERMITTENT SOB AND CP X 3 WEEKS TECHNIQUE: XR Chest 1 View COMPARISON: Prior comparison studies are not available for review at this time. FINDINGS: There is no demonstrated pleural abnormality. Normal size heart. Normal mediastinum and estuardo. Normal visualized pulmonary arteries. There is atherosclerotic calcification of the aortic arch with tortuosity. There are diffuse degenerative changes of the visualized thoracic spine. There is degenerative osteoarthritis of the bilateral shoulders. There is no demonstrated abnormality of the visualized soft tissue structures of the upper abdomen. RAD/Chest 1 View (Portable) IMPRESSION: There are no acute findings. Electronically Signed: Klaus Gonzalez MD at 17:43 EST ,
[2021-03-22 17:55] LABS: Absolute Lymphocyte Count 2.61 X10^3/uL (0.83-4.51); Basophil# 0.02 X10^3/uL; Basophil% 0.2 % (0-1); Eosinophil# 0.11 X10^3/uL; Eosinophils% 1.2 % (0-5); Hematocrit 40.7 % (37-47); Lymphocyte # 2.61 X10^3/ul (0.83-4.51); Lymphocyte % 27.9 % (19-41); Mean Corp Hgb Conc 31.9 g/dL (32-36); Mean Corpuscular Hgb 27.8 pg (27.0-32.0); Mean Platelet Vol. 8.7 fl (6.2-12.0); Monocyte% 6.4 % (0-10); NRBC Flagged by Analyzer 0 % (0-5); Neutrophil # 5.96 X10^3/uL (2.7-7.7); Neutrophil % 63.9 % (47-70); Platelet Count 308 K/mm3 (150-450); RBC Distribution Width CV 14.9 % (11.6-14.6); RBC Distribution Width SD 47.9 fl (35.1-43.9); Red Blood Count 4.68 M/mm3 (4.2-5.4); White Blood Count 9.3 K/mm3 (4.4-11.0)
[2021-03-22 18:08] LABS: Anion Gap 6 (5-15); BUN 15 mg/dL (7-18); BUN/Creat Ratio 17.6 RATIO (10-20); Calcium,Total 8.8 mg/dL (8.5-10.1); Chloride 105 mmol/L (98-107); Creatinine, Serum 0.85 mg/dL (0.55-1.02); EST Glomerular Filtration Rate 75 mL/min (>60); Est Glom Filt Rate - Afr Amer 91 mL/min (>60); Estimated Creatinine Clearance 63.32 ml/min; Glucose 162 mg/dL (74-106); Potassium 3.5 mmol/L (3.5-5.1); Sodium Level 139 mmol/L (136-145); Troponin-I HS 4 pg/mL (3.0-54.0)
[2021-03-22 18:24] VITALS: BP 141/73; PULSE 88; RESP 16; O2SAT 97
[2021-03-22 19:41] VITALS: BP 137/66; PULSE 78; RESP 16; O2SAT 97
--- NOTE | 2021-03-23 12:25 | CASEMGMT ---
AI MICHEL ED follow-up: AI MICHEL placed call to patient's telephone number listed on demographics- patient answered. Patient reports feeling tired today but able to rest. Patient states she has not checked her BP today but does have a BP monitor available in the home and plans to have locate it and replace batteries when he arrives home from work later today. Patient reports she plans to schedule PCP follow-up appointment today. Patient encouraged to keep log of BP to take to PCP appointment. Instructed on healthy diet with decreased salt intake and importance of remaining physically active. Patient voices understanding. Patient denies questions or concerns. AI Guevara CM
== END 2021-03-22 19:58 | disposition home or self-care (01) ==
PROVIDERS: Emergency Provider Emergency Medicine; PCP Nurse Practitioner; Visit Provider Emergency Medicine
DX: I10 Essential (primary) hypertension (principal); R73.9 Hyperglycemia, unspecified; G89.29 Other chronic pain; F32.A Depression, unspecified; M79.7 Fibromyalgia; G47.30 Sleep apnea, unspecified
CPT/HCPCS: 71045; 80048; 84484; 85025; 93005; 99284; A4216

== ENCOUNTER 2021-05-05 09:59 | Outpatient (CLI) | payer OTHER, SELFPAY ==
--- NOTE | 2021-05-05 13:25 | NEURO ---
NCS and/or EMG Patient Report Ordering Doctor: Quinn Fowler DATE OF SERVICE: 05/05/21 Deja presents for electrodiagnostic testing of the upper limbs. She reports intermittent numbness and tingling in the hands. Electrodiagnostic findings: Median motor nerve demonstrates normal distal latency, amplitude and conduction velocity bilaterally. Normal ulnar motor response bilaterally. Normal median and ulnar F waves. Median, ulnar and radial sensory responses were within normal limits. On needle EMG, all muscles tested in the upper limbs showed no evidence of denervation with normal motor unit action potentials Electrodiagnostic impression: This is a normal electrodiagnostic study in the upper limbs. There is no electrodiagnostic evidence for peripheral neuropathy, including carpal tunnel or cubital tunnel syndrome. There is no electrodiagnostic evidence for cervical radiculopathy.
== END 2021-05-05 23:59 | disposition home or self-care (01) ==
LOC: PSN 10:01
PROVIDERS: PCP Nurse Practitioner; Referring Provider Orthopaedic Surgery; Visit Provider Orthopaedic Surgery
DX: R20.2 Paresthesia of skin (principal)
CPT/HCPCS: 95886; 95913

== ENCOUNTER 2021-05-25 15:38 | Outpatient (CLI) | payer OTHER, SELFPAY ==
--- NOTE | 2021-05-25 15:45 | RAD_ITS ---
STUDY: X-RAY - THORACIC SPINE REASON FOR EXAM: Female, 50 years old. Back pain TECHNIQUE: 2 view(s) of the thoracic spine were obtained. COMPARISON: None. FINDINGS: Normal kyphosis of the thoracic spine. There is no substantial scoliosis. There is multilevel endplate spondylosis of the thoracic vertebrae. There is multilevel disc space narrowing of the thoracic spine. The soft tissue structures are unremarkable. RAD/Thoracic Spine 2 Views IMPRESSION: There are degenerative changes as noted above. Electronically Signed: Klaus Gonzalez MD at 18:17 EDT ,
[2021-05-27 15:09] LABS: QNTFERON TB Mitogen Value > 10.00 IU/mL (.); QNTFERON TB Nil Value 0.04 IU/mL (.); QNTFERON TB1+ Ag Value 0.04 IU/mL (.); QNTFERON TB2+ Ag Value 0.04 IU/mL (.)
[2021-05-27 20:08] LABS: QNTIFERON TB Positive Criteria Negative (Negative)
== END 2021-05-25 23:59 | disposition home or self-care (01) ==
LOC: MTLAB 15:41
PROVIDERS: PCP Nurse Practitioner; Referring Provider Nurse Practitioner Family; Visit Provider Nurse Practitioner Family
DX: M54.6 Pain in thoracic spine (principal); L40.0 Psoriasis vulgaris; M12.9 Arthropathy, unspecified; Z79.899 Other long term (current) drug therapy
CPT/HCPCS: 36415; 72070; 86480

== ENCOUNTER → 2021-07-06 | Outpatient (CLI) | payer OTHER, SELFPAY ==
--- NOTE | 2021-07-06 14:33 | RAD_ITS ---
INDICATION: HIP PAIN EXAMINATION/TECHNIQUE: X-RAY - LEFT XR Hip Unilateral with Pelvis when performed; 2-3 Views 3 VIEWS COMPARISON: None. FINDINGS: SOFT TISSUES: No soft tissue swelling or gas. No radiopaque foreign body. BONES/JOINTS: No acute fracture or subluxation.. Normal alignment. Femoral heads are well-seated within the acetabulum.. Mild bilateral femoral acetabular joint osteoarthritis. Joint spaces are otherwise intact. RAD/HIP, UNI W/ Pelvis 2-3 Views IMPRESSION: Mild bilateral femoroacetabular joint osteoarthritis. No acute findings. Electronically Signed: Kishor Randolph, at 11:47 EDT ,
== END | disposition home or self-care (01) ==
LOC: MTRAD 14:31
PROVIDERS: PCP Nurse Practitioner; Referring Provider Nurse Practitioner Family; Visit Provider Nurse Practitioner Family
DX: M25.552 Pain in left hip (principal)
CPT/HCPCS: 73502

== ENCOUNTER 2021-07-10 19:39 | Emergency (ER) | payer OTHER, SELFPAY ==
[2021-07-10 19:39] VITALS: BP 140/69; PULSE 103; RESP 16; TEMP 36.2; O2SAT 97; BMI 34.7
--- NOTE | 2021-07-10 21:07 | EDS_ITS ---
HPI History of Present Illness Chief Complaint: Eye Problem Informant: patient Narrative Narrative: Patient is a 51-year-old female presenting with foreign body sensation pain in her left thigh. Patient states she was working on refinishing an old door and was wearing her glasses throughout this. She went to stand up and felt something fall of her eyebrow and into her eye. This happened around 230 this afternoon. Since then she has had discomfort in her eye especially over the medial aspect. She has used eyewash and then [employer] eyedrops. She states the eyedrops caused a lot of burning. She denies any vision changes. Denies any other complaints at this time. Normally goes to family [facility] in [place]. [facility] Medical History Arthritis Chronic neck and back pain Costochondral chest pain CPAP (continuous positive airway pressure) dependence Depression Fibromyalgia Hepatitis HISTORY OF BONE SPUR IN SHOULDER Hypertension Knee pain Psoriatic arthritis Shoulder pain Sleep apnea Home Medications Prednisone 2.5 - 5 mg PO PRN PRN 09/22/19 [History Last Taken Unknown] diphenhydramine HCl 50 mg PO QHS 09/22/19 [History Last Taken Unknown] duloxetine 60 mg PO DAILY 09/22/19 [History Last Taken Unknown] melatonin 10 mg PO QHS 09/22/19 [History Last Taken Unknown] guselkumab [Tremfya] mg SUBCUT 03/22/21 [History Last Taken Unknown] amlodipine 5 mg PO DAILY 07/10/21 [History Last Taken Unknown] cyclobenzaprine 10 mg PO QHS PRN PRN 07/10/21 [History Last Taken Unknown] hydrochlorothiazide 25 mg PO DAILY 07/10/21 [History Last Taken Unknown] Allergy/AdvReac Type Severity Reaction Status Date / Time NSAIDS (Non-Steroidal Allergy Mild SWELLING/VO Verified 07/10/21 19:42 Anti-Inflamma MITTING Sulfa (Sulfonamide Allergy Mild SWELLING/VO Verified 07/10/21 19:42 Antibiotics) MITTING Iodinated Contrast Media Allergy Hives Verified 07/10/21 19:42 [Iodinated Contrast Media - IV Dye] Social History Smoking Status: Never smoker alcohol intake: never ROS ROS ED Constitutional Constitutional ED: Denies chills or fever(s) Eyes Eyes: Reports other Details: left eye pain ; Denies blurry vision or change in vision ENT ENT ED: Denies rhinorrhea or sore throat Cardiovascular Cardiovascular: Denies chest pain Respiratory/Chest Respiratory/Chest: Denies cough or dyspnea Gastrointestinal Gastrointestinal: Denies abdominal pain or vomiting Integumentary Denies rash Neurologic Neurologic: Denies headache(s) or weakness EXAM Physical Exam Const Vital Signs: 07/10/21 19:39 Temperature 97.1 F L Temperature Source Temporal Pulse Rate 103 H Respiratory Rate 16 Blood Pressure 140/69 H Blood Pressure Mean 92 Pulse Ox 97 Oxygen Delivery Method Room Air Positive well nourished and well developed General Appearance ED: well developed and NAD HEENT atraumatic; Negative for tenderness Eyes General Eye ED: Yes normal appearance of both eyes and normal light reflex Visual Acuity: acuity normal Alignment: alignment normal Periorbital: periorbital findings normal Eyelid: eyelids normal Conjunctiva: conjunctiva normal Sclera: sclera abnormal Positive for left Details: scleral injection Cornea: cornea normal and fluorescein used Pupil: PERRL Direct Ophthalmoscopy: normal light reflex and No photophobia Slit Lamp: slit lamp exam performed with fluorescein, lids/lashes/lacrimal system other (mild swelling near left tear duct. No FB identified. No laceration noted ), conjunctiva/sclera circumcorneal injection, anterior chamber normal appearing and normal depth and lens clear Neck supple Resp normal respiratory effort and clear to auscultation bilaterally Cardio regular rate GI non-distended Neuro oriented x3 and CN's II-XII intact bilaterally Sensorium / Orientation: alert Psych Mood & Affect: Negative for depressed or tearful Skin Lesions: no lesions Rashes: no rashes MDM MDM MDM Narrative Medical decision making narrative: Patient evaluated for left eye pain. Has a foreign body sensation. She is immediate relief with tetracaine. Visual acuity is 20/20 bilaterally corrected. No corneal abrasion or foreign body appreciated on fluorescein eye exam. Patient will be given erythromycin ointment does have some mild edema of the medial eye conjunctiva near the tear duct however this could be reactive from rubbing/rinsing out her eye. Patient will follow-up with her psychiatric social worker supervisor. She does not wear contacts. Is started on erythromycin ointment. Counseled on return precautions. Discharge Plan Triage Chief Complaint: Eye Problem ED Provider: Carolyne Sloan Dx/Rx/DC Orders Clinical Impression: Sensation of foreign body in eye, Acute left eye pain Instructions: ED Corneal Abrasion Prescriptions: No Action diphenhydramine HCl 25 MG capsule 50 mg PO QHS RF: 0 duloxetine 60 MG capsule 60 mg PO DAILY RF: 0 melatonin 10 MG tablet 10 mg PO QHS RF: 0 Prednisone 5 MG tablet 2.5 - 5 mg PO PRN PRN (Reason: FIBROMYALGIA) RF: 0 Tremfya 100 mg/mL syringe SUBCUT RF: 0 cyclobenzaprine 10 mg tablet 10 mg PO QHS PRN PRN (Reason: muscle relaxant) RF: 0 amlodipine 5 mg tablet 5 mg PO DAILY RF: 0 hydrochlorothiazide 25 mg tablet 25 mg PO DAILY RF: 0 Primary Care Provider: Nichelle Tristan Referrals: Nichelle Tristan DO [Primary Care Provider] - Activity Restrictions/Additional Instructions: Use erythromycin ointment 4 times a day for at least 3 days to the left eye. I did not see an obvious foreign body or abrasion however we will treat you as if there is a small 1. Follow-up with your eye doctor. Return if you have worsening symptoms. Disposition Disposition: Home, Self Care
[2021-07-10] MEDS: Erythromycin Base 1 OPTH.TUBE 1 APPLIC LEFT EYE (21:12)
[2021-07-10] MEDS: Fluorescein 1 MG STRIP 1 STRIP OPHTHALMIC (21:13)
[2021-07-10] MEDS: Tetracaine 0.5% Ophthalmic Bottle OPHTHALMIC (21:13)
[2021-07-10 21:14] VITALS: RESP 18
== END 2021-07-10 21:21 | disposition home or self-care (01) ==
PROVIDERS: Emergency Provider Emergency Medicine; PCP Internal Medicine; Visit Provider Emergency Medicine
DX: H57.12 Ocular pain, left eye (principal); H11.422 Conjunctival edema, left eye; Z79.52 Long term (current) use of systemic steroids; Z79.899 Other long term (current) drug therapy
CPT/HCPCS: 99283

== ENCOUNTER → 2021-09-20 | Outpatient (CLI) | payer OTHER, SELFPAY ==
[2021-09-20 15:29] LABS: Absolute Lymphocyte Count 2.01 X10^3/uL (0.83-4.51); Absolute Neutrophil Count 3.1 X10^3/uL (2.0-7.7); Basophil# 0.04 X10^3/uL; Basophil% 0.7 % (0-1); Eosinophil# 0.09 X10^3/uL; Eosinophils% 1.6 % (0-5); Hematocrit 39.1 % (37-47); Hemoglobin 13.3 g/dL (12.0-15.0); Lymphocyte # 2.01 X10^3/ul (0.83-4.51); Lymphocyte % 34.7 % (19-41); Mean Corpuscular Hgb 31.6 pg (27.0-32.0); Mean Corpuscular Volume 92.9 fL (81-99); Mean Platelet Vol. 8.8 fl (6.2-12.0); Monocyte% 8.6 % (0-10); NRBC Flagged by Analyzer 0 % (0-5); Neutrophil # 3.13 X10^3/uL (2.7-7.7); Neutrophil % 53.9 % (47-70); Platelet Count 273 K/mm3 (150-450); RBC Distribution Width CV 13.7 % (11.6-14.6); RBC Distribution Width SD 46.6 fl (35.1-43.9); Red Blood Count 4.21 M/mm3 (4.2-5.4); White Blood Count 5.8 K/mm3 (4.4-11.0)
[2021-09-20 15:54] LABS: ALB/GLOB Ratio 0.9 RATIO (0.9-2.4); AST(SGOT) 18 U/L (15-37); Alanine Aminotransfer ALT/SGPT 36 U/L (13-56); Albumin, Serum 3.5 g/dL (3.2-5.0); Alkaline Phosphatase 48 U/L (45-117); Anion Gap 4 (5-15); BUN 13 mg/dL (7-18); BUN/Creat Ratio 16.9 RATIO (10-20); Calcium,Total 8.8 mg/dL (8.5-10.1); Chloride 103 mmol/L (98-107); Cholesterol 208 mg/dL (200); Creatinine, Serum 0.77 mg/dL (0.55-1.02); EST Glomerular Filtration Rate 84 mL/min (>60); Est Glom Filt Rate - Afr Amer 102 mL/min (>60); Globulin 3.8 g/dL (2.2-4.2); Glucose 100 mg/dL (74-106); High Density Lipoprotein 53 mg/dL; Potassium 3.7 mmol/L (3.5-5.1); Protein, Total 7.3 g/dL (6.4-8.2); Sodium Level 139 mmol/L (136-145); Triglycerides 82 mg/dL; Very Low Density Lipoprotein 16 mg/dL (5-40); Vitamin B12 1307 pg/mL (211-911)
[2021-09-20 16:03] LABS: Hemoglobin A1c 5.9 % (3.8-5.6)
== END | disposition home or self-care (01) ==
LOC: MTLAB 12:05
PROVIDERS: PCP Internal Medicine; Referring Provider Internal Medicine; Visit Provider Internal Medicine
DX: E78.00 Pure hypercholesterolemia, unspecified (principal); R73.9 Hyperglycemia, unspecified; E53.8 Deficiency of other specified B group vitamins; I10 Essential (primary) hypertension
CPT/HCPCS: 80053; 80061; 82607; 83036; 85025

== ENCOUNTER → 2021-12-14 | Outpatient (CLI) | payer OTHER, SELFPAY ==
--- NOTE | 2021-12-14 16:22 | MRI_ITS ---
STUDY: MR PELVIS WITHOUT CONTRAST REASON FOR EXAM: Female, 51 years old. SACROILIITIS/AXIAL SPONDYLOARTHRITIS; attn si joints TECHNIQUE: Standardized fat and water weighted pulse sequences were obtained in all 3 orthogonal planes. COMPARISON: None. FINDINGS: Normal urinary bladder. Normal visualized small intestine. Normal visualized colon. 3.5 cm round T1 isointense and T2 hypointense mass of the right side of the fundus of the uterus consistent with an intramural fibroid. There is no pelvic fluid. There is no pelvic mass lesion or lymphadenopathy. Normal visualized pelvic arteries. Normal osseous structures. Normal abdominal wall. MRI/Pelvis (Routine) IMPRESSION: No MR evidence of sacroiliitis. Electronically Signed: Damian Webb MD at 12:16 EDT ,
== END | disposition home or self-care (01) ==
PROVIDERS: PCP Internal Medicine; Visit Provider Internal Medicine Rheumatology
DX: M46.1 Sacroiliitis, not elsewhere classified (principal)
CPT/HCPCS: 72195

== ENCOUNTER → 2021-12-17 | Outpatient (CLI) | payer OTHER, SELFPAY ==
[2021-12-17 14:56] LABS: Absolute Lymphocyte Count 1.65 X10^3/uL (0.83-4.51); Absolute Neutrophil Count 2.7 X10^3/uL (2.0-7.7); Basophil# 0.02 X10^3/uL; Basophil% 0.4 % (0-1); Eosinophil# 0.11 X10^3/uL; Eosinophils% 2.2 % (0-5); Hematocrit 38.7 % (37-47); Hemoglobin 12.7 g/dL (12.0-15.0); Lymphocyte # 1.65 X10^3/ul (0.83-4.51); Mean Corp Hgb Conc 32.8 g/dL (32-36); Mean Corpuscular Hgb 31.4 pg (27.0-32.0); Mean Corpuscular Volume 95.8 fL (81-99); Mean Platelet Vol. 8.9 fl (6.2-12.0); NRBC Flagged by Analyzer 0 % (0-5); Platelet Count 246 K/mm3 (150-450); RBC Distribution Width CV 12.9 % (11.6-14.6); RBC Distribution Width SD 45.5 fl (35.1-43.9); Red Blood Count 4.04 M/mm3 (4.2-5.4)
[2021-12-17 15:17] LABS: AST(SGOT) 20 U/L (15-37); Alanine Aminotransfer ALT/SGPT 34 U/L (13-56); Albumin, Serum 3.6 g/dL (3.2-5.0); Alkaline Phosphatase 53 U/L (45-117); Creatinine, Serum 0.73 mg/dL (0.55-1.02); EST Glomerular Filtration Rate 90 mL/min (>60); Est Glom Filt Rate - Afr Amer 109 mL/min (>60); Globulin 3.5 g/dL (2.2-4.2); Protein, Total 7.1 g/dL (6.4-8.2)
== END | disposition home or self-care (01) ==
LOC: MTLAB 13:13
PROVIDERS: PCP Internal Medicine; Referring Provider Internal Medicine Rheumatology; Visit Provider Internal Medicine Rheumatology
DX: L40.50 Arthropathic psoriasis, unspecified (principal)
CPT/HCPCS: 36415; 80076; 82565; 85025

== ENCOUNTER → 2022-04-11 | Outpatient (CLI) | payer OTHER, SELFPAY ==
--- NOTE | 2022-04-11 15:07 | BI_ITS ---
MAMMOGRAPHY - BILATERAL SCREENING REASON FOR EXAM: Female, 51 years old. Routine annual screening examination. PERTINENT HISTORY: Aunt with breast cancer. Remote left needle breast biopsy. TECHNIQUE: Digital bilateral breast mignon (3D mammographic acquisition) in the CC and MLO projections. 2-D mediolateral oblique (MLO) and craniocaudad (CC) views of both breasts were obtained. CAD: Full Field Digital Mammography with Computer Added Detection was performed. COMPARISON: Comparison is made with prior study of 07/03/2020 and 09/19/2016. FINDINGS: Breast Composition: The breasts are heterogeneously dense, which may obscure small masses. There are no dominant masses or suspicious calcifications. Stable small benign appearing bilateral axillary lymph nodes. No other significant abnormalities are identified. There has been no significant change since the prior study. BI/SCRN MAMM (CAD)W/MIGNON BILAT IMPRESSION: Stable bilateral screening mammogram. Yearly follow-up mammogram recommended. (A) ASSESSMENT CATEGORY: BIRADS Category 2: Benign. A letter regarding these results will be sent to the patient by the facility within 30 days. Approximately 10% of breast cancers are not detected by mammography. A normal mammogram should not delay biopsy of a clinically suspicious abnormality. [id number] Electronically Signed: Fabricio Hanna MD at 8:33 EST ,
== END | disposition home or self-care (01) ==
LOC: OPBI 15:06
PROVIDERS: PCP Internal Medicine; Visit Provider Internal Medicine
DX: Z12.31 Encounter for screening mammogram for malignant neoplasm of breast (principal)
CPT/HCPCS: 77063; 77067

== ENCOUNTER → 2022-04-20 | Outpatient (CLI) | payer OTHER, SELFPAY ==
[2022-04-20 15:28] LABS: Absolute Lymphocyte Count 1.66 X10^3/uL (0.83-4.51); Absolute Neutrophil Count 2.8 X10^3/uL (2.0-7.7); Basophil# 0.02 X10^3/uL; Basophil% 0.4 % (0-1); Eosinophil# 0.15 X10^3/uL; Eosinophils% 2.9 % (0-5); Hematocrit 41.6 % (37-47); Hemoglobin 13.8 g/dL (12.0-15.0); Lymphocyte # 1.66 X10^3/ul (0.83-4.51); Lymphocyte % 32.3 % (19-41); Mean Corp Hgb Conc 33.2 g/dL (32-36); Mean Corpuscular Hgb 31.8 pg (27.0-32.0); Mean Corpuscular Volume 95.9 fL (81-99); Mean Platelet Vol. 8.9 fl (6.2-12.0); Monocyte# 0.54 X10^3/uL; Monocyte% 10.5 % (0-10); NRBC Flagged by Analyzer 0 % (0-5); Neutrophil # 2.76 X10^3/uL (2.7-7.7); Neutrophil % 53.7 % (47-70); Platelet Count 260 K/mm3 (150-450); RBC Distribution Width CV 12.6 % (11.6-14.6); RBC Distribution Width SD 44.9 fl (35.1-43.9); Red Blood Count 4.34 M/mm3 (4.2-5.4); White Blood Count 5.1 K/mm3 (4.4-11.0)
[2022-04-20 15:45] LABS: AST(SGOT) 17 U/L (15-37); Alanine Aminotransfer ALT/SGPT 31 U/L (13-56); Albumin, Serum 3.9 g/dL (3.2-5.0); Alkaline Phosphatase 65 U/L (45-117); Bilirubin, Direct 0.08 mg/dL (0.00-0.30); Creatinine, Serum 0.89 mg/dL (0.55-1.02); EST Glomerular Filtration Rate 71 mL/min (>60); Est Glom Filt Rate - Afr Amer 86 mL/min (>60); Globulin 3.9 g/dL (2.2-4.2); Protein, Total 7.8 g/dL (6.4-8.2)
== END | disposition home or self-care (01) ==
LOC: MTLAB 11:56
PROVIDERS: PCP Internal Medicine; Visit Provider Internal Medicine Rheumatology
DX: L40.50 Arthropathic psoriasis, unspecified (principal)
CPT/HCPCS: 36415; 80076; 82565; 85025

== ENCOUNTER → 2022-09-14 | Outpatient (CLI) | payer OTHER, SELFPAY ==
[2022-09-14 13:18] LABS: Cholesterol 214 mg/dL (200); High Density Lipoprotein 66 mg/dL; Triglycerides 58 mg/dL; Very Low Density Lipoprotein 12 mg/dL (5-40)
[2022-09-14 15:23] LABS: AST(SGOT) 18 U/L (15-37); Alanine Aminotransfer ALT/SGPT 26 U/L (13-56); Albumin, Serum 3.7 g/dL (3.2-5.0); Alkaline Phosphatase 60 U/L (45-117); Anion Gap 6 (5-15); BUN 18 mg/dL (7-18); BUN/Creat Ratio 17.8 RATIO (10-20); Calcium,Total 9.3 mg/dL (8.5-10.1); Chloride 101 mmol/L (98-107); Creatinine, Serum 1.01 mg/dL (0.55-1.02); EST Glomerular Filtration Rate 61 mL/min (>60); Est Glom Filt Rate - Afr Amer 74 mL/min (>60); Globulin 3.8 g/dL (2.2-4.2); Glucose 99 mg/dL (74-106); Potassium 3.7 mmol/L (3.5-5.1); Protein, Total 7.5 g/dL (6.4-8.2); Sodium Level 137 mmol/L (136-145)
== END | disposition home or self-care (01) ==
PROVIDERS: PCP Internal Medicine; Referring Provider Internal Medicine; Visit Provider Internal Medicine
DX: R00.2 Palpitations (principal); E78.00 Pure hypercholesterolemia, unspecified
CPT/HCPCS: 36415; 80053; 80061; 84443

== ENCOUNTER 2022-09-23 13:34 | Emergency (ER) | payer OTHER, SELFPAY ==
[2022-09-23 13:35] VITALS: BP 137/90; PULSE 109; RESP 18; TEMP 36.3; O2SAT 100; BMI 30.5
--- NOTE | 2022-09-23 14:03 | EKG12_ITS ---
Test Reason : PALP Blood Pressure : / mmHG Vent. Rate : 114 BPM Atrial Rate : 114 BPM P-R Int : 146 ms QRS Dur : 074 ms QT Int : 338 ms P-R-T Axes : 055 065 025 degrees QTc Int : 465 ms Sinus tachycardia Otherwise normal ECG Confirmed by MARK SUTTON, DANIELLE ([id number]), film and video editor EULALIO ABDALLA ([id number]) on 09/26/2022 8:43:05 AM Referred By: PL/ES Confirmed By:CY FLORES MD
[2022-09-23 14:31] LABS: Absolute Neutrophil Count 3.9 X10^3/uL (2.0-7.7); Basophil# 0.03 X10^3/uL; Basophil% 0.5 % (0-1); Eosinophil# 0.26 X10^3/uL; Eosinophils% 4.1 % (0-5); Hematocrit 41.4 % (37-47); Hemoglobin 13.9 g/dL (12.0-15.0); Lymphocyte % 26.6 % (19-41); Mean Corp Hgb Conc 33.6 g/dL (32-36); Mean Corpuscular Hgb 32.3 pg (27.0-32.0); Mean Corpuscular Volume 96.1 fL (81-99); Mean Platelet Vol. 8.8 fl (6.2-12.0); Monocyte# 0.54 X10^3/uL; Monocyte% 8.4 % (0-10); NRBC Flagged by Analyzer 0 % (0-5); Neutrophil # 3.85 X10^3/uL (2.7-7.7); Neutrophil % 60.1 % (47-70); Platelet Count 264 K/mm3 (150-450); RBC Distribution Width CV 13.2 % (11.6-14.6); RBC Distribution Width SD 46.6 fl (35.1-43.9); Red Blood Count 4.31 M/mm3 (4.2-5.4); White Blood Count 6.4 K/mm3 (4.4-11.0)
--- NOTE | 2022-09-23 14:35 | RAD_ITS ---
STUDY: X-RAY CHEST REASON FOR EXAM: Female, 52 years old. PALPITATIONS TECHNIQUE: Single AP portable view of the chest. COMPARISON: Comparison is made with prior study of March 22, 2021. FINDINGS: The lungs are clear and expanded. There is no demonstrated pleural abnormality. Normal size heart. Normal mediastinum and estuardo. Normal visualized pulmonary arteries. Normal visualized aortic arch and descending thoracic aorta. Normal visualized thoracic spine. Normal visualized ribs, clavicles, and shoulders. There is no demonstrated abnormality of the visualized soft tissue structures of the upper abdomen. RAD/Chest 1 View (Portable) IMPRESSION: Normal x-ray examination of the chest. Electronically Signed: Fabricio Hanna MD at 14:57 EDT ,
[2022-09-23 14:46] LABS: Anion Gap 4 (5-15); BUN 13 mg/dL (7-18); BUN/Creat Ratio 14.3 RATIO (10-20); Calcium,Total 9.9 mg/dL (8.5-10.1); Chloride 102 mmol/L (98-107); Creatinine, Serum 0.91 mg/dL (0.55-1.02); EST Glomerular Filtration Rate 69 mL/min (>60); Est Glom Filt Rate - Afr Amer 84 mL/min (>60); Estimated Creatinine Clearance 57.85 ml/min; Glucose 119 mg/dL (74-106); Potassium 3.5 mmol/L (3.5-5.1); Sodium Level 140 mmol/L (136-145); Troponin-I HS (w/2H Reflex) 4 pg/mL (3.0-54.0)
[2022-09-23 16:23] LABS: Reflex Troponin-HS? (from REC) Y
[2022-09-23 16:41] VITALS: PULSE 91; RESP 12; O2SAT 99
--- NOTE | 2022-09-23 17:10 | EX.ED.DYSGE1 ---
HPI History of Present Illness Chief Complaint: Palpitations Informant: patient Onset/Context/Timing Onset: Weeks (3-4) Context: Gradual Onset Timing: Intermittent Quality: Fluttering, bubbling Location: Substernal Worsened by: Walking Relieved by: Nothing Narrative Narrative: Patient presents with palpitations that have been intermittent over the last 3 to 4 weeks. Patient states it feels like a fluttering and a bubbling over the substernal area. Patient states it is worse whenever she walks and is more active. Patient states nothing seems to help with it. Patient states she feels lightheaded when this comes on. Patient admits to some nausea but denies any vomiting. Patient does admit to a mild headache. Patient denies any chest pain. Patient denies any shortness of breath. Patient denies any diaphoresis. [facility] Medical History Arthritis Chronic neck and back pain Costochondral chest pain CPAP (continuous positive airway pressure) dependence Depression Fibromyalgia Hepatitis HISTORY OF BONE SPUR IN SHOULDER Hypertension Knee pain Psoriatic arthritis Shoulder pain Sleep apnea Home Medications Prednisone 2.5 - 5 mg PO PRN PRN FIBROMYALGIA 09/22/19 [History Last Taken Unknown] diphenhydramine HCl 25 mg capsule 50 mg PO QHS 09/22/19 [History Last Taken Unknown] duloxetine 60 mg capsule,delayed release 60 mg PO DAILY 09/22/19 [History Last Taken Unknown] melatonin 10 mg sublingual tablet 10 mg PO QHS 09/22/19 [History Last Taken Unknown] guselkumab 100 mg/mL subcutaneous syringe (Tremfya) mg subcut 03/22/21 [History Last Taken Unknown] amlodipine 5 mg tablet 5 mg PO DAILY blood pressure 07/10/21 [History Last Taken Unknown] cyclobenzaprine 10 mg tablet 10 mg PO QHS PRN PRN muscle relaxant 07/10/21 [History Last Taken Unknown] hydrochlorothiazide 25 mg tablet 25 mg PO DAILY 07/10/21 [History Last Taken Unknown] Allergy/AdvReac Type Severity Reaction Status Date / Time NSAIDS (Non-Steroidal Allergy Mild SWELLING/VO Verified 09/23/22 13:37 Anti-Inflamma MITTING Sulfa (Sulfonamide Allergy Mild SWELLING/VO Verified 09/23/22 13:37 Antibiotics) MITTING Iodinated Contrast Media Allergy Hives Verified 09/23/22 13:37 [Iodinated Contrast Media - IV Dye] Social History Smoking Status: Never smoker alcohol intake: never ROS ROS ED Constitutional Constitutional ED: Denies chills or fever(s) Eyes Eyes: Denies blurry vision or change in vision ENT ENT ED: Denies rhinorrhea or sore throat Cardiovascular Cardiovascular: Reports palpitations; Denies chest pain Respiratory/Chest Respiratory/Chest: Denies cough or dyspnea Gastrointestinal Gastrointestinal: Reports nausea; Denies vomiting Genitourinary Genitourinary ED: Denies dysuria or hematuria Musculoskeletal Musculoskeletal: Denies back pain or neck pain Integumentary Denies abscess or rash Neurologic Neurologic: Reports headache(s); Denies weakness Allergic/Immunologic Allergic/Immunologic ED: Denies mouth swelling or urticaria EXAM Physical Exam Const Vital Signs: 09/23/22 13:35 09/23/22 16:41 09/23/22 16:41 Temperature 97.4 F L Temperature Source Temporal Pulse Rate 109 H 91 Respiratory Rate 18 12 Blood Pressure 137/90 H Blood Pressure Mean 105 Pulse Ox 100 99 Oxygen Delivery Method Room Air Room Air Room Air Positive well nourished and well developed General Appearance ED: well developed and NAD HEENT Reports moist mucous membranes Neck supple and no JVD Resp normal respiratory effort and clear to auscultation bilaterally Cardio regular rate, regular rhythm and no murmurs GI normal to inspection, nondistended, normoactive bowel sounds and non-tender Palpation: soft Extremity normal to inspection General Extremety ED: Negative for edema or tenderness General Extremity: Negative for edema Neuro oriented x3, CN's II-XII intact bilaterally and no sensory deficits noted Sensorium / Orientation: alert Motor Exam: strength 5/5 throughout Psych mental status grossly normal Skin no rashes or lesions noted MDM MDM MDM Narrative Medical decision making narrative: Differential diagnosis includes cardiac dysrhythmia, cardiac ischemia, electrolyte abnormality, dehydration, pneumonia, congestive heart failure, and anxiety. EKG will be obtained to assess for cardiac dysrhythmia and cardiac ischemia. Chest x-ray will be obtained to assess for pneumonia and congestive heart failure. CBC will be obtained to assess for leukocytosis and anemia. Basic metabolic profile will be obtained to assess for electrolyte abnormality and renal function. High-sensitivity troponin will be obtained to assess for cardiac ischemia. 2-hour repeat high-sensitivity troponin will be obtained to assess for ongoing cardiac ischemia. Lab Data Attestation: I reviewed the patient's lab results. Lab results narrative: CBC was reviewed and was within normal limits. Basic metabolic profile was reviewed and was essentially within normal limits. High-sensitivity troponin was reviewed and was normal at 4. 2-hour repeat high-sensitivity troponin was reviewed and was normal at 4. Labs: Laboratory Results - last 24 hr 09/23/22 09/23/22 14:15 16:15 WBC 6.4 RBC 4.31 Hgb 13.9 Hct 41.4 MCV 96.1 MCH 32.3 H MCHC 33.6 RDW Std Deviation 46.6 H RDW Coeff of Bayron 13.2 Plt Count 264 MPV 8.8 Immature Gran % (Auto) 0.300 Neut % (Auto) 60.1 Lymph % (Auto) 26.6 [place] % (Auto) 8.4 Eos % (Auto) 4.1 Baso % (Auto) 0.5 Absolute Neuts (auto) 3.9 Absolute Lymphs (auto) 1.70 Nucleated RBC % 0 Sodium 140 Potassium 3.5 Chloride 102 Carbon Dioxide 34.0 H Anion Gap 4 L BUN 13 Creatinine 0.91 Estim Creat Clear Calc 57.85 Est GFR (MDRD) Af Amer 84 Est GFR (MDRD) Non-Af 69 BUN/Creatinine Ratio 14.3 Glucose 119 H Calcium 9.9 Troponin I High Sens 4 4 Radiography Chest X-Ray - ED: 1 View, Read by ED Physician, Read by Radiologist and No Acute Disease Diagnostic Testing: Clinical Impression(s) from Imaging Studies Chest X-Ray 09/23/22 14:35 IMPRESSION: Normal x-ray examination of the chest. Electronically Signed: Fabricio Hanna MD at 14:57 EDT , Portable 1 view chest x-ray was obtained. On my independent interpretation, lung bunn are clear. There is normal cardiac silhouette. Bony thorax is normal. There is no acute process noted. Radiologist also interpreted the x-ray and agrees. EKG Initial EKG: Attestation: I personally reviewed and interpreted this EKG as follows: Interpretation: No Acute Injury Pattern and Sinus Tachycardia (114) Comments: EKG was obtained. On my independent interpretation, it showed a sinus tachycardia with a rate of 114. [place] interval, QRS interval, and QTc intervals were all normal. [place] was normal. There are no acute ST or T wave changes. Prior EKG tracings: available for review Prior: Unchanged (03/22/2021) Treatment and Re-Evaluation :: Patient was advised of her findings. Patient states she did have some palpitations while here in the emergency department and took a video of the monitor on her phone. I reviewed this with the patient. Patient did have occasional PVCs on the monitor at that time. Patient was advised that these are benign. Patient was instructed to follow-up with her primary care physician in 3 to 5 days. Patient was instructed to return if worse in any way. Patient understood and was agreeable with the plan. All questions were were answered. Discharge Plan Triage Chief Complaint: Palpitations ED Provider: Arsenio Parham Dx/Rx/DC Orders Clinical Impression: Heart palpitations, Premature ventricular contraction Prescriptions: No Action diphenhydramine HCl 25 MG capsule 50 mg PO QHS duloxetine 60 MG capsule 60 mg PO DAILY melatonin 10 MG tablet 10 mg PO QHS Prednisone 5 MG tablet 2.5 - 5 mg PO PRN PRN (Reason: FIBROMYALGIA) Tremfya 100 mg/mL syringe SUBCUT Rx Instructions: once every 2 months cyclobenzaprine 10 mg tablet 10 mg PO QHS PRN PRN (Reason: muscle relaxant) Patient Comments: TAKE 1/2 TO 1 (ONE-HALF TO ONE) TABLET BY MOUTH THREE TIMES DAILY NEEDED FOR SPASMS amlodipine 5 mg tablet 5 mg PO DAILY Patient Comments: TAKE 1 TABLET BY MOUTH ONCE DAILY hydrochlorothiazide 25 mg tablet 25 mg PO DAILY Primary Care Provider: Nichelle Tristan Referrals: Nichelle Tristan DO [Primary Care Provider] - 3-5 Days Disposition Disposition: Home, Self Care
[2022-09-23 17:17] LABS: Troponin-I HS 4 pg/mL (3.0-54.0)
[2022-09-23 18:20] VITALS: BP 122/74; PULSE 91; RESP 18; O2SAT 96
== END 2022-09-23 18:29 | disposition home or self-care (01) ==
PROVIDERS: Emergency Provider Emergency Medicine; PCP Internal Medicine; Visit Provider Emergency Medicine
DX: R00.2 Palpitations (principal); I10 Essential (primary) hypertension; R11.0 Nausea; R51.9 Headache, unspecified; I49.3 Ventricular premature depolarization
CPT/HCPCS: 71045; 80048; 84484; 85025; 93005; 99284; A4216

== ENCOUNTER → 2023-01-18 | Outpatient (CLI) | payer OTHER, SELFPAY | END | disposition home or self-care (01) | PROVIDERS: PCP Internal Medicine; Referring Provider Internal Medicine; Visit Provider Internal Medicine | DX: R00.2 Palpitations (principal) | CPT/HCPCS: 93225; 93226 ==

== ENCOUNTER → 2023-03-28 | Outpatient (CLI) | payer OTHER, SELFPAY ==
--- NOTE | 2023-03-28 14:37 | CT_ITS ---
STUDY: CT ABDOMEN AND PELVIS WITH CONTRAST - URINARY TRACT REASON FOR EXAM: Female, 52 years old. RLQ pain, rule out appendicitis STAT RADIATION DOSAGE (If Supplied By Facility): CTDIvol = ( 12.13 ) mGy, DLP = ( 809.11 ) mGycm TECHNIQUE: IV 100mL Isovue-370 was administered. Transaxial images were obtained from the dome of the diaphragm to the symphysis pubis in the arterial, nephrographic and excretory phases. Multiplanar coronal and sagittal images were reformatted. Individualized Dose Optimization Techniques Were Used For This CT. COMPARISON: August 13, 2013. FINDINGS: The visualized lung bases are unremarkable. The visualized portions of the heart are within normal limits. Normal liver. Normal gallbladder and extrahepatic biliary system. Normal spleen. Normal pancreas. Normal bilateral adrenal glands. Normal visualized stomach. Normal small intestine. There is questionable thickening in a portion of the distal transverse colon series 2 image 52. Remainder of the large bowel appears unremarkable. Appendix is not well visualized although no inflammation is identified in the right lower quadrant. Normal abdominal aorta. No retroperitoneal adenopathy. Normal right kidney. Normal left kidney. Normal urinary bladder. The uterus appears heterogeneous with a 2.9 cm hyperdense lesion on the right series 2 image 81. Normal abdominal wall. Normal osseous structures. CT/Abdomen/Pelvis WITH Contrast IMPRESSION: Nonspecific hyperdense lesion in the uterus as described. Pelvic ultrasound may be helpful for further evaluation. Nonspecific thickening of the transverse colon may be artifactual from under distention however infectious, inflammatory or other entities are hard to exclude. Electronically Signed: Zeyad Brower, at 17:16 EST ,
[2023-03-28 15:30] VITALS: BP 137/59; PULSE 88; RESP 14; O2SAT 96
[2023-03-28] MEDS: DiphenhydrAMINE 50 MG/ML Syringe IV (15:33)
[2023-03-28 15:39] LABS: Absolute Lymphocyte Count 2.06 X10^3/uL (0.83-4.51); Absolute Neutrophil Count 2.4 X10^3/uL (2.0-7.7); Basophil# 0.06 X10^3/uL; Basophil% 1.1 % (0-1); Eosinophil# 0.24 X10^3/uL; Eosinophils% 4.4 % (0-5); Hematocrit 39.7 % (37-47); Hemoglobin 12.9 g/dL (12.0-15.0); Lymphocyte # 2.06 X10^3/ul (0.83-4.51); Lymphocyte % 37.9 % (19-41); Mean Corp Hgb Conc 32.5 g/dL (32-36); Mean Corpuscular Hgb 31.3 pg (27.0-32.0); Mean Corpuscular Volume 96.4 fL (81-99); Mean Platelet Vol. 8.9 fl (6.2-12.0); Monocyte# 0.67 X10^3/uL; Monocyte% 12.3 % (0-10); NRBC Flagged by Analyzer 0 % (0-5); Neutrophil # 2.38 X10^3/uL (2.7-7.7); Neutrophil % 43.9 % (47-70); Platelet Count 307 K/mm3 (150-450); RBC Distribution Width CV 12.7 % (11.6-14.6); RBC Distribution Width SD 44.6 fl (35.1-43.9); Red Blood Count 4.12 M/mm3 (4.2-5.4); White Blood Count 5.4 K/mm3 (4.4-11.0)
[2023-03-28 15:54] LABS: Anion Gap 5 (5-15); BUN 15 mg/dL (7-18); BUN/Creat Ratio 15.2 RATIO (10-20); Calcium,Total 9.9 mg/dL (8.5-10.1); Chloride 103 mmol/L (98-107); Creatinine, Serum 0.99 mg/dL (0.55-1.02); EST Glomerular Filtration Rate 63 mL/min (>60); Est Glom Filt Rate - Afr Amer 76 mL/min (>60); Glucose 101 mg/dL (74-106); Potassium 3.8 mmol/L (3.5-5.1); Sodium Level 141 mmol/L (136-145)
== END | disposition home or self-care (01) ==
PROVIDERS: PCP Internal Medicine; Referring Provider Nurse Practitioner Family; Visit Provider Nurse Practitioner Family
DX: R10.31 Right lower quadrant pain (principal)
CPT/HCPCS: 74177; 80048; 85025; Q9967

== ENCOUNTER → 2023-04-04 | Outpatient (CLI) | payer OTHER, SELFPAY ==
--- NOTE | 2023-04-04 15:52 | US_ITS ---
STUDY: ULTRASOUND OF THE FEMALE PELVIS - COMPLETE REASON FOR EXAM: Female, 52 years old. uterine mass LMP: TECHNIQUE: Transabdominal and Transvaginal TECHNICAL QUALITY: Adequate. COMPARISON: MRI 12/14/2021, CT scan 03/28/2023. FINDINGS: The uterus is anteverted and is in a midline position. The uterus measures 9.9 x 5.1 x 3.8 cm. There is a Nabothian cyst of the cervix. The endometrium measures 7 mm in thickness, and is hyperechoic. There is no demonstrated endometrial mass. There is a solid 3.8 cm mass consistent with fibroid, stable since previous MRI and CT. The right ovary is visualized. The right ovary measures 2.5 x 1.7 x 1.2 cm. There is no right ovarian cyst or ovarian mass. There is no visualized right adnexal mass or complex lesion. There is normal arterial and normal venous vascularity. The left ovary is visualized. The left ovary measures 2.1 x 1.5 x 1.1 cm. There is no left ovarian cyst or ovarian mass. There is no visualized left adnexal mass or complex lesion. There is normal arterial and normal venous vascularity. There is no fluid in the cul-de-sac. The pre void volume of the bladder was 296 ml. US/Pelvic w/ Transvaginal IMPRESSION: Stable 3.8 cm fibroid since at least 12/14/2021. No other definite acute or significant abnormality seen. Electronically Signed: Woody Roe MD at 22:27 EST ,
== END | disposition home or self-care (01) ==
LOC: US 15:52
PROVIDERS: PCP Internal Medicine; Visit Provider Nurse Practitioner Family
DX: N85.8 Other specified noninflammatory disorders of uterus (principal)
CPT/HCPCS: 76830; 76856

== ENCOUNTER → 2023-04-07 | Outpatient (CLI) | payer OTHER, SELFPAY ==
--- NOTE | 2023-04-07 11:14 | RAD_ITS ---
STUDY: X-RAY CHEST REASON FOR EXAM: Female, 52 years old. Cough. TECHNIQUE: Frontal and lateral views of the chest. COMPARISON: 09/23/2022 FINDINGS: The lungs are clear and expanded. There is no demonstrated pleural abnormality. Normal size heart. Normal mediastinum and estuardo. Normal visualized pulmonary arteries. Normal visualized aortic arch and descending thoracic aorta. Normal visualized thoracic spine. Normal visualized ribs, clavicles, and shoulders. No abnormality of the visualized soft tissue structures of the upper abdomen. RAD/Chest PA and Lateral IMPRESSION: No interval change. No active or acute cardiopulmonary disease. Electronically Signed: Aidan Garcia MD at 10:11 [facility] ,
== END | disposition home or self-care (01) ==
LOC: MTRAD 11:13
PROVIDERS: PCP Internal Medicine; Referring Provider Internal Medicine Pulmonary Disease; Visit Provider Internal Medicine Pulmonary Disease
DX: R05.9 Cough, unspecified (principal)
CPT/HCPCS: 71046

== ENCOUNTER → 2023-04-12 | Outpatient (CLI) | payer OTHER, SELFPAY ==
--- NOTE | 2023-04-12 10:03 | BI_ITS ---
MAMMOGRAPHY - BILATERAL SCREENING REASON FOR EXAM: Female, 52 years old. Routine annual screening examination. PERTINENT HISTORY: Non-contributory. History of remote left needle breast biopsy. Occasional bilateral breast tenderness. TECHNIQUE: Digital bilateral breast mignon (3D mammographic acquisition) in the CC and MLO projections. 2-D mediolateral oblique (MLO) and craniocaudad (CC) views of both breasts were obtained. CAD: Full Field Digital Mammography with Computer Added Detection was performed. COMPARISON: Comparison is made with prior study dated July 03, 2020 and April 11, 2022. FINDINGS: Breast Composition: The breasts are extremely dense, which lowers the sensitivity of mammography. There are no dominant masses or suspicious calcifications. There is a 4.8 mm x 5.7 mm well-defined nodule in the anterior retroareolar region of the left breast. Correlation with ultrasound is recommended for further evaluation. No other significant abnormalities are identified. There has been no significant change since the prior study. BI/SCRN MAMM (CAD)W/MIGNON BILAT IMPRESSION: Stable bilateral screening mammogram. Yearly follow-up mammogram recommended. (A) ASSESSMENT CATEGORY: BIRADS Category 0: Incomplete. Need additional imaging evaluation. A letter regarding these results will be sent to the patient by the facility within 30 days. Approximately 10% of breast cancers are not detected by mammography. A normal mammogram should not delay biopsy of a clinically suspicious abnormality. [id number] Electronically Signed: Fabricio Hanna MD at 11:58 EST ,
== END | disposition home or self-care (01) ==
LOC: OPBI 10:03
PROVIDERS: PCP Internal Medicine; Referring Provider Internal Medicine; Visit Provider Internal Medicine
DX: Z12.31 Encounter for screening mammogram for malignant neoplasm of breast (principal)
CPT/HCPCS: 77063; 77067

== ENCOUNTER → 2023-04-17 | Outpatient (CLI) | payer OTHER, SELFPAY ==
--- NOTE | 2023-04-17 13:26 | US_ITS ---
STUDY: ULTRASOUND BREAST - LEFT REASON FOR EXAM: Female, 52 years old. Abnormal screening mammogram. TECHNIQUE: Axial and longitudinal images of the LEFT breast were performed with a high resolution ultrasound transducer. # OF IMAGES: 36 COMPARISON: 04/12/2023 FINDINGS: LEFT Breast: Heterogeneous background echotexture. At 4:00, 5 cm nipple, ultrasound confirms a 10 mm oval parallel circumscribed anechoic mass with posterior enhancement consistent with a cyst. At 3:00, 1 cm from nipple, ultrasound confirms a 6 mm oval parallel circumscribed hypoechoic mass with no posterior features not consistent with a simple cyst. At 6:00, 1 cm from nipple, ultrasound confirms a 5 mm oval parallel microlobulated hypoechoic mass with no posterior features not consistent with a cyst. At 5:00, 2 cm nipple, ultrasound confirms a 9 mm oval parallel circumscribed anechoic mass with posterior enhancement consistent with a cyst. At 5:00, 1 cm from nipple, ultrasound confirms a 6 mm oval parallel circumscribed hypoechoic mass with no posterior features not consistent with a simple cyst.: US/Breast Limited Unilateral IMPRESSION: Ultrasound confirms fibrocystic change with multiple anechoic and hypoechoic masses. Correlation with breast MRI would be useful for further characterization. ASSESSMENT CATEGORY: BIRADS Category 0: Incomplete. Need additional imaging evaluation. A letter regarding these results will be sent to the patient by the facility within 30 days. Electronically Signed: Damian Webb MD at 17:39 EST ,
== END | disposition home or self-care (01) ==
LOC: OPUS 13:24
PROVIDERS: PCP Internal Medicine; Referring Provider Internal Medicine; Visit Provider Internal Medicine
DX: R92.8 Other abnormal and inconclusive findings on diagnostic imaging of breast (principal); N60.12 Diffuse cystic mastopathy of left breast
CPT/HCPCS: 76642

== ENCOUNTER → 2023-04-18 | Outpatient (CLI) | payer OTHER, SELFPAY ==
--- NOTE | 2023-04-18 13:42 | RAD_ITS ---
STUDY: X-RAY - LEFT FOOT CLINICAL: Female, 52 years old. PAIN, CUBOID AREA, NODULE TECHNIQUE: 2 views of the left foot. COMPARISON: None. FINDINGS: Normal talus, calcaneus, and tarsal bones. Normal visualized subtalar, talonavicular, calcaneocuboid, tarsal and tarsometatarsal articulations. Normal metatarsi. Normal metatarsophalangeal joint of the great toe. Normal tibial and fibular sesamoid bones. Normal interphalangeal joint of the great toe. Normal phalanges of the great toe. Normal second through fifth metatarsophalangeal joints. Normal interphalangeal joints and phalanges of the lesser toes. The soft tissue structures are unremarkable. There is no demonstrated fracture. RAD/Foot 2 Views IMPRESSION: Normal x-ray examination of the left foot. Electronically Signed: Naun Zurita MD at 16:07 EST ,
== END | disposition home or self-care (01) ==
LOC: MTRAD 13:39
PROVIDERS: PCP Internal Medicine; Referring Provider Nurse Practitioner Family; Visit Provider Nurse Practitioner Family
DX: M79.672 Pain in left foot (principal)
CPT/HCPCS: 73620

== ENCOUNTER 2023-04-27 12:30 | Outpatient (RCR) | payer OTHER, SELFPAY ==
--- NOTE | 2023-03-30 18:40 | HP.PTEVAL ---
Patient's Visit Information Visit Information Visit Information: JASMYN LIM is a 52 year old F referred to Physical Therapy by Dr. Nichelle Tristan DO with a diagnosis of THORACIC BACK PAIN/STENOSIS ,CERVICAL DISC DDD. Date of Evaluation: 03/30/23 Physical Therapist: Sy Man, PT, Cert MDT, OCS Visit Plan Frequency: 2x /Week Duration: 4 Weeks Plan: PT INTERVTIONS POSTURAL EX'S /SCAPAULAR STRENGTHENING,THORACIC STRENGTHENING ,CERVICAL ROM AND MANUAL THERAPY STM/CERVICAL TRACTION Subjective Subjective: This 52 y/o female presents to physical therapy with thoracic pain/stenosis and cervical DDD . Patient has had neck pain ~ 8 years predominantly causes MICHELLE and thoracic pain for ~ 2 years . Patient has had [facility] because the cold locker and aggravating symptoms. Patient seen neck pain at [facility] and recommended PT. Patient has had MRI cervical and thoracic spine showed stenosis and DDD. Patient is under care of pain management epidural injection in spine lumbar ,thoracic and cervical spine. Prescribed meloxicam RA DR fink dottie psoriatic OA. Muscle relaxer at night. Seen DR Tristan and stated to add DX from [facility] . Initially seen [facility] and had 2nd opinion at [facility]. Location thoracic pain region described as flashes burning sensation. Cervical spine refers to cranium with MICHELLE Right > Left. Aggravating factors lifting ,twisting ,[place] . Alleviating factors rest. Denies Paresthesia/tingling occasional in past. Coughing /sneezing-. Bowel/bladder -. Denies tinnitus/nausea. Patient sleeping good. Patient pain affects QOL and function. Patient goals to decrease pain. 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[employer] Pain Bilateral Back: Pain Intensity (Out of 10): 3 Pain Intensity Range: 10 Bilateral Neck: Pain Intensity (Out of 10): 2 Objective Objective: POSTURE: mild thoracic kyphosis NEURO: denies paresthesia/tingling ,reflexes C5-6-7 3/3 PALPTION: tender UT/Levator/paraspinals AROM: BUE WFL CERVICAL ROM: flexion WFL ,extension min loss ,lateral flexion min loss , rotation min loss THORACIC ROM: flexion min loss ,extension min loss , rotation min , lateral flexion min loss BUE: 4/5 grossly Special Tests C/S Radiculapathy - Left Upper limb tension test: Negative C/S Radiculapathy - Right Upper limb tension test: Negative C/S Radiculapathy - Left Spurlings: Negative C/S Radiculapathy - Right Spurlings: Negative C/S Radiculapathy - Left Cervical distraction: Negative C/S Radiculapathy - Right Cervical distraction: Negative C/S Radiculapathy - Left Relief test: Negative C/S Radiculapathy - Right Relief test: Negative C/S Radiculapathy - Valsalva: Negative Sharp Danielle: Negative Vertebral Artery Test: Negative Alar Ligament Test: Negative Cervical Sitting: Protrusion - Mechanical Response: No effect Cervical Sitting: Protrusion - Symptoms During Testing: No effect Cervical Sitting: Protrusion - Symptoms After Testing: No effect Cervical Sitting: Retraction - Mechanical Response: No effect Cervical Sitting: Retraction - Symptoms During Testing: Increases Cervical Sitting: Retraction - Symptoms After Testing: No worse Cervical Sitting: Retraction-Extension - Mechanical Response: No effect Cerv Sitting: Retraction-Extension - Symptoms During Testing: Increases Cerv Sitting: Retraction-Extension - Symptoms After Testing: No worse Cervical Sitting: Sidebend Right - Mechanical Response: No effect Cervical Sitting: Sidebend Right - Symptoms During Testing: No effect Cervical Sitting: Sidebend Right - Symptoms After Testing: No effect Cervical Sitting: Sidebend Left - Mechanical Response: No effect Cervical Sitting: Sidebend Left - Symptoms During Testing: No effect Cervical Sitting: Sidebend Left - Symptoms After Testing: No effect Cervical Sitting: Rotation Right - Mechanical Response: No effect Cervical Sitting: Rotation Right - Symptoms During Testing: No effect Cervical Sitting: Rotation Right - Symptoms After Testing: No effect Cervical Sitting: Rotation Left - Mechanical Response: No effect Cervical Sitting: Rotation Left - Symptoms During Testing: No effect Cervical Sitting: Rotation Left - Symptoms After Testing: No effect Cervical Sitting: Flexion - Mechanical Response: No effect Cervical Sitting: Flexion - Symptoms During Testing: No effect Cervical Sitting: Flexion - Symptoms After Testing: No effect Thoracic Sitting: Flexion - Mechanical Response: No effect Thoracic Sitting: Flexion - Symptoms During Testing: No effect Thoracic Sitting: Flexion - Symptoms After Testing: No effect Thoracic Sitting: Extension - Mechanical Response: No effect Thoracic Sitting: Extension - Symptoms During Testing: No effect Thoracic Sitting: Extension - Symptoms After Testing: No effect Thoracic Sitting: Right rotation - Mechanical Response: No effect Thoracic Sitting: Right Rotation - Symptoms During Testing: No effect Thoracic Sitting: Right Rotation - Symptoms After Testing: No effect Thoracic Sitting: Left rotation - Mechanical Response: No effect Thoracic Sitting: Left Rotation - Symptoms During Testing: No effect Thoracic Sitting: Left Rotation - Symptoms After Testing: No effect Balance/Special Test Scores Oswestry Low Back Score: 21 Goals Goal 1:: Patient to be I with HEP Goal Time Frame: 4-6 Weeks Goal 2:: Patient to improve cervical and thoracic ROM for ADLS and housework tasks Goal Time Frame: 4-6 Weeks Goal 3:: Patient to demonstrate 50% improvement with less pain thoracic/cervical/MICHELLE and improved function Goal Time Frame: 4-6 Weeks Goal 4:: Patient to improve back oswestry score by 5points to improve QOL and function Goal Time Frame: 4-6 Weeks Rehabilitation Potential Physical Therapy Diagnosis: This patient has thoracic and cervical symptoms with MRI showing some foraminal stenosis with pain and symptoms with activity thus benefit from skilled PT Rehabilitation Potential: Good Anticipated Interventions Patient/Client Instruction: Educate patient on: Condition and Plan of Care For the Purpose of:: To decrease pain, To increase ROM, To improve muscle performance and motor function, To increase tolerance to activity/condition/position, To improve ability of physical actions for home/community/work/leisure, To improve health of tissue, To decrease soft tissue restriction, To increase flexibility/ROM, To improve endurance and To improve tolerance to ADL's Therapeutic Exercise to Include: Strength training, Body mechanics, Postural training, Flexibilty training, Active ROM and Scapular Strength/Stabilization For the Purpose of:: To decrease pain, To increase ROM, To improve muscle performance and motor function, To improve ability to perform ADL's, To increase tolerance to activity/condition/position, To improve ability of physical actions for home/community/work/leisure, To improve health of tissue, To decrease soft tissue restriction, To increase flexibility/ROM and To improve tolerance to ADL's Manual Therapy Techniques to Include: Soft tissue mobilization Comment: CERVICAL TRACTION For the Purpose of:: To decrease pain, To increase ROM, To improve nutrient delivery to tissue, To increase oxygenation perfusion, To improve health of tissue and To decrease soft tissue restriction TENS: Yes IF ES: Yes Cryotherapy (ice pack, ice massage): Yes Thermo therapy (hot pack): Yes Ultrasound (thermal/non thermal): Yes Intermittent cervical traction: Yes For the Purpose of:: To decrease pain, To increase ROM, To improve health of tissue and To decrease soft tissue restriction Text: Thank you for the opportunity to evaluate your patient. For Medicare and Medicare HMO plans, please review the plan of care and approve it. It will need to be FAXED BACK to us at [phone] for Medicare purposes. For Medicare only, by signing this I certify the plan of care. Please let me know if there are questions or concerns regarding this plan of care. Physician Signature: Date:
--- NOTE | 2023-04-27 12:59 | HP.PTDCSUM_ITS ---
Discharge Summary D/C summary: It has been my pleasure to treat JASMYN LIM referred by Dr. Nichelle Tristan DO, with the diagnosis of THORACIC BACK PAIN/STENOSIS ,CERVICAL DISC DDD for a total of 9 visit(s). Discharge Date: Please see the following information for a summary of their discharge status. Subjective Subjective: Patient has been in pain management Plan for Caudal block Seen [facility] OA PT not helping due to inflammation Pain Bilateral Back: Pain Intensity (Out of 10): 3 Bilateral Neck: Pain Intensity (Out of 10): 3 Overall Improvement % Improvement: 20 Objective Objective/Function: POSTURE: mild thoracic kyphosis NEURO: denies paresthesia/tingling ,reflexes C5-6-7 3/3 PALPTION: tender UT/Levator/paraspinals AROM: BUE WFL CERVICAL ROM: flexion WFL ,extension min loss ,lateral flexion min loss , rotation min loss THORACIC ROM: flexion min loss ,extension min loss , rotation min , lateral flexion min loss BUE: 4/5 grossly Goals Goal 1:: Patient to be I with HEP Goal Progress: Goal Met Goal 2:: Patient to improve cervical and thoracic ROM for ADLS and housework tasks Goal 3:: Patient to demonstrate 50% improvement with less pain thoracic/cervical/MICHELLE and improved function Goal Progress: Progressing Goal 4:: Patient to improve back oswestry score by 5points to improve QOL and function Goal Progress: Progressing Plan Plan: D/C D/C Information d/c sentence: If there are questions or concerns regarding this patient's physical therapy, please feel free to call me at [phone]. Thank you for the referral of this patient. Sincerely, Sy Man, PT, Cert MDT, OCS Balance/Gait/Functional tests Balance/Special Test Scores Oswestry Low Back Score: 14 Improvement % Improvement: 20
== END 2023-04-27 19:00 | disposition home or self-care (01) ==
LOC: PT 12:30
PROVIDERS: PCP Internal Medicine; Referring Provider Internal Medicine; Visit Provider Internal Medicine
DX: M48.04 Spinal stenosis, thoracic region (principal); M54.6 Pain in thoracic spine; M50.30 Other cervical disc degeneration, unspecified cervical region
CPT/HCPCS: 97110; 97140; 97162; 97530

== ENCOUNTER → 2023-05-18 | Outpatient (CLI) | payer OTHER, SELFPAY ==
--- NOTE | 2023-05-18 12:31 | MRI_ITS ---
STUDY: BILATERAL BREAST MR WITHOUT AND WITH CONTRAST REASON FOR EXAM: Female, 52 years old. Abnormal mammogram. TECHNIQUE: Multi-sequence multi-echo imaging of both breasts was performed with a dedicated breast coil. T1-weighted and T2-weighted images were performed before the administration of contrast. T1-weighted images were also performed after the intravenous administration of 17 cc of Clariscan contrast. COMPARISON: Bilateral screening mammogram dated 04/12/2023 and left breast ultrasound dated 04/17/2023. FINDINGS: RIGHT BREAST: Heterogeneously dense fibroglandular tissue with moderate background enhancement. Multiple small circumscribed lesions, none of which are suspicious. No abnormal enhancing masses or areas of non-mass enhancement in the right breast. LEFT BREAST: Heterogeneously dense fibroglandular tissue with moderate background enhancement. Multiple small circumscribed lesions, none of which are suspicious. No abnormal enhancing masses or areas of non-mass enhancement in the right breast. No enlarged or abnormal lymph nodes. No abnormality in the visualized regions of the chest or liver. MRI/Breast Bilateral W/O and W IMPRESSION: Heterogeneously dense fibroglandular tissue with moderate background enhancement. Multiple circumscribed masses less than 5 mm in diameter. Given the appearance of the 2 small hypoechoic masses, one of the 3:00 position of the left breast and the other at the 5:00 position of the left breast, the patient should return in 6 months for a repeat diagnostic left mammogram and left breast ultrasound with particular attention to these 2 small hypoechoic circumscribed masses. CATEGORY: BIRADS Category 3: Probably Benign - Short-Interval Follow-up Suggested. A letter regarding these results will be sent to the patient by the facility within 30 days. Electronically Signed: Aidan Garcia MD at 9:28 EDT ,
[2023-05-18 13:04] LABS: CREATININE FINGERSTICK < 1.0 mg/dL (0.55-1.02); EGFR FINGERSTICK > 60.0000 mL/min (>60)
== END | disposition home or self-care (01) ==
LOC: MRI 12:20
PROVIDERS: PCP Internal Medicine; Referring Provider Internal Medicine; Visit Provider Internal Medicine
DX: Z01.812 Encounter for preprocedural laboratory examination (principal); R92.8 Other abnormal and inconclusive findings on diagnostic imaging of breast
CPT/HCPCS: 77049; A9575; A4216; C8908

== ENCOUNTER → 2023-06-01 | Outpatient (CLI) | payer OTHER, SELFPAY | END | disposition home or self-care (01) | LOC: LAB 13:39 | PROVIDERS: PCP Internal Medicine; Visit Provider Internal Medicine | DX: R20.2 Paresthesia of skin (principal) | CPT/HCPCS: 36415; 84443 ==

== ENCOUNTER → 2023-06-28 | Outpatient (CLI) | payer OTHER, SELFPAY ==
--- NOTE | 2023-06-28 14:21 | NEURO ---
NCS and/or EMG Patient Report Ordering Doctor: Nichelle Tristan DATE OF SERVICE: 06/28/23 Deja presents with numbness and tingling in both hands, worse on the right side. She reports neck pain with occasional radiation into the right upper limb. Electrodiagnostic findings: Right median motor nerve demonstrates normal distal latency and amplitude with borderline reduced conduction velocity. Left median motor nerve demonstrates normal distal latency and amplitude with normal conduction velocity. Normal ulnar motor response bilaterally, including conduction across the elbows. Normal median and ulnar F?waves. Prolonged right median sensory latency at the wrist. Normal left median sensory latency. Normal median palmar latency bilaterally. Normal ulnar and radial sensory responses. Needle EMG testing was performed in the upper limbs. 1+ fibrillations were noted in the right triceps, right flexor carpi ulnaris and right lower cervical paraspinals. Motor unit action potentials were normal amplitude and duration. Electrodiagnostic impression: This is an abnormal study in the Upper limbs. 1. Electrodiagnostic findings suggestive of acute right C7 radiculopathy. Consider clinical correlation with cervical spine imaging. 2. Electrodiagnostic findings suggestive of right-sided median mononeuropathy. This is consistent with a mild right carpal tunnel syndrome. There is no electrodiagnostic evidence for a left-sided carpal tunnel syndrome. Multi Select Codes Neurology Neurology Interp Codes: 09609-94 Musc test done w/n test comp (interp) (2) and 62085-71 Nrv cndj test 13/> studies (interp)
== END | disposition home or self-care (01) ==
LOC: PSN 12:26
PROVIDERS: PCP Internal Medicine; Visit Provider Internal Medicine
DX: R20.2 Paresthesia of skin (principal)
CPT/HCPCS: 95886; 95913

== ENCOUNTER 2023-07-05 12:27 | Emergency (ER) | payer OTHER, SELFPAY ==
[2023-07-05 12:29] VITALS: BP 169/73; PULSE 116; RESP 16; TEMP 36.1; O2SAT 99; BMI 32.0
--- NOTE | 2023-07-05 14:00 | EX.ED.GENINJ ---
HPI History of Present Illness Chief Complaint: Other, Pain/Inj Informant: patient Narrative Narrative: Patient is a 53-year-old female presenting for evaluation after bat exposure. Patient states 1 week ago she saw a bat on the road. It was around dust. She used CLOF bag to carry the bat off of the road and into the [place] where she released the bat. She recalls something hard touching her left index finger but does not know if she was bitten. Over the course the last week she has thought about it is now concerned that maybe she came in contact with rabies and would like prophylaxis for this. She is never had rabies vaccine before. No other complaints or concerns reported at this time. Does have a history of immunosuppression and is on Tremya. [facility] Medical History Abdominal pain Depression Hepatitis CPAP (continuous positive airway pressure) dependence Sleep apnea Psoriatic arthritis Costochondral chest pain Hypertension Fibromyalgia HISTORY OF BONE SPUR IN SHOULDER Chronic neck and back pain Knee pain Shoulder pain Arthritis Home Medications ?Medication ?Instructions ?Recorded ?Last Taken ?Type duloxetine 60 mg capsule,delayed 60 mg PO DAILY 09/22/19 Unknown History release melatonin 10 mg sublingual tablet 10 mg PO QHS 09/22/19 Unknown History guselkumab 100 mg/mL subcutaneous 100 mg subcut .[id number] 03/22/21 Unknown History syringe (Tremfya) amlodipine 5 mg tablet 5 mg PO DAILY blood pressure 07/10/21 Unknown History cyclobenzaprine 10 mg tablet 10 mg PO QHS PRN PRN muscle 07/10/21 Unknown History relaxant hydrochlorothiazide 25 mg tablet 25 mg PO DAILY 07/10/21 Unknown History leflunomide 20 mg tablet 20 mg PO DAILY 07/05/23 Unknown History losartan 50 mg tablet 50 mg PO DAILY 07/05/23 Unknown History meloxicam 15 mg tablet 15 mg PO DAILY 07/05/23 Unknown History Allergy/AdvReac Type Severity Reaction Status Date / Time NSAIDS (Non-Steroidal Allergy Mild SWELLING/VO Verified 07/05/23 12:31 Anti-Inflamma MITTING Sulfa (Sulfonamide Allergy Mild SWELLING/VO Verified 07/05/23 12:31 Antibiotics) MITTING Iodinated Contrast Media Allergy Hives Verified 07/05/23 12:31 (Iodinated Contrast Media - IV Dye) Family History no significant family his Social History household members: family housing: house Smoking Status: Never smoker alcohol intake: never ROS ROS ED Constitutional Constitutional ED: Denies chills or fever(s) Gastrointestinal Gastrointestinal: Denies nausea or vomiting Musculoskeletal Musculoskeletal: Denies arthralgias or myalgias Integumentary Denies Abrasions or rash Neurologic Neurologic: Denies paresthesias or weakness EXAM Physical Exam Const Vital Signs: 07/05/23 12:29 07/05/23 14:00 07/05/23 14:52 Temperature 96.9 F L 96.3 F L Temperature Source Temporal Temporal Pulse Rate 116 H 76 Respiratory Rate 16 17 Respiratory Pattern Normal Blood Pressure 169/73 H 143/77 H Blood Pressure Mean 105 99 Pulse Ox 99 99 Oxygen Delivery Method Room Air Room Air 07/05/23 15:02 Temperature 96.3 F L Temperature Source Pulse Rate 76 Respiratory Rate 17 Respiratory Pattern Blood Pressure 143/77 H Blood Pressure Mean 99 Pulse Ox 99 Oxygen Delivery Method Positive well nourished and well developed General Appearance ED: well developed HEENT atraumatic Neck Neck Narrative: supple Chest Wall inspection of chest normal Resp normal respiratory effort Cardio regular rhythm Rate: regular rate Extremity normal to inspection and full ROM Neuro oriented x3, moves all extremities, no focal motor deficits and no sensory deficits noted Psych mental status grossly normal Skin no rashes or lesions noted and no wounds MDM MDM MDM Narrative Medical decision making narrative: Patient evaluated after a bat exposure. There is a potential wound to the left index finger. I do not appreciate any wound at this time and it was a week ago. Patient will be empirically treated for rabies given the ease of treatment and the high morbidity/mortality associated with acute infection. In addition it was a high risk exposure with a bat that was acting abnormal. Patient is agreeable this plan of care. Given return precautions. Will follow-up on days 3 7 and 14 for the remainder of the rabies series. Discharge Plan Triage Chief Complaint: Other, Pain/Inj ED Provider: Carolyne Sloan Dx/Rx/DC Orders Clinical Impression: Bat bite of finger, Encounter for prophylactic administration of rabies immune globulin Instructions: Understanding Rabies Prescriptions: No Action duloxetine 60 MG capsule 60 mg PO DAILY melatonin 10 MG tablet 10 mg PO QHS Tremfya 100 mg/mL syringe 100 mg SUBCUT .[id number] Rx Instructions: once every 2 months cyclobenzaprine 10 mg tablet 10 mg PO QHS PRN PRN (Reason: muscle relaxant) Patient Comments: TAKE 1/2 TO 1 (ONE-HALF TO ONE) TABLET BY MOUTH THREE TIMES DAILY NEEDED FOR SPASMS amlodipine 5 mg tablet 5 mg PO DAILY Patient Comments: TAKE 1 TABLET BY MOUTH ONCE DAILY hydrochlorothiazide 25 mg tablet 25 mg PO DAILY losartan 50 mg tablet 50 mg PO DAILY meloxicam 15 mg tablet 15 mg PO DAILY leflunomide 20 mg tablet 20 mg PO DAILY Primary Care Provider: Nichelle Tristan Referrals: Nichelle Tristan DO [Primary Care Provider] - Print Language: Ukrainian Disposition Disposition: Home, Self Care Discharge Date/Time: 07/05/23 15:03
[2023-07-05] MEDS: Rabies Immune Globulin/PF 300 UNIT/ML, 5 ML VIAL 1500 UNIT IM (14:26)
[2023-07-05] MEDS: Rabies Vaccine,Human Diploid 2.5 UNITS Vial IM (14:28)
[2023-07-05] MEDS: Rabies Immune Globulin/PF 300 UNIT/ML, 1 ML VIAL 90 UNIT IM (14:28)
[2023-07-05 14:52] VITALS: BP 143/77; PULSE 76; RESP 17; TEMP 35.7; O2SAT 99
[2023-07-05 15:02] VITALS: BP 143/77; PULSE 76; RESP 17; TEMP 35.7; O2SAT 99
== END 2023-07-05 15:03 | disposition home or self-care (01) ==
PROVIDERS: Emergency Provider Emergency Medicine; PCP Internal Medicine; Visit Provider Emergency Medicine
DX: S61.251A Open bite of left index finger without damage to nail, initial encounter (principal); Z23 Encounter for immunization; W55.81XA Bitten by other mammals, initial encounter; Y92.410 Unspecified street and highway as the place of occurrence of the external cause; I10 Essential (primary) hypertension; Z79.899 Other long term (current) drug therapy
CPT/HCPCS: 90675; 96372; 99282; 90375

== ENCOUNTER 2023-07-08 13:52 | Outpatient (CLI) | payer OTHER, SELFPAY ==
[2023-07-08 13:52] VITALS: BP 144/80; PULSE 103; RESP 16; TEMP 36; O2SAT 97
[2023-07-08 14:12] VITALS: BP 144/80; PULSE 97; RESP 18; O2SAT 98; BMI 32.0
[2023-07-08] MEDS: Rabies Vaccine,Human Diploid 2.5 UNITS Vial IM (14:14)
[2023-07-08 14:20] VITALS: BP 144/80; PULSE 97; RESP 18; TEMP 36.6; O2SAT 98
== END 2023-07-08 14:41 | disposition home or self-care (01) ==
LOC: ED 14:42
PROVIDERS: PCP Internal Medicine
DX: Z20.3 Contact with and (suspected) exposure to rabies (principal); Z23 Encounter for immunization
CPT/HCPCS: 90675; 96372

== ENCOUNTER 2023-07-12 17:54 | Outpatient (CLI) | payer OTHER, SELFPAY ==
[2023-07-12 17:55] VITALS: BP 134/69; PULSE 75; RESP 16; TEMP 36.2; O2SAT 98; BMI 32.5
[2023-07-12] MEDS: Rabies Vaccine,Human Diploid 2.5 UNITS Vial IM (18:19)
[2023-07-12 18:20] VITALS: BP 129/84; PULSE 76; RESP 15; TEMP 36.1; O2SAT 99; BMI 32.5
== END 2023-07-12 18:33 | disposition home or self-care (01) ==
LOC: ED 18:52
PROVIDERS: PCP Internal Medicine; Visit Provider Student in an Organized Health Care Education/Training Program
DX: Z20.3 Contact with and (suspected) exposure to rabies (principal); Z23 Encounter for immunization
CPT/HCPCS: 90675; 96372

== ENCOUNTER 2023-07-19 20:09 | Outpatient (CLI) | payer OTHER, SELFPAY ==
[2023-07-19] MEDS: Rabies Vaccine,Human Diploid 2.5 UNITS Vial IM (20:32)
[2023-07-19 20:55] VITALS: BP 127/78; PULSE 92; RESP 18; TEMP 36.3; O2SAT 99; BMI 32.0
[2023-07-19 20:57] VITALS: BP 127/75; PULSE 92; RESP 16; TEMP 36.3; O2SAT 98
== END 2023-07-19 21:00 | disposition home or self-care (01) ==
PROVIDERS: PCP Internal Medicine
DX: Z20.3 Contact with and (suspected) exposure to rabies (principal); Z23 Encounter for immunization
CPT/HCPCS: 90675

== ENCOUNTER → 2023-08-28 | Outpatient (CLI) | payer OTHER, SELFPAY ==
--- NOTE | 2023-08-28 16:24 | RAD_ITS ---
STUDY: X-RAY - ABDOMEN/PELVIS REASON FOR EXAM: Female, 53 years old. CHRONIC CONSTIPATION -- RECENT SURGERY TECHNIQUE: Single AP view of the abdomen / pelvis. COMPARISON: None. FINDINGS: Normal visualized lung bases. There is an unremarkable bowel gas pattern. The visualized liver, spleen and kidneys are grossly normal in size and morphology. Normal soft tissue structures. Normal visualized osseous structures. RAD/Abdomen Single View IMPRESSION: Normal x-ray examination of the abdomen and pelvis. Electronically Signed: Damian Webb MD at 18:01 EDT ,
== END | disposition home or self-care (01) ==
LOC: MTRAD 16:23
PROVIDERS: PCP Internal Medicine; Referring Provider Nurse Practitioner Family; Visit Provider Nurse Practitioner Family
DX: K59.09 Other constipation (principal)
CPT/HCPCS: 74018

== ENCOUNTER → 2023-10-06 | Outpatient (CLI) | payer OTHER, SELFPAY ==
[2023-10-06 15:28] LABS: Anion Gap 8 (5-15); BUN 19 mg/dL (7-18); BUN/Creat Ratio 22.5 RATIO (10-20); Calcium,Total 9.6 mg/dL (8.5-10.1); Chloride 102 mmol/L (98-107); Creatinine, Serum 0.85 mg/dL (0.55-1.02); EST Glomerular Filtration Rate 75 mL/min (>60); Est Glom Filt Rate - Afr Amer 91 mL/min (>60); Glucose 106 mg/dL (74-106); Potassium 3.8 mmol/L (3.5-5.1); Sodium Level 139 mmol/L (136-145)
== END | disposition home or self-care (01) ==
LOC: MTLAB 11:22
PROVIDERS: PCP Internal Medicine; Referring Provider Internal Medicine; Visit Provider Internal Medicine
DX: R73.9 Hyperglycemia, unspecified (principal)
CPT/HCPCS: 36415; 80048

== ENCOUNTER → 2023-11-15 | Outpatient (CLI) | payer OTHER, SELFPAY ==
[2023-11-15 15:20] LABS: Absolute Lymphocyte Count 1.27 X10^3/uL (0.83-4.51); Absolute Neutrophil Count 2.9 X10^3/uL (2.0-7.7); Basophil# 0.05 X10^3/uL; Eosinophil# 0.16 X10^3/uL; Eosinophils% 3.1 % (0-5); Hematocrit 38.7 % (37-47); Hemoglobin 12.6 g/dL (12.0-15.0); Lymphocyte # 1.27 X10^3/ul (0.83-4.51); Lymphocyte % 24.7 % (19-41); Mean Corp Hgb Conc 32.6 g/dL (32-36); Mean Corpuscular Hgb 30.7 pg (27.0-32.0); Mean Corpuscular Volume 94.4 fL (81-99); Mean Platelet Vol. 8.8 fl (6.2-12.0); Monocyte# 0.75 X10^3/uL; Monocyte% 14.6 % (0-10); NRBC Flagged by Analyzer 0 % (0-5); Neutrophil % 56.4 % (47-70); Platelet Count 252 K/mm3 (150-450); RBC Distribution Width CV 12.7 % (11.6-14.6); RBC Distribution Width SD 44.1 fl (35.1-43.9); White Blood Count 5.1 K/mm3 (4.4-11.0)
[2023-11-15 16:01] LABS: ALB/GLOB Ratio 1.1 RATIO (0.9-2.4); AST(SGOT) 18 U/L (15-37); Alanine Aminotransfer ALT/SGPT 23 U/L (13-56); Albumin, Serum 3.9 g/dL (3.2-5.0); Alkaline Phosphatase 72 U/L (45-117); Anion Gap 7 (5-15); BUN 16 mg/dL (7-18); BUN/Creat Ratio 18.3 RATIO (10-20); Calcium,Total 10.1 mg/dL (8.5-10.1); Chloride 102 mmol/L (98-107); Cholesterol 226 mg/dL (200); Creatinine, Serum 0.88 mg/dL (0.55-1.02); EST Glomerular Filtration Rate 72 mL/min (>60); Est Glom Filt Rate - Afr Amer 87 mL/min (>60); Ferritin 76 ng/mL (8-252); Follicle Stimulating Hormone 75.9 mIU/mL; Globulin 3.6 g/dL (2.2-4.2); Glucose 98 mg/dL (74-106); High Density Lipoprotein 64 mg/dL; Iron 81 ug/dL (50-170); Iron Binding Capacity,Total 360 ug/dL (250-450); Luteinizing Hormone 28.8 mIU/mL; PERCENT IRON SATURATION 22.5 % (15.0-55.0); Potassium 3.5 mmol/L (3.5-5.1); Protein, Total 7.5 g/dL (6.4-8.2); Sodium Level 139 mmol/L (136-145); Thyroid Stim Hormone (TSH) 0.907 uIU/mL (0.358-3.740); Triglycerides 56 mg/dL; Very Low Density Lipoprotein 11 mg/dL (5-40)
[2023-11-15 16:26] LABS: Microalbumin,Random Urine 7.5 mg/L (NO RANGE EST.); Microalbumin:Creatinine Ratio 6.2 mg/g CRE (<30 mg/g CRE)
== END | disposition home or self-care (01) ==
PROVIDERS: PCP Internal Medicine; Referring Provider Internal Medicine; Visit Provider Internal Medicine
DX: I10 Essential (primary) hypertension (principal); E11.9 Type 2 diabetes mellitus without complications; E78.5 Hyperlipidemia, unspecified; E61.1 Iron deficiency; N95.1 Menopausal and female climacteric states
CPT/HCPCS: 36415; 80053; 80061; 82043; 82570; 82728; 83001; 83002; 83540; 83550; 84443; 85025

== ENCOUNTER → 2024-02-26 | Outpatient (CLI) | payer OTHER, SELFPAY ==
[2024-02-26 15:52] LABS: Absolute Neutrophil Count 4.6 X10^3/uL (2.0-7.7); Basophil# 0.04 X10^3/uL; Basophil% 0.5 % (0-1); Eosinophil# 0.19 X10^3/uL; Eosinophils% 2.4 % (0-5); Mean Corp Hgb Conc 33.3 g/dL (32-36); Mean Corpuscular Hgb 31.6 pg (27.0-32.0); Mean Corpuscular Volume 94.7 fL (81-99); Mean Platelet Vol. 8.9 fl (6.2-12.0); Monocyte# 0.73 X10^3/uL; NRBC Flagged by Analyzer 0 % (0-5); Neutrophil # 4.58 X10^3/uL (2.7-7.7); Neutrophil % 56.7 % (47-70); Platelet Count 290 K/mm3 (150-450); RBC Distribution Width CV 13.1 % (11.6-14.6); RBC Distribution Width SD 44.9 fl (35.1-43.9); Red Blood Count 4.12 M/mm3 (4.2-5.4); White Blood Count 8.1 K/mm3 (4.4-11.0)
== END | disposition home or self-care (01) ==
LOC: MTLAB 13:55
PROVIDERS: PCP Internal Medicine; Referring Provider Nurse Practitioner Family; Visit Provider Nurse Practitioner Family
DX: R53.83 Other fatigue (principal)
CPT/HCPCS: 36415; 85025

== ENCOUNTER 2024-06-26 13:44 | Emergency (ER) | payer OTHER, SELFPAY ==
[2024-06-26 13:44] VITALS: BP 140/118; PULSE 122; RESP 19; TEMP 36.6; O2SAT 98
[2024-06-26 13:46] VITALS: BMI 32.2
[2024-06-26 14:30] VITALS: O2SAT 96
--- NOTE | 2024-06-26 14:30 | EKG12_ITS ---
Test Reason : CP/HTN Blood Pressure : */* mmHG Vent. Rate : 105 BPM Atrial Rate : 105 BPM P-R Int : 164 ms QRS Dur : 78 ms QT Int : 346 ms P-R-T Axes : 52 56 19 degrees QTcB Int : 457 ms Sinus tachycardia Possible Left atrial enlargement Low voltage QRS Borderline ECG Confirmed by GERMAN SUTTON, BRANDY ([id number]), continuity editor EULALIO ABDALLA ([id number]) on 07/01/2024 9:03:08 AM Referred By: RU/UG Confirmed By: BRANDY PORTER MD
--- NOTE | 2024-06-26 14:31 | EX.ED.DYSGE1 ---
HPI History of Present Illness Chief Complaint: Hypertension Informant: patient Narrative Narrative: Presents to ED symptom follow-up pain management office. Patient reports was driving to the office felt short of breath left hand numbness mild chest discomfort. Cough while she is here. History of fibromyalgia, cervical disease with fusion this past November and currently dealing with rotator cuff issues along with biceps tear. She was partial started on gabapentin 2 weeks ago 100 mg at night she would wake up with some swelling to the eyes. This morning she forgot to take last evening's dose of her 2 this morning noted swelling. She went to pain management for follow-up mentioned her symptoms and was referred here. History of hypertension states blood pressure started 150s over 100s at the office. She is on amlodipine losartan, her hydrochlorothiazide was held a week ago and discussion with her county agricultural agent and her PCP due to having metabolic alkalosis. She denies headache. Denies recent travel immobilizations. No history of PE or DVT. Her neck surgery was over 6 months ago. Denies tobacco denies diabetes denies any cardiac history. States mother had a stent In her heart. Prior similar symptoms: No PFSH PFSH Medical History Abdominal pain Depression Hepatitis CPAP (continuous positive airway pressure) dependence Sleep apnea Psoriatic arthritis Costochondral chest pain Hypertension Fibromyalgia HISTORY OF BONE SPUR IN SHOULDER Chronic neck and back pain Knee pain Shoulder pain Arthritis Home Medications ?Medication ?Instructions ?Recorded ?Last Taken ?Type duloxetine 60 mg capsule,delayed 60 mg PO DAILY 09/22/19 06/25/24 History release melatonin 10 mg sublingual tablet 10 mg PO QHS 09/22/19 06/25/24 History guselkumab 100 mg/mL subcutaneous 100 mg subcut .COMPLEX 03/22/21 05/14/24 History syringe (Tremfya) amlodipine 5 mg tablet 5 mg PO DAILY blood pressure 07/10/21 06/26/24 History cyclobenzaprine 10 mg tablet 10 mg PO QHS PRN muscle relaxant 07/10/21 06/25/24 History hydrochlorothiazide 25 mg tablet 25 mg PO DAILY 07/10/21 Unknown History Held on 06/26/24. Instructions: Ordered leflunomide 20 mg tablet 20 mg PO DAILY 07/05/23 06/25/24 History losartan 50 mg tablet 50 mg PO DAILY 07/05/23 06/26/24 History meloxicam 15 mg tablet 15 mg PO DAILY 07/05/23 06/25/24 History cholecalciferol (vitamin D3) 25 25 mcg PO DAILY 06/26/24 06/25/24 History mcg (1,000 unit) capsule (Vitamin D3) gabapentin 100 mg capsule 100 mg PO QHS 06/26/24 Unknown History Held on 06/26/24. Instructions: MD Ordered Allergy/AdvReac Type Severity Reaction Status Date / Time NSAIDS (Non-Steroidal Allergy Mild SWELLING/VO Verified 06/26/24 13:46 Anti-Inflamma MITTING Sulfa (Sulfonamide Allergy Mild SWELLING/VO Verified 06/26/24 13:46 Antibiotics) MITTING Iodinated Contrast Media Allergy Hives Verified 06/26/24 13:46 (Iodinated Contrast Media - IV Dye) Social History household members: family housing: house Smoking Status: Never smoker alcohol intake: never ROS ROS ED Constitutional Constitutional ED: Denies chills, fever(s) or sweats ENT ENT ED: Denies sore throat Cardiovascular Cardiovascular: Reports chest pain; Denies leg edema, palpitations or racing heartbeat Respiratory/Chest Respiratory/Chest: Reports dyspnea; Denies cough or dyspnea on exertion Gastrointestinal Gastrointestinal: Denies abdominal pain, diarrhea, nausea or vomiting Genitourinary Genitourinary ED: Denies dysuria, hematuria or urinary frequency Musculoskeletal Musculoskeletal: Denies back pain, extremity pain or neck pain Integumentary Denies rash or wounds Neurologic Neurologic: Reports paresthesias; Denies headache(s) or weakness EXAM Physical Exam Const Vital Signs: 06/26/24 13:44 06/26/24 13:57 06/26/24 14:30 Temperature 97.9 F Temperature Source Oral Pulse Rate 122 H Respiratory Rate 19 H Respiratory Effort Normal Respiratory Pattern Normal Blood Pressure 140/118 H Blood Pressure Mean 125 Pulse Ox 98 96 Oxygen Delivery Method 06/26/24 15:44 06/26/24 17:00 06/26/24 18:51 Temperature 97.8 F Temperature Source Pulse Rate 80 87 80 Respiratory Rate 15 14 13 Respiratory Effort Respiratory Pattern Blood Pressure 150/73 H 159/85 H 145/71 H Blood Pressure Mean 98 109 95 Pulse Ox 98 94 99 Oxygen Delivery Method Room Air Positive well nourished and well developed General Appearance ED: well developed and NAD HEENT Reports moist mucous membranes normocephalic and atraumatic Eyes Eyes Narrative: mild swelling above the eyes. General Eye ED: Yes normal appearance of both eyes Neck full ROM Neck Narrative: Healed left anterior incision. Chest Wall Chest: Negative for tenderness Resp normal respiratory effort and normal air movement Effort and Inspection: symmetric chest movement; Negative for respiratory distress Cardio regular rhythm and no murmurs Rate: tachycardic Peripheral Pulses: pulses 2+ throughout GI normal to inspection, nondistended, normoactive bowel sounds and non-tender Palpation: Negative for guarding or rebound tenderness present Extremity normal to inspection General Extremety ED: Negative for edema or tenderness General Extremity: Negative for edema Neuro oriented x3 and no sensory deficits noted Sensorium / Orientation: awake and alert Skin no rashes or lesions noted and no wounds MDM MDM MDM Narrative Medical decision making narrative: Interventions / MDM: Differential diagnosis: Chest pain, medication side effects, elevated blood pressure with history of hypertension Diagnosis considered but do not suspect: ACS however workup negative. PE however D-dimer negative. No clinical anaphylaxis. No hypertensive emergency. My EKG interpretation: Sinus rhythm 105, no ST changes isolated T wave version leads III nonspecific. Imaging independently reviewed and interpreted by myself: 2 view chest x-ray: No acute process also read by radiology. External documents reviewed: N/A Test considered but not ordered:N/A ED course: Patient sent here secondary chest pain shortness of breath left hand numbness transient. Tachycardic on arrival. Blood pressure 150s over 80s in the room. With her symptoms cardiac workup initiated. Low risk Wells criteria for PE D-dimer obtain for further evaluation. Will monitor her blood pressure. Workup -2 troponins. D-dimer negative. Two-view chest x-ray negative. Blood pressure 140s to 150s while in the ED. Heart rate improved. I did discuss with her primary care office with Dr. Delvalle, will increase her losartan to twice a day from once a day. She will continue amlodipine. She will call the office for follow-up tomorrow. With her swelling that is transient for 2 weeks no anaphylaxis, she is already been told to hold her gabapentin from pain management. I do not feel further steroids are necessary as they have been transient. Patient agrees with this plan at this time. All questions were answered. Re-evaluation: stable Disposition discussed with patient/family/significant other: Patient Case discussed with consulting clinician: Primary care physician This note was generated with [employer] dictation software. It may contain incorrect words, spelling, and punctuation that were not noted in checking the note before signing. Lab Data Attestation: I reviewed the patient's lab results. Labs: Laboratory Results - last 24 hr 06/26/24 06/26/24 14:36 16:43 WBC 4.2 L RBC 3.69 L Hgb 11.8 L Hct 35.9 L MCV 97.3 MCH 32.0 MCHC 32.9 RDW Std Deviation 43.7 RDW Coeff of [place] 12.3 Plt Count 252 MPV 8.6 Immature Gran % (Auto) 0.200 Neut % (Auto) 43.0 L Lymph % (Auto) 38.2 [place] % (Auto) 10.8 H Eos % (Auto) 6.6 H Baso % (Auto) 1.2 H Absolute Neuts (auto) 1.8 L Absolute Lymphs (auto) 1.62 Nucleated RBC % 0 PT 13.1 INR 1.0 APTT 28.6 D-Dimer Quant (PE/DVT) 0.27 Sodium 140 Potassium 3.9 Chloride 104 Carbon Dioxide 26.9 Anion Gap 9 BUN 14 Creatinine 0.76 Estim Creat Clear Calc 83.82 Est GFR (MDRD) Non-Af 94 BUN/Creatinine Ratio 19.0 Glucose 107 H Calcium 9.6 Troponin T High Sens 6 Troponin T Hi Sens 2 Hr 7 Radiography Diagnostic Testing: Clinical Impression(s) from Imaging Studies Chest X-Ray 06/26/24 16:00 IMPRESSION: NO ACUTE FINDINGS. Reading [facility] Discharge Plan Triage Chief Complaint: Hypertension ED Provider: Dylon Catalan Dx/Rx/DC Orders Clinical Impression: Chest pain, Hypertension, Eye swollen, bilateral Instructions: Hypertension Dc, ED Chest Pain, Uncertain Cause Prescriptions: No Action duloxetine 60 MG capsule 60 mg PO DAILY Patient Comments: TAKES AT BEDTIME melatonin 10 MG tablet 10 mg PO QHS Tremfya 100 mg/mL syringe 100 mg SUBCUT .COMPLEX Rx Instructions: 100 mg subcutaneously EVERY TWO MONTHS; once every 2 months cyclobenzaprine 10 mg tablet 10 mg PO QHS PRN (Reason: muscle relaxant) Patient Comments: TAKE 1/2 TO 1 (ONE-HALF TO ONE) TABLET BY MOUTH THREE TIMES DAILY NEEDED FOR SPASMS amlodipine 5 mg tablet 5 mg PO DAILY hydrochlorothiazide 25 mg tablet 25 mg PO DAILY losartan 50 mg tablet 50 mg PO DAILY meloxicam 15 mg tablet 15 mg PO DAILY Patient Comments: TAKES AT BEDTIME leflunomide 20 mg tablet 20 mg PO DAILY Patient Comments: TAKES AT BEDTIME gabapentin 100 mg capsule 100 mg PO QHS cholecalciferol (vitamin D3) [Vitamin D3] 25 mcg (1,000 unit) capsule 25 mcg PO DAILY Patient Comments: TAKES AT BEDTIME Primary Care Provider: Nichelle Tristan Referrals: Nichelle Tristan DO [Primary Care Provider] - 3-5 Days Activity Restrictions/Additional Instructions: Your cardiac workup negative including D-dimer. Your symptoms improved after Benadryl and Solu-Medrol. Chest x-ray negative. Your blood pressure 140s to 150s in the emergency department. I discussed with Dr. Delvalle, take your losartan twice a day continue amlodipine. Call the office tomorrow for follow-up. You have been instructed to stop your gabapentin by your pain management. Print Language: Salvadorean Disposition Disposition: Home, Self Care Discharge Date/Time: 06/26/24 18:52
[2024-06-26 14:45] LABS: Absolute Lymphocyte Count 1.62 X10^3/uL (0.83-4.51); Absolute Neutrophil Count 1.8 X10^3/uL (2.0-7.7); Basophil# 0.05 X10^3/uL; Basophil% 1.2 % (0-1); Eosinophil# 0.28 X10^3/uL; Eosinophils% 6.6 % (0-5); Hematocrit 35.9 % (37-47); Hemoglobin 11.8 g/dL (12.0-15.0); Lymphocyte # 1.62 X10^3/ul (0.83-4.51); Lymphocyte % 38.2 % (19-41); Mean Corp Hgb Conc 32.9 g/dL (32-36); Mean Corpuscular Volume 97.3 fL (81-99); Mean Platelet Vol. 8.6 fl (6.2-12.0); Monocyte# 0.46 X10^3/uL; Monocyte% 10.8 % (0-10); NRBC Flagged by Analyzer 0 % (0-5); Neutrophil # 1.82 X10^3/uL (2.7-7.7); Platelet Count 252 K/mm3 (150-450); RBC Distribution Width CV 12.3 % (11.6-14.6); RBC Distribution Width SD 43.7 fl (35.1-43.9); Red Blood Count 3.69 M/mm3 (4.2-5.4); White Blood Count 4.2 K/mm3 (4.4-11.0)
[2024-06-26] MEDS: MethylPREDNISolone 125 MG/2 ML Vial IV (14:53)
[2024-06-26] MEDS: DiphenhydrAMINE 50 MG/ML Syringe IV (14:53)
[2024-06-26] MEDS: 0.9% Normal Saline (500mL Bag) 500 ML 999 ML IV (14:53)
[2024-06-26 14:55] LABS: Partial Thromboplast Time 28.6 Seconds (24.1-36.2); Prothrombin Time (Protime)PT. 13.1 SECONDS (11.7-14.9)
[2024-06-26 15:09] LABS: D-Dimer Quantitative (DVT/PE) 0.27 FEU/ug/m (0.27-0.49)
[2024-06-26 15:15] LABS: Anion Gap 9 (5-15); BUN 14 mg/dL (4-19); Calcium,Total 9.6 mg/dL (7.6-11.0); Carbon Dioxide 26.9 mmol/L (21.0-32.0); Chloride 104 mmol/L (98-108); Creatinine, Serum 0.76 mg/dL (0.70-1.20); EST Glomerular Filtration Rate 94 (>60); Estimated Creatinine Clearance 83.82 ml/min (50-250); Glucose 107 mg/dL (70-99); Potassium 3.9 mmol/L (3.3-5.1); Sodium Level 140 mmol/L (133-145); Troponin T High Sensitivity 6 ng/L (<=14)
[2024-06-26 15:44] VITALS: BP 150/73; PULSE 80; RESP 15; O2SAT 98
--- NOTE | 2024-06-26 16:00 | RAD_ITS ---
PROCEDURE: CHEST PA AND LATERAL 06/26/2024 REASON FOR EXAM: SOB TECHNIQUE: Frontal and lateral views of the chest. COMPARISON: 04/07/2023 FINDINGS: Hardware: Status post ACDF. Heart: The heart size is normal. Mediastinum: The mediastinal contour is unremarkable. Lungs: The lungs are clear. Bones: The bones are unremarkable. RAD/Chest PA and Lateral IMPRESSION: NO ACUTE FINDINGS. Reading Location: [facility]
[2024-06-26 17:00] VITALS: BP 159/85; PULSE 87; RESP 14; O2SAT 94
[2024-06-26 18:01] LABS: Troponin T High Sens 2 HR 7 ng/L (<=14)
[2024-06-26 18:51] VITALS: BP 145/71; PULSE 80; RESP 13; TEMP 36.6; O2SAT 99
== END 2024-06-26 18:52 | disposition home or self-care (01) ==
PROVIDERS: Emergency Provider Emergency Medicine; PCP Internal Medicine; Visit Provider Emergency Medicine
DX: I10 Essential (primary) hypertension (principal); R07.9 Chest pain, unspecified; R22.0 Localized swelling, mass and lump, head; G47.30 Sleep apnea, unspecified; Z99.89 Dependence on other enabling machines and devices; F32.A Depression, unspecified; Z79.899 Other long term (current) drug therapy; M19.90 Unspecified osteoarthritis, unspecified site; Z79.1 Long term (current) use of non-steroidal anti-inflammatories (NSAID)
CPT/HCPCS: 71046; 80048; 84484; 85025; 85379; 85610; 85730; 93005; 96361; 96374; 96375; 99284; A4216

== ENCOUNTER → 2024-07-11 | Outpatient (CLI) | payer OTHER, SELFPAY ==
[2024-07-11 16:04] LABS: Anion Gap 9 (5-15); BUN 13 mg/dL (4-19); BUN/Creat Ratio 15.3 RATIO (10-20); Calcium,Total 9.7 mg/dL (7.6-11.0); Carbon Dioxide 28.9 mmol/L (21.0-32.0); Chloride 102 mmol/L (98-108); Creatinine, Serum 0.82 mg/dL (0.70-1.20); EST Glomerular Filtration Rate 86 (>60); Glucose 129 mg/dL (70-99); Potassium 4.1 mmol/L (3.3-5.1); Sodium Level 141 mmol/L (133-145)
== END | disposition home or self-care (01) ==
LOC: MTLAB 12:46
PROVIDERS: PCP Internal Medicine; Referring Provider Internal Medicine; Visit Provider Internal Medicine
DX: E87.3 Alkalosis (principal)
CPT/HCPCS: 36415; 80048

== ENCOUNTER → 2024-07-24 | Outpatient (CLI) | payer OTHER, SELFPAY ==
[2024-07-24 15:59] LABS: Basophil# 0.06 X10^3/uL; Eosinophils% 4.9 % (0-5); Hematocrit 40.1 % (37-47); Hemoglobin 13.1 g/dL (12.0-15.0); Lymphocyte % 31.1 % (19-41); Mean Corp Hgb Conc 32.7 g/dL (32-36); Mean Platelet Vol. 8.9 fl (6.2-12.0); Monocyte# 0.84 X10^3/uL; Monocyte% 13.7 % (0-10); NRBC Flagged by Analyzer 0.3 % (0-5); Neutrophil # 2.98 X10^3/uL (2.7-7.7); Neutrophil % 48.8 % (47-70); Platelet Count 303 K/mm3 (150-450); RBC Distribution Width CV 13.1 % (11.6-14.6); RBC Distribution Width SD 45.2 fl (35.1-43.9); Red Blood Count 4.22 M/mm3 (4.2-5.4); White Blood Count 6.1 K/mm3 (4.4-11.0)
[2024-07-24 16:08] LABS: Color, Urine Yellow (Yellow); Glucose, Dipstick Normal (Normal); Ketone-Dipstick Negative (Negative); Leukocyte Esterase-Dipstick Negative /ul (Negative); Nitrite-Dipstick Negative (Negative); Occult Blood-Urine Negative /ul (Negative); Protein-Dipstick 15 mg/dl (Negative); Urine Bilirubin Dipstick Negative (Negative); Urine Clarity Clear (Clear); Urine Urobilinogen Normal (Normal)
[2024-07-24 16:43] LABS: Microalbumin,Random Urine < 12.0 mg/L (NO RANGE EST.); Microalbumin:Creatinine Ratio UNABLE TO CALCULATE mg/g CRE
[2024-07-24 17:42] LABS: ALB/GLOB Ratio 1.6 RATIO (0.9-2.4); AST(SGOT) 19 U/L (<=31); Alanine Aminotransfer ALT/SGPT 23 U/L (<=34); Albumin, Serum 4.3 g/dL (3.5-5.0); Alkaline Phosphatase 76 U/L (35-104); Anion Gap 12 (5-15); BUN 18 mg/dL (4-19); BUN/Creat Ratio 20.7 RATIO (10-20); Calcium,Total 9.8 mg/dL (7.6-11.0); Carbon Dioxide 24.8 mmol/L (21.0-32.0); Chloride 103 mmol/L (98-108); Cholesterol 265 mg/dL (<=200); Creatinine, Serum 0.86 mg/dL (0.70-1.20); EST Glomerular Filtration Rate 80 (>60); Ferritin 45 ng/mL (22-378); Globulin 2.7 g/dL (2.2-4.2); Glucose 97 mg/dL (70-99); High Density Lipoprotein 74 mg/dL; Low Density Lipoprotein Calc. 173 mg/dL; Potassium 3.9 mmol/L (3.3-5.1); Sodium Level 140 mmol/L (133-145); Total Bilirubin 0.34 mg/dL (0.00-1.30); Triglycerides 93 mg/dL; Very Low Density Lipoprotein 19 mg/dL (5-40); cholesterol:hdl ratio screen 3.59
[2024-07-24 18:35] LABS: Iron 120 ug/dL (50-170); Iron Binding Capacity,Total 348 ug/dL (250-450); Iron Binding Capacity,Unsat 228 ug/dL (228-428)
== END | disposition home or self-care (01) ==
LOC: MTLAB 11:38
PROVIDERS: PCP Internal Medicine; Referring Provider Internal Medicine; Visit Provider Internal Medicine
DX: E78.5 Hyperlipidemia, unspecified (principal); E11.9 Type 2 diabetes mellitus without complications; E61.1 Iron deficiency
CPT/HCPCS: 36415; 80053; 80061; 81002; 82043; 82570; 82728; 83540; 83550; 84443; 85025

== ENCOUNTER → 2024-07-29 | Outpatient (CLI) | payer OTHER, SELFPAY ==
[2024-07-31 15:08] LABS: Lipoprotein A <8.4 nmol/L (<75.0)
== END | disposition home or self-care (01) ==
LOC: MTLAB 10:59
PROVIDERS: PCP Internal Medicine; Referring Provider Internal Medicine; Visit Provider Internal Medicine
DX: E78.5 Hyperlipidemia, unspecified (principal)
CPT/HCPCS: 36415; 83516; 83695

== ENCOUNTER → 2024-08-20 | Outpatient (CLI) | payer OTHER, SELFPAY ==
--- NOTE | 2024-08-20 07:12 | CT_ITS ---
PROCEDURE: LIMITED CHEST CT CARDIAC ONLY 08/20/2024 REASON FOR EXAM: HYPERLIPIDEMIA MILD TECHNIQUE: CT for coronary artery calcium scoring. One or more dose reduction techniques were used (e.g., Automated exposure control, adjustment of the mA and/or kV according to patient size, use of iterative reconstruction technique). RADIATION DOSE SUMMARY: CTDlvol: 12.19 mGy DLP: 195.04 mGycm COMPARISON: Chest x-ray 06/26/2024 CT/Limited Chest CT Cardiac Only IMPRESSION: Limited imaging of the lungs demonstrates no acute process. No pleural effusion or pneumothorax is seen in visualized areas. No adenopathy is noted. The visualized upper abdomen demonstrates no significant abnormality. Reading Location: [address]
--- NOTE | 2024-08-20 17:57 | CA.SCORE ---
Calcium Scoring Date of Study:: 08/20/24 Indications Indications: Family history Coronary Calcium Scoring: High-resolution Computed Tomographic imaging of the chest was performed on [08/20/2024], with particular attention paid to the coronary arteries. Images from the examination were analyzed for the presence and extent of coronary artery calcification , using coronary calcium quantification software. The patient tolerated the procedure well and there were no complications. The results of the coronary calcification analysis are provided below. Findings Coronary Artery Left Main (LM): 0 Left Anterior Descending (LAD): 0 Left Circumflex (LCX): 0 Right Coronary Artery (RCA): 0 Total Agatston Score: 0 Percentile Rankinth percentile Calcium Scoring Interpretation: Different methods to categorize the overall amount of coronary plaque. Overall amount CAC SIS Visual of coronary plaque P1 Mild -100 <2 1-2 vessels with mild amount of plaque P2 Moderate 101-300 3-4 1-2 vessels with moderate amount, 3 vessels with mild amount of plaque P3 Severe 301-999 5-7 3 vessels with moderate amount, 1 vessel with severe amount of plaque P4 Extensive >1000 >8 2-3 vessels with severe amount of plaque Conclusion: No atherosclerotic plaquing noted
== END | disposition home or self-care (01) ==
LOC: CT 07:11
PROVIDERS: PCP Internal Medicine; Referring Provider Internal Medicine; Visit Provider Internal Medicine
DX: Z13.6 Encounter for screening for cardiovascular disorders (principal); E78.5 Hyperlipidemia, unspecified
CPT/HCPCS: 75571; 76380

== ENCOUNTER → 2024-10-21 | Outpatient (CLI) | payer OTHER, SELFPAY ==
[2024-10-21 08:10] LABS: Hematocrit 38.2 % (37-47); Hemoglobin 12.6 g/dL (12.0-15.0); Immature Granulocytes Count 0.020 X10^3/uL (0.0-0.0); Mean Corp Hgb Conc 33.0 g/dL (32-36); Mean Corpuscular Volume 95.3 fL (81-99); Mean Platelet Vol. 8.4 fl (6.2-12.0); NRBC Flagged by Analyzer 0 % (0-5); Platelet Count 257 K/mm3 (150-450); RBC Distribution Width CV 13.2 % (11.6-14.6); RBC Distribution Width SD 46.1 fl (35.1-43.9); Red Blood Count 4.01 M/mm3 (4.2-5.4); White Blood Count 5.1 K/mm3 (4.4-11.0)
== END | disposition home or self-care (01) ==
LOC: LAB 07:36
PROVIDERS: PCP Internal Medicine; Referring Provider Internal Medicine Rheumatology; Visit Provider Internal Medicine Rheumatology
DX: R71.0 Precipitous drop in hematocrit (principal)
CPT/HCPCS: 36415; 85025